=== PATIENT | female | born 1945 | race Caucasian/White ===

== ENCOUNTER 2022-08-05 22:24 | Inpatient (IN) | payer MEDICARE, BC, SELFPAY ==
[2022-08-05 22:50] VITALS: BP 112/66; PULSE 83; RESP 20; TEMP 37.2; O2SAT 88; BMI 25.3
[2022-08-05 22:59] VITALS: O2SAT 90
[2022-08-05 23:06] VITALS: PULSE 71; O2SAT 92
--- NOTE | 2022-08-05 23:23 | CRLHL7_ITS ---
For Patients: As a result of the Cures Act, medical imaging exams and procedure reports are released immediately into your electronic medical record. You may view this report before your referring provider. If you have questions, please contact your health care provider. INDICATION: Hypoxia. TECHNIQUE: Chest 1 views. COMPARISON: None. FINDINGS: Cardiovascular and mediastinum: Heart size and vasculature are normal in caliber and appearance. Lungs and pleural spaces: Subtle patchy right basilar opacities. No sign of pleural effusion. No pneumothorax. Bones and soft tissues: No significant findings. IMPRESSION: Subtle patchy right basilar opacity which suggest pneumonia. Dictated by Dano Williamson MD @ 08/06/2022 12:01:50 AM (Electronically Signed)
[2022-08-05 23:30] VITALS: PULSE 73; O2SAT 91
[2022-08-06] VITALS (16 sets, daily range): BP systolic 112–133; BP diastolic 56–94; PULSE 65–79; RESP 16–18; TEMP 36.4–36.9; O2SAT 89–98; BMI 25.0
--- NOTE | 2022-08-06 00:05 | ED_ITS ---
HPI - SOB/Dyspnea General Chief Complaint: Shortness of Breath/Dyspnea Stated Complaint: Fever, Shortness of Breath Time Seen by Provider: 08/05/22 23:09 History of Present Illness HPI Narrative: 77-year-old woman presenting to the emergency department with daughter is concerned about low oxygen saturations and dehydration has not been eating or drinking much over the last few days. Is down here visiting her daughter from [place]. Started to feel weak just generally unwell about a week ago and increased coughing through the week. Has had a lot of diarrhea as well. Not much abdominal pain. Today daughter measured her temperature at 101? point something. With measured temperature daughter then checked oxygen saturations which read 86%. Daughter tested her negative for COVID Incidentally, urine had been collected and Ms. Davison asked what status was of it noting that she has a history of some pelvic instability resulting in, ?constant urinary tract infection?. She however does not have any symptoms and acknowledges that her primary care provider would not treat what sounds like asymptomatic bacteriuria. She has been achy in her low back but it sounds as if she has also been sitting around. Denying abdominal pain at this time Related Data Home Medications Medication Instructions Recorded Confirmed atorvastatin 40 mg tablet 40 mg PO HS 08/05/22 08/06/22 cholecalciferol (vitamin D3) 25 25 mcg PO DAILY 08/05/22 08/05/22 mcg (1,000 unit) tablet levothyroxine 75 mcg tablet 75 mcg PO DAILY 08/05/22 08/05/22 lisinopril 20 mg tablet 20 mg PO DAILY 08/05/22 08/05/22 vicks nyquil severe cold and flu 15 ml PO Q4H PRN 08/05/22 08/05/22 medicine, maximum strength honey Allergies Allergy/AdvReac Type Severity Reaction Status Date / Time No Known Drug Allergies Allergy Verified 08/05/22 22:54 Review of Systems Status of ROS: Reports: 10 or more systems reviewed and unremarkable except as noted in History and below [facility] Medical History Acquired hypothyroidism Anxiety Bilateral hearing loss Essential hypertension, benign Insomnia Prediabetes SDH (subdural hematoma) Urinary retention with incomplete bladder emptying Surgical History H/O craniotomy H/O dilation and curettage H/O thyroidectomy History of appendectomy Social History Smoking Status: Former smoker What tobacco products do you use: cigarettes Smoking quit date/years: >15 years ago Do you use any of these nicotine containing products: None Second hand tobacco smoke exposure: No How often do you have a drink containing alcohol: monthly or less How often do you have six or more drinks on one occasion: Never AUDIT-C Alcohol total score: 1 Non-prescribed substance use: denies use Caffeine: No service: No Exam Narrative: Exam Narrative: Very pleasant. Disheveled. Hard of hearing. Fully alert. Cranial nerves 2-12 intact. Is breathing easily though sounds a little congested the nasopharynx. Lungs with good air movement however right-sided lung crepitus. No wheeze. Cardiovascular with regular rate and rhythm. Abdomen with normoactive bowel sounds is soft a little protuberant nontender. No masses appreciated. Extremities are without edema. Well perfused. Moving all extremities without difficulty. Able to sit up without assistance. Oropharynx is sticky. No erythema. Const: Vital Signs, click to edit/add: Vital Signs - 24 hr 08/05/22 22:50 08/05/22 23:06 08/05/22 23:30 Temperature 98.9 F Pulse Rate 71 73 Pulse Rate [Left P ulse Oximeter] 83 Respiratory Rate 20 Blood Pressure Blood Pressure [Ri ght Upper Arm] 112/66 Pulse Oximetry 88 92 91 Oxygen Delivery Me thod Room Air Nasal Cannula Nasal Cannula Oxygen Flow Rate 3 3 08/06/22 00:02 08/06/22 00:41 08/06/22 00:42 Temperature Pulse Rate 69 71 71 Pulse Rate [Left P ulse Oximeter] Respiratory Rate Blood Pressure 129/94 H Blood Pressure [Ri ght Upper Arm] Pulse Oximetry 92 94 95 Oxygen Delivery Me thod Nasal Cannula Oxygen Flow Rate 3 08/06/22 01:00 08/06/22 01:02 08/05/22 22:59 Temperature Pulse Rate 70 72 Pulse Rate [Left P ulse Oximeter] Respiratory Rate Blood Pressure 133/84 Blood Pressure [Ri ght Upper Arm] Pulse Oximetry 96 96 90 Oxygen Delivery Me thod Oxygen Flow Rate 08/06/22 01:03 Temperature Pulse Rate 65 Pulse Rate [Left P ulse Oximeter] Respiratory Rate Blood Pressure Blood Pressure [Ri ght Upper Arm] Pulse Oximetry 96 Oxygen Delivery Me thod Nasal Cannula Oxygen Flow Rate 3 Documenting provider has reviewed patient's vital signs: yes Course Vital Signs Vital signs: Initial Vital Signs Temperature 98.9 F 08/05/22 22:50 Temperature Source Temporal Artery Scan 08/05/22 22:50 Pulse Rate 83 08/05/22 22:50 Pulse Rhythm 08/05/22 22:50 Respiratory Rate 20 08/05/22 22:50 Blood Pressure 112/66 08/05/22 22:50 Blood Pressure Mean 81 08/05/22 22:50 Blood Pressure Position Sitting 08/05/22 22:50 Pulse Oximetry 88 08/05/22 22:50 Oxygen Delivery Method 08/05/22 22:50 Vital Signs Temperature 98.9 F 08/05/22 22:50 Pulse Rate 83 08/05/22 22:50 Respiratory Rate 20 08/05/22 22:50 Blood Pressure 112/66 08/05/22 22:50 Pulse Oximetry 88 08/05/22 22:50 Oxygen Delivery Method 08/05/22 22:50 Temperature 98.3 F 08/06/22 09:00 Pulse Rate 74 08/06/22 09:00 Respiratory Rate 16 08/06/22 11:59 Blood Pressure 117/71 08/06/22 09:00 Pulse Oximetry 95 08/06/22 11:04 Oxygen Delivery Method 08/06/22 10:00 Oxygen Flow Rate 1 08/06/22 11:04 MDM - SOB/Dyspnea MDM Narrative Medical decision making narrative: I would think likely got influenza type A and then has evolved a secondary pneumonia given what I see on chest x-ray already. This was done prior to my seeing patient. Does seem to have a subtle infiltrative process in the right lower lung which I think would be consistent with exam. Indeed influenza a testing is positive. It would seem symptoms going on too long to benefit from Tamiflu. CRP notably elevated. Initiated on Rocephin and azithromycin. I did discuss case with our hospitalist prior to receiving all information anticipating admission with persistent hypoxia. Has been turned up to 3 L on nasal cannula to maintain oxygen saturations above 90. Ultimately was [facility] to [facility]. Urinalysis is positive including nitrite however I would either double cover for pneumonia and urine or withhold treatment pending urine culture given described history. Lab Data Attestation: I reviewed the patient's lab results. Labs: Lab Results 08/05/22 08/05/22 08/05/22 Range/Units 22:49 23:55 23:55 WBC 7.99 (4.50-11.00) K/uL RBC 4.19 (4.00-5.20) m/uL Hgb 12.0 (12.0-16.0) gm/dL Hct 35.5 (33.0-51.0) % MCV 85 (80-100) fL MCH 29 (26-34) pg MCHC 34 (32-36) gm/dL RDW Coeff of Jovon 12.9 (11.5-15.5) % Plt Count 152 (140-440) K/uL Neut % (Auto) 81.4 H (42.0-72.0) % Lymph % (Auto) 10.1 L (20-44) % Marion % (Auto) 8.1 (0.0-11.0) % Eos % (Auto) 0.0 (0.0-7.0) % Baso % (Auto) 0.0 (0.0-3.0) % Neut # (Auto) 6.50 (1.7-7.0) K/uL Lymph # (Auto) 0.80 L (0.90-2.90) K/uL Marion # (Auto) 0.60 (0.00-0.90) K/UL Eos # (Auto) 0.00 (0.00-0.50) K/uL Baso # (Auto) 0.00 (0.00-0.30) K/uL Abs Immat Gran (auto) 0.03 (0.00-0.30) K/uL Imm/Tot Granulo (auto) 0.4 % Sodium 132 L (135-149) mmol/L Potassium 2.9 L* (3.6-5.1) mmol/L Chloride 101 (96-114) mmol/L Carbon Dioxide 25 (20-32) mmol/L BUN 19 (7-30) mg/dL Creatinine 0.8 (0.5-1.5) mg/dL Estimated Creat Clear 38.35 Estimated GFR 75 ml/min Glucose 165 H (60-115) mg/dL Venous Lactic Acid (Serial Order) Calcium 8.0 L (8.4-10.6) mg/dL Magnesium 2.1 (1.5-2.6) mg/dL C-Reactive Protein 16.6 H (0.5-1.0) mg/dL NT-Pro-B Natriuret Pep 646 H (0-450) PG/mL Urine Color (Yellow) Urine Appearance (Clear) Urine pH (5.0-8.5) Ur Specific [place] (1.000-1.030) Urine Protein (Negative) Urine Glucose (UA) (Negative) Urine Ketones (Negative) Urine Blood (Negative) Urine Nitrite (Negative) Urine Bilirubin (Negative) Urine Urobilinogen (0.2-1.0) Ur Leukocyte Esterase (Negative) Urine RBC (0-2) Urine WBC (0-5) Ur Squamous Epith Cells (None-Few) Urine Bacteria (None) SARS-CoV-2 (PCR) Negative SARS-CoV-2 (Negative) Influenza Type A (PCR) POSITIVE PCR FLU A A (Negative) Influenza Type B (PCR) Negative PCR FLU B (Negative) RSV (PCR) Negative PCR RSV (Negative) 08/05/22 08/06/22 Range/Units 23:55 00:40 WBC (4.50-11.00) K/uL RBC (4.00-5.20) m/uL Hgb (12.0-16.0) gm/dL Hct (33.0-51.0) % MCV (80-100) fL MCH (26-34) pg MCHC (32-36) gm/dL RDW Coeff of Jovon (11.5-15.5) % Plt Count (140-440) K/uL Neut % (Auto) (42.0-72.0) % Lymph % (Auto) (20-44) % Marion % (Auto) (0.0-11.0) % Eos % (Auto) (0.0-7.0) % Baso % (Auto) (0.0-3.0) % Neut # (Auto) (1.7-7.0) K/uL Lymph # (Auto) (0.90-2.90) K/uL Marion # (Auto) (0.00-0.90) K/UL Eos # (Auto) (0.00-0.50) K/uL Baso # (Auto) (0.00-0.30) K/uL Abs Immat Gran (auto) (0.00-0.30) K/uL Imm/Tot Granulo (auto) % Sodium (135-149) mmol/L Potassium (3.6-5.1) mmol/L Chloride (96-114) mmol/L Carbon Dioxide (20-32) mmol/L BUN (7-30) mg/dL Creatinine (0.5-1.5) mg/dL Estimated Creat Clear Estimated GFR ml/min Glucose (60-115) mg/dL Venous Lactic Acid (Serial Order) Calcium (8.4-10.6) mg/dL Magnesium (1.5-2.6) mg/dL C-Reactive Protein (0.5-1.0) mg/dL NT-Pro-B Natriuret Pep (0-450) PG/mL Urine Color Yellow (Yellow) Urine Appearance Clear (Clear) Urine pH 5.5 (5.0-8.5) Ur Specific [place] 1.015 (1.000-1.030) Urine Protein 1+ A (Negative) Urine Glucose (UA) Negative (Negative) Urine Ketones Negative (Negative) Urine Blood 2+ A (Negative) Urine Nitrite Positive A (Negative) Urine Bilirubin Negative (Negative) Urine Urobilinogen 0.2 (0.2-1.0) Ur Leukocyte Esterase Trace A (Negative) Urine RBC 10-25 A (0-2) Urine WBC 10-25 A (0-5) Ur Squamous Epith Cells Few (None-Few) Urine Bacteria Many A (None) SARS-CoV-2 (PCR) (Negative) Influenza Type A (PCR) (Negative) Influenza Type B (PCR) (Negative) RSV (PCR) (Negative) ECG Data Attestation: I personally reviewed and interpreted this ECG as follows: (Normal sinus rate of 72) Discharge Plan Discharge Clinical Impression: Influenza A, Respiratory failure, Pneumonia Patient Disposition: Admitted As Inpatient
[2022-08-06 00:11] LABS: Hematocrit 35.5 % (33.0-51.0); Immature Granulocytes Abs Auto 0.03 K/uL (0.00-0.30); Immature Granulocytes Pct Auto 0.4 %; Lymphocytes Percent Auto 10.1 % (20-44); Mean Corpuscular HGB Conc 34 gm/dL (32-36); Mean Corpuscular Hemoglobin 29 pg (26-34); Mean Corpuscular Volume 85 fL (80-100); Monocytes Percent Auto 8.1 % (0.0-11.0); Neutrophils Percent Auto 81.4 % (42.0-72.0); Platelet Count* 152 K/uL (140-440); RDW Coefficient of Variation % 12.9 % (11.5-15.5); Red Blood Count 4.19 m/uL (4.00-5.20); White Blood Count* 7.99 K/uL (4.50-11.00)
[2022-08-06 00:12] LABS: Lactate Sepsis w/Reflex* 1.4 mmol/L (0.5-1.9)
[2022-08-06 00:12] LABS: PCR FLU A POSITIVE PCR FLU A (Negative); PCR FLU B Negative PCR FLU B (Negative); PCR RSV Negative PCR RSV (Negative)
[2022-08-06 00:13] LABS: Slide Review Reflex No
[2022-08-06 00:14] LABS: SARS PCR* Negative SARS-CoV-2 (Negative)
[2022-08-06 00:31] LABS: Chloride* 101 mmol/L (96-114); Sodium* 132 mmol/L (135-149)
[2022-08-06 00:34] LABS: Blood Urea Nitrogen* 19 mg/dL (7-30); Carbon Dioxide* 25 mmol/L (20-32); Creatinine* 0.8 mg/dL (0.5-1.5); Est. Creatinine Clearance* 38.35; Estimated Glomerular Filt Rate 75 ml/min
[2022-08-06 00:35] LABS: Glucose* 165 mg/dL (60-115)
[2022-08-06 00:43] LABS: Potassium* 2.9 mmol/L (3.6-5.1)
[2022-08-06 00:44] LABS: NT Pro B Type NatriureticPept* 646 PG/mL (0-450)
[2022-08-06] MEDS: 0.9 % SODIUM CHLORIDE 1000 ml 1,000 ML IV (00:47)
[2022-08-06] MEDS: AZITHROMYCIN 250 MG TABLET 500 MG PO (00:47)
[2022-08-06 00:48] LABS: C Reactive Protein* 16.6 mg/dL (0.5-1.0)
[2022-08-06] MEDS: cefTRIAXone 1 GM in 0.9 % SODIUM CHLORIDE Mini-bag 100 ML IVPB ×2 (00:48→14:19)
[2022-08-06 00:49] LABS: Appearance Urine Clear (Clear); Bilirubin Urine Negative (Negative); Blood Urine 2+ (Negative); Color Urine Yellow (Yellow); Glucose Urine Negative (Negative); Ketones Urine Negative (Negative); Leukocyte Esterase Urine Trace (Negative); Nitrite Urine Positive (Negative); Protein Urine 1+ (Negative); Specific Gravity Urine 1.015 (1.000-1.030); Urobilinogen Urine 0.2 (0.2-1.0); pH Urine 5.5 (5.0-8.5)
--- OUTSIDE RECORDS SUMMARY | 2022-08-06 00:53 | XMS_ITS | Encounter Summary ---
:[address] Address [address] [place] [address]. [place] [address] Care Team Providers Name Role Phone Melissa Parikh Primary Care Provider Unavailable Thony Sousa PA-C Unavailable Encounter Details Date Type Department Care Team Description 02/09/2022 Telephone [facility] Neurology Ag Elizondo, [facility] SLIDE FASTENERS INSPECTOR [address] [place] [address] [place] [id number] [phone] Social History Tobacco Use Types Packs/Day Years Used Date Smoking Tobacco: Former Cigarettes 0.5 20 Smokeless Tobacco: Never Comments: quit 30 yrs a go/ maybe a pack a week Alcohol Use Standard Drinks/Week Comments Yes 0 (1 standard drink = 0.6 oz pure alcoho l) one drink a month Sex Assigned at Date Recorded Not on file documented as of this encounter Miscellaneous Notes Telephone Encounter - Kathleen Fierro RN - 02/09/2022 11:02 AM CDT Per Indira Elizondo NP there are no restrictions from our team since we have signed off. Called and updated patient. No further questions at this time. Telephone Encounter - Kathleen Fierro RN - 02/09/2022 10:01 AM CDT ----- Message from Kathleen Fierro RN sent at 02/08/2022 4:22 PM CDT ----- Regarding: patient question Patient left VM on RN line on 02/08 at 1539 stating she had SDH surgery in July of 2021. She is wondering if it is ok to get a cataract removed. Please call her back at [phone]. Message forwarded to Indira Elizondo NP to review and advise. documented in this encounter Plan of Treatment Not on filedocumented as of this encounter Visit Diagnoses Not on filedocumented in this encounter Care Teams Unit Secretary Relationship Specialty Start Date End Date Melissa Parikh PCP - General Internal Medicine 04/24/21 [address] [place] [address] Thony Sousa, Assigned Neuroscience 06/05/21 PA-C Provider [address] [place] [address] documented as of this encounter
--- OUTSIDE RECORDS SUMMARY | 2022-08-06 00:53 | XMS_ITS | Encounter Summary ---
:1945 Author Organization [place] Address [address] [place] [address] Care Team Providers Name Role Phone EveMelissa vanegas Spenser Primary Care Provider Unavailable Thony oSusa PA-C Unavailable Reason for Visit Rehab Therapy Integrated Services (Routine) - Closed Specialty Diagnoses / Procedures Referred By Contact Refer red To Contact Diagnoses SDH (subdural hematoma) Subdural hematoma Confusion [address] [place] [place] [address] Phone: Referral ID Status Reason Start Date Expiration Date Visits Requ ested Visits Authorized [id number] Closed 07/18/2021 09/02/2021 365 365 Encounter Details Date Type Department Care Team Description 09/01/2021 Hospital Encounter [facility] Unknown, Entered By History Rehabilitation Katerin Gupta OT [address] [place] [id number] [place] [address] [address] [place] [id number] Social History Tobacco Use Types Packs/Day Years Used Date Smoking Tobacco: Former Cigarettes 0.5 20 Smokeless Tobacco: Never Comments: quit 30 yrs a go/ maybe a pack a week Alcohol Use Standard Drinks/Week Comments Yes 0 (1 standard drink = 0.6 oz pure alcoho l) one drink a month Sex Assigned at Date Recorded Not on file COVID-19 Exposure Response Date Recorded In the last month, have you been in contact with No / Unsure 09/01/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 documented as of this encounter Medications at Time of Discharge Medication Sig Dispensed Refills Start Date End Date atorvastatin (LIPITOR) 40 Take 40 mg by mouth At 0 MG tablet Bedtime At hs cephALEXin (KEFLEX) 500 Take 500 mg by mouth 2 0 MG capsule times daily X 7 days, started 07/09/2021 Cholecalciferol (VITAMIN Take 1 tablet by mouth 0 D) 2000 UNIT tablet daily. levETIRAcetam (KEPPRA) Take 1 tablet (500 mg) 60 tablet 0 1 09/15/2020 500 MG tabletIndications: by mouth 2 times daily SDH (subdural hematoma), Subdural hematoma levothyroxine Take 75 mcg by mouth 0 (SYNTHROID/LEVOTHROID) 75 daily MCG tablet lisinopril (ZESTRIL) 20 Take 20 mg by mouth At 0 MG tablet Bedtime meclizine (ANTIVERT) 25 Take 1 tablet (25 mg) 30 tablet 1 0 04/28/2021 MG tablet by mouth every 6 hours as needed for dizziness methocarbamol (ROBAXIN) Take 1 tablet (500 mg) 40 tablet 0 07/16/2021 500 MG tabletIndications: by mouth every 6 hours SDH (subdural hematoma), as needed for muscle Subdural hematoma spasms oxyCODONE (ROXICODONE) 5 Take 1 tablet (5 mg) 40 tablet 0 1 09/15/2020 MG tabletIndications: SDH by mouth every 4 hours (subdural hematoma), as needed for Subdural hematoma breakthrough pain senna-docusate Take 1 tablet by mouth 40 tablet 0 1 (SENOKOT-S/PERICOLACE) 2 times daily as 8.6-50 MG needed for tabletIndications: SDH constipation (take (subdural hematoma), while on narcotics) Subdural hematoma documented as of this encounter Plan of Treatment Not on filedocumented as of this encounter Visit Diagnoses Not on filedocumented in this encounter Care Teams Office Service Coordinator Relationship Specialty Start Date End Date Melissa Parikh PCP - General Internal Medicine 04/24/21 [address] [place] [address] Thony Sousa, Assigned Neuroscience 06/05/21 PA-C Provider [address] [place] [address] documented as of this encounter
--- OUTSIDE RECORDS SUMMARY | 2022-08-06 00:53 | XMS_ITS | Encounter Summary ---
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 documented as of this encounter Plan of Treatment Not on filedocumented as of this encounter Visit Diagnoses Not on filedocumented in this encounter Care Teams Senior Developer Relationship Specialty Start Date End Date Melissa Parikh PCP - General Internal Medicine 04/24/21 [address] [place] [address] Thony Sousa, Assigned Neuroscience 06/05/21 [place] Provider [address] [place] [id number] documented as of this encounter
--- OUTSIDE RECORDS SUMMARY | 2022-08-06 00:53 | XMS_ITS | Encounter Summary ---
:1945 Author Organization [place] Address [address] [place] [address] Care Team Providers Name Role Phone EveMelissa vanegas Spenser Primary Care Provider Unavailable Thony Sousa PA-C Unavailable Reason for Visit Reason Onset Date Comments Symptoms 03/14/2022 Patient Request 03/14/2022 Encounter Details Date Type Department Care Team Description 03/14/2022 Telephone [facility] Guido Orantes Symp toms; Patient Clinic [place] Request [address] [facility] [id number] [place] [address] [address] [place], [place] [id number] [phone] Social History Tobacco Use Types Packs/Day Years [...] this encounter Miscellaneous Notes Telephone Encounter - Wen Walton RN - 03/14/2022 12:01 PM CDT Last Visit: 10/19/21 office visit 12 wk follow-up S/P: CRANIOTOMY, FOR SUBDURAL HEMATOMA EVACUATION on 07/13/21 Next Visit: NA Name of Provider: Dr. Orantes Assessment: See encounter note. Called daughter back and answered all questions. No further questions or concerns. Telephone Encounter - Sara Wu - 03/14/2022 10:42 AM CDT Patient family called. Patient is concerned she took a home COVID test using a nasal swap, and if that would hamper her surgical healing. documented in this encounter Plan of Treatment Not on filedocumented as of this encounter Visit Diagnoses Not on filedocumented in this encounter Care Teams Maintenance Services Dispatcher Relationship Specialty Start Date End Date Melissa Parikh PCP - General Internal Medicine 04/24/21 [address] [place] [address] Thony Sousa, Assigned Neuroscience 06/05/21 PA-C Provider [address] [place] [address] documented as of this encounter
--- OUTSIDE RECORDS SUMMARY | 2022-08-06 00:53 | XMS_ITS | Encounter Summary ---
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 documented as of this encounter Plan of Treatment Not on filedocumented as of this encounter Visit Diagnoses Not on filedocumented in this encounter Care Teams Rotoprinter Relationship Specialty Start Date End Date Melissa Parikh PCP - General Internal Medicine 04/24/21 [address] [place] [address] Thony Sousa, Assigned Neuroscience 06/05/21 MALIA Provider [address] [place] [id number] documented as of this encounter
--- OUTSIDE RECORDS SUMMARY | 2022-08-06 00:53 | XMS_ITS | Encounter Summary ---
:1945 Author Organization [facility] Address [address] [place] [address] Care Team Providers Name Role Phone MarciMelissa izaguirre Spenser Primary Care Provider Unavailable Thony Sousa PA-C Unavailable Reason for Referral Diagnostic Imaging CT Scan (Routine) - Closed Specialty Diagnoses / Procedures Referred By Contact Refer red To Contact Radiology. Diagnoses SDH (subdural hematoma) Indira Elizondo Sh Ct Scan Procedures CT Head w/o Contrast CORPORATE TRAFFIC MANAGER [address] [place] [address] [place] [address] Referral ID Status Reason Start Date Expiration Date Visits Requ ested Visits Authorized [id number] Closed 08/03/2021 08/03/2022 1 1 NT EXECUTIVE Reason for Visit Diagnostic Imaging CT Scan (Routine) - Closed Specialty Diagnoses / Procedures Referred By Contact Refer red To Contact Radiology. Diagnoses SDH (subdural hematoma) Indira Elizondo Sh Ct Scan Procedures CT Head w/o Contrast CORPORATE TRAFFIC MANAGER [address] [place] [address] [place]SS [address] Referral ID Status Reason Start Date Expiration Date Visits Requ ested Visits Authorized [id number] Closed 08/03/2021 08/03/2022 1 1 Encounter Details Date Type Department Care Team Description [facility]/29[facility]2021 [facility] Indira Farr, CORPORATE TRAFFIC MANAGER hematoma) (H) [address] [place] [phone] ER[place] BURGESS [id number] Social History Tobacco Use Types Packs/Day Years [...] been in contact with No / Unsure 08/29/2021 10:26 AM CLIENT EXECUTIVE someone who was confirmed or suspected to [...] 1 tablet by mouth 40 tablet 0 (SENOKOT-S/PERICOLACE) 2 times daily as 8.6-50 MG needed for tabletIndications: SDH constipation (take (subdural hematoma), while on narcotics) Subdural hematoma documented as of this encounter Plan of Treatment Not on filedocumented as of this encounter Procedures Procedure Name Priority Date/Time Associated Diagnosis Comme nts CT HEAD W/O Routine 08/29/2021 11:03 AM SDH (subdural Results for this CONTRAST CLIENT EXECUTIVE hematoma) (H) procedure are in the results section. documented in this encounter Results CT Head w/o Contrast (08/29/2021 11:03 AM CLIENT EXECUTIVE) Anatomical Region Laterality Modality Head, SUBRAD CT NEURO, SUBRAD CT NEURO, UMP CT NEURO, Computed Tomography RAD CT Specimen (Source) Anatomical Location Collection Method / Collectio n Time Received Time / Laterality Volume Impressions 08/29/2021 4:00 PM CLIENT EXECUTIVE IMPRESSION: 1. Redemonstrated postsurgical changes s tatus post left parietal craniotomy for partial evacuation of the left convexity subdural hematoma. 2. Interval expected evolution of a smal l residual hypodense subdural collection overlying the left frontopari etal convexity measuring 5 mm in thickness. Decreased mass effect and resolved midline shift compared to the prior exam. 3. No acute intracranial process. NELY YIP MD Narrative 08/29/2021 4:[address] SCAN OF THE HEAD WITHOUT CONTRAST ?? 08/29/2021 11:03 AM HISTORY: Craniotomy, postop. SDH (subdur al hematoma) (H). TECHNIQUE: ??Axial images of the head an d coronal reformations without IV contrast material. Radiation dose for this scan was reduced using automated exposure control, adjustment o f the mA and/or kV according to patient size, or iterative reconstruc tion technique. COMPARISON: CT head dated 07/14/2021. FINDINGS: ??Again seen are postsurgical changes status post left parietal craniotomy. Postprocedural pneu mocephalus has resolved since the prior examination. Interval decrease in size of the small hypodense residual left frontoparietal c onvexity subdural collection which has undergone expected evolution a nd now measures up to approximately 5 mm in radial thickness c ompared to 11-12 mm on the previous exam. Associated mass effect on the left cerebral hemisphere has decreased/nearly resolved and there is no longer any midline shift. The ventricles are normal in size and configuration. Mild generalized brain parenchymal volume los s. Minimal patchy hypoattenuation in the paratracheal and deep cerebral white matter is nonspecific, but likely reflects changes of chronic small vessel ischemic disease. Intracranial atheroscl erotic calcifications primarily involving the carotid siphons. Visualized orbits appear normal. The par anasal sinuses and mastoids are clear where visualized. Procedure Note Nely Yip MD - 08/29/2021Formattin g of this note might be different from the original. CT SCAN OF THE HEAD WITHOUT CONTRAST 11:03 AM HISTORY: Craniotomy, postop. SDH (subdur al hematoma) (H). TECHNIQUE: Axial images of the head and coronal reformations without IV contrast material. Radiation dose for this scan was reduced using automated exposure control, adjustment o f the mA and/or kV according to patient size, or iterative reconstruc tion technique. COMPARISON: CT head dated 07/14/2021. FINDINGS: Again seen are postsurgical ch anges status post left parietal craniotomy. Postprocedural pneu mocephalus has resolved since the prior examination. Interval decrease in size of the small hypodense residual left frontoparietal c onvexity subdural collection which has undergone expected evolution a nd now measures up to approximately 5 mm in radial thickness c ompared to 11-12 mm on the previous exam. Associated mass effect on the left cerebral hemisphere has decreased/nearly resolved and there is no longer any midline shift. The ventricles are normal in size and configuration. Mild generalized brain parenchymal volume los s. Minimal patchy hypoattenuation in the paratracheal and deep cerebral white matter is nonspecific, but likely reflects changes of chronic small vessel ischemic disease. Intracranial atheroscl erotic calcifications primarily involving the carotid siphons. Visualized orbits appear normal. The par anasal sinuses and mastoids are clear where visualized. IMPRESSION: 1. Redemonstrated postsurgical changes s tatus post left parietal craniotomy for partial evacuation of the left convexity subdural hematoma. 2. Interval expected evolution of a smal l residual hypodense subdural collection overlying the left frontopari etal convexity measuring 5 mm in thickness. Decreased mass effect and resolved midline shift compared to the prior exam. 3. No acute intracranial process. NELY YIP MD Indira Elizondo CORPORATE TRAFFIC MANAGER IMG CT ORDERABLES documented in this encounter Visit Diagnoses Diagnosis SDH (subdural hematoma) Subdural hemorrhage documented in this encounter Care Teams Fast Food Server Relationship Specialty Start Date End Date Melissa Parikh PCP - General Internal Medicine 04/24/21 [address] [place] [address] Thony Sousa, Assigned Neuroscience 06/05/21 PA-C Provider [address] [place] [id number] documented as of this encounter
--- OUTSIDE RECORDS SUMMARY | 2022-08-06 00:53 | XMS_ITS | Encounter Summary ---
:1945 Author Organization [facility] Address [address] [place] [address] Care Team Providers Name Role Phone Melissa Parikh Primary Care Provider Unavailable Thony Sousa PA-C Unavailable Encounter Details Date Type Department Care Team Description 10/19/2021 Travel Social History Tobacco Use Types Packs/Day [...] been in contact with No / Unsure 10/19/2021 9:39 AM SENIOR SAS DEVELOPER someone who was confirmed or suspected to have Coronavirus / COVID-19? documented as of this encounter Plan of Treatment Not on filedocumented as of this encounter Visit Diagnoses Not on filedocumented in this encounter Care Teams Glost Placer Relationship Specialty Start Date End Date Melissa Parikh PCP - General Internal Medicine 04/24/21 [address] [place] [address] Thony Sousa, Assigned Neuroscience 06/05/21 MALIA Provider [address] [place] [id number] documented as of this encounter
--- OUTSIDE RECORDS SUMMARY | 2022-08-06 00:53 | XMS_ITS | Encounter Summary ---
:1945 Author Organization [facility] Address [address] [place] [address] Care Team Providers Name Role Phone MarciMelissa izaguirre Spenser Primary Care Provider Unavailable Thony Sousa PA-C Unavailable Reason for Referral Diagnostic Imaging CT Scan (Routine) - Closed Specialty Diagnoses / Procedures Referred By Contact Refer red To Contact Radiology. Diagnoses SDH (subdural hematoma) S/P craniotomy Mary Keyes NP Sh Ct Scan Procedures CT Head w/o Contrast [address] [place] [address] [place] [phone] Referral ID Status Reason Start Date Expiration Date Visits Requ ested Visits Authorized [id number] Closed 08/29/2021 08/29/2022 1 1 JELLY Reason for Visit Diagnostic Imaging CT Scan (Routine) - Closed Specialty Diagnoses / Procedures Referred By Contact Refer red To Contact Radiology. Diagnoses SDH (subdural hematoma) S/P craniotomy Mary Keyes NP Sh Ct Scan Procedures CT Head w/o Contrast [address] [place] [address] [place] [phone] Referral ID Status Reason Start Date Expiration Date Visits Requ ested Visits Authorized [id number] Closed 08/29/2021 08/29/2022 1 1 Encounter Details Date Type Department Care Team Description 10/19/2021 Hospital Encounter [facility] Mary Keyes DH (subdural hematoma) (H); [facility] K, STAMP MACHINE SERVICER S/P craniotomy [address] [place] [address] S [phone] [place] [address] Social History Tobacco Use Types Packs/Day Years [...] with No / Unsure 10/19/2021 9:39 AM COOK JELLY someone who was confirmed or suspected to [...] Diagnosis Comme nts CT HEAD W/O Routine 10/19/2021 9:53 AM SDH (subdural Results for this CONTRAST COOK JELLY hematoma) (H) procedure are in S/P craniotomy the results section. documented in this encounter Results CT Head w/o Contrast (10/19/2021 9:53 AM COOK JELLY) Anatomical Region Laterality Modality Head, SUBRAD CT NEURO, SUBRAD CT NEURO, P CT NEURO, Computed Tomography RAD CT Specimen (Source) Anatomical Location Collection Method / Collectio n Time Received Time / Laterality Volume Impressions 10/19/2021 1:08 PM COOK JELLY IMPRESSION: 1. ??3 mm isodensity overlying the left frontoparietal parenchyma most consistent with reactive pachymeningeal change. 2. ??No hemorrhage or significant subdur al fluid collection. 3. ??Normal intra-axial density. 4. ??Unchanged 4.3 mm dural based left p arietal calcification. This may be a meningioma. Radiation dose for this scan was reduced using automated exposure control, adjustment of the mA and/or kV according to patient size, or iterative reconstruction technique KYLER STARR MD Narrative 10/19/2021 1:[address] OF THE HEAD WITHOUT CONTRAST 10/19/2021 9:53 AM COMPARISON: Head CT 08/29/2021 HISTORY: ??Subdural hematoma; SDH (subdu ral hematoma) (H); S/P craniotomy TECHNIQUE: ??Axial CT images of the head from the skull base to the vertex were acquired without IV contrast . FINDINGS: INTRACRANIAL CONTENTS: ?? 3 mm isodensity overlying the left front oparietal parenchyma. It is most pronounced beneath the craniotomy. This is most consistent with reactive pachymeningeal change. No hemor rhage or significant subdural fluid collection. 4.3 mm left parietal d ural based calcification which may be a small meningioma. It is unchang ed. Normal intra-axial density. Mild generalized volume loss. VISUALIZED ORBITS/SINUSES/MASTOIDS: No s ignificant orbital abnormality. ??No significant paranasal sinus mucosal disease. No significant middle ear or mastoid effusi on. OSSEOUS STRUCTURES/SOFT TISSUES: Left cr aniotomy. No acute abnormality. Procedure Note Kyler Starr MD - 10/19/2021Format ting of this note might be different from the original. CT OF THE HEAD WITHOUT CONTRAST 10/19/2021 9:53 AM COMPARISON: Head CT 08/29/2021 HISTORY: Subdural hematoma; SDH (subdura l hematoma) (H); S/P craniotomy TECHNIQUE: Axial CT images of the head f rom the skull base to the vertex were acquired without IV contrast . FINDINGS: INTRACRANIAL CONTENTS: 3 mm isodensity overlying the left front oparietal parenchyma. It is most pronounced beneath the craniotomy. This is most consistent with reactive pachymeningeal change. No hemor rhage or significant subdural fluid collection. 4.3 mm left parietal d ural based calcification which may be a small meningioma. It is unchang ed. Normal intra-axial density. Mild generalized volume loss. VISUALIZED ORBITS/SINUSES/MASTOIDS: No s ignificant orbital abnormality. No significant paranasal si nus mucosal disease. No significant middle ear or mastoid effusi on. OSSEOUS STRUCTURES/SOFT TISSUES: Left cr aniotomy. No acute abnormality. IMPRESSION: 1. 3 mm isodensity overlying the left fr ontoparietal parenchyma most consistent with reactive pachymeningeal change. 2. No hemorrhage or significant subdural fluid collection. 3. Normal intra-axial density. 4. Unchanged 4.3 mm dural based left par ietal calcification. This may be a meningioma. Radiation dose for this scan was reduced using automated exposure control, adjustment of the mA and/or kV according to patient size, or iterative reconstruction technique KYLER STARR MD Mary Keyes STAMP MACHINE SERVICER IMG CT ORDERABLES documented in this encounter Visit Diagnoses Diagnosis SDH (subdural hematoma) Subdural hemorrhage S/P craniotomy Other postprocedural status documented in this encounter Care Teams Lpn Relationship Specialty Start Date End Date Melissa Parikh PCP - General Internal Medicine 04/24/21 [address] [place] [address] Thony Sousa, Assigned Neuroscience 06/05/21 PA-C Provider [address] [place] [address] documented as of this encounter
--- OUTSIDE RECORDS SUMMARY | 2022-08-06 00:53 | XMS_ITS | Encounter Summary ---
:1945 Author Organization [facility] Address [address] [place] [address] Care Team Providers Name Role Phone EveMelissa vanegas Spenser Primary Care Provider Unavailable Thony Sousa PA-C Unavailable Reason for Visit Rehab Therapy Integrated Services (Routine) - Closed Specialty Diagnoses / Procedures Referred By Contact Refer red To Contact Diagnoses SDH (subdural hematoma) Subdural hematoma Confusion [address] [place] [address] Phone: Referral ID Status Reason Start Date Expiration Date Visits Requ ested Visits Authorized [id number] Closed 07/18/2021 09/02/2021 365 365 Encounter Details Date Type Department Care Team Description 09/15/2021 Hospital Encounter [facility] Unknown, Entered By History Rehabilitation Katerin Gupta OT [address] [place] [id number] [place] [address] [place] [phone] Social History Tobacco [...] with No / Unsure 09/15/2021 10:57 AM RESERVATION SALES AGENT someone who was confirmed or suspected to [...] on filedocumented in this encounter Care Teams Subgrade Tester Relationship Specialty Start Date End Date Melissa Parikh PCP - General Internal Medicine 04/24/21 [address] [place] [address] Thony Sousa, Assigned Neuroscience 06/05/21 PA-C Provider [address] [place] [address] documented as of this encounter
--- OUTSIDE RECORDS SUMMARY | 2022-08-06 00:53 | XMS_ITS | Clinical Summary ---
:1945 Author Organization [facility] Address [address] [place] [address] Care Team Providers Name Role Phone EveMelissa vanegas Spenser Primary Care Provider Unavailable Thony Sousa PA-C Unavailable Allergies No known active allergies Medications Medication Sig Dispensed Refills Start Date End Date Status atorvastatin (LIPITOR) Take 40 mg by 0 Active 40 MG tablet mouth At Bedtime At hs Cholecalciferol Take 1 tablet by 0 Active (VITAMIN D) 2000 UNIT mouth daily. tablet levothyroxine Take 75 mcg by 0 A ctive (SYNTHROID/LEVOTHROID) mouth daily 75 MCG tablet lisinopril (ZESTRIL) 20 Take 20 mg by 0 Active MG tablet mouth At Bedtime meclizine (ANTIVERT) 25 Take 1 tablet (25 30 tablet 1 04/28/20 21 Active MG tablet mg) by mouth every 6 hours as needed for dizziness cephALEXin (KEFLEX) 500 Take 500 mg by 0 Active MG capsule mouth 2 times daily X 7 days, started 07/09/2021 levETIRAcetam (KEPPRA) Take 1 tablet 60 tablet 0 07/16/2021 Active 500 MG (500 mg) by mouth tabletIndications: SDH 2 times daily (subdural hematoma), Subdural hematoma Additional Information Patient not taking. Reported on 10/19/2021 methocarbamol (ROBAXIN) 500 MG Take 1 tablet (500 40 tablet 0 07/16/2021 Active tabletIndications: SDH (subdural mg) by mouth every 6 hematoma), Subdural hematoma hours as needed for muscle spasms Additional Information Patient not taking. Reported on 10/19/2021 oxyCODONE (ROXICODONE) 5 MG Take 1 tablet (5 mg) by 40 tablet 0 07/16/2021 Active tabletIndications: SDH mouth every 4 hours as (subdural hematoma), Subdural needed for breakthrough hematoma pain Additional Information Patient not taking. Reported on 10/19/2021 senna-docusate Take 1 tablet by 40 tablet 0 07/16/2021 Active (SENOKOT-S/PERICOLACE) 8.6-50 MG mouth 2 times daily tabletIndications: SDH (subdural as needed for hematoma), Subdural hematoma constipation (take while on narcotics) Additional Information Patient not taking. Reported on 10/19/2021 Active Problems Problem Noted Date Confusion 07/13/2021 Subdural hematoma 07/13/2021 SDH (subdural hematoma) 04/24/2021 Fall, initial encounter 04/24/2021 Left shoulder strain, initial encounter 04/24/2021 Abrasion, knee, right, initial encounter 04/24/2021 Hypertension Hyperlipidemia Thyroid disease Resolved Problems Problem Noted Date Resolved Date Multinodular goiter 06/14/2011 06/14/2011 Immunizations Name Administration Dates Next Due Influenza (IIV3) PF 06/14/2011 Social History Tobacco Use Types Packs/Day Years Used Date Smoking Tobacco: Former Cigarettes 0.5 20 Smokeless Tobacco: Never Comments: quit 30 yrs a go/ maybe a pack a week Alcohol Use Standard Drinks/Week Comments Yes 0 (1 standard drink = 0.6 oz pure alcoho l) one drink a month Sex Assigned at Date Recorded Not on file Last Filed Vital Signs Vital Sign Reading Time Taken Comments Blood Pressure 125/77 10/19/2021 11:23 AM OCCUPATIONAL HEALTH NURSE SUPERVISOR Pulse 70 10/19/2021 11:23 AM OCCUPATIONAL HEALTH NURSE SUPERVISOR Temperature 36.6 ??C (97.9 ??F) 07/17/2021 8:22 AM OCCUPATIONAL HEALTH NURSE SUPERVISOR Respiratory Rate 16 08/29/2021 2:21 PM OCCUPATIONAL HEALTH NURSE SUPERVISOR Oxygen Saturation 100% 10/19/2021 11:23 AM OCCUPATIONAL HEALTH NURSE SUPERVISOR Inhaled Oxygen Concentration - - Weight 64 kg (141 lb) 08/29/2021 2:21 PM OCCUPATIONAL HEALTH NURSE SUPERVISOR Height 160 cm (5' 3) 08/03/2021 10:41 AM OCCUPATIONAL HEALTH NURSE SUPERVISOR Body Mass Index 24.98 08/03/2021 10:41 AM OCCUPATIONAL HEALTH NURSE SUPERVISOR Plan of Treatment Health Maintenance Due Date Last Done Comments ADVANCE CARE PLANNING 1945 ANNUAL REVIEW OF HM ORDERS 1945 DEXA 1945 HEPATITIS C SCREENING 1962 LIPID 1989 LUNG CANCER SCREENING 1994 FALL RISK ASSESSMENT 2009 ZOSTER IMMUNIZATION (2 of 04/19/2014 02/22/2014 3) PHQ-2 (once per calendar 09/03/2021 year) COVID-19 Vaccine (4 - 09/20/2021 07/26/2021, 11/09/2020, Booster for Pfizer series) 10/19/2020 INFLUENZA VACCINE (#1) 2022 06/07/2021, 06/07/2021, 06/07/2020, Additional history exists MEDICARE ANNUAL WELLNESS 07/26/2022 07/26/2021 VISIT DTAP/TDAP/TD IMMUNIZATION 09/23/2022 09/23/2012, 10/02/1989 (2 - Td or Tdap) Pneumococcal Vaccine: 65+ Completed 06/16/2016, 10/18/2015 , Years 11/28/2004 IPV IMMUNIZATION Aged Out No longer eligi ble based on patient 's age to complete this topic MENINGITIS IMMUNIZATION Aged Out No longe r eligible based on patient 's age to complete this topic Medical Devices Implanted Type Area Rn Occupational Health Device Shelf Model / Identifier Expiration Serial / Date Lot Imp Scr Syn Matrix Low Pro 1.5x04mm Self Drill [id number]. [id number] - [id number] Metallic Left: SYNTHES-STRATEC .[id number] 1 / Implanted: Qty: 8 on 07/13/2021 by Guido Orantes MD at [facility] Hardware/Anc Cranial / hor 42 03 30OC T 2020 Insurance Payer Benefit Plan / Subscriber ID Effective Dates Phone Addre ss Type Group BCBS BCBS FEDERAL [id number] 2004-Prese [phone] [address] [address] PPO EMPLOYEE nt 0 [place], [place] [address] MEDICARE MEDICARE [id number] 2009-Presdaria [phone] ATTN CL AIMS Medicare t 0 [address] [place] [address] Advance Directives For more information, please contact: [phone] Latest Code Status on File Code Status Date Activated Date Inactivated Comments Full Code 07/14/2021 9:08 AM 07/17/2021 12:37 PM All basic and advanced life-sustaining interventions are performed as jad ropriate Question Answer Comments Code status determined by: Discussion with patient/ legal de cision maker Code Status History Code Status Date Activated Date Inactivated Comments Full Code 04/25/2021 2:26 PM 04/26/2021 1:20 PM All basic an d advanced life-sustaining interventions are performed as jad ropriate Question Answer Comments Code status determined by: Discussion with patient/ legal de cision maker Care Teams Mangle Tender Relationship Specialty Start Date End Date Melissa Parikh PCP - General Internal Medicine 04/24/21 [address] [place] [address] Thony Sousa, Assigned Neuroscience 06/05/21 PA-C Provider [address] [place] [id number]
--- OUTSIDE RECORDS SUMMARY | 2022-08-06 00:53 | XMS_ITS | Encounter Summary ---
:1945 Author Organization [facility] Address [address] [place] [address]. [place] [address] Care Team Providers Name Role Phone Melissa Parikh Primary Care Provider Unavailable Thony Sousa PA-C Unavailable Encounter Details Date Type Department Care Team Description 08/31/2021 Telephone [facility] Jordi Keyes, D[facility] [address] [address] [place] [address] [place] [address] [phone] Social History Tobacco Use Types Packs/Day Years [...] with No / Unsure 09/01/2021 9:32 AM GROUP CARE WORKER someone who was confirmed or suspected to have Coronavirus / COVID-19? documented as of this encounter Miscellaneous Notes Telephone Encounter - Margarita Arellano RN - 09/01/2021 8:55 AM CST for return call. Margarita Arellano RN on 09/01/2021 at 8:55 AM P CARE WORKER Telephone Encounter - Aide Painter - 08/31/2021 10:20 AM CST Terri from [facility] called to question home care orders, please reach her at: [phone] P CARE WORKER documented in this encounter Plan of Treatment Not on filedocumented as of this encounter Visit Diagnoses Not on filedocumented in this encounter Care Teams Motor Mechanic Relationship Specialty Start Date End Date Melissa Parikh PCP - General Internal Medicine 04/24/21 [address] [place] [address] Thony Sousa, Assigned Neuroscience 06/05/21 PA-C Provider [address] [place] [id number] documented as of this encounter
--- OUTSIDE RECORDS SUMMARY | 2022-08-06 00:53 | XMS_ITS | Encounter Summary ---
:1945 Author Organization [place] Address [address] [place] [address] Care Team Providers Name Role Phone EveMelissa vanegas Spenser Primary Care Provider Unavailable Thony Sousa PA-C Unavailable Reason for Referral Home Health Therapies & Aides (Routine: Next available opening) - Pending Review Specialty Diagnoses / Procedures Referred By Contact Refer red To Contact Diagnoses SDH (subdural hematoma) S/P craniotomy Mary Keyes NP [address] [phone] Referral ID Status Reason Start Date Expiration Date Visits V isits Requested Authorized [id number] Pending 08/29/2021 08/29/2022 [address] Scan (Routine) - Closed Specialty Diagnoses / Procedures Referred By Contact Refer red To Contact Radiology. Diagnoses SDH (subdural hematoma) S/P craniotomy Mary Keyes NP Ct Scan Procedures CT Head w/o Contrast [address] [place] [address] [address] [address] [phone] Referral ID Status Reason Start Date Expiration Date Visits Requ ested Visits Authorized [id number] Closed 08/29/2021 08/29/2022 1 1 IC RELATIONS PLAYER Reason for Visit Reason Comments RECHECK Encounter Details Date Type Department Care Team Description 08/29/2021 Office Visit [facility] Caro turosana DEREK Farr [address] [facility] [address] [place] [address] S/P craniotomy (Primary Dx); Neurosurgery Clinic Mary Keyes NP [address] [place], [place] [id number] SDH (subdural hematoma) (H) [place] [address] [facility] [address] [place] [address] Social History Tobacco Use Types Packs/Day Years [...] with No / Unsure 08/29/2021 10:26 AM PUBLIC RELATIONS PLAYER someone who was confirmed or suspected to have Coronavirus / COVID-19? documented as of this encounter Last Filed Vital Signs Vital Sign Reading Time Taken Comments Blood Pressure 124/60 08/29/2021 2:21 PM PUBLIC RELATIONS PLAYER Pulse 76 08/29/2021 2:21 PM PUBLIC RELATIONS PLAYER Temperature - - Respiratory Rate 16 08/29/2021 2:21 PM PUBLIC RELATIONS PLAYER Oxygen Saturation 97% 08/29/2021 2:21 PM PUBLIC RELATIONS PLAYER Inhaled Oxygen Concentration - - Weight 64 kg (141 lb) 08/29/2021 2:21 PM PUBLIC RELATIONS PLAYER Height - - Body Mass Index 24.98 08/03/2021 10:41 AM PUBLIC RELATIONS PLAYER documented in this encounter Patient Instructions Patient InstructionsMary Keyes NP - 08/29/2021 2:00 PM CST - Continue with routine post op care plan and incision care - Activity as tolerated - Follow up in [address] prior - Call clinic with any post op questions or concerns -Seek medical attention with any increased headaches, dizziness, nausea/vomiting, vision/speech changes, weakness, confusion, seizure activity, or other neurological changes. IC RELATIONS PLAYER documented in this encounter Progress Notes Mary Keyes NP - 08/29/2021 2:00 PM CST [facility] Follow Up Visit HPI: Ema Davison is a 76 year old female who presents 6 weeks s/p left craniotomy for SDH evacuation with Dr. Orantes. Patient reports feeling well. Denies any incision concerns. She reports intermittent headache managed with Tylenol PRN. Denies any dizziness, nausea, vision/speech changes, or other neurological changes. She continues to work with OT for cognitive testing. She completed Keppra x 1month. Daughters are also present for visit and they would like a home evaluation to assess for safety/fall risks in the home. Past Medical History: Diagnosis Date ??? Hyperlipidemia ??? Hypertension ??? Kidney stone ??? Post-nasal drip ??? Thyroid disease Past Medical History reviewed with patient during visit. Past Surgical History: Procedure Laterality Date ??? APPENDECTOMY ??? CRANIOTOMY, EVACUATE HEMATOMA SUBDURAL, COMBINED Left 07/13/2021 Procedure: CRANIOTOMY, FOR SUBDURAL HEMATOMA EVACUATION; Surgeon: Guido Orantes MD; Location: OR ??? HUMAN RESOURCES GENERALIST SURGERY ??? nasal polyps removed ??? THYROIDECTOMY 06/13/2011 Procedure:THYROIDECTOMY; TOTAL THYROIDECTOMY; Surgeon:ALFREDO VALENZUELA; Location: OR Past Surgical History reviewed with patient during visit. Current Outpatient Medications Medication ??? atorvastatin (LIPITOR) 40 MG tablet ??? cephALEXin (KEFLEX) 500 MG capsule ??? Cholecalciferol (VITAMIN D) 2000 UNIT tablet ??? levETIRAcetam (KEPPRA) 500 MG tablet ??? levothyroxine (SYNTHROID/LEVOTHROID) 75 MCG tablet ??? lisinopril (ZESTRIL) 20 MG tablet ??? meclizine (ANTIVERT) 25 MG tablet ??? methocarbamol (ROBAXIN) 500 MG tablet ??? oxyCODONE (ROXICODONE) 5 MG tablet ??? senna-docusate (SENOKOT-S/PERICOLACE) 8.6-50 MG tablet No current facility-administered medications for this visit. No Known Allergies Social History Socioeconomic History ??? Marital status: Spouse name: Not on file ??? Number of children: Not on file ??? Years of education: Not on file ??? Highest education level: Not on file Occupational History ??? Not on file Tobacco Use ??? Smoking status: Former Smoker Packs/day: 0.50 Years: 20.00 Pack years: 10.00 Types: Cigarettes ??? Smokeless tobacco: Never Used ??? Tobacco comment: quit 30 yrs a go/ maybe a pack a week Substance and Sexual Activity ??? Alcohol use: Yes Comment: one drink a month ??? Drug use: No ??? Sexual activity: Not on file Other Topics Concern ??? Parent/sibling w/ CABG, [place] or angioplasty before 65F 55M? Not Asked Social History Narrative ??? Not on file Social Determinants of Health Financial Resource Strain: Not on file Food Insecurity: Not on file Transportation Needs: Not on file Physical Activity: Not on file Stress: Not on file Social Connections: Not on file Intimate Partner Violence: Not on file Housing Stability: Not on file ROS: 10 point ROS neg other than the symptoms noted above in the HPI. Vital Signs: BP 124/60 Pulse 76 Resp 16 Wt 141 lb (64 kg) SpO2 97% BMI 24.98 kg/m?? Examination: Constitutional: Alert, well nourished, NAD. HEENT: Normocephalic, atraumatic. Pulm: Without shortness of breath or audible adventitious respiratory sounds. CV: No pitting edema of BLE. Brisk capillary refill, CMS intact. Neurological: Awake Alert Oriented x 3 Speech clear Cranial nerves II - XII intact PERRL EOMI Face symmetric Tongue midline Motor exam: 5/5 strength in all four extremities. Sensation intact Finger to Nose smooth Pronator drift negative Gait: Able to stand from a seated position. Normal non-antalgic, non-myelopathic gait. Incision: Well healed Imaging: CT SCAN OF THE HEAD WITHOUT CONTRAST 08/29/2021 11:03 AM IMPRESSION: 1. Redemonstrated postsurgical changes status post left parietal craniotomy for partial evacuation of the left convexity subdural hematoma. 2. Interval expected evolution of a small residual hypodense subdural collection overlying the left frontoparietal convexity measuring 5 mm in thickness. Decreased mass effect and resolved midline shift compared to the prior exam. 3. No acute intracranial process. Assessment/Plan: 76 year old female who presents 6 weeks s/p left craniotomy for SDH evacuation. Doing well post op. Head CT today shows decreased residual subdural collection now measuring 5 mm, decreased mass effect and resolved midline shift compared to prior exam. - Continue with routine post op care plan and incision care - Activity as tolerated - Continue with OT - Home Care Nursing referral for fall risk assessment in the home - Follow up in [address] prior - Call clinic with any post op questions or concerns Discussed red flag symptoms and advised to seek medical attention with any increased headaches, dizziness, nausea/vomiting, vision/speech changes, weakness, confusion, seizure activity, or other neurological changes. Patient voiced understanding and agreement. Mary Keyes CNP [facility] [place] [address] Pager [phone] IC RELATIONS PLAYER documented in this encounter Nursing Notes Jsesica Dela Cruz MA - 08/29/2021 2:00 PM CST Ema Davison is a 76 year old female who presents for: Chief Complaint Patient presents with ??? RECHECK Initial Vitals: BP 124/60 Pulse 76 Resp 16 Wt 141 lb (64 kg) SpO2 97% BMI 24.98 kg/m?? Estimated body mass index is 24.98 kg/m?? as calculated from the following: Height as of 21: 5' 3 (1.6 m). Weight as of this encounter: 141 lb (64 kg).. Body surface area is 1.69 meters squared. BP completed using cuff size: wrist cuff Data Unavailable Nursing Comments: Jessica Dela Cruz CMA IC RELATIONS PLAYER documented in this encounter Plan of Treatment Scheduled Referrals Name Type Priority Associated Diagnoses Order S [facility] Home Care Nursing Referral Routine: Next SDH (subdural Ordered: Referral available opening hematoma) (H) 08/29/2021 S/P craniotomy documented as of this encounter Results CT Head w/o Contrast (10/19/2021 9:53 AM PUBLIC RELATIONS PLAYER) Anatomical Region Laterality Modality Head, SUBRAD CT NEURO, SUBRAD CT NEURO, UMP CT NEURO, Computed Tomography RAD CT Specimen (Source) Anatomical Location Collection Method / Collectio n Time Received Time / Laterality Volume Impressions 10/19/2021 1:08 PM PUBLIC RELATIONS PLAYER IMPRESSION: 1. ??3 mm isodensity overlying the [...] patient size, or iterative reconstruction technique KYLER BRICE MD Narrative 10/19/2021 1:[address] OF THE HEAD WITHOUT CONTRAST 10/19/2021 [...] cr aniotomy. No acute abnormality. Procedure Note Asis, Kyler Billy, MD - 10/19/2021Format ting of this note [...] patient size, or iterative reconstruction technique KYLER BRICE MD Mary Keyes NP IMG CT ORDERABLES documented in this encounter Visit Diagnoses Diagnosis S/P craniotomy - Primary Other postprocedural status SDH (subdural hematoma) Subdural hemorrhage SDH (subdural hematoma) Subdural hemorrhage S/P craniotomy Other postprocedural status documented in this encounter Care Teams Vending Machine Filler Relationship Specialty Start Date End Date Melissa Parikh PCP - General Internal Medicine 04/24/21 [address] [address] Thony Sousa, Assigned Neuroscience 06/05/21 PA-C Provider [address] [address] [address] documented as of this encounter
--- OUTSIDE RECORDS SUMMARY | 2022-08-06 00:53 | XMS_ITS | Encounter Summary ---
:1945 Author Organization [facility] Address [address] [place] [address] Care Team Providers Name Role Phone Melissa Parikh Primary Care Provider Unavailable Thony Sousa PA-C Unavailable Reason for Visit Reason Comments Surgical Followup 12 wk crani for SDH; DOS: Results CT review Encounter Details Date Type Department Care Team Description 10/19/2021 Office Visit [facility] Jordi Keyes REGIONAL CLIMATE CHANGE ANALYST [address] [place] [address] [address] SDH (subdural hematoma) (H) (Primary Dx) ; Neurology Clinics - Indira Elizondo REGIONAL CLIMATE CHANGE ANALYST [address] [place] [address] S/P craniotomy [place] [address] [facility], [address] [place] [address] Social History Tobacco Use Types [...] with No / Unsure 10/19/2021 9:39 AM PHOTOGRAMMETRIC TECHNICIAN someone who was confirmed or suspected to have Coronavirus / COVID-19? documented as of this encounter Last Filed Vital Signs Vital Sign Reading Time Taken Comments Blood Pressure 125/77 10/19/2021 11:23 AM PHOTOGRAMMETRIC TECHNICIAN Pulse 70 10/19/2021 11:23 AM PHOTOGRAMMETRIC TECHNICIAN Temperature - - Respiratory Rate - - Oxygen Saturation 100% 10/19/2021 11:23 AM PHOTOGRAMMETRIC TECHNICIAN Inhaled Oxygen Concentration - - Weight - - Height - - Body Mass Index - - documented in this encounter Patient Instructions Patient InstructionsIndira Elizondo NP - 10/19/2021 11:30 AM PHOTOGRAMMETRIC TECHNICIAN -Follow up as needed. - Call the clinic at [phone] for increasing redness, swelling or pus draining from the incision, increased pain or any other questions and concerns. - Go to ER with any seizure activity, mental status change (increasing confusion), difficulty with speech or increasing or acute weakness OGRAMMETRIC TECHNICIAN documented in this encounter Progress Notes Indira Elizondo NP - 10/19/2021 11:30 AM CST [facility] Neurosurgery Neurosurgery Followup: HPI: 76F 3 months s/p left craniotomy for SDH evacuation with Dr. Orantes on 07/13/2021. Doing well. Has some frontal headaches. No dizziness, nausea/vomiting, vision changes, or weakness. Incision intact. Medical, surgical, family, and social history unchanged since prior exam. Exam: Constitutional: Alert, well nourished, NAD. HEENT: Normocephalic, atraumatic. Pulm: Without shortness of breath or audible adventitious respiratory sounds. CV: No pitting edema of BLE. Brisk capillary refill, CMS intact. Vital Signs: BP 125/77 Pulse 70 SpO2 100% Neurological: Awake Alert Oriented x 3 Speech clear Cranial nerves II - XII intact PERRL EOMI Face symmetric Tongue midline Motor exam 5/5 strength in all four extremities. Sensation intact Finger to Nose smooth Pronator drift negative Gait: Able to stand from a seated position. Normal non-antalgic, non-myelopathic gait. Able to heel/toe walk without loss of balance Incisions Healing nicely. Imaging: Head CT 10/19/2021 IMPRESSION: 1. 3 mm isodensity overlying the left frontoparietal parenchyma most consistent with reactive pachymeningeal change. 2. No hemorrhage or significant subdural fluid collection. 3. Normal intra-axial density. 4. Unchanged 4.3 mm dural based left parietal calcification. This may be a meningioma. A/P: s/p craniotomy for SDH Patient Instructions -Follow up as needed. - Call the clinic at [phone] for increasing redness, swelling or pus draining from the incision, increased pain or any other questions and concerns. - Go to ER with any seizure activity, mental status change (increasing confusion), difficulty with speech or increasing or acute weakness Indira Elizondo CNP [facility] [address] [place] [address] OGRAMMETRIC TECHNICIAN documented in this encounter Nursing Notes Markie Galarza MA - 10/19/2021 11:30 AM CST Ema Davison is a 76 year old female who presents for: Chief Complaint Patient presents with ??? Surgical Followup 12 wk crani for SDH; DOS: 07/13/21 ??? Results CT review Initial Vitals: BP 125/77 Pulse 70 SpO2 100% Estimated body mass index is 24.98 kg/m?? as calculated from the following: Height as of 08/03/21: 5' 3 (1.6 m). Weight as of 08/29/21: 141 lb (64 kg).. There is no height or weight on file to calculate BSA. BP completed using cuff size: regular Severe Pain (6) Markie Galarza MA OGRAMMETRIC TECHNICIAN documented in this encounter Plan of Treatment Not on filedocumented as of this encounter Visit Diagnoses Diagnosis SDH (subdural hematoma) - Primary Subdural hemorrhage S/P craniotomy Other postprocedural status documented in this encounter Care Teams General Warehouse Associate Relationship Specialty Start Date End Date Melissa Parikh PCP - General Internal Medicine 04/24/21 [address] [address] [address] Thony Sousa, Assigned Neuroscience 06/05/21 PA-C Provider [address] [address] [id number] documented as of this encounter
--- OUTSIDE RECORDS SUMMARY | 2022-08-06 00:53 | XMS_ITS | Encounter Summary ---
:1945 Author Organization [place] Address [address] [place] [address] Care Team Providers Name Role Phone Melissa Parikh Primary Care Provider Unavailable Thony Sousa PA-C Unavailable Encounter Details Date Type Department Care Team Description 08/29/2021 Travel Social History Tobacco Use Types Packs/Day [...] with No / Unsure 08/29/2021 10:26 AM POLE FRAME CONSTRUCTION WORKER someone who was confirmed or suspected to have Coronavirus / COVID-19? documented as of this encounter Plan of Treatment Not on filedocumented as of this encounter Visit Diagnoses Not on filedocumented in this encounter Care Teams Radiologic Electronic Specialist Relationship Specialty Start Date End Date Melissa Parikh PCP - General Internal Medicine 04/24/21 [address] [address] [address] Thony Sousa, Assigned Neuroscience 06/05/21 MALIA Provider [address] [address] [id number] documented as of this encounter
--- OUTSIDE RECORDS SUMMARY | 2022-08-06 00:53 | XMS_ITS | Encounter Summary ---
:1945 Author Organization [place] Address [address] [place] [address] Care Team Providers Name Role Phone Melissa Parikh Primary Care Provider Unavailable Thony Sousa PA-C Unavailable Reason for Visit Reason Onset Date Comments question about travel 10/05/2021 Encounter Details Date Type Department Care Team Description 10/05/2021 Telephone [facility] Thony Sousa question about travel Neurology Clinics - MALIA Bennett [address], [address] [place] [address] [place] [address] [phone] Social History Tobacco Use Types Packs/Day Years [...] with No / Unsure 09/15/2021 10:57 AM TRUST CLERK someone who was confirmed or suspected to have Coronavirus / COVID-19? documented as of this encounter Miscellaneous Notes Telephone Encounter - Harlan Burks RN - 10/06/2021 4:14 PM CST As per Provider it is safe for patient to fly at this point post op. Notified daughter. T CLERK Telephone Encounter - Kaleigh Tirado RN - 10/05/2021 10:09 AM CST Spoke with patient's daughter Gina regarding her mother's travel plans. Patient is s/p craniotomy for evacuation of SDH on 07/13/21. Patient has a follow-up visit on 10/19/21 and wants to fly to [place] on 10/20/21 which will be 14 weeks and 1 day post-op. Informed patient's daughter that I will reach out to care team to check if they have any concerns with this travel plan and get back to her. T CLERK Telephone Encounter - Bhavani Dewtit - 10/05/2021 10:00 AM CST Pt's daughter Gina is asking if it is ok for her mom to travel via airplane in a couple weeks postcraniotomy. Please call her back at [phone]. Thank you~ T CLERK documented in this encounter Plan of Treatment Not on filedocumented as of this encounter Visit Diagnoses Not on filedocumented in this encounter Care Teams Whip Sawyer Relationship Specialty Start Date End Date Melissa Parikh PCP - General Internal Medicine 04/24/21 [address] [address] [address] Thony Sousa, Assigned Neuroscience 06/05/21 PA-C Provider [address] [place] [address] [id number] documented as of this encounter
--- OUTSIDE RECORDS SUMMARY | 2022-08-06 00:53 | XMS_ITS | Encounter Summary ---
:1945 Author Organization [facility] Address [address] [place] [address] Care Team Providers Name Role Phone Melissa Parikh Primary Care Provider Unavailable Thony Sousa PA-C Unavailable Encounter Details Date Type Department Care Team Description 09/01/2021 Travel Social History Tobacco Use Types Packs/Day [...] with No / Unsure 09/01/2021 9:32 AM MAGISTERIAL DISTRICT JUDGE someone who was confirmed or suspected to have Coronavirus / COVID-19? documented as of this encounter Plan of Treatment Not on filedocumented as of this encounter Visit Diagnoses Not on filedocumented in this encounter Care Teams Snaker Driving Horses Relationship Specialty Start Date End Date Melissa Parikh PCP - General Internal Medicine 04/24/21 [address] [address] [address] Thony Sousa, Assigned Neuroscience 06/05/21 MALIA Provider [address] [place] [address] [id number] documented as of this encounter
[2022-08-06] MEDS: POTASSIUM BICARB 25 MEQ EFFERVESCENT TAB 50 MEQ PO (00:54)
--- OUTSIDE RECORDS SUMMARY | 2022-08-06 00:54 | XMS_ITS | Encounter Summary ---
:1945 Author Organization [facility] Address [address] [place] [address] Care Team Providers Name Role Phone Melissa Parikh Primary Care Provider Unavailable Thony Sousa PA-C Unavailable Reason for Referral Care Coordination (Routine) - Closed Specialty Diagnoses / Procedures Referred By Contact Refer red To Contact Diagnoses Other specified counseling Melissa Parikh [facility] [address], [place] [address] Referral ID Status Reason Start Date Expiration Date Visits Requ ested Visits Authorized [id number] Closed 07/18/2021 07/18/2022 1 1 OPERATOR Encounter Details Date Type Department Care Team Description 07/18/2021 Orders Only [facility] Care Melissa Parikh Other specified Coordination [facility] [place], [place] [address] [place] [address] [place], [place] [phone] [address] Social History Tobacco Use Types Packs/Day Years [...] been in contact with No / Unsure 07/13/2021 2:44 PM TUB 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 documented as of this encounter Plan of Treatment Scheduled Referrals Name Type Priority Associated Diagnoses Order S [facility] Referral Routine: Next Other specified Expected: Discharge - available opening counseling 07/18/2021 Referral to CC (Approximate) , Expires: 07/18/2022 documented as of this encounter Visit Diagnoses Diagnosis Other specified counseling documented in this encounter Care Teams Combine Mechanic Relationship Specialty Start Date End Date Melissa Parikh PCP - General Internal Medicine 04/24/21 [address] [place] [address] Thony Sousa, Assigned Neuroscience 06/05/21 PA-C Provider [address] [place] [address] [id number] documented as of this encounter
--- OUTSIDE RECORDS SUMMARY | 2022-08-06 00:54 | XMS_ITS | Encounter Summary ---
:1945 Author Organization [facility] Address [address] [place] [address] Care Team Providers Name Role Phone Melissa Parikh Primary Care Provider Unavailable Thony Sousa PA-C Unavailable Encounter Details Date Type Department Care Team Description 07/21/2021 Travel Social History Tobacco Use Types Packs/Day [...] been in contact with No / Unsure 07/21/2021 9:58 AM AMERICAN HISTORY TEACHER someone who was confirmed or suspected to have Coronavirus / COVID-19? documented as of this encounter Plan of Treatment Not on filedocumented as of this encounter Visit Diagnoses Not on filedocumented in this encounter Care Teams Pelt Salter Relationship Specialty Start Date End Date Melissa Parikh PCP - General Internal Medicine 04/24/21 [address] [place] [address] Thony Sousa, Assigned Neuroscience 06/05/21 MALIA Provider [address] [place] [address] [address] documented as of this encounter
--- OUTSIDE RECORDS SUMMARY | 2022-08-06 00:54 | XMS_ITS | Encounter Summary ---
:1945 Author Organization [place] Address [address] [place] [address] Care Team Providers Name Role Phone Melissa Parikh Primary Care Provider Unavailable Thony Sousa PA-C Unavailable Reason for Visit Reason Onset Date Comments Anti seizure meds question 08/04/2021 Encounter Details Date Type Department Care Team Description 08/04/2021 Telephone [facility] [place], Anti seizu re meds Neurosurgery Clinic Indira Farr NP question [address] [address] [place] [address] [place] [address] [phone] Social History Tobacco Use Types Packs/Day Years [...] been in contact with No / Unsure 08/03/2021 10:20 AM MUSIC PRODUCER someone who was confirmed or suspected to have Coronavirus / COVID-19? documented as of this encounter Miscellaneous Notes Telephone Encounter - Harlan Burks RN - 08/04/2021 2:50 PM CST As per Provider, patient to take Keppra as ordered for 30 days. Called and communicated to caregiver. Understands and is agreeable. C PRODUCER Telephone Encounter - Bhavani Deiwtt - 08/04/2021 9:20 AM CST Reason for call: Pt's daughter Kimberley would like a call back to discuss whether or not her mother will need to continue her seizure medication. Please call her back at [phone]. Thank you~ C PRODUCER documented in this encounter Plan of Treatment Not on filedocumented as of this encounter Visit Diagnoses Not on filedocumented in this encounter Care Teams Dry Cleaning Counter Clerk Relationship Specialty Start Date End Date Melissa Parikh PCP - General Internal Medicine 04/24/21 [address] [address] [address] Thony Sousa, Assigned Neuroscience 06/05/21 MIGUEL-C Provider [address] [place] [id number] documented as of this encounter
--- OUTSIDE RECORDS SUMMARY | 2022-08-06 00:54 | XMS_ITS | Encounter Summary ---
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 documented as of this encounter Plan of Treatment Not on filedocumented as of this encounter Visit Diagnoses Not on filedocumented in this encounter Care Teams Hammer Driver Relationship Specialty Start Date End Date Melissa Parikh PCP - General Internal Medicine 04/24/21 [address] [place] [address] Thony Sousa, Assigned Neuroscience 06/05/21 MALIA Provider [address] [place] [id number] documented as of this encounter
--- OUTSIDE RECORDS SUMMARY | 2022-08-06 00:54 | XMS_ITS | Encounter Summary ---
:1945 Author Organization [facility] Address [address] [place] [address] Care Team Providers Name Role Phone EveMelissa vanegas Spenser Primary Care Provider Unavailable Thony Sousa PA-C Unavailable Reason for Visit Rehab Therapy Integrated Services (Routine) - Closed Specialty Diagnoses / Procedures Referred By Contact Refer red To Contact Diagnoses SDH (subdural hematoma) Subdural hematoma Confusion [address] [place] [address] Phone: Referral ID Status Reason Start Date Expiration Date Visits Requ ested Visits Authorized [id number] Closed 07/18/2021 09/02/2021 365 365 Encounter Details Date Type Department Care Team Description 08/25/2021 Hospital Encounter [facility] Unknown, Entered By History Rehabilitation Katerin Gupta OT [address] [place] [id number] [place] [address] [address] [place] [phone] Social History Tobacco [...] with No / Unsure 08/25/2021 9:06 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
--- OUTSIDE RECORDS SUMMARY | 2022-08-06 00:54 | XMS_ITS | Encounter Summary ---
:1945 Author Organization [facility] Address [facility] [place] [address] Care Team Providers Name Role Phone MarciMelissa izaguirre A Primary Care Provider Unavailable Thony Sousa PA-C Unavailable Reason for Referral Diagnostic Imaging CT Scan (Routine) - Closed Specialty Diagnoses / Procedures Referred By Contact Refer red To Contact Radiology. Diagnoses SDH (subdural hematoma) Indira Elizondo Sh Ct Scan Procedures CT Head w/o Contrast PROGRAMMER OPERATOR NUMERICAL CONTROL [id number] [facility] [place] [phone] [place] [address] Referral ID Status Reason Start Date Expiration Date Visits Requ ested Visits Authorized [id number] Closed 08/03/2021 08/03/2022 1 1 DRIVING NOZZLEMAN Reason for Visit Reason Comments Neurologic Problem 2 wk craniotomy follw up. Encounter Details Date Type Department Care Team Description 08/03/2021 Office Visit [facility]o SDH (subdu ral Neurosurgery [facility] Indira Farr NP hematoma) (H) Bianca [address] (Primary Dx) [address] [place] [address] [place] [address] [place] [address] [phone] Social History Tobacco Use Types Packs/Day Years [...] with No / Unsure 08/03/2021 10:20 AM PILE DRIVING NOZZLEMAN someone who was confirmed or suspected to have Coronavirus / COVID-19? documented as of this encounter Last Filed Vital Signs Vital Sign Reading Time Taken Comments Blood Pressure 125/72 08/03/2021 10:41 AM PILE DRIVING NOZZLEMAN Pulse 50 08/03/2021 10:41 AM PILE DRIVING NOZZLEMAN Temperature - - Respiratory Rate - - Oxygen Saturation 98% 08/03/2021 10:41 AM PILE DRIVING NOZZLEMAN Inhaled Oxygen Concentration - - Weight 64 kg (141 lb) 08/03/2021 10:41 AM PILE DRIVING NOZZLEMAN Height 160 cm (5' 3) 08/03/2021 10:41 AM PILE DRIVING NOZZLEMAN Body Mass Index 24.98 08/03/2021 10:41 AM PILE DRIVING NOZZLEMAN documented in this encounter Patient Instructions Patient InstructionsIndira Elizondo NP - 08/03/2021 10:30 AM PILE DRIVING NOZZLEMAN - Continue to avoid submerging your incision in water (hot tub, bath tub, swimming pool, etc.) -Follow up in 4 weeks with a head CT prior. - Call the clinic at [phone] for increasing redness, swelling or pus draining from the incision, increased pain or any other questions and concerns. - Go to ER with any seizure activity, mental status change (increasing confusion), difficulty with speech or increasing or acute weakness DRIVING NOZZLEMAN documented in this encounter Progress Notes Indira Elizondo NP - 08/03/2021 10:30 AM CST [facility] Neurosurgery Neurosurgery Followup: HPI: 76 year old female who presents for a staple removal following a craniotomy for SDH evacuation.She denies headache, dizziness, nausea/vomiting, and vision changes. No weakness. Incision intact with ivana. Medical, surgical, family, and social history unchanged since prior exam. Exam: Constitutional: Alert, well nourished, NAD. HEENT: Normocephalic, atraumatic. Pulm: Without shortness of breath or audible adventitious respiratory sounds. CV: No pitting edema of BLE. Brisk capillary refill, CMS intact. Vital Signs: BP 125/72 Pulse 50 Ht 5' 3 (1.6 m) Wt 141 lb (64 kg) SpO2 98% BMI 24.98 kg/m?? Neurological: Awake Alert Oriented x 3 Speech clear Cranial nerves II - XII intact PERRL EOMI Face symmetric Tongue midline Motor exam 5/5 strength in all four extremities. Sensation intact Finger to Nose smooth Pronator drift negative Gait: Able to stand from a seated position. Normal non-antalgic, non-myelopathic gait. Able to heel/toe walk without loss of balance Incisions Incision approximated with ivana which were removed. No erythema, edema, or drainage. A/P: s/p craniotomy for subdural hematoma. Doing well. Jewell removed without concern. Follow up asscheduled. Patient Instructions -Follow up in 4 weeks with a head CT prior. - Call the clinic at [phone] for increasing redness, swelling or pus draining from the incision, increased pain or any other questions and concerns. - Go to ER with any seizure activity, mental status change (increasing confusion), difficulty with speech or increasing or acute weakness Indira Elizondo CNP [facility] Neurosurgery [address] [place] [address] [place] [id number] DRIVING NOZZLEMAN documented in this encounter Nursing Notes Jeffery Pace - 08/03/2021 10:30 AM CST Ema Davison is a 76 year old female who presents for: Chief Complaint Patient presents with ??? Neurologic Problem 2 wk craniotomy follw up. Initial Vitals: BP 125/72 Pulse 50 Ht 5' 3 (1.6 m) Wt 141 lb (64 kg) SpO2 98% BMI 24.98 kg/m?? Estimated body mass index is 24.98 kg/m?? as calculated from the following: Height as of this encounter: 5' 3 (1.6 m). Weight as of this encounter: 141 lb (64 kg).. Body surface area is 1.69 meters squared. BP completed using cuff size: regular No Pain (0) Nursing Comments: Jeffery Pace DRIVING NOZZLEMAN documented in this encounter Plan of Treatment Not on filedocumented as of this encounter Results CT Head w/o Contrast (08/29/2021 11:03 AM PILE DRIVING NOZZLEMAN) Anatomical Region Laterality Modality Head, SUBRAD CT NEURO, SUBRAD CT NEURO, UMP CT NEURO, Computed Tomography RAD CT Specimen (Source) Anatomical Location Collection Method / Collectio n Time Received Time / Laterality Volume Impressions 08/29/2021 4:00 PM PILE DRIVING NOZZLEMAN IMPRESSION: 1. Redemonstrated postsurgical changes s tatus [...] NELY YIP MD Narrative 08/29/2021 4:00 [address]ING NOZZLEMAN CT SCAN OF THE HEAD WITHOUT CONTRAST [...] acute intracranial process. NELY YIP MD Indira Chika Elizondo PROGRAMMER OPERATOR NUMERICAL CONTROL IMG CT ORDERABLES documented in this encounter Visit Diagnoses Diagnosis SDH (subdural hematoma) - Primary Subdural hemorrhage SDH (subdural hematoma) Subdural hemorrhage documented in this encounter Care Teams Consulting Analyst Relationship Specialty Start Date End Date Melissa Parikh PCP - General Internal Medicine 04/24/21 [address] [place] [address] Thony Sousa, Assigned Neuroscience 06/05/21 PA-C Provider [address] [place] [id number] documented as of this encounter
--- OUTSIDE RECORDS SUMMARY | 2022-08-06 00:54 | XMS_ITS | Encounter Summary ---
:1945 Author Organization [facility] Address [address] [place] [id number] Care Team Providers Name Role Phone Melissa Parikh Spenser Primary Care Provider Unavailable Thony Sousa PA-C Unavailable Reason for Referral Rehab Therapy Integrated Services (Routine) - Closed Specialty Diagnoses / Procedures Referred By Contact Refer red To Contact Diagnoses SDH (subdural hematoma) Subdural hematoma Confusion [address] [address] Phone: Referral ID Status Reason Start Date Expiration Date Visits Requ ested Visits Authorized [id number] Closed 07/18/2021 09/02/2021 365 365 [employer] SALES [employer]OCIATE Reason for Visit Reason Comments Aphasia Auth/Cert Specialty Diagnoses / Procedures Referred By Contact Refer red To Contact Intensive Care Diagnoses Confusion Subdural hematoma SDH (subdural hematoma) SDH (subdural hematoma) (H) Subdural hematoma (H) Confusion Intensive Care [id number] [phone] Phone: Referral ID Status Reason Start Date Expiration Date Visits Requ ested Visits Authorized [id number] 1 1 Encounter Details Date Type Department Care Team Description 07/13/2021 - [facility] Kelly, Mi blanco Tellez MD [facility] [address] [place] [address] SDH (subdural hematoma) (H) (Primary Dx) ; 07/17/2021 [place] [address] [place] [address] Subdural hematoma (H); Neuroscience Unit Confusion [id number] [phone] Social History Tobacco Use Types Packs/Day Years [...] with No / Unsure 07/13/2021 2:44 PM [employer]ION[employer] SALES [employer]OCIATE someone who was confirmed or suspected to have Coronavirus / COVID-19? documented as of this encounter Last Filed Vital Signs Vital Sign Reading Time Taken Comments Blood Pressure 138/75 07/17/2021 8:22 AM [employer] SALES [employer]IATE Pulse 67 07/17/2021 8:22 AM [employer]AL SALES [employer]IATE Temperature 36.6 ??C (97.9 ??F) 07/17/2021 8:22 AM [employer]AL SALES [employer]OCIATE Respiratory Rate 16 07/17/2021 8:22 AM REGIONAL SALES ASSOCIATE Oxygen Saturation 98% 07/17/2021 8:22 AM REGIONAL SALES ASSOCIATE Inhaled Oxygen Concentration - - Weight 65.7 kg (144 lb 13.5 oz) 07/14/2021 2:00 AM REGIONAL SALES ASSOCIATE Height 160 cm (5' 3) 07/13/2021 2:53 PM [employer]AL SALES ASSOCIATE Body Mass Index 25.66 07/13/2021 2:53 PM REGIONAL SALES ASSOCIATE documented in this encounter Discharge Summaries Alea Hawkins, MANSOORR - 07/17/2021 8:42 AM CST Occupational Therapy Discharge Summary Reason for therapy discharge: Discharged to home with outpatient therapy. Progress towards therapy goal(s). See goals on Care Plan in [facility] electronic health record for goal details. Goals partially met. Barriers to achieving goals: discharge from facility. Therapy recommendation(s): Continued therapy is recommended. Rationale/Recommendations: to increase indep with functional cognition for completion of medication management and finances in home environment. Nikki Meza PA-C - 07/16/2021 11:29 AM CST [facility] Discharge Summary [facility] Neurosurgery Date of Admission: 07/13/2021 Date of Discharge: 07/16/2021 Discharging Provider: Nikki Brownlee Date of Service (when I saw the patient): 07/16/21 Discharge Diagnoses Active Problems: SDH (subdural hematoma) (H) Confusion Subdural hematoma (H) History of Present Illness Ema Davison is an 76-year-old female seen on Sunday with large subdural hematoma that had grown on surveillance imaging. We recommended surgical evacuation at that time, and patient elected to hold off initially and discuss further with family. She returned with aphasia and right sided weakness,and scans showed further growth of the hematoma. Risks, benefits, indications, and alternatives werediscussed with the patient and family in detail. ??All their questions were answered, and they wished to proceed with surgery. Hospital Course Ema Davison was admitted on 07/13/2021. 76-year-old female seen on Sunday with large subdural hematoma that had grown on surveillance imaging. We recommended surgical evacuation at that time, andpatient elected to hold off initially and discuss further with family. She returned with aphasia andright sided weakness, and scans showed further growth of the hematoma causing brain compression. Risks, benefits, indications, and alternatives were discussed with the patient and family in detail. ??All their questions were answered, and they wished to proceed with surgery. ? On 07/13/2021, patient underwent left craniotomy for evacuation of subdural hematoma with Dr Orantes. No intraoperative complications. EBL 50ml. Patient admitted for pain management, neurologic monitoring, wound care. Patient meeting all discharge on 07/16/2021. Patient was cleared by Neurosurgery for discharge to home in stable condition. I have discussed the following assessment and plan with Dr. Orantes who is in agreement. Significant Results and Procedures n/a Pending Results These results will be followed up by n/a Unresulted Labs Ordered in the Past 30 Days of this Admission No orders found from 06/13/2021 to 07/14/2021. Code Status Full Code Primary Care Physician Melissa Parikh Physical Exam Temp: 98.6 ??F (37 ??C) Temp src: Oral BP: 133/71 Pulse: 57 Resp: 16 SpO2: 95 % O2 Device: None (Room air) Vitals: 07/13/21 1453 07/14/21 0200 Weight: 146 lb (66.2 kg) 144 lb 13.5 oz (65.7 kg) Vital Signs with Ranges Temp: [97.7 ??F (36.5 ??C)-98.6 ??F (37 ??C)] 98.6 ??F (37 ??C) Pulse: [57-92] 57 Resp: [16] 16 BP: (117-147)/(60-74) 133/71 SpO2: [93 %-99 %] 95 % I/O last 3 completed shifts: In: 240 [P.O.:240] Out: 5 [Drains:5] Awake, alert, appropriate, walking halls Incision c/d/i with ivana intact LUAN exit site c/d/i with dissolvable chidi suture in place SEBASTIAN; steady gait while walking in halls Time Spent on this Encounter Nikki Doshi PA-C, personally saw the patient today and spent less than or equal to 30 minutesdischarging this patient. Discharge Disposition Discharged to home Condition at discharge: Stable Consultations This Hospital Stay PHYSICAL THERAPY ADULT IP CONSULT OCCUPATIONAL THERAPY ADULT IP CONSULT HOSPITALIST IP CONSULT Discharge Orders Reason for your hospital stay CRANIOTOMY, FOR SUBDURAL HEMATOMA EVACUATION Follow-up and recommended labs and tests Your Neurosurgical follow up appointments have been scheduled . You may call [phone] to make, confirm or change your follow-up Neurosurgery appointment dates and/or times. Activity Your activity upon discharge: Discharge Instructions: Limit lifting to 10 pounds until follow up visit. Ok to shampoo hair, but do not scrub or submerge incision under water until evaluated post operatively in clinic. Ok to walk as tolerated, avoid bedrest. No contact sports until after follow up visit. No high impact activities such as running/jogging, snowmobile or 4 cates riding or any other recreational vehicles. Call the office at [phone] for increasing redness, swelling or pus draining from the incision, increased pain, or any other questions and concerns. Go to ER with any seizure activity, mental status change (increasing confusion), difficulty with speech, or increasing or acute weakness. Wound care and dressings Instructions to care for your wound at home: Keep your incision clean and dry at all times. 2. Okayto shower on post-op day 3 and allow water to run over incision, pat dry after shower. No bathing, swimming, or submerging in water. Call immediately or go to the ER if any drainage occurs, or you develop new pain, redness, or swelling. Diet Follow this diet upon discharge: Regular Discharge Medications Current Discharge Medication List START taking these medications Details levETIRAcetam (KEPPRA) 500 MG tablet Take 1 tablet (500 mg) by mouth 2 times daily Qty: 60 tablet, Refills: 0 Associated Diagnoses: SDH (subdural hematoma) (H); Subdural hematoma (H) methocarbamol (ROBAXIN) 500 MG tablet Take 1 tablet (500 mg) by mouth every 6 hours as needed for muscle spasms Qty: 40 tablet, Refills: 0 Associated Diagnoses: SDH (subdural hematoma) (H); Subdural hematoma (H) oxyCODONE (ROXICODONE) 5 MG tablet Take 1 tablet (5 mg) by mouth every 4 hours as needed for breakthrough pain Qty: 40 tablet, Refills: 0 Associated Diagnoses: SDH (subdural hematoma) (H); Subdural hematoma (H) senna-docusate (SENOKOT-S/PERICOLACE) 8.6-50 MG tablet Take 1 tablet by mouth 2 times daily as needed for constipation (take while on narcotics) Qty: 40 tablet, Refills: 0 Associated Diagnoses: SDH (subdural hematoma) (H); Subdural hematoma (H) CONTINUE these medications which have NOT CHANGED Details atorvastatin (LIPITOR) 40 MG tablet Take 40 mg by mouth At Bedtime At hs cephALEXin (KEFLEX) 500 MG capsule Take 500 mg by mouth 2 times daily X 7 days, started 07/09/2021 Cholecalciferol (VITAMIN D) 2000 UNIT tablet Take 1 tablet by mouth daily. levothyroxine (SYNTHROID/LEVOTHROID) 75 MCG tablet Take 75 mcg by mouth daily lisinopril (ZESTRIL) 20 MG tablet Take 20 mg by mouth At Bedtime meclizine (ANTIVERT) 25 MG tablet Take 1 tablet (25 mg) by mouth every 6 hours as needed for dizziness Qty: 30 tablet, Refills: 1 Allergies No Known Allergies [employer] SALES ASSOCIATE documented in this encounter Medications at Time of Discharge [...] Subdural hematoma documented as of this encounter Progress Notes Mattie Shirley LSW - 07/17/2021 10:31 AM CST SW: Received VM from patients daughter Kathe. Kathe had questions regarding TCU placement in the event that patient is needing that after discharge from hospital. SW reviewed the referral process and informed her that she would need to work with Primary Care office. Patient's daughter did not have any specific concerns but wanted to explore options if patient's need change. SW directed her to check with insurance regarding coverage for TCU. Octaviano Tipton RN - 07/17/2021 5:45 AM CST POD#4 L crani for SDH evacuation. A/Ox4 and able to make needs known. VSS on RA. Refused 4am VS. Slight R facial droop. Other neuros intact. Mod carb diet w/ thin liquids. Takes meds whole w/water. Incision to head ivana intact, CARA. C/o slight pain on incision site, prn tylenol given once with effect. Plan to discharge home this morning, daughter picking her at 0900. BP 131/68 (BP Location: Left arm) Pulse 70 Temp 97.6 ??F (36.4 ??C) (Oral) Resp 18 Ht 1.6 m (5' 3) Wt 65.7 kg (144 lb 13.5 oz) SpO2 95% BMI 25.66 kg/m?? Octaviano Ward RN [employer] SAL[employer]IATE Mattie Shirley LSW - 07/16/2021 11:00 AM CST Care Management Follow Up Length of Stay (days): 3 Expected Discharge Date: 07/16/2021 Concerns to be Addressed: all concerns addressed in this encounter Patient plan of care discussed at interdisciplinary rounds: Yes Anticipated Discharge Disposition: Other (Comments) Anticipated Discharge Services: (home vs TCU) Anticipated Discharge DME: Patient/family educated on Medicare website which has current facility and service quality ratings: no Education Provided on the Discharge Plan: Patient/Family in Agreement with the Plan: unable to assess Referrals Placed by CM/SW: Private pay costs discussed: Not applicable Additional Information: SW spoke with patient's daughter Kathe and discussed discharge planning. Per Kathe, she has been getting different information regarding patients needs and wants to make it clear that both daughters are not able to assist patient at home as they both live about 1 hour away from her. Kathe reports patient lives alone and there is no one else to offer assistance. Reviewed therapy recommendations with Kathe and she reports that patient lives alone and no one is available to provide the assist being recommended by therapies. Patient's daughter is agreeable to exploring TCU's and will discuss this later when she comes in to visit patient. Patient's daughter requesting delayed discharge. JOEY Rush Addendum: Attempted to speak with patient and she requests for SW to return when daughter comes in to visit. Addendum: SW and bedside nurse met with patient's daughter Kathe and patient. Reviewed therapy recommendationswith patient and daughter, they both verbalized an understanding. Kathe notes that she had panicked earlier and would be in agreement with patient discharging to patient's daughter Sheila home in [facility]. Per Kathe, patient's other daughter is not able to receive patient home until Sunday morning. SW offered to schedule [facility] transport and Kathe notes that patient's daughter is able to pick uppatient at 9 am on Sunday. Addendum: SW spoke with patient's daughter Kimberley to confirm that she will transport patient at 9 am on Sunday. Kimberley stated that she will be here at 9 am to speak with MD's and plan accordingly. SW informed her that patient has been medically cleared for discharge at this time. [employer] SALES ASSOCIATE Nikki Brownlee PA-C - 07/16/2021 10:21 AM CST [facility] Neurosurgery Daily Note Assessment & Plan Procedure(s): CRANIOTOMY, FOR SUBDURAL HEMATOMA EVACUATION 3 Days Post-Op Ema admits she is doing well. She is walking sanchez with therapies during exam. She denies headache, vision changes, weakness, n/v. Incision c/d/i, LUAN exit site c/d/i. Neuro stable exam. Plan: -Advance activity as tolerated -Continue supportive and symptomatic treatment -Start or continue physical therapy -Pain control measures -Keppra x 1 month post op -Advance diet as tolerated -Routine wound care. Staple removal 2-3 weeks post op. Chidi stitch is dissolvable. -Cleared for discharge from neurosurgical standpoint. Social work to speak with daughters regarding discharge plans. I will place all discharge orders. -Our team will call to schedule follow ups -Plans reviewed with Dr. Orantes -Call with questions Active Problems: SDH (subdural hematoma) (H) Confusion Subdural hematoma (H) Nikki Brownlee Interval History Stable. Physical Exam Temp: 98.6 ??F (37 ??C) Temp src: Oral BP: 133/71 Pulse: 57 Resp: 16 SpO2: 95 % O2 Device: None (Room air) Vitals: 07/13/21 1453 07/14/21 0200 Weight: 146 lb (66.2 kg) 144 lb 13.5 oz (65.7 kg) Vital Signs with Ranges Temp: [97.7 ??F (36.5 ??C)-98.6 ??F (37 ??C)] 98.6 ??F (37 ??C) Pulse: [57-92] 57 Resp: [16] 16 BP: (117-147)/(60-74) 133/71 SpO2: [93 %-99 %] 95 % I/O last 3 completed shifts: In: 240 [P.O.:240] Out: 5 [Drains:5] Awake, alert, appropriate, walking halls Incision c/d/i with ivana intact LUAN exit site c/d/i with dissolvable chidi suture in place SEBASTIAN; steady gait while walking in halls Medications ??? acetaminophen 975 mg Oral Q8H ??? atorvastatin 40 mg Oral At Bedtime ??? insulin aspart 1-7 Units Subcutaneous TID AC ??? insulin aspart 1-5 Units Subcutaneous At Bedtime ??? levETIRAcetam 500 mg Oral BID ??? levothyroxine 75 mcg Oral Daily ??? polyethylene glycol 17 g Oral Daily ??? senna-docusate 1 tablet Oral BID ??? sodium chloride (PF) 3 mL Intracatheter Q8H Plans discussed with Dr. Orantes, daughter who was in agreement with plans Nikki Brownlee PA-C [facility] Neurosurgery [address] [place] [id number] ONAL SALES ASSOCIATE Isabel Madrigal MD - 07/16/2021 9:11 AM CST [facility] Hospitalist Progress Note Assessment & Plan Ema Davison is a 76 year old female admitted on 07/13/2021. Was admitted by neurosurgery and consult requested from medicine for blood sugar management. Patient presented to the ED with aphasia and word finding difficulty, CT head without contrast showed left-sided subdural hematoma increasing in size. Worsening subdural hematoma with associated aphasia S/p craniotomy with evacuation of subdural hematoma on 07/13/21 -Diet, DVT prophylaxis and pain control as per neurosurgery team -On Keppra 5 mg twice daily for 1 month, PT OT evaluation ongoing, discharge plans as per neurosurgery. ?? Recently diagnosed UTI Was taking Kelfex 500 mg BID. -Keflex dose will be completed 07/15 ?? DM2 Hyperglycemia Patient not currently on any medications SLEEVE SEWER. Patient received 8 mg of dexamethasone intra-op. -Hemoglobin A1c 6.3 indicating prediabetes -Here continue with the sliding scale, upon discharge she could discuss initiating possibly Metformin through her primary care. -Lifestyle modification discussed in detail with patient. ?? HTN - Goal SBP < 140. - Restarted SLEEVE SEWER lisinopril 20 mg daily on 07/15., Blood pressure stable ?? HLP -Continue on SLEEVE SEWER Lipitor 40 mg/d. ?? Hypothyroidism, iatrogenic 2/2 thyroidectomy -Continue SLEEVE SEWER levothyroxine 75 mcg/d. ?? Vertigo - Hold SLEEVE SEWER PRN Meclizine. ?? DVT Prophylaxis: As per neurosurgery Code Status: Full Code Disposition: Expected discharge per primary service, will sign off Isabel Madrigal MD Text Page (7am to 6pm) Interval History Drain removed, patient is feeling better, we briefly discussed about lifestyle modifications regarding her prediabetes status. -Data reviewed today: I reviewed all new labs and imaging results over the last 24 hours. Physical Exam Temp: 98.6 ??F (37 ??C) Temp src: Oral BP: 133/71 Pulse: 57 Resp: 16 SpO2: 95 % O2 Device: None (Room air) Vitals: 07/13/21 1453 07/14/21 0200 Weight: 66.2 kg (146 lb) 65.7 kg (144 lb 13.5 oz) Vital Signs with Ranges Temp: [97.7 ??F (36.5 ??C)-98.6 ??F (37 ??C)] 98.6 ??F (37 ??C) Pulse: [57-92] 57 Resp: [16] 16 BP: (117-147)/(60-74) 133/71 SpO2: [93 %-99 %] 95 % I/O last 3 completed shifts: In: 240 [P.O.:240] Out: 5 [Drains:5] Constitutional: Awake, alert, cooperative, no apparent distress Stapled cranial incision noted on the left side of the scalp Respiratory: Clear to auscultation bilaterally, no crackles or wheezing Cardiovascular: Regular rate and rhythm, normal S1 and S2, and no murmur noted GI: Normal bowel sounds, soft, non-distended, non-tender Skin/Integumen: No rashes, no cyanosis, no edema Neuro : moving all 4 extremities, no focal deficit noted Medications ??? acetaminophen 975 mg Oral Q8H ??? atorvastatin 40 mg Oral At Bedtime ??? insulin aspart 1-7 Units Subcutaneous TID AC ??? insulin aspart 1-5 Units Subcutaneous At Bedtime ??? levETIRAcetam 500 mg Oral BID ??? levothyroxine 75 mcg Oral Daily ??? polyethylene glycol 17 g Oral Daily ??? senna-docusate 1 tablet Oral BID ??? sodium chloride (PF) 3 mL Intracatheter Q8H Data Recent Labs Lab 07/16/21 0804 07/15/21 2103 07/15/21 1657 07/13/21 1929 07/13/21 1510 WBC -- -- -- -- 10.5 HGB -- -- -- -- 13.2 MCV -- -- -- -- 89 PLT -- -- -- -- 253 INR -- -- -- -- 1.10 NA -- -- -- -- 140 POTASSIUM -- -- -- -- 3.5 CHLORIDE -- -- -- -- 109 CO2 -- -- -- -- 25 BUN -- -- -- -- 11 CR -- -- -- -- 0.84 ANIONGAP -- -- -- -- 6 SIOMARA -- -- -- -- 8.6 GLC 101* 115* 119* < > 127* ALBUMIN -- -- -- -- 3.5 PROTTOTAL -- -- -- -- 7.5 BILITOTAL -- -- -- -- 0.8 ALKPHOS -- -- -- -- 122 ALT -- -- -- -- 19 AST -- -- -- -- 11 < > = values in this interval not displayed. Recent Labs Lab 07/16/21 0804 07/15/21 2103 07/15/21 1657 07/15/21 1207 07/15/21 0621 GLC 101* 115* 119* 124* 106* Imaging: No results found for this or any previous visit (from the past 24 hour(s)). ONAL SALES ASSOCIATE Octaviano Ward RN - 07/16/2021 5:54 AM CST POD#3 Lcrani SDH. A/Ox4 and able to make needs known. VSS on RA. Slight R-facial droop. Other neurosintact. Mod CHO diet/thin liquids. Takes pills whole With water. A1/GB/W. Denies pain/headache. Incision to L head ivana intact, open to air. Family requesting discharge to be delayed till Sunday. BP (P) 137/80 (BP Location: Left arm) Pulse (P) 66 Temp (P) 97.7 ??F (36.5 ??C) (Oral) Resp (P) 16 Ht 1.6 m (5' 3) Wt 65.7 kg (144 lb 13.5 oz) SpO2 (P) 98% BMI 25.66 kg/m?? Octaviano Ward RN [employer] SALES ASSOCIATE Melonie Al PT - 07/15/2021 3:51 PM CST 07/15/21 1200 Signing Clinician's Name / Credentials Signing clinician's name / credentials Faustina Olmedo Dynamic Gait Index (Monico and Mcclendon Alisson, 1995) Gait Level Surface 3 Change in Gait Speed 3 Gait and Horizontal Head Turns 2 Gait with Vertical Head Turns 2 Gait and Pivot Turns 3 Step Over Obstacle 3 Step Around Obstacles 3 Steps 3 Total Dynamic Gait Index Score (A score of 19 or less has been correlated to an increased risk of falls in community dwelling older adults, patients with vestibular disorders, and patients with MS.) Total Score (out of 24) 22 Dynamic Gait Index (DGI):The DGI is a measure of balance during gait that is reliable and valid for the elderly and individuals with Parkinson's disease, MS, vestibular disorders, or s/p stroke. Gait assistive device used: None Patient score: 22/24 Scores ?19/24 indicate an increased risk for falls according to Jordyn et al 2000 Minimal Detectable Change = 2.9 in community dwelling elderly according to Trent et al 2011 Assessment (rationale for performing, application to patient? s function & care plan): To assess dynamic balance. Minutes billed as physical performance test Nikki Meza PA-C - 07/15/2021 1:16 PM CST [facility] Neurosurgery Daily Note Assessment & Plan Procedure(s): CRANIOTOMY, FOR SUBDURAL HEMATOMA EVACUATION 2 Days Post-Op Denies headache, vision changes, weakness, paresthesias, nausea, vomiting. Tolerating PO intake. Ambulating without difficulty. Admits to feeling very nervous regarding leaving and caring for herself at home. LUAN removed today, chidi stitch tied down. Plan: -Advance activity as tolerated -Continue supportive and symptomatic treatment -Start or continue physical therapy -Pain control measures -Keppra x 1 month post op -Advance diet as tolerated -Routine wound care. Staple removal 2-3 weeks post op. Chidi stitch is dissolvable. -Cleared for discharge from neurosurgical standpoint. -Our team will call to schedule follow ups -Plans reviewed with Dr. Orantes -Call with questions Active Problems: SDH (subdural hematoma) (H) Confusion Subdural hematoma (H) Nikki Brownlee Interval History Stable. Physical Exam Temp: 98.4 ??F (36.9 ??C) Temp src: Oral BP: (!) 147/74 Pulse: 92 Resp: 16 SpO2: 97 % O2 Device: None (Room air) Vitals: 07/13/21 1453 07/14/21 0200 Weight: 146 lb (66.2 kg) 144 lb 13.5 oz (65.7 kg) Vital Signs with Ranges Temp: [97.5 ??F (36.4 ??C)-98.5 ??F (36.9 ??C)] 98.4 ??F (36.9 ??C) Pulse: [64-92] 92 Resp: [16-20] 16 BP: (100-147)/(47-74) 147/74 SpO2: [93 %-97 %] 97 % I/O last 3 completed shifts: In: 750 [P.O.:750] Out: 31 [Drains:31] Awake, alert, oriented, NAD Incision c/d/i with ivana intact LUAN removed in sterile fashion; chidi stitch tied down II-XII grossly intact SEBASTIAN symmetrically Negative clonus Negative drift Medications ??? acetaminophen 975 mg Oral Q8H ??? atorvastatin 40 mg Oral At Bedtime ??? cephALEXin 500 mg Oral Q12H JC ??? insulin aspart 1-7 Units Subcutaneous TID AC ??? insulin aspart 1-5 Units Subcutaneous At Bedtime ??? levETIRAcetam 500 mg Oral BID ??? levothyroxine 75 mcg Oral Daily ??? polyethylene glycol 17 g Oral Daily ??? senna-docusate 1 tablet Oral BID ??? sodium chloride (PF) 3 mL Intracatheter Q8H Plans discussed with Dr. Orantes who was in agreement with plans Nikki Brownlee PA-C [facility] Neurosurgery [address] [place] [address] ONAL SALES ASSOCIATE Isabel Madrigal MD - 07/15/2021 12:47 PM CST [facility] Hospitalist Progress Note Assessment & Plan Ema Davison is a 76 year old female admitted on 07/13/2021. Was admitted by neurosurgery and consult requested from medicine for blood sugar management. Patient presented to the ED with aphasia and word finding difficulty, CT head without contrast showed left-sided subdural hematoma increasing in size. Worsening subdural hematoma with associated aphasia S/p craniotomy with evacuation of subdural hematoma on 07/13/21 -Diet, DVT prophylaxis and pain control as per neurosurgery team -On Keppra 5 mg twice daily for 1 month, PT OT evaluation ongoing, discharge plans as per neurosurgery. ?? Recently diagnosed UTI Was taking Kelfex 500 mg BID. -Keflex dose will be completed today 07/15 ?? DM2 Hyperglycemia Patient not currently on any medications SLEEVE SEWER. Patient received 8 mg of dexamethasone intra-op. -Hemoglobin A1c 6.3 indicating prediabetes -Here continue with the sliding scale, upon discharge she could discuss initiating possibly Metformin through her primary care. -We will discuss lifestyle modifications prior to discharge ?? HTN - Goal SBP < 140. - Blood pressures are stable will restart her SLEEVE SEWER medication (lisinopril 20 mg at bedtime) ?? HLP -Continue on SLEEVE SEWER Lipitor 40 mg/d. ?? Hypothyroidism, iatrogenic 2/2 thyroidectomy -Continue SLEEVE SEWER levothyroxine 75 mcg/d. ?? Vertigo - Hold SLEEVE SEWER PRN Meclizine. ?? DVT Prophylaxis: As per neurosurgery Code Status: Full Code Disposition: Expected discharge per primary service Isabel Madrigal MD Text Page (7am to 6pm) Interval History Patient mentions not sleeping well at night, no new issues, she is ambulating okay, possible drain removal later today as per patient. -Data reviewed today: I reviewed all new labs and imaging results over the last 24 hours. Physical Exam Temp: 98.4 ??F (36.9 ??C) Temp src: Oral BP: (!) 147/74 Pulse: 92 Resp: 16 SpO2: 97 % O2 Device: None (Room air) Vitals: 07/13/21 1453 07/14/21 0200 Weight: 66.2 kg (146 lb) 65.7 kg (144 lb 13.5 oz) Vital Signs with Ranges Temp: [97.5 ??F (36.4 ??C)-98.5 ??F (36.9 ??C)] 98.4 ??F (36.9 ??C) Pulse: [60-92] 92 Resp: [16-20] 16 BP: (100-147)/(47-86) 147/74 SpO2: [93 %-97 %] 97 % I/O last 3 completed shifts: In: 750 [P.O.:750] Out: 31 [Drains:31] Constitutional: Awake, alert, cooperative, no apparent distress Stapled cranial incision noted on the left side of the scalp, drain noted Respiratory: Clear to auscultation bilaterally, no crackles or wheezing Cardiovascular: Regular rate and rhythm, normal S1 and S2, and no murmur noted GI: Normal bowel sounds, soft, non-distended, non-tender Skin/Integumen: No rashes, no cyanosis, no edema Neuro : moving all 4 extremities, no focal deficit noted Medications ??? acetaminophen 975 mg Oral Q8H ??? atorvastatin 40 mg Oral At Bedtime ??? cephALEXin 500 mg Oral Q12H JC ??? insulin aspart 1-7 Units Subcutaneous TID AC ??? insulin aspart 1-5 Units Subcutaneous At Bedtime ??? levETIRAcetam 500 mg Oral BID ??? levothyroxine 75 mcg Oral Daily ??? polyethylene glycol 17 g Oral Daily ??? senna-docusate 1 tablet Oral BID ??? sodium chloride (PF) 3 mL Intracatheter Q8H Data Recent Labs Lab 07/15/21 1207 07/15/21 0621 07/14/21 2135 07/13/21 1929 07/13/21 1510 WBC -- -- -- -- 10.5 HGB -- -- -- -- 13.2 MCV -- -- -- -- 89 PLT -- -- -- -- 253 INR -- -- -- -- 1.10 NA -- -- -- -- 140 POTASSIUM -- -- -- -- 3.5 CHLORIDE -- -- -- -- 109 CO2 -- -- -- -- 25 BUN -- -- -- -- 11 CR -- -- -- -- 0.84 ANIONGAP -- -- -- -- 6 SIOMARA -- -- -- -- 8.6 GLC 124* 106* 136* < > 127* ALBUMIN -- -- -- -- 3.5 PROTTOTAL -- -- -- -- 7.5 BILITOTAL -- -- -- -- 0.8 ALKPHOS -- -- -- -- 122 ALT -- -- -- -- 19 AST -- -- -- -- 11 < > = values in this interval not displayed. Recent Labs Lab 07/15/21 1207 07/15/21 0621 07/14/21 2135 07/14/21 1629 07/14/21 1223 GLC 124* 106* 136* 114* 127* Imaging: No results found for this or any previous visit (from the past 24 hour(s)). [employer] Melissa Martinez, RN - 07/15/2021 8:44 AM CST Noted RN documents Home with home care at discharge Noted PT documents home;home with outpatient physical therapy Noted OT documents Home with assist;home with outpatient occupational therapy IF homecare is recommended please add Care Management / Social Work IP Consult IF discharging with outpatient therapies, no need for CM. [employer] SAL[employer] Chadd Simon, PT - 07/14/2021 4:29 PM CST 07/14/21 1300 Quick Adds Type of Visit Initial PT Evaluation Living Environment People in home alone Current Living Arrangements house Home Accessibility stairs to enter home;stairs within home Number of Stairs, Main Entrance 2 Stair Railings, Main Entrance railings safe and in good condition Number of Stairs, Within Home, Primary greater than 10 stairs (does not need to access ) Stair Railings, Within Home, Primary railings safe and in good condition Transportation Anticipated car, drives self Living Environment Comments pt lives alone in house. Says friends are avaliable to [place] but live 30-40 miles away. Daughter tells PT that pt often hides impairments to the point that is unsafe. Daughter encouraging pt to move to senior living apt as she beleives house is too much for pt. Self-Care Usual Activity Tolerance good Current Activity Tolerance moderate Regular Exercise No Equipment Currently Used at Home none Disability/Function Hearing Difficulty or Deaf no Wear Glasses or Blind no Concentrating, Remembering or Making Decisions Difficulty no Difficulty Communicating no Difficulty Eating/Swallowing no Walking or Climbing Stairs Difficulty no Dressing/Bathing Difficulty no Toileting issues no Doing Errands Independently Difficulty (such as shopping) no Fall history within last six months yes Number of times patient has fallen within last six months 1 Change in Functional Status Since Onset of Current Illness/Injury yes General Information Onset of Illness/Injury or Date of Surgery 07/14/21 Referring Physician Nikki Brownlee PA-C Patient/Family Therapy Goals Statement (PT) return home Pertinent History of Current Problem (include personal factors and/or comorbidities that impact the POC) 76 year old female admitted on 07/13/2021. Existing Precautions/Restrictions fall Heart Disease Risk Factors Medical history;Age Cognition Orientation Status (Cognition) oriented x 4 Affect/Mental Status (Cognition) WFL Follows Commands (Cognition) WFL Safety Deficit (Cognition) minimal deficit Posture Posture Not impaired Range of Motion (ROM) ROM Quick Adds ROM WFL Strength Manual Muscle Testing Quick Adds Strength WFL Bed Mobility Comment (Bed Mobility) supine to sit with IND Transfers Transfer Safety Comments STS with SBAx1, no AD Gait/Stairs (Locomotion) Distance in Feet (Required for LE Total Joints) PT: Encountered supine in bed and agreeable to PT. Supine to sit with IND, STS with SBAx1. Minimally impulsive. Transfers from bed to commode with SBAx1.Ambulates 400ft in halls with SBA-CGAx1. 3 minor LOB laterally but corrects IND. Educated with continued mobility, will be able to discharge home as balance continues to improve. Comment (Gait/Stairs) Amb 400ft with CGA-SBAx1. Occasional LOB laterally but IND corrects. Balance Balance Comments minimally impaired 2/2 bed rest post op Clinical Impression Criteria for Skilled Therapeutic Intervention yes, treatment indicated PT Diagnosis (PT) impaired functional mobility Influenced by the following impairments balance impairments Clinical Presentation Stable/Uncomplicated Clinical Presentation Rationale clinical judgement Clinical Decision Making (Complexity) low complexity Therapy Frequency (PT) 5x/week Predicted Duration of Therapy Intervention (days/wks) 1 wk Planned Therapy Interventions (PT) balance training;gait training;stair training Risk & Benefits of therapy have been explained evaluation/treatment results reviewed;care plan/treatment goals reviewed;risks/benefits reviewed;current/potential barriers reviewed;participants voiced agreement with care plan;participants included;patient;daughter PT Discharge Planning PT Discharge Recommendation (DC Rec) home;home with outpatient physical therapy PT Rationale for DC Rec Pt is near baseline and mobilizing/gait with SBAx1 no AD. Minor balance impairments today but likely will improve with time and continued mobility PT Brief overview of current status should amb with RN 3-4x/day. Total Evaluation Time Total Evaluation Time (Minutes) 10 [employer] SAL[employer] Mary Regalado, RN - 07/14/2021 3:57 PM CST Plan/Goals: Pt ambulatory SBA. Minimal output from LUAN drain. Transfer to 713. NEURO: neurologically intact, slow speech at times RESPIRATORY: maintaining o2 sats on room air CARDIAC: NSR on tele VASCULAR: no edema noted, pulses palpable GI: consistent carb diet ordered, encouraging intake : voids spontaneously. Family Update:kimberley colbert updated by phone [employer] Alea Hawkins, OTR - 07/14/2021 3:48 PM CST 07/14/21 1539 Quick Adds Type of Visit Initial Occupational Therapy Evaluation Living Environment People in home alone Current Living Arrangements house Home Accessibility stairs to enter home;stairs within home Number of Stairs, Main Entrance 2 Number of Stairs, Within Home, Primary greater than 10 stairs (does not need to access) Transportation Anticipated car, drives self Living Environment Comments Pt lives in house alone. Pt reports her daughters and some friends can assist as needed. Per physical therapist's converstaion with daughter, pt typically hides impairementsto the point it is unsafe. Self-Care Usual Activity Tolerance good Current Activity Tolerance moderate Disability/Function Fall history within last six months yes Number of times patient has fallen within last six months 1 Change in Functional Status Since Onset of Current Illness/Injury yes General Information Onset of Illness/Injury or Date of Surgery 07/13/21 Referring Physician Nikki Brownlee PA- Additional Occupational Profile Info/Pertinent History of Current Problem Past medical history significant for Subdural hematoma, DM2, HTN, HLP, Hypothyroidism, Vertigo who was admitted due to aphasia in the setting of increasing subdural hematoma with worsening of left to right midline shift and leftuncal herniation. Existing Precautions/Restrictions fall Cognitive Status Examination Orientation Status orientation to person, place and time Affect/Mental Status (Cognitive) WNL Follows Commands follows one-step commands;over 90% accuracy Memory Deficit minimal deficit Executive Function Deficit minimal deficit Cognitive Status Comments See treatment notes with SLUMS results. Scored 20/30 indiciating dementia level impairment. Visual Perception Visual Impairment/Limitations WNL Posture Posture protracted shoulders Range of Motion Comprehensive General Range of Motion no range of motion deficits identified Strength Comprehensive (MMT) General Manual Muscle Testing (MMT) Assessment no strength deficits identified Coordination Upper Extremity Coordination No deficits were identified Coordination Comments Pt reports she had some deficit prior to surgery but has now improved. Bed Mobility Bed Mobility supine-sit Supine-Sit Butler (Bed Mobility) supervision Activities of Daily Living BADL Assessment grooming;lower body dressing Lower Body Dressing Assessment Butler Level (Lower Body Dressing) supervision Grooming Assessment Butler Level (Grooming) supervision Clinical Impression Criteria for Skilled Therapeutic Interventions Met (OT) yes;meets criteria;skilled treatment is necessary OT Diagnosis impaired ADLs and funcitonal mobility OT Problem List-Impairments impacting ADL problems related to;activity tolerance impaired;cognition;communication;mobility Assessment of Occupational Performance 1-3 Performance Deficits Identified Performance Deficits funcitonal mobility, home management Planned Therapy Interventions (OT) ADL retraining;cognition;strengthening;progressive activity/exercise Clinical Decision Making Complexity (OT) low complexity Therapy Frequency (OT) Daily Predicted Duration of Therapy 3 Risk & Benefits of therapy have been explained evaluation/treatment results reviewed;care plan/treatment goals reviewed OT Discharge Planning OT Discharge Recommendation (DC Rec) Home with assist;home with outpatient occupational therapy OT Rationale for DC Rec Pt near baseline with funcitonal mobility and self- cares. Pt does present with impaired cognition, scoring 20/30 on SLUMS assessment. Pt has good insight into deficits. Recommend assist with higher level IADLs like medication management and finances. Pt report sonali daughter is able to assist with things like this. Total Evaluation Time (Minutes) Total Evaluation Time (Minutes) 8 [employer] SAL[employer] Oswaldo Rodriguez PA-C - 07/14/2021 11:53 AM CST [facility] Neurosurgery Daily Post-Op Note Assessment & Plan Procedure(s): CRANIOTOMY, FOR SUBDURAL HEMATOMA EVACUATION 1 Day Post-Op Doing well. Pain well-controlled. Tolerating physical therapy and rehabilitation well. No headache LUAN with 50 mL overnight. Plan: -Advance activity as tolerated -Continue supportive and symptomatic treatment -Start or continue physical therapy Ok to transfer to floor from [facility] standpoint Oswaldo Rodriguez Interval History Stable. Doing well. Improving slowly. Pain is reasonably controlled. No fevers. Physical Exam Temp: 97.5 ??F (36.4 ??C) Temp src: Axillary BP: 112/59 Pulse: 57 Resp: 14 SpO2: 95 % O2 Device: None (Room air) Oxygen Delivery: 2 LPM Vitals: 07/13/21 1453 07/14/21 0200 Weight: 66.2 kg (146 lb) 65.7 kg (144 lb 13.5 oz) Vital Signs with Ranges Temp: [97 ??F (36.1 ??C)-100.2 ??F (37.9 ??C)] 97.5 ??F (36.4 ??C) Pulse: [53-81] 57 Resp: [8-29] 14 BP: (99-153)/(51-113) 112/59 SpO2: [91 %-100 %] 95 % I/O last 3 completed shifts: In: 1950 [I.V.:1700] Out: 825 [Urine:725; Drains:50; Blood:50] Alert and oriented. Moves all extremities equally. Incision: CDI Medications ??? acetaminophen 975 mg Oral Q8H ??? atorvastatin 40 mg Oral At Bedtime ??? cephALEXin 500 mg Oral Q12H JC ??? insulin aspart 1-7 Units Subcutaneous TID AC ??? insulin aspart 1-5 Units Subcutaneous At Bedtime ??? levETIRAcetam 500 mg Intravenous Q12H ??? levothyroxine 75 mcg Oral Daily ??? polyethylene glycol 17 g Oral Daily ??? senna-docusate 1 tablet Oral BID ??? sodium chloride (PF) 3 mL Intracatheter Q8H Oswaldo Payne [facility] Neurosurgery [address] [place] [address] Pager [phone] [employer] Mary Regalado RN - 07/14/2021 11:24 AM CST Paged MIGUEL Barahona with neurosurgery for transfer orders [employer] Nikki Brownlee PA-C - 07/13/2021 9:54 PM CST POST OP NOTE ? ASSESSMENT: 76-year-old female seen on Sunday with large subdural hematoma that had grown on surveillance imaging. We recommended surgical evacuation at that time, and patient elected to hold off initially and discuss further with family. She returned with aphasia and right sided weakness, and scans showed further growth of the hematoma. Risks, benefits, indications, and alternatives were discussed with the patient and family in detail. ??All their questions were answered, and they wished to proceedwith surgery. POD0 s/p left craniotomy for evacuation of subdural hematoma with Dr. Orantes. EBL 50ml. No intraoperative complications PLAN: ICU with neuro and vital checks as ordered SBP<[address] tomorrow AM and sooner should concerns arise Pain management Keppra 500 BID x 1 month post op Monitor LUAN output. Likely will remove POD2 /. Chidi stitch in place (clear)- do NOT remove Therapies ordered Plans reviewed with Dr. Orantes who was in agreement with plans Contact lending consultant AHSAN with questions or concerns Nikki Payne [facility] [address] [place] [address] [employer] SAL[employer]ATE Nikki Brownlee PA-C - 07/13/2021 5:06 PM CST Plan for OR tonight at 1999 for left craniotomy and evacuation of SDH with Dr. Orantse Pre op orders placed EDMD has been updated and will update daughters as well Dr. Orantes in agreement with above stated plans SBP<140 [employer] SALES [employer]IATE documented in this encounter H&P Notes Diana Malhotra MD - 07/13/2021 7:40 PM CST I have reviewed the surgical (or preoperative) H&P that is linked to this encounter, and examined the patient. There are no significant changes [employer] SAL[employer]IATE Source Note - Indira Elizondo NP - 07/13/2021 4:56 PM [employer] SALES ASSOCIATE [facility] Neurosurgery Consultation Date of Admission: 07/13/2021 Date of Consult (When I saw the patient): 07/13/21 Assessment & Plan Ema Davison is a 76 year old female who was admitted on 07/13/2021. I was asked to see the patient for aphasia. Active Problems: Subdural hematoma Assessment:slight increase in size of left convexity subdural hematoma with slight worsening of left to right midline shift and left uncal herniation Plan: -NPO -Will plan for left craniotomy for evacuation of subdural hematoma with Dr. Lamberto oliva -Pre op orders placed I have discussed the following assessment and plan with Dr. Orantes who is in agreement with initial plan and will follow up with further consultation recommendations. Indira Elizondo CNP [facility] Neurosurgery [address] [address] Pager [phone] Code Status Prior Reason for Consult Reason for consult: I was asked by Dr. Kelly to evaluate this patient for subdural hematoma. Primary Care Physician Melissa Parikh Chief Complaint Aphasia and confusion History is obtained from the patient, family, and EMR. History of Present Illness Ema Davison is a 76 year old female who is known to the [facility] clinic for a subdural hematoma. She was seen in clinic 07/11/[address] scan revealed increased SDH with midline shift with an acute component. She met with Dr. Orantes who recommended left craniotomy for evacuation of subdural hematoma. She wished to discuss this with her family in regards to surgery. She was instructed to present to the ED with red flag symptoms. She presented to the ED today due to aphasia and increasing confusion. Imaging revealed slight increase in the size of left convexity subdural hematoma with slightworsening of left to right midline shift and left uncal herniation. Today she was seen in the ED. She is alert and oriented to person and place. She has some difficulty with word finding and following the conversation. On exam she has a slight right upper extremity drift and slight right upper extremity weakness. She is able to follow simple commands with some repetition at times. Her daughter ilene has seen a cognitive decline over the past 3 weeks with worsening more acutely in the past day. Past Medical History I have reviewed this patient's medical history and updated it with pertinent information if needed. Past Medical History: Diagnosis Date ??? Hyperlipidemia ??? Hypertension ??? Kidney stone ??? Post-nasal drip ??? Thyroid disease Past Surgical History I have reviewed this patient's surgical history and updated it with pertinent information if needed. Past Surgical History: Procedure Laterality Date ??? APPENDECTOMY ??? 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 nasal polyps removed ??? THYROIDECTOMY 06/13/2011 Procedure:THYROIDECTOMY; TOTAL THYROIDECTOMY; Surgeon:ALFREDO VALENZUELA; Location: OR Prior to Admission Medications Prior to Admission Medications Prescriptions Last Dose Informant Patient Reported? Taking? Cholecalciferol (VITAMIN D) 2000 UNIT tablet Self Yes No Sig: Take 1 tablet by mouth daily. atorvastatin (LIPITOR) 40 MG tablet Self Yes No Sig: Take 40 mg by mouth At Bedtime At hs levothyroxine (SYNTHROID/LEVOTHROID) 75 MCG tablet Self Yes No Sig: Take 75 mcg by mouth daily lisinopril (ZESTRIL) 20 MG tablet Self Yes No Sig: Take 20 mg by mouth At Bedtime meclizine (ANTIVERT) 25 MG tablet No No Sig: Take 1 tablet (25 mg) by mouth every 6 hours as needed for dizziness Facility-Administered Medications: None Allergies No Known Allergies Social History I have reviewed this patient's social history and updated it with pertinent information if needed. Ema Davison reports that she has quit smoking. Her smoking use included cigarettes. She has a 10.00 pack-year smoking history. She has never used smokeless tobacco. She reports current alcohol use.She reports that she does not use drugs. Family History I have reviewed this patient's family history and updated it with pertinent information if needed. No family history on file. Review of Systems 10 point ROS negative except noted above. Physical Exam Temp: 98.4 ??F (36.9 ??C) BP: (!) 146/90 Pulse: 71 Resp: 20 SpO2: 97 % Vital Signs with Ranges Temp: [98.4 ??F (36.9 ??C)] 98.4 ??F (36.9 ??C) Pulse: [71-72] 71 Resp: [20] 20 BP: (146-153)/(75-90) 146/90 SpO2: [96 %-97 %] 97 % 146 lbs 0 oz , Blood pressure (!) 146/90, pulse 71, temperature 98.4 ??F (36.9 ??C), resp. rate 20, height 1.6 m(5' 3), weight 66.2 kg (146 lb), SpO2 97 %. 146 lbs 0 oz HEENT: Normocephalic, atraumatic. PERRLA. Heart: No peripheral edema Lungs: No SOB Skin: Warm and dry, good capillary refill. Extremities: Good radial and dorsalis pedis pulses bilaterally, no edema, cyanosis or clubbing. NEUROLOGICAL EXAMINATION: Mental status: Alert and Oriented x 2, word finding difficulties. Follows simple commands with some repetition at times. Cranial nerves: II-XII intact. Motor: RUE 4+/5, LUE 5/5, BLE 5/5 Sensation: intact Reflexes: Negative Babinski. Negative Clonus. Coordination: Smooth finger to nose testing. Right pronator drift. Data CBC RESULTS: Recent Labs Lab Test 07/13/21 1510 WBC 10.5 RBC 4.57 HGB 13.2 HCT 40.6 MCV 89 MCH 28.9 MCHC 32.5 RDW 13.1 PLT 253 Basic Metabolic Panel: Lab Results Component Value Date NA 140 07/13/2021 Lab Results Component Value Date POTASSIUM 3.5 07/13/2021 Lab Results Component Value Date CHLORIDE 109 07/13/2021 Lab Results Component Value Date SIOMARA 8.6 07/13/2021 SIOMARA 8.5 06/14/2011 Lab Results Component Value Date CO2 25 07/13/2021 Lab Results Component Value Date BUN 11 07/13/2021 Lab Results Component Value Date CR 0.84 07/13/2021 CR 0.65 06/14/2011 Lab Results Component Value Date GLC 127 07/13/2021 INR: Lab Results Component Value Date INR 1.10 07/13/2021 INR 1.10 04/24/2021 [employer] SAL[employer] documented in this encounter Consult Notes Zane Stafford PA-C - 07/14/2021 9:32 AM CSTAssociated Order(s): HOSPITALIST IP CONSULT [facility] Consult Note - Hospitalist Service Date of Admission: 07/13/2021 Consult Requested by: Nikki Brownlee PA-C Reason for Consult: Blood sugars management; s/p craniotomy with evacuation of subdural hematoma. PRIMARY CARE PROVIDER: Melissa Parikh Assessment & Audrey Whatleyjoana Davison is a 76 year old female admitted on 07/13/2021. Past medical history significant for Subdural hematoma, DM2, HTN, HLP, Hypothyroidism, Vertigo who was admitted due to aphasia in the setting of increasing subdural hematoma with worsening of left to right midline shift and left uncal herniation. Patient presented to the ED with aphasia with reported difficulty finding her words and appeared drunk per patient's daughter. She was evaluated by Dr. Kelly and work-up included an unremarkable CMP except glucose of 127. A CBC with differential was unremarkable except for abs neutrophil of 8.6. INR and PTT were within normal limits. COVID-[address] w/o contrast revealed Slight increase in size of left convexity subdural hematoma with slight worsening of left to right midlineshift and left uncal herniation. Neurosurgery was contacted and admitted the patient. She was taken to the OR and underwent craniotomy with evacuation of subdural hematoma. Hospitalist were consulted on POD#1 for management of blood sugars. Worsening subdural hematoma with associated aphasia S/p craniotomy with evacuation of subdural hematoma - Management per Neurosurgery. --Defer analgesic management, DVT prophylaxis and PT/OT. --Keppra 500 mg BID for 1 months. --Neuro checks per Neurosurgery. Recently diagnosed UTI Was taking Kelfex 500 mg BID. - Will resume Keflex and course will be completed 07/15. DM2 Hyperglycemia Patient not currently on any medications SLEEVE SEWER. Patient received 8 mg of dexamethasone intra-op. - Check A1c. - Medium intensity sliding scale. - Glucose checks QID. - Hypoglycemic protocol. - currently NPO but passed bed side swallow; awaiting Neurosurgery to approve advancement in diet and recommend Mod carb diet. HTN - Goal SBP < 140. - Hold SLEEVE SEWER lisinopril 20 mg at bedtime; likely resume tomorrow. HLP - Resumed on SLEEVE SEWER Lipitor 40 mg/d. Hypothyroidism, iatrogenic 2/2 thyroidectomy - Resumed on SLEEVE SEWER levothyroxine 75 mcg/d. Vertigo - Hold SLEEVE SEWER PRN Meclizine. Clinically Significant Risk Factors Present on Admission Diet: NPO for Medical/Clinical Reasons Except for: Meds DVT Prophylaxis: Pneumatic Compression Devices and Defer to primary service Schumacher Catheter: Not present Code Status: Full Code; confirmed with patient. Disposition Plan Expected discharge: Per Neurosurgery. Entered: Zane Stafford PA-C 07/14/2021, 9:32 AM The patient's care was discussed with the Bedside Nurse and Patient. The patient has been discussed with Dr. Riddle, who agrees with the assessment and plan at this time. At this time, I'd like to thank Nikki Brownlee PA-C for consulting the Hospitalist service. We will continue to follow. Zane Stafford PA-C [facility] Securely message with the Cellu[employer] Console (learn more here) Text page via [facility] Paging/Directory Chief Complaint Aphasia History is obtained from the patient and EMR. History of Present Illness Ema Davison is a 76 year old female with a past medical history significant for Subdural hematoma, DM2, HTN, HLP, Hypothyroidism, Vertigo who was admitted due to aphasia in the setting of increasing subdural hematoma with worsening of left to right midline shift and left uncal herniation. Patient presented to the ED with aphasia with reported difficulty finding her words and appeared drunk per patient's daughter. She was evaluated by Dr. Kelly and work-up included an unremarkable CMP except glucose of 127. A CBC with differential was unremarkable except for abs neutrophil of 8.6. INR and PTT were within normal limits. COVID-[address] Head [address] w/o contrast revealed Slight increase in size of left convexity subdural hematoma with slight worsening of left to right midlineshift and left uncal herniation. Neurosurgery was contacted and admitted the patient. She was taken to the OR and underwent craniotomy with evacuation of subdural hematoma. Hospitalist were consulted on POD#1 for management of blood sugars. Patient was seen in her hospital room. She was resting in bed comfortably upon arrival. Initially, we reviewed her medical and surgical history. She stated she is a diet controlled diabetic. We also reviewed events that led to her admission. Upon questioning, patient stated that she was just feeling unwell for the last week. She feels cold all the time. She described feeling very tired, lazy and weak lately. She has been having headaches daily. She currently uses hearing aides. Patient occasionally experiences palpitations and stated whenthey occur she does feel short of breath. For the last 6 months, she has had loose stools but not quite diarrhea. She also has had some left arm soreness ever since her fall a few months ago. She had notably change in speech yesterday which has greatly improved today. Nursing staff brought up that patient was being treated for a UTI. When asked about this, the patient stated she was diagnosed over the weekend. She has been on an antibiotic but can't recall the name. Review of Systems The 10 point Review of Systems is negative other than noted in the HPI. Past Medical History I have reviewed this patient's medical history and updated it with pertinent information if needed. Past Medical History: Diagnosis Date ??? Hyperlipidemia ??? Hypertension ??? Kidney stone ??? Post-nasal drip ??? Thyroid disease Subdural hematoma, DM2, HTN, HLP, Hypothyroidism, Vertigo Past Surgical History I have reviewed this patient's surgical history and updated it with pertinent information if needed. Past Surgical History: Procedure Laterality Date ??? APPENDECTOMY ??? 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 nasal polyps removed ??? THYROIDECTOMY 06/13/2011 Procedure:THYROIDECTOMY; TOTAL THYROIDECTOMY; Surgeon:ALFREDO VALENZUELA; Location:[facility] OR Appendectomy, D&C, Tubal Ligation, Thyroidectomy, Saphenous vein ligation (Right), Nasal polyps excised, Tonsillectomy. Social History I have reviewed this patient's social history and updated it with pertinent information if needed. Patient resides in a house in [facility]. She is a former smoker with quit ~ 40 years ago. She consumes alcohol rarely. She does not use illicit drugs. Social History Tobacco Use ??? Smoking status: Former Smoker Packs/day: 0.50 Years: 20.00 Pack years: 10.00 Types: Cigarettes ??? Smokeless tobacco: Never Used ??? Tobacco comment: quit 30 yrs a go/ maybe a pack a week Substance Use Topics ??? Alcohol use: Yes Comment: one drink a month ??? Drug use: No Family History I have reviewed this patient's family history and updated it with pertinent information if needed. History reviewed. No pertinent family history. Brother: CAD Father: CAD and Diabetes Medications Prior to Admission Medications Prescriptions Last Dose Informant Patient Reported? Taking? Cholecalciferol (VITAMIN D) 2000 UNIT tablet Self Yes No Sig: Take 1 tablet by mouth daily. atorvastatin (LIPITOR) 40 MG tablet Self Yes No Sig: Take 40 mg by mouth At Bedtime At hs levothyroxine (SYNTHROID/LEVOTHROID) 75 MCG tablet Self Yes No Sig: Take 75 mcg by mouth daily lisinopril (ZESTRIL) 20 MG tablet Self Yes No Sig: Take 20 mg by mouth At Bedtime meclizine (ANTIVERT) 25 MG tablet No No Sig: Take 1 tablet (25 mg) by mouth every 6 hours as needed for dizziness Facility-Administered Medications: None Allergies No Known Allergies Physical Exam Vital Signs: Temp: 98.1 ??F (36.7 ??C) Temp src: Oral BP: 116/59 Pulse: 53 Resp: 10 SpO2: 93 % O2 Device: None (Room air) Oxygen Delivery: 2 LPM Weight: 144 lbs 13.48 oz Constitutional: Awake, alert, cooperative, no apparent distress. ENT: Normocephalic, left craniotomy surgical site appears c/d/i with ivana in place, oral pharynx with moist mucus membranes, tonsils without erythema or exudates. Eyes pupils are equal, round and reactive to light; extra occular movements intact. Normal sclera. Neck: Supple, symmetrical, trachea midline, no adenopathy. Pulmonary: No increased work of breathing, good air exchange, clear to auscultation bilaterally, no crackles or wheezing. Cardiovascular: Regular rate and rhythm, normal S1 and S2, no S3 or S4, and no murmur noted. GI: Normal bowel sounds, soft, non-distended, non-tender. Skin/Integumen: Clear. Neuro: CN II-XII grossly intact. Upper and lower extremities strength, coordination and sensation intact bilaterally. Psych: Alert and oriented x 3. Normal affect. Extremities: No lower extremity edema noted, and calves are non-tender to palpation bilaterally. Dorsal pedal pulses palpable. Data I personally reviewed no images or EKG's today. Results for orders placed or performed during the hospital encounter of 07/13/21 (from the past 24 hour(s)) [place] Draw Narrative The following orders were created for panel order [place] Draw. Procedure Abnormality Status --------- ------ Extra Blue Top Tube[[id number]] Final result Extra Red Top Tube[[id number]] Final result Extra Green Top ([place]...[[id number]] Final result Extra Purple Top Tube[[id number]] Final result Extra Blood Bank Purple ...[[id number]] Final result Please view results for these tests on the individual orders. Extra Blue Top Tube Result Value Ref Range Hold Specimen JIC Extra Red Top Tube Result Value Ref Range Hold Specimen JIC Extra Green Top ([place] Heparin) Tube Result Value Ref Range Hold Specimen JIC Extra Purple Top Tube Result Value Ref Range Hold Specimen JIC Extra Blood Bank Purple Top Tube Result Value Ref Range Hold Specimen JIC CBC with platelets differential Narrative The following orders were created for panel order CBC with platelets differential. Procedure Abnormality Status --------- ------ CBC with platelets and d...[[id number]] Abnormal Final result Please view results for these tests on the individual orders. INR Result Value Ref Range INR 1.10 0.85 - 1.15 ABO/Rh type and screen Narrative The following orders were created for panel order ABO/Rh type and screen. Procedure Abnormality Status --------- ------ Adult Type and Screen[[id number]] In process Please view results for these tests on the individual orders. Partial thromboplastin time Result Value Ref Range aPTT 30 22 - 38 Seconds Comprehensive metabolic panel Result Value Ref Range Sodium 140 133 - 144 mmol/L Potassium 3.5 3.4 - 5.3 mmol/L Chloride 109 94 - 109 mmol/L Carbon Dioxide (CO2) 25 20 - 32 mmol/L Anion Gap 6 3 - 14 mmol/L Urea Nitrogen 11 7 - 30 mg/dL Creatinine 0.84 0.52 - 1.04 mg/dL Calcium 8.6 8.5 - 10.1 mg/dL Glucose 127 (H) 70 - 99 mg/dL Alkaline Phosphatase 122 40 - 150 U/L AST 11 0 - 45 U/L ALT 19 0 - 50 U/L Protein Total 7.5 6.8 - 8.8 g/dL Albumin 3.5 3.4 - 5.0 g/dL Bilirubin Total 0.8 0.2 - 1.3 mg/dL GFR Estimate 67 >60 mL/min/1.73m2 CBC with platelets and differential Result Value Ref Range WBC Count 10.5 4.0 - 11.0 10e3/uL RBC Count 4.57 3.80 - 5.20 10e6/uL Hemoglobin 13.2 11.7 - 15.7 g/dL Hematocrit 40.6 35.0 - 47.0 % MCV 89 78 - 100 fL MCH 28.9 26.5 - 33.0 pg MCHC 32.5 31.5 - 36.5 g/dL RDW 13.1 10.0 - 15.0 % Platelet Count 253 150 - 450 10e3/uL % Neutrophils 82 % % Lymphocytes 12 % % Monocytes 6 % % Eosinophils 0 % % Basophils 0 % % Immature Granulocytes 0 % NRBCs per 100 WBC 0 <1 /100 Absolute Neutrophils 8.6 (H) 1.6 - 8.3 10e3/uL Absolute Lymphocytes 1.2 0.8 - 5.3 10e3/uL Absolute Monocytes 0.6 0.0 - 1.3 10e3/uL Absolute Eosinophils 0.0 0.0 - 0.7 10e3/uL Absolute Basophils 0.0 0.0 - 0.2 10e3/uL Absolute Immature Granulocytes 0.0 <=0.0 10e3/uL Absolute NRBCs 0.0 10e3/uL CT Head w/o Contrast Narrative CT SCAN OF THE HEAD WITHOUT CONTRAST 07/13/2021 3:38 PM HISTORY: Intracranial hemorrhage. TECHNIQUE: Axial images of the head and coronal reformations without IV contrast material. Radiation dose for this scan was reduced using automated exposure control, adjustment of the mA and/or kV according to patient size, or iterative reconstruction technique. COMPARISON: Head CT 07/11/2021 FINDINGS: Left convexity subdural hematoma is present measuring up to 2.4 cm in maximal thickness on coronal imaging, previously 2.1 cm. The hematoma demonstrates mixed hypoattenuation and hyperattenuation suggestive of subacute and chronic blood products. The degree of left to right midline shift has slightly worsened compared to the prior exam measuring approximately 1.4 cm, previously 1 cm. The degree of left uncal herniation has also slightly worsened compared to the prior exam. No new areas of hemorrhage are identified. White matter hypoattenuation likely represents chronic small vessel ischemic change. The visualized calvarium, tympanic cavities, and mastoid cavities are unremarkable. Mild paranasal sinus mucosal thickening. Impression IMPRESSION: Slight increase in size of left convexity subdural hematoma with slight worsening of left to right midline shift and left uncal herniation. Recommend neurosurgical consultation. Findings were discussed by phone between Dr. Chilel and Dr. Kelly at 3:48 PM on 07/13/2021. YAYO CHILEL MD SYSTEM ID: [id number] Asymptomatic COVID-19 Virus (Coronavirus) by PCR Nasopharyngeal Specimen: Nasopharyngeal; Swab Result Value Ref Range SARS CoV2 PCR Negative Negative Narrative Testing was performed using the elvis?? SARS-CoV-2 & Influenza A/B Assay on the elvis?? Dottie?? System. This test should be ordered for the detection of SARS-COV-2 in individuals who meet SARS-CoV-2 clinical and/or epidemiological criteria. Test performance is unknown in asymptomatic patients. This test is for in vitro diagnostic use under the FDA EUA for laboratories certified under CLIA to perform moderate and/or high complexity testing. This test has not been FDA cleared or approved. A negative test does not rule out the presence of PCR inhibitors in the specimen or target RNA in concentration below the limit of detection for the assay. The possibility of a false negative should be considere d if the patient's recent exposure or clinical presentation suggests COVID-19. [facility] are certified under the Clinical Laboratory Improvement Amendments of 1987 (CLIA-88) as qualified to perform moderate and/or high complexity laboratory testing. Glucose by meter Result Value Ref Range GLUCOSE BY METER POCT 135 (H) 70 - 99 mg/dL Glucose by meter Result Value Ref Range GLUCOSE BY METER POCT 180 (H) 70 - 99 mg/dL Glucose by meter Result Value Ref Range GLUCOSE BY METER POCT 187 (H) 70 - 99 mg/dL CT Head w/o Contrast Narrative EXAM: CT HEAD W/O CONTRAST LOCATION: [facility] DATE/TIME: 07/14/2021 5:17 AM INDICATION: Subdural hematoma. COMPARISON: 07/13/2021. TECHNIQUE: Routine CT Head without IV contrast. Multiplanar reformats. Dose reduction techniques were used. FINDINGS: INTRACRANIAL CONTENTS: Interval changes relating to evacuation/drainage of left- sided subdural hematoma. There is a residual left-sided subdural mixed attenuation collection measuring 10 mm in maximal axial thickness in the parietal region and 6 mm maximal axial thickness in the frontal region. Improvement in intracranial mass effect with residual5 mm of left to right shift of midline structures compared with 10 mm on the preoperative study. Theleft lateral ventricle and the third ventricle have partially reexpanded. Small to moderate amount of intracranial gas overlying the frontal poles consistent with the recent procedure. Small amount of intracranial gas also demonstrated within the suprasellar cistern. No evidence of interval acute intracranial hemorrhage or infarct. VISUALIZED ORBITS/SINUSES/MASTOIDS: No intraorbital abnormality. No paranasal sinus mucosal disease.No middle ear or mastoid effusion. BONES/SOFT TISSUES: Left frontal craniotomy. Impression IMPRESSION: 1. Interval changes relating to evacuation of previously demonstrated left-sided mixed attenuation subdural hematoma. No postprocedure complication is identified. 2. A residual mixed attenuation subdural collection is demonstrated as above. 3. Improvement in intracranial mass effect with residual 5 mm of left to right shift of midline structures. Glucose by meter Result Value Ref Range GLUCOSE BY METER POCT 161 (H) 70 - 99 mg/dL [employer] SAL[employer]OCIATE Associated attestation - Halle Riddle MD - 07/14/2021 2:48 PM [employer]IATE Physician Attestation I, Halle Riddle, have reviewed and discussed with the advanced practice provider their history, physical and plan for Ema Davison. I did not participate in a shared visit by interviewing or examining the patient and this should be billed as an advanced practice provider only visit. Halle Riddle Date of Service (when I saw the patient): I did not personally see this patient today. Indira Elizondo NP - 07/13/2021 4:56 PM CST [facility] Neurosurgery Consultation Date of Admission: 07/13/2021 Date of Consult (When I saw the patient): 07/13/21 Assessment & Plan Ema Davison is a 76 year old female who was admitted on 07/13/2021. I was asked to see the patient for aphasia. Active Problems: Subdural hematoma Assessment:slight increase in size of left convexity subdural hematoma with slight worsening of left to right midline shift and left uncal herniation Plan: -NPO -Will plan for left craniotomy for evacuation of subdural hematoma with Dr. Lamberto oliva -Pre op orders placed I have discussed the following assessment and plan with Dr. Orantes who is in agreement with initial plan and will follow up with further consultation recommendations. Indira Elizondo CNP [facility] Neurosurgery [address] [place] [id number] Pager [phone] Code Status Prior Reason for Consult Reason for consult: I was asked by Dr. Kelly to evaluate this patient for subdural hematoma. Primary Care Physician Melissa Parikh Chief Complaint Aphasia and confusion History is obtained from the patient, family, and EMR. History of Present Illness Ema Davison is a 76 year old female who is known to the [facility] clinic for a subdural hematoma. She was seen in clinic 07/11/[address] scan revealed increased SDH with midline shift with an acute component. She met with Dr. Orantes who recommended left craniotomy for evacuation of subdural hematoma. She wished to discuss this with her family in regards to surgery. She was instructed to present to the ED with red flag symptoms. She presented to the ED today due to aphasia and increasing confusion. Imaging revealed slight increase in the size of left convexity subdural hematoma with slightworsening of left to right midline shift and left uncal herniation. Today she was seen in the ED. She is alert and oriented to person and place. She has some difficulty with word finding and following the conversation. On exam she has a slight right upper extremity drift and slight right upper extremity weakness. She is able to follow simple commands with some repetition at times. Her daughter ilene has seen a cognitive decline over the past 3 weeks with worsening more acutely in the past day. Past Medical History I have reviewed this patient's medical history and updated it with pertinent information if needed. Past Medical History: Diagnosis Date ??? Hyperlipidemia ??? Hypertension ??? Kidney stone ??? Post-nasal drip ??? Thyroid disease Past Surgical History I have reviewed this patient's surgical history and updated it with pertinent information if needed. Past Surgical History: Procedure Laterality Date ??? APPENDECTOMY ??? 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 nasal polyps removed ??? THYROIDECTOMY 06/13/2011 Procedure:THYROIDECTOMY; TOTAL THYROIDECTOMY; Surgeon:ALFREDO VALENZUELA; Location: OR Prior to Admission Medications Prior to Admission Medications Prescriptions Last Dose Informant Patient Reported? Taking? Cholecalciferol (VITAMIN D) 2000 UNIT tablet Self Yes No Sig: Take 1 tablet by mouth daily. atorvastatin (LIPITOR) 40 MG tablet Self Yes No Sig: Take 40 mg by mouth At Bedtime At hs levothyroxine (SYNTHROID/LEVOTHROID) 75 MCG tablet Self Yes No Sig: Take 75 mcg by mouth daily lisinopril (ZESTRIL) 20 MG tablet Self Yes No Sig: Take 20 mg by mouth At Bedtime meclizine (ANTIVERT) 25 MG tablet No No Sig: Take 1 tablet (25 mg) by mouth every 6 hours as needed for dizziness Facility-Administered Medications: None Allergies No Known Allergies Social History I have reviewed this patient's social history and updated it with pertinent information if needed. Ema Davison reports that she has quit smoking. Her smoking use included cigarettes. She has a 10.00 pack-year smoking history. She has never used smokeless tobacco. She reports current alcohol use.She reports that she does not use drugs. Family History I have reviewed this patient's family history and updated it with pertinent information if needed. No family history on file. Review of Systems 10 point ROS negative except noted above. Physical Exam Temp: 98.4 ??F (36.9 ??C) BP: (!) 146/90 Pulse: 71 Resp: 20 SpO2: 97 % Vital Signs with Ranges Temp: [98.4 ??F (36.9 ??C)] 98.4 ??F (36.9 ??C) Pulse: [71-72] 71 Resp: [20] 20 BP: (146-153)/(75-90) 146/90 SpO2: [96 %-97 %] 97 % 146 lbs 0 oz , Blood pressure (!) 146/90, pulse 71, temperature 98.4 ??F (36.9 ??C), resp. rate 20, height 1.6 m(5' 3), weight 66.2 kg (146 lb), SpO2 97 %. 146 lbs 0 oz HEENT: Normocephalic, atraumatic. PERRLA. Heart: No peripheral edema Lungs: No SOB Skin: Warm and dry, good capillary refill. Extremities: Good radial and dorsalis pedis pulses bilaterally, no edema, cyanosis or clubbing. NEUROLOGICAL EXAMINATION: Mental status: Alert and Oriented x 2, word finding difficulties. Follows simple commands with some repetition at times. Cranial nerves: II-XII intact. Motor: RUE 4+/5, LUE 5/5, BLE 5/5 Sensation: intact Reflexes: Negative Babinski. Negative Clonus. Coordination: Smooth finger to nose testing. Right pronator drift. Data CBC RESULTS: Recent Labs Lab Test 07/13/21 1510 WBC 10.5 RBC 4.57 HGB 13.2 HCT 40.6 MCV 89 MCH 28.9 MCHC 32.5 RDW 13.1 PLT 253 Basic Metabolic Panel: Lab Results Component Value Date NA 140 07/13/2021 Lab Results Component Value Date POTASSIUM 3.5 07/13/2021 Lab Results Component Value Date CHLORIDE 109 07/13/2021 Lab Results Component Value Date SIOMARA 8.6 07/13/2021 SIOMARA 8.5 06/14/2011 Lab Results Component Value Date CO2 25 07/13/2021 Lab Results Component Value Date BUN 11 07/13/2021 Lab Results Component Value Date CR 0.84 07/13/2021 CR 0.65 06/14/2011 Lab Results Component Value Date GLC 127 07/13/2021 INR: Lab Results Component Value Date INR 1.10 07/13/2021 INR 1.10 04/24/2021 [employer] SALES ASSOCI[employer] Associated attestation - Guido Orantes MD - 07/13/2021 7:10 PM [employer] SALES [employer]IATE Physician Attestation IGuido, saw and evaluated Ema Davison as part of a shared visit. I have reviewed anddiscussed with the advanced practice provider their history, physical and plan. I personally reviewed the imaging. My shoemaker history or physical exam findings: Left subdural hematoma with progressive growth, now admitted with aphasia and weakness Sohemaker management decisions made by me: OR for evac Guido Orantes Date of Service (when I saw the patient): 07/13/21 documented in this encounter Nursing Notes Alesha Parsons RN - 07/13/2021 7:55 PM CST Pt's daughter reports that pt has current UTI. Recently started on abx. Will need antibiotics continued while in-patient. [employer] SALES ASSOCIATE documented in this encounter ED Notes Yusuf Anderson RN - 07/13/2021 7:13 PM CST Report given to preop ONAL SALES ASSOCIATE Vivek Douglas - 07/13/2021 5:39 PM CST Tiffany alonzo placed on pt and pt and daughter educated on its function ONAL SALES ASSOCIATE Yusuf Anderson RN - 07/13/2021 5:09 PM CST Per Nikki from [facility], SPB<140, she will put orders for BP management. OR time is 1999. ONAL SALES ASSOCIATE Dorene Magana RN - 07/13/2021 4:34 PM CST Bed: [id number] Expected date: Expected time: Means of arrival: Comments: ED 16 ONAL SALES ASSOCIATE Hakan Kelly MD - 07/13/2021 2:43 PM CST History Chief Complaint: Aphasia The history is provided by the patient and a relative. Ema Davison is a 76 year old female who presents with aphasia. The patient had a fall back in April and was diagnosed with a subdural hematoma. She thinks that she has been asymptomatic since then, but her daughter had noticed increasing confusion. She had an appointment 2 days ago to discuss the possibility of a craniotomy and decided against it at the moment. She was better yesterday, but her daughter called today to check up with her after her appointment and she appeared to be even worse.Per the daughter, she was having difficulty finding her words and appeared drunk. The patient states that she was unable to think at the time. She does not take Asprin daily, and has not had any recent trauma. She denies numbness/tingling. Review of Systems Neurological: Positive for speech difficulty. Negative for numbness. Psychiatric/Behavioral: Positive for confusion. All other systems reviewed and are negative. Allergies: No Known Allergies Medications: Lipitor Synthroid Lisinopril Antivert Past Medical History: Hyperlipidemia Hypertension Kidney stone Post-nasal drip Thyroid disease SDH (subdural hematoma) (H) Fall, initial encounter Left shoulder strain, initial encounter Abrasion, knee, right, initial encounter Hypothyroidism Urinary retention Type 2 DM Asymptomatic bacteruria Past Surgical History: Appendectomy WELL DRILLER surgery Nasal polypectomy Thyroidectomy [facility] long saphenous vein ligation Dilation and curettage Family History: Brother - heart disease Father - DM, [place] Social History: Patient was accompanied to the ED with her daughter. Hx of alcohol use Hx of tobacco use (former smoker) Physical Exam Patient Vitals for the past 24 hrs: BP Temp Pulse Resp SpO2 Height Weight 07/13/21 1845 -- -- 71 15 97 % -- -- 07/13/21 1830 (!) 149/75 -- 71 21 95 % -- -- 07/13/21 1815 130/72 -- 70 20 95 % -- -- 07/13/21 1800 139/76 -- 68 -- 96 % -- -- 07/13/21 1745 (!) 143/69 -- 81 29 94 % -- -- 07/13/21 1730 (!) 137/113 -- 70 16 96 % -- -- 07/13/21 1715 -- -- 71 28 97 % -- -- 07/13/21 1700 (!) 146/87 -- 71 8 97 % -- -- 07/13/21 1650 (!) 146/90 -- 71 -- 97 % -- -- 07/13/21 1453 (!) 153/75 98.4 ??F (36.9 ??C) 72 20 96 % 1.6 m (5' 3) 66.2 kg (146 lb) Physical Exam Vitals: reviewed by me General: Pt seen on [facility], pleasant, cooperative, and alert to conversation Eyes: Tracking well, clear conjunctiva BL ENT: MMM, midline trachea. Lungs: No tachypnea, no accessory muscle use. No respiratory distress. CV: Rate as above Abd: Soft, non tender, no guarding, no rebound. Non distended MSK: no joint effusion. No evidence of trauma Skin: No rash Neuro: Clear speech and no facial droop. BUE and BLE with SILT and 5/5 motor in tact Able to say no ifs, ands or buts without any slurring. However cannot tell me the date, the month, the year, the president, or her grandchildren's names. Psych: Not RIS, no e/o AH/VH Emergency Department Course Imaging: CT Head w/o Contrast Final Result IMPRESSION: Slight increase in size of left convexity subdural hematoma with slight worsening of left to right midline shift and left uncal herniation. Recommend neurosurgical consultation. Findings were discussed by phone between Dr. Chilel and Dr. Kelly at 3:48 PM on 07/13/2021. YAYO CHILEL MD Per Radiology Laboratory: Labs Ordered and Resulted from Time of ED Arrival to Time of ED Departure COMPREHENSIVE METABOLIC PANEL - Abnormal Result Value Sodium 140 Potassium 3.5 Chloride 109 Carbon Dioxide (CO2) 25 Anion Gap 6 Urea Nitrogen 11 Creatinine 0.84 Calcium 8.6 Glucose 127 (*) Alkaline Phosphatase 122 AST 11 ALT 19 Protein Total 7.5 Albumin 3.5 Bilirubin Total 0.8 GFR Estimate 67 CBC WITH PLATELETS AND DIFFERENTIAL - Abnormal WBC Count 10.5 RBC Count 4.57 Hemoglobin 13.2 Hematocrit 40.6 MCV 89 MCH 28.9 MCHC 32.5 RDW 13.1 Platelet Count 253 % Neutrophils 82 % Lymphocytes 12 % Monocytes 6 % Eosinophils 0 % Basophils 0 % Immature Granulocytes 0 NRBCs per 100 WBC 0 Absolute Neutrophils 8.6 (*) Absolute Lymphocytes 1.2 Absolute Monocytes 0.6 Absolute Eosinophils 0.0 Absolute Basophils 0.0 Absolute Immature Granulocytes 0.0 Absolute NRBCs 0.0 INR - Normal INR 1.10 PARTIAL THROMBOPLASTIN TIME - Normal aPTT 30 COVID-19 VIRUS (CORONAVIRUS) BY PCR TYPE AND SCREEN, ADULT ABO/RH TYPE AND SCREEN Emergency Department Course: Reviewed: I reviewed nursing notes, vitals, past history and care everywhere Assessments: 1512 I obtained history and examined the patient as noted above. I rechecked the patient and explained findings. I discussed plan for transfer to OR. Consults: [address] Chilel from Radiology. [address] Elizondo from Neuro surgery. Interventions: 1722 Trandate 10 mg IV 1754 Trandate 10 mg IV Disposition: The patient was transferred to OR. Dr. Elizondo accepted the patient for transfer. Impression & Plan Medical Decision Making: This is a very pleasant 76-year-old female presents the emergency room with appears to be a worsening subdural hematoma. The CT scan today does show a slight increase in hematoma, consistent with her symptoms that are getting gradually worse as well. Today, the family and the patient herself are amenable to surgical intervention including craniotomy, and after the CT scan was done, neurosurgery came and evaluated the patient and the decision was made to take to the OR tonight for craniotomy. S. Thisis been discussed in the past with the family, but they now feel ready to do it since they believe the risks are justified by the potential benefits as she is more symptomatic now than she was before. Patient has a normal neurologic exam here, and appears clinically stable, although she is unable to give details when asked for specific names and dates. This appears to be her only deficit. I spoke with neurosurgery, will plan for transfer to OR as they have indicated. No blood thinners to reverse, no coagulation issues that need to be dealt with prior to transfer. She will receive IV labetalol to help with her blood pressure. Critical care time 35 minutes. Covid-19 Ema Davison was evaluated during a global COVID-19 pandemic, which necessitated consideration that the patient might be at risk for infection with the SARS-CoV-2 virus that causes COVID-19. Applicable protocols for evaluation were followed during the patient's care. COVID-19 was considered as part of the patient's evaluation. The plan for testing is: a test was obtained during this visit. Diagnosis: ICD-10-CM 1. SDH (subdural hematoma) (H) S06.5X9A Case Request: CRANIOTOMY, FOR SUBDURAL HEMATOMA EVACUATION Case Request: CRANIOTOMY, FOR SUBDURAL HEMATOMA EVACUATION Craniotomy, evacuate hematoma subdural, combined Craniotomy, evacuate hematoma subdural, combined 2. Subdural hematoma (H) S06.5X9A 3. Confusion R41.0 Scribe Disclosure: I, Jose Carlos Monge, am serving as a scribe at 3:19 PM on 07/13/2021 to document services personally performed by Hakan Kelly MD based on my observations and the provider's statements to me. Hakan Kelly MD 07/13/212044 Hakan Kelly MD 07/13/212045 ONAL SALES ASSOCIATE documented in this encounter Miscellaneous Notes Plan of Care - Mayo Dos Santos RN - 07/17/2021 10:31 AM CST Pt is POD 4 from L crani for SDH. A&Ox4. VSS on RA. SBA with GB. Slight R facial droop, neuros intact otherwise. Tolerating mod carb diet, takes pills whole with water. Tylenol for incisional pain.Incision to head with ivana, OR RN and intact. Pt cleared for discharge. Discharge information provided to pt, pt's daughter and son-in-law. Pt and family verbalized understanding. Pt discharged to daughter's home. ONAL SALES ASSOCIATE Plan of Care - Mayo Dos Santos RN - 07/16/2021 6:25 PM CST Pt is POD 3 from L crani for SDH. A&Ox4. VSS on RA. SBA with GB. Slight R facial droop, neuros intact otherwise. Tolerating mod carb diet, takes pills whole with water. On scheduled Tylenol. Incision to head with ivana, CARA and intact. Pt cleared for discharge but family not available till tomorrow 9AM. Plan for early discharge tomorrow. ONAL SALES ASSOCIATE Plan of Care - Billy Valladares RN - 07/15/2021 10:37 PM CST Pt POD #2 L crani SDH.A/O x4. Neuros intact except for slight R facial droop. VSS. Mod CHO diet withthin liquids. Takes pills whole. Up with 1/GB/W. Large BM x 1 during the evening shift. Pt requestednot to give her any bowel meds.C/O headache, managed w/ scheduled tylenol and ice packs. Removed LUAN today. L head incision, stapled and open to air. Dry blood and little swelling present. Pt scoring green on the Aggression Stop Light Tool. Pt's daughter called today and was requesting if her mom stayshere at the hospital until this coming Sunday. ONAL SALES ASSOCIATE Plan of Care - Alma Rosa Lockwood RN - 07/15/2021 6:52 PM CST A and O x4. VSS. No pain. Slight R facial droop. Edema and dried drainage at incision site, CARA withintact ivana. Good appetite on regular diet. Up with 1, belt. Scoring green on aggression screening tool. Plan is to discharge home with daughters. ONAL SALES ASSOCIATE Plan of Care - Melonie Al PT - 07/15/2021 12:53 PM CST Physical Therapy Discharge Summary Reason for therapy discharge: All goals and outcomes met, no further needs identified. Progress towards therapy goal(s). See goals on Care Plan in [facility] electronic health record for goal details. Goals met Therapy recommendation(s): Continued therapy is recommended. Rationale/Recommendations: Pt no longer requires IP PT intervention. However, pt would benefit from outpt PT to address deficits with more challenging balance and mobility tasks.. ONAL SALES ASSOCIATE Plan of Care - Yuki Wyman - 07/15/2021 7:08 AM CST POD#2 L Crani for subdural hematoma. She is A&Ox4, calm and cooperative hematoma. Neuros intact ex occ slow speech. VSS on RA. SPB within Limits <140. Reports achy neck pain, Scheduled tylenol and repositioned with some relief. Hypoactive bowel sounds. Continent of bladder. Incision on L side of head: Intact with sutures, CARA, Dried drainage. LUAN output of 5ml. Up with SBA with GB. Modcarb dietwith thins. Home with home care at discharge ONAL SALES ASSOCIATE Provider Notification - Sil Aj RN - 07/14/2021 11:02 PM REGIONAL SALES ASSOCIATE ANTONIO Goode. Pt is 24 hour post-op crani, stable, no changes, can we change neuro checks from q2h to q4h? Thank you! Sil [phone] Update: Ok for q4h neuro and vital checks. ONAL SALES ASSOCIATE Plan of Care - iSl Aj RN - 07/14/2021 10:30 PM CST Reason for Admission: POD 1 L Crani for subdural hematoma Cognitive/Mentation: A/Ox 4 Neuros/CMS: Intact ex occasional slow speech VS: stable. Tele: n/a. GI: BS hypoactive x4, passing flatus. Continent. : Voiding without difficulty. Continent. Pulmonary: LS clear throughout. Pain: denies. Drains: LUAN, PIV SL Skin: incision on L head, OR RN, dried drainage Activity: SBA with GB. Diet: Mod Carb with thin liquids. Takes pills whole with water. Therapies recs: home with outpatient therapy Discharge: pending End of shift summary: Pt transferred to unit from ICU around 1550. Pt stable throughout shift. ONAL SALES ASSOCIATE Pharmacy-Admission Medication History - Thi Galan RPH - 07/14/2021 9:28 AM CST Pharmacy Medication History Admission medication history interview status for the 07/13/2021 admission is complete. See [facility] admission navigator for prior to admission medications Location of Interview: Phone Medication history sources: Patient's family/friend (daughter, Kimberley), Surescripts and Care Everywhere Significant changes made to the medication list: Deleted meclizine Added keflex In the past week, patient estimated taking medication this percent of the time: greater than 90% Additional medication history information: none Medication reconciliation completed by provider prior to medication history? No Time spent in this activity: 15 minutes Prior to Admission medications Medication Sig Last Dose Taking? Auth Provider atorvastatin (LIPITOR) 40 MG tablet Take 40 mg by mouth At Bedtime At hs Yes Reported, Patient cephALEXin (KEFLEX) 500 MG capsule Take 500 mg by mouth 2 times daily X 7 days, started 07/09/2021 Yes Unknown, Entered By History Cholecalciferol (VITAMIN D) 2000 UNIT tablet Take 1 tablet by mouth daily. Yes Reported, Patient levothyroxine (SYNTHROID/LEVOTHROID) 75 MCG tablet Take 75 mcg by mouth daily Yes Unknown, Entered By History lisinopril (ZESTRIL) 20 MG tablet Take 20 mg by mouth At Bedtime Yes Unknown, Entered By History meclizine (ANTIVERT) 25 MG tablet Take 1 tablet (25 mg) by mouth every 6 hours as needed for dizziness Patient not taking: Reported on 07/14/2021 Not Taking at Unknown time Colleen Higuera PA-C The information provided in this note is only as accurate as the sources available at the time of update(s) ONAL SALES ASSOCIATE Plan of Care - Reyes Ley RN - 07/14/2021 12:49 AM CST Patient arrived from PACU at approximately 2250 post craniotomy. Neuro: Left craniotomy, neuro assessment WNL with exception of mild aphasia and dysarthria. This waspatient's baseline pre-craniotomy and was mostly resolved by end of shift CV: SR, MAP goal less than 140 Resp: Room air, sats in low to mid 90s GI/: Bowel sounds absent most of shift. Bowel sounds could be heard in LLQ by end of shift. Patient came to floor with Schumacher catheter which was removed at 0530 and purewick was placed. Skin: Surgical site open to air with LUAN drain draining bright red blood. Pain/Gtts: Denies pain ONAL SALES ASSOCIATE Brief Op Note - Nikki Brownlee PA-C - 07/13/2021 9:53 PM CST [facility] Brief Operative Note Pre-operative diagnosis: SDH (subdural hematoma) (H) [S06.5X9A] Post-operative diagnosis SDH Procedure: Procedure(s): CRANIOTOMY, FOR SUBDURAL HEMATOMA EVACUATION Surgeon(s): Surgeon(s) and Role: * Guido Orantes MD - Primary * Nikki Brownlee PA-C - Assisting Estimated blood loss: 50 mL Specimens: * No specimens in log * Findings: n/a ONAL SALES ASSOCIATE Op Note - Guido Orantes MD - 07/13/2021 9:24 PM CST Date of surgery: 07/13/2021 Surgeon: Guido Orantes MD Shrinker: MIGUEL Jordan Note: Nikki Brownlee was present for and assisted with the entire surgery, and his/her role as an magistrate assistant was crucial for aid in positioning, exposure, suctioning, retraction, and closure Preoperative diagnosis: Left subdural hematoma Postoperative diagnosis: Left subdural hematoma Procedure: 1. Left craniotomy for evacuation of subdural hematoma EBL: 50 mL Indications: 76-year-old female seen on Sunday with large subdural hematoma that had grown on surveillance imaging. We recommended surgical evacuation at that time, and patient elected to hold off initially and discuss further with family. She returned with aphasia and right sided weakness, and scans showed further growth of the hematoma. Risks, benefits, indications, and alternatives were discussed with the patient and family in detail. All their questions were answered, and they wished to proceed with surgery. Description of surgery: The patient was positioned supine on a horseshoe. Sterile prepping and draping procedures were performed. Antibiotics were administered and timeout was performed. The 10 blade was used to perform a straight left sided paramedian incision. The mica plate layer was used to make a eliana hole, and a craniotomy was performed with the craniotomy. The dura was opened with the geralds and metzenbaum scissors. The hematoma was evacuated with suction and irrigation. The brain was noted to be decompressed, and hemostasis was achieved. The dura was approximated with 4-0 neurolon. The bone flapwas fixed back into place with the cranial plating system. Antibiotic irrigation was performed, the galea was closed with 2-0 Vicryls, and the skin was closed with ivana. A subgaleal LUAN drain was left in place. ONAL SALES ASSOCIATE documented in this encounter Plan of Treatment Scheduled Referrals Name Type Priority Associated Order Schedule Diagnoses Occupational Therapy Referral Routine: Next SDH (subdural Expec ronni: Referral available opening hematoma) (H) 07/17/2021 Subdural hematoma (Approxima te), (H) Expires: Confusion 07/17/2022 documented as of this encounter Procedures Procedure Name Priority Date/Time Associated Comments Diagnosis GLUCOSE BY METER Routine 07/17/2021 8:26 AM Resul ts for this REGIONAL SALES ASSOCIATE procedure are i n the results section. GLUCOSE BY METER Routine 07/17/2021 1:42 AM Resul ts for this REGIONAL SALES ASSOCIATE procedure are i n the results section. GLUCOSE BY METER Routine 07/16/2021 9:10 PM Resul ts for this REGIONAL SALES ASSOCIATE procedure are i n the results section. GLUCOSE BY METER Routine 07/16/2021 7:14 PM Resul ts for this REGIONAL SALES ASSOCIATE procedure are i n the results section. GLUCOSE BY METER Routine 07/16/2021 11:31 Results for this AM REGIONAL SALES ASSOCIATE procedure are i n the results section. BASIC METABOLIC PANEL Routine 07/16/2021 8:56 AM Results for this REGIONAL SALES ASSOCIATE procedure are i n the results section. GLUCOSE BY METER Routine 07/16/2021 8:04 AM Resul ts for this REGIONAL SALES ASSOCIATE procedure are i n the results section. GLUCOSE BY METER Routine 07/15/2021 9:03 PM Resul ts for this REGIONAL SALES ASSOCIATE procedure are i n the results section. GLUCOSE BY METER Routine 07/15/2021 4:57 PM Resul ts for this REGIONAL SALES ASSOCIATE procedure are i n the results section. GLUCOSE BY METER Routine 07/15/2021 12:07 Results for this PM REGIONAL SALES ASSOCIATE procedure are i n the results section. GLUCOSE BY METER Routine 07/15/2021 6:21 AM Resul ts for this REGIONAL SALES ASSOCIATE procedure are i n the results section. GLUCOSE BY METER Routine 07/14/2021 9:35 PM Resul ts for this REGIONAL SALES ASSOCIATE procedure are i n the results section. GLUCOSE BY METER Routine 07/14/2021 4:29 PM Resul ts for this REGIONAL SALES ASSOCIATE procedure are i n the results section. GLUCOSE BY METER Routine 07/14/2021 12:23 Results for this PM REGIONAL SALES ASSOCIATE procedure are i n the results section. GLUCOSE BY METER Routine 07/14/2021 8:43 AM Resul ts for this REGIONAL SALES ASSOCIATE procedure are i n the results section. CT HEAD W/O CONTRAST Routine 07/14/2021 5:17 AM R esults for this REGIONAL SALES ASSOCIATE procedure are i n the results section. GLUCOSE BY METER Routine 07/14/2021 4:52 AM Resul ts for this REGIONAL SALES ASSOCIATE procedure are i n the results section. GLUCOSE BY METER Routine 07/13/2021 11:24 Results for this PM REGIONAL SALES ASSOCIATE procedure are i n the results section. GLUCOSE BY METER Routine 07/13/2021 7:29 PM Resul ts for this REGIONAL SALES ASSOCIATE procedure are i n the results section. COVID-19 VIRUS STAT 07/13/2021 6:24 PM Results for this (CORONAVIRUS) BY PCR REGIONAL SALES ASSOCIATE procedu re are in the results section. CRANIOTOMY, EVACUATE STAT 07/13/2021 5:29 PM SDH (subdural HEMATOMA SUBDURAL, REGIONAL SALES ASSOCIATE hematoma) (H) COMBINED CT HEAD W/O CONTRAST STAT 07/13/2021 3:38 PM R esults for this REGIONAL SALES ASSOCIATE procedure are i n the results section. EXTRA TUBE STAT 07/13/2021 3:10 PM Results f or this REGIONAL SALES ASSOCIATE procedure are i n the results section. EXTRA BLOOD BANK PURPLE STAT 07/13/2021 3:10 PM Results for this TOP TUBE REGIONAL SALES ASSOCIATE procedure are i n the results section. EXTRA PURPLE TOP TUBE STAT 07/13/2021 3:10 PM Results for this REGIONAL SALES ASSOCIATE procedure are i n the results section. EXTRA GREEN TOP STAT 07/13/2021 3:10 PM Result s for this (LITHIUM HEPARIN) TUBE REGIONAL SALES ASSOCIATE proce dure are in the results section. EXTRA RED TOP TUBE STAT 07/13/2021 3:10 PM Res ults for this REGIONAL SALES ASSOCIATE procedure are i n the results section. EXTRA BLUE TOP TUBE STAT 07/13/2021 3:10 PM Re sults for this REGIONAL SALES ASSOCIATE procedure are i n the results section. CBC WITH PLATELETS AND STAT 07/13/2021 3:10 PM Results for this DIFFERENTIAL REGIONAL SALES ASSOCIATE procedure are i n the results section. TYPE AND SCREEN, ADULT STAT 07/13/2021 3:10 PM Results for this REGIONAL SALES ASSOCIATE procedure are i n the results section. CBC WITH PLATELETS & STAT 07/13/2021 3:10 PM R esults for this DIFFERENTIAL REGIONAL SALES ASSOCIATE procedure are i n the results section. INR STAT 07/13/2021 3:10 PM Results f or this REGIONAL SALES ASSOCIATE procedure are i n the results section. PARTIAL THROMBOPLASTIN STAT 07/13/2021 3:10 PM Results for this TIME REGIONAL SALES ASSOCIATE procedure are i n the results section. HEMOGLOBIN A1C Routine 07/13/2021 3:10 PM Results for this REGIONAL SALES ASSOCIATE procedure are i n the results section. COMPREHENSIVE METABOLIC STAT 07/13/2021 3:10 PM Results for this PANEL REGIONAL SALES ASSOCIATE procedure are i n the results section. ABO/RH TYPE AND SCREEN STAT 07/13/2021 3:10 PM Results for this REGIONAL SALES ASSOCIATE procedure are i n the results section. documented in this encounter Results (ABNORMAL) Glucose by meter (07/17/2021 8:26 AM REGIONAL SALES ASSOCIATE) P athologist Signature GLUCOSE BY 101 (H) 70 - 99 07/17/2021 LABORATORY METER POCT mg/dL 8:33 AM REGIONAL SALES ASSOCIATE POC Specimen Anatomical Collection Method Collection Time Receive d Time (Source) Location / / Volume Laterality Blood BLOOD SPECIMEN / 07/17/2021 8:26 AM 07/17 8:33 Unknown REGIONAL SALES ASSOCIATE AM REGIONAL SALES ASSOCIATE Provider Unknown LAB - BEAKER POCT Performing Organization Address City/State/ZIP Code Phon e Number LABORATORY [place] [address] [facility] [address] 1st [address], Room [address]B (ABNORMAL) Glucose by meter (07/17/2021 1:42 AM REGIONAL SALES ASSOCIATE) P athologist Signature GLUCOSE BY 105 (H) 70 - 99 07/17/2021 LABORATORY METER POCT mg/dL 1:49 AM REGIONAL SALES ASSOCIATE POC Specimen Anatomical Collection Method Collection Time Receive d Time (Source) Location / / Volume Laterality Blood BLOOD SPECIMEN / 07/17/2021 1:42 AM 07/17 1:49 Unknown REGIONAL SALES ASSOCIATE AM REGIONAL SALES ASSOCIATE Provider Unknown LAB - BEAKER POCT Performing Organization Address City/State/ZIP Code Phon e Number [place]ATORY [place] [address] Care [facility] [address] 1[address], Room 20B (ABNORMAL) Glucose by meter (07/16/2021 9:10 PM REGIONAL SALES ASSOCIATE) P athologist Signature GLUCOSE BY 167 (H) 70 - 99 07/16/2021 LABORATORY METER POCT mg/dL 9:17 PM REGIONAL SALES ASSOCIATE POC Specimen Anatomical Collection Method Collection Time Receive d Time (Source) Location / / Volume Laterality Blood BLOOD SPECIMEN / 07/16/2021 9:10 PM 07/16 9:17 Unknown REGIONAL SALES ASSOCIATE PM REGIONAL SALES ASSOCIATE Provider Unknown LAB - BEAKER POCT Performing Organization Address City/State/ZIP Code Phon e Number [place]ORY [place] [address] Care [facility] [address] 1[address], Room [address]B (ABNORMAL) Glucose by meter (07/16/2021 7:14 PM REGIONAL SALES ASSOCIATE) P athologist Signature GLUCOSE BY 100 (H) 70 - 99 07/16/2021 LABORATORY METER POCT mg/dL 7:21 PM REGIONAL SALES ASSOCIATE POC Specimen Anatomical Collection Method Collection Time Receive d Time (Source) Location / / Volume Laterality Blood BLOOD SPECIMEN / 07/16/2021 7:14 PM 07/16 7:21 Unknown REGIONAL SALES ASSOCIATE PM REGIONAL SALES ASSOCIATE Provider Unknown LAB - BEAKER POCT Performing Organization Address City/[facility]/ZIP Code Phon e Number LABORATORY [place] [address] Care [facility] [address] 1[address], Room [address]B (ABNORMAL) Glucose by meter (07/16/2021 11:31 AM REGIONAL SALES ASSOCIATE) P athologist Signature GLUCOSE BY 132 (H) 70 - 99 07/16/2021 SH LABORATORY METER POCT mg/dL 11:37 AM REGIONAL SALES ASSOCIATE POC Specimen Anatomical Collection Method Collection Time Receive d Time (Source) Location / / Volume Laterality Blood BLOOD SPECIMEN / 07/16/2021 11:31 07/16/2 021 Unknown AM REGIONAL SALES ASSOCIATE 11:37 AM REGIONAL SALES ASSOCIATE Provider Unknown LAB - BEAKER POCT Performing Organization Address City/State/ZIP Code Phon e Number LABORATORY [place] [address] Care [facility] [address] 1[address], Room [address]B (ABNORMAL) Basic metabolic panel (07/16/2021 8:56 AM REGIONAL SALES ASSOCIATE) Analysis Performed At Patho logist Time Signature Sodium 137 133 - 144 07/16/2021 LABORATORY mmol/L 9:49 AM REGIONAL SALES ASSOCIATE Potassium 3.8 3.4 - 5.3 07/16/2021 LABORATORY mmol/L 9:49 AM REGIONAL SALES ASSOCIATE Chloride 104 94 - 109 07/16/2021 LABORATORY mmol/L 9:49 AM REGIONAL SALES ASSOCIATE Carbon Dioxide 29 20 - 32 07/16/2021 LABORATORY (CO2) mmol/L 9:49 AM REGIONAL SALES ASSOCIATE Anion Gap 4 3 - 14 07/16/2021 LABORATORY mmol/L 9:49 AM REGIONAL SALES ASSOCIATE Urea Nitrogen 13 7 - 30 07/16/2021 LABORATORY mg/dL 9:49 AM REGIONAL SALES ASSOCIATE Creatinine 0.89 0.52 - 07/16/2021 LABORATORY 1.04 mg/dL 9:49 AM REGIONAL SALES ASSOCIATE Calcium 9.1 8.5 - 10.1 07/16/2021 LABORATORY mg/dL 9:49 AM REGIONAL SALES ASSOCIATE Glucose 117 (H) 70 - 99 07/16/2021 LABORATORY mg/dL 9:49 AM REGIONAL SALES ASSOCIATE GFR Estimate 63 >60 07/16/2021 LABORATORY mL/min/1.7 9:49 AM REGIONAL SALES ASSOCIATE 3m2 Comment: As of March 13, 2021, eGFR is ca lculated by the CKD-EPI creatinine equation, without race adjustment. eGFR can be inf luenced by muscle mass, exercise, and diet. The reported eGFR is an estimation only and is only applicable if the renal function is stable. Specimen Anatomical Collection Method / Collection Time Recei louie Time (Source) Location / Volume Laterality Blood STRUCTURE OF LEFT Venipuncture / 07/16/2021 8:56 07/16 9:24 UPPER LIMB / Unknown AM REGIONAL SALES ASSOCIATE AM REGIONAL SALES ASSOCIATE Unknown Isabel Madrigal MD LAB - BLOOD ORDERABLES Performing Organization Address City/State/ZIP Code [place] [address] [facility] [address] 1[address], Room 20B (ABNORMAL) Glucose by meter (07/16/2021 8:04 AM REGIONAL SALES ASSOCIATE) P athologist Signature GLUCOSE BY 101 (H) 70 - 99 07/16/2021 SH LABORATORY METER POCT mg/dL 8:11 AM REGIONAL SALES ASSOCIATE POC Specimen Anatomical Collection Method Collection Time Receive d Time (Source) Location / / Volume Laterality Blood BLOOD SPECIMEN / 07/16/2021 8:04 AM 07/16 8:11 Unknown REGIONAL SALES ASSOCIATE AM REGIONAL SALES ASSOCIATE Provider Unknown LAB - BEAKER POCT Performing Organization Address City/State/ZIP Code Phon e Number [place]ORY [place] [address] Care [facility] [address] 1[address], Room 20B (ABNORMAL) Glucose by meter (07/15/2021 9:03 PM REGIONAL SALES ASSOCIATE) P athologist Signature GLUCOSE BY 115 (H) 70 - 99 07/15/2021 LABORATORY METER POCT mg/dL 9:10 PM REGIONAL SALES ASSOCIATE POC Specimen Anatomical Collection Method Collection Time Receive d Time (Source) Location / / Volume Laterality Blood BLOOD SPECIMEN / 07/15/2021 9:03 PM 07/15 9:10 Unknown REGIONAL SALES ASSOCIATE PM REGIONAL SALES ASSOCIATE Provider Unknown LAB - BEAKER POCT Performing Organization Address City/State/ZIP Code Phon e Number LAB[place]ATORY [place] [address] [facility] [address] 1st floor, Room 20B (ABNORMAL) Glucose by meter (07/15/2021 4:57 PM REGIONAL SALES ASSOCIATE) P athologist Signature GLUCOSE BY 119 (H) 70 - 99 07/15/2021 LABORATORY METER POCT mg/dL 5:03 PM REGIONAL SALES ASSOCIATE POC Comment: Dr/RN Notified Specimen Anatomical Collection Method Collection Time Receive d Time (Source) Location / / Volume Laterality Blood BLOOD SPECIMEN / 07/15/2021 4:57 PM 07/15 5:03 Unknown REGIONAL SALES ASSOCIATE PM REGIONAL SALES ASSOCIATE Provider Unknown LAB - BEAKER POCT Performing Organization Address City/State/ZIP Code Phon e Number [place]ORY [place] [address] [facility] [address] 1st [address], Room 20B (ABNORMAL) Glucose by meter (07/15/2021 12:07 PM REGIONAL SALES ASSOCIATE) P athologist Signature GLUCOSE BY 124 (H) 70 - 99 07/15/2021 SH LABORATORY METER POCT mg/dL 12:18 PM REGIONAL SALES ASSOCIATE POC Specimen Anatomical Collection Method Collection Time Receive d Time (Source) Location / / Volume Laterality Blood BLOOD SPECIMEN / 07/15/2021 12:07 021 Unknown PM REGIONAL SALES ASSOCIATE 12:18 PM REGIONAL SALES ASSOCIATE Provider Unknown LAB - BEAKER POCT Performing Organization Address City/State/ZIP Code Phon e Number [place]ORY [place] [address] Care [facility] [address] 1st floor, Room 20B (ABNORMAL) Glucose by meter (07/15/2021 6:21 AM REGIONAL SALES ASSOCIATE) P athologist Signature GLUCOSE BY 106 (H) 70 - 99 07/15/2021 LABORATORY METER POCT mg/dL 6:27 AM REGIONAL SALES ASSOCIATE POC Specimen Anatomical Collection Method Collection Time Receive d Time (Source) Location / / Volume Laterality Blood BLOOD SPECIMEN / 07/15/2021 6:21 AM 07/15 6:27 Unknown REGIONAL SALES ASSOCIATE AM REGIONAL SALES ASSOCIATE Provider Unknown LAB - BEAKER POCT Performing Organization Address City/[facility]/ZIP Code Phon e Number LAB[place]ATORY [place] [address] Care [facility] [address] 1st floor, Room 20B (ABNORMAL) Glucose by meter (07/14/2021 9:35 PM REGIONAL SALES ASSOCIATE) P athologist Signature GLUCOSE BY 136 (H) 70 - 99 07/14/2021 SH LABORATORY METER POCT mg/dL 9:41 PM REGIONAL SALES ASSOCIATE POC Specimen Anatomical Collection Method Collection Time Receive d Time (Source) Location / / Volume Laterality Blood BLOOD SPECIMEN / 07/14/2021 9:35 PM 07/14 9:41 Unknown REGIONAL SALES ASSOCIATE PM REGIONAL SALES ASSOCIATE Provider Unknown LAB - BEAKER POCT Performing Organization Address City/[facility]/ZIP Code Phon e Number LABORATORY [place] [address] Care [facility] [address] 1st floor, Room 20B (ABNORMAL) Glucose by meter (07/14/2021 4:29 PM REGIONAL SALES ASSOCIATE) P athologist Signature GLUCOSE BY 114 (H) 70 - 99 07/14/2021 LABORATORY METER POCT mg/dL 4:36 PM REGIONAL SALES ASSOCIATE POC Specimen Anatomical Collection Method Collection Time Receive d Time (Source) Location / / Volume Laterality Blood BLOOD SPECIMEN / 07/14/2021 4:29 PM 07/14 4:36 Unknown REGIONAL SALES ASSOCIATE PM REGIONAL SALES ASSOCIATE Provider Unknown LAB - BEAKER POCT Performing Organization Address City/[facility]/ZIP Code Phon e Number [place] [address] Care Lab [address] 1st floor, Room 20B (ABNORMAL) Glucose by meter (07/14/2021 12:23 PM REGIONAL SALES ASSOCIATE) P athologist Signature GLUCOSE BY 127 (H) 70 99 07/14/2021 LABORATORY METER POCT mg/dL 12:31 PM REGIONAL SALES ASSOCIATE POC Specimen Anatomical Collection Method Collection Time Receive d Time (Source) Location / / Volume Laterality Blood BLOOD SPECIMEN / 07/14/2021 12:23 021 Unknown PM REGIONAL SALES ASSOCIATE 12:31 PM REGIONAL SALES ASSOCIATE Provider Unknown LAB - BEAKER POCT Performing Organization Address City/[facility]/ZIP Code Phon e Number [place]ORY [place] [address] Care [facility] [address] 1[address] floor, Room 20B (ABNORMAL) Glucose by meter (07/14/2021 8:43 AM REGIONAL SALES ASSOCIATE) P athologist Signature GLUCOSE BY 161 (H) 70 - 99 07/14/2021 LABORATORY METER POCT mg/dL 8:49 AM REGIONAL SALES ASSOCIATE POC Specimen Anatomical Collection Method Collection Time Receive d Time (Source) Location / / Volume Laterality Blood BLOOD SPECIMEN / 07/14/2021 8:43 AM 07/14 8:49 Unknown REGIONAL SALES ASSOCIATE AM REGIONAL SALES ASSOCIATE Provider Unknown LAB - BEAKER POCT Performing Organization Address City/State/ZIP Code Phon [place] [address] Care [facility] [address] [place] 1st floor, Room 20B CT Head w/o Contrast (07/14/2021 5:17 AM REGIONAL SALES ASSOCIATE) Anatomical Region Laterality Modality Head, SUBRAD CT NEURO, SUBRAD CT NEURO, UMP CT NEURO, Computed Tomography RAD CT Specimen (Source) Anatomical Collection Method Collection Time Re ceived Time Location / / Volume Laterality 07/14/2021 5:17 AM REGIONAL SALES ASSOCIATE Impressions 07/14/2021 6:11 AM REGIONAL SALES ASSOCIATE IMPRESSION: 1. ??Interval changes relating to evacua tion of previously demonstrated left- sided mixed attenuation subdural hematoma. No postprocedure complication is identified. 2. ??A residual mixed attenuation subdur al collection is demonstrated as above. 3. ??Improvement in intracranial mass ef fect with residual 5 mm of left to right shift of midline structures. Narrative 07/14/2021 6:11 AM REGIONAL SALES ASSOCIATE EXAM: CT HEAD W/O CONTRAST LOCATION: [facility] DATE/TIME: 07/14/2021 5:17 AM INDICATION: Subdural hematoma. COMPARISON: 07/13/2021. TECHNIQUE: Routine CT Head without IV co ntrast. Multiplanar reformats. Dose reduction techniques were used. FINDINGS: INTRACRANIAL CONTENTS: Interval changes relating to evacuation/drainage of left- sided subdural hematoma. There is a residual left-sided subdural mixed attenuation collection measuring 10 mm in maximal axial thickness in the parietal region and 6 mm maximal axial thickness in the frontal r egion. Improvement in intracranial mass effect with residual 5 mm of left to right shift of midline structures compared with 10 mm on the preoperative study. The left lateral ventricle and the third tej tricle have partially reexpanded. Small to moderate amount of intracranial gas overlying the frontal poles consistent with the recent procedure. Small amount of intracranial gas also demonstrated within the suprasellar cistern. No evidence of interval acute intracranial hemorrhage or infarct. VISUALIZED ORBITS/SINUSES/MASTOIDS: No i ntraorbital abnormality. No paranasal sinus mucosal disease. No middle ear or mastoid effusion. BONES/SOFT TISSUES: Left frontal craniot mark. Procedure Note Laci Oliveira MD - 07/14/2021Form atting of this note might be different from the original. EXAM: CT HEAD W/O CONTRAST [facility] DATE/TIME: 07/14/2021 5:17 AM INDICATION: Subdural hematoma. COMPARISON: 07/13/2021. TECHNIQUE: Routine CT Head without IV co ntrast. Multiplanar reformats. Dose reduction techniques were used. FINDINGS: INTRACRANIAL CONTENTS: Interval changes relating to evacuation/drainage of left- sided subdural hematoma. There is a residual left-sided subdural mixed attenuation collection measuring 10 mm in maximal axial thickness in the parietal region and 6 mm maximal axial thickness in the frontal r egion. Improvement in intracranial mass effect with residual 5 mm of left to right shift of midline structures compared with 10 mm on the preoperative study. The left lateral ventricle and the third ventricle have partially reexpanded. Small to moderate amount of intracranial gas overlying the frontal poles consistent with the recent procedure. Small amount of intracranial gas also demonstrated within the suprasellar cistern. No evidence of interval acute intracranial hemorrhage or infarct. VISUALIZED ORBITS/SINUSES/MASTOIDS: No i ntraorbital abnormality. No paranasal sinus mucosal disease. No middle ear or mastoid effusion. BONES/SOFT TISSUES: Left frontal craniot mark. IMPRESSION: 1. Interval changes relating to evacuati on of previously demonstrated left-sided mixed attenuation subdural hematoma. No postprocedure complication is identified. 2. A residual mixed attenuation subdural collection is demonstrated as above. 3. Improvement in intracranial mass effe ct with residual 5 mm of left to right shift of midline structures. Nikki Brownlee PA-C IMG CT ORDERABLES (ABNORMAL) Glucose by meter (07/14/2021 4:52 AM REGIONAL SALES ASSOCIATE) P athologist Signature GLUCOSE BY 187 (H) 70 - 99 07/14/2021 LABORATORY METER POCT mg/dL 4:59 AM REGIONAL SALES ASSOCIATE POC Specimen Anatomical Collection Method Collection Time Receive d Time (Source) Location / / Volume Laterality Blood BLOOD SPECIMEN / 07/14/2021 4:52 AM 07/14 4:59 Unknown REGIONAL SALES ASSOCIATE AM REGIONAL SALES ASSOCIATE Provider Unknown LAB - BEAKER POCT Performing Organization Address City/State/ZIP Code Phon e Number LABORATORY POC [facility] [place] [address] Care Lab [address] 1st [address], Room 20B (ABNORMAL) Glucose by meter (07/13/2021 11:24 PM REGIONAL SALES ASSOCIATE) P athologist Signature GLUCOSE BY 180 (H) 70 - 99 07/13/2021 LABORATORY METER POCT mg/dL 11:31 PM REGIONAL SALES ASSOCIATE POC Specimen Anatomical Collection Method Collection Time Receive d Time (Source) Location / / Volume Laterality Blood BLOOD SPECIMEN / 07/13/2021 11:24 021 Unknown PM REGIONAL SALES ASSOCIATE 11:31 PM REGIONAL SALES ASSOCIATE Provider Unknown LAB - BEAKER POCT Performing Organization Address City/State/ZIP Code Phon e Number LAB[place]ATORY [place] [phone] Care Lab [address] 1st floor, Room 20B (ABNORMAL) Glucose by meter (07/13/2021 7:29 PM REGIONAL SALES ASSOCIATE) P athologist Signature GLUCOSE BY 135 (H) 70 - 99 07/13/2021 LABORATORY METER POCT mg/dL 7:36 PM REGIONAL SALES ASSOCIATE POC Specimen Anatomical Collection Method Collection Time Receive d Time (Source) Location / / Volume Laterality Blood BLOOD SPECIMEN / 07/13/2021 7:29 PM 07/13 7:36 Unknown REGIONAL SALES ASSOCIATE PM REGIONAL SALES ASSOCIATE Hakan REYES - SIDDHARTHA PO CT Performing Organization Address City/[facility]/ZIP Code Phon e Number LAB[place] [address] Care Lab [address] 1[address], Room 20B Asymptomatic COVID-19 Virus (Coronavirus) by PCR Nasopharyngeal (07/13/2021 6:24 PM REGIONAL SALES ASSOCIATE) Analysis Performed At Patho logist Time Signature SARS CoV2 PCR Negative Negative 07/13/2021 LABORATORY 7:50 PM REGIONAL SALES ASSOCIATE Comment: NEGATIVE: SARS-CoV-2 (COVID-19) RNA not detected, presumed negative. Specimen Anatomical Location / Collection Method Collection Paulino e Received Time (Source) Laterality / Volume Swab NASOPHARYNGEAL Non-blood 07/13/2021 6:24 07/13/2021 6:55 STRUCTURE / Unknown Collection / PM REGIONAL SALES ASSOCIATE PM REGIONAL SALES ASSOCIATE Unknown Narrative LABORATORY - 07/13/2021 7:50 PM REGIONAL SALES ASSOCIATE Testing was performed using the elvis?? SARS-CoV-2 & Influenza A/B Assay on the elvis?? Dottie?? System. ??This test shoul d be ordered for the detection of SARS-COV-2 in individuals who meet SARS-CoV-2 clini siomara and/or epidemiological criteria. Test performance is unknown in asymptomatic p atients. ??This test is for in vitro diagnostic use under the FDA EUA for lab oratories certified under CLIA to perform moderate and/or high complexity testing. This test has not been FDA cleared or approved. ??A negative test does not rul e out the presence of PCR inhibitors in the specimen or target RNA in concentration below the limit of detection for the assay. The possibility of a false negative shou ld be considered if the patient's recent exposure or clinical presentation sugges ts COVID-19. ??[facility] are certified under the Clinical Laborat ory Improvement Amendments of 1988 (CLIA-88) as qualified to perform moderate and/or high complexity laboratory testing. Hakan Kelly MD LAB - MICRO GEN ERAL ORDERABLES Performing Organization Address City/State/ZIP Code [place] [address] Care Lab [address] 1st floor, Room 20B CT Head w/o Contrast (07/13/2021 3:38 PM REGIONAL SALES ASSOCIATE) Anatomical Region Laterality Modality Head, SUBRAD CT NEURO, SUBRAD CT NEURO, UMP CT NEURO, Computed Tomography RAD CT Specimen (Source) Anatomical Location Collection Method / Collectio n Time Received Time / Laterality Volume Impressions 07/13/2021 4:14 PM REGIONAL SALES ASSOCIATE IMPRESSION: Slight increase in size of left convexit y subdural hematoma with slight worsening of left to right midlin e shift and left uncal herniation. Recommend neurosurgical cons ultation. Findings were discussed by phone between Dr. Chilel and Dr. Kelly at 3:48 PM on 07/13/2021. YAYO CHILEL MD SYSTEM ID: [id number] Narrative 07/13/2021 4:[address]ES ASSOCIATE [address] SCAN OF THE HEAD WITHOUT CONTRAST ?? 07/13/2021 3:38 PM HISTORY: Intracranial hemorrhage. TECHNIQUE: ??Axial images of the head an d coronal reformations without IV contrast material. Radiation dose for this scan was reduced using automated exposure control, adjustment o f the mA and/or kV according to patient size, or iterative reconstruc tion technique. COMPARISON: Head CT 07/11/2021 FINDINGS: Left convexity subdural hematoma is pres ent measuring up to 2.4 cm in maximal thickness on coronal imaging, pr eviously 2.1 cm. The hematoma demonstrates mixed hypoattenuation and h yperattenuation suggestive of subacute and chronic blood products. The degree of left to right midline shift has slightly worsened comp ared to the prior exam measuring approximately 1.4 cm, previous ly 1 cm. The degree of left uncal herniation has also slightly worse wendy compared to the prior exam. No new areas of hemorrhage are kaye ntified. White matter hypoattenuation likely represents chroni c small vessel ischemic change. The visualized calvarium, tympanic cavit ies, and mastoid cavities are unremarkable. Mild paranasal sinus mucos al thickening. Procedure Note Yayo Chilel MD - 07/13/2021F ormatting of this note might be different from the original. CT SCAN OF THE HEAD WITHOUT CONTRAST 06/2021 3:38 PM HISTORY: Intracranial hemorrhage. TECHNIQUE: Axial images of the head and coronal reformations without IV contrast material. Radiation dose for this scan was reduced using automated exposure control, adjustment o f the mA and/or kV according to patient size, or iterative reconstruc tion technique. COMPARISON: Head CT 07/11/2021 FINDINGS: Left convexity subdural hematoma is pres ent measuring up to 2.4 cm in maximal thickness on coronal imaging, pr eviously 2.1 cm. The hematoma demonstrates mixed hypoattenuation and h yperattenuation suggestive of subacute and chronic blood products. The degree of left to right midline shift has slightly worsened comp ared to the prior exam measuring approximately 1.4 cm, previous ly 1 cm. The degree of left uncal herniation has also slightly worse wendy compared to the prior exam. No new areas of hemorrhage are kaye ntified. White matter hypoattenuation likely represents chroni c small vessel ischemic change. The visualized calvarium, tympanic cavit ies, and mastoid cavities are unremarkable. Mild paranasal sinus mucos al thickening. IMPRESSION: Slight increase in size of left convexit y subdural hematoma with slight worsening of left to right midlin e shift and left uncal herniation. Recommend neurosurgical cons ultation. Findings were discussed by phone between Dr. Chilel and Dr. Kelly at 3:48 PM on 07/13/2021. YAYO CHILEL MD SYSTEM ID: [id number] Hakan Kelly MD IMG CT ORDERABL ES (ABNORMAL) Hemoglobin A1c (07/13/2021 3:10 PM REGIONAL SALES ASSOCIATE) Analysis Performed At Patho logist Time Signature Hemoglobin A1C 6.3 (H) 0.0 - 5.6 07/14/2021 LABORATORY % 12:13 PM REGIONAL SALES ASSOCIATE Comment: Normal <5.7% Prediabetes 5.7-6.4% ?? Diabetes 6.5% or higher Note: Adopted from ADA consensus guideli alis. Specimen Anatomical Collection Method / Collection Time Recei louie Time (Source) Location / Volume Laterality Blood STRUCTURE OF RIGHT Venipuncture / 07/13/2021 3:10 07/04 3:32 UPPER LIMB / Unknown PM REGIONAL SALES ASSOCIATE PM REGIONAL SALES ASSOCIATE Unknown Zane Stafford PA-C LAB - BLOOD ORDERABLES Performing Organization Address City/State/ZIP Code [place] [address] [facility] [address], Room [address]B (ABNORMAL) CBC with platelets and differential (07/13/2021 3:10 PM REGIONAL SALES ASSOCIATE) Patholo gist Method Time Signature WBC Count 10.5 4.0 - 07/13/2021 LABORATORY 11.0 3:45 PM REGIONAL SALES ASSOCIATE 10e3/uL RBC Count 4.57 3.80 - 07/13/2021 LABORATORY 5.20 3:45 PM REGIONAL SALES ASSOCIATE 10e6/uL Hemoglobin 13.2 11.7 - 07/13/2021 LABORATORY 15.7 g/dL 3:45 PM REGIONAL SALES ASSOCIATE Hematocrit 40.6 35.0 - 07/13/2021 LABORATORY 47.0 % 3:45 PM REGIONAL SALES ASSOCIATE MCV 89 78 - 100 07/13/2021 LABORATORY fL 3:45 PM REGIONAL SALES ASSOCIATE MCH 28.9 26.5 - 07/13/2021 LABORATORY 33.0 pg 3:45 PM REGIONAL SALES ASSOCIATE MCHC 32.5 31.5 - 07/13/2021 LABORATORY 36.5 g/dL 3:45 PM REGIONAL SALES ASSOCIATE RDW 13.1 10.0 - 07/13/2021 LABORATORY 15.0 % 3:45 PM REGIONAL SALES ASSOCIATE Platelet Count 253 150 - 450 07/13/2021 LABORATORY 10e3/uL 3:45 PM REGIONAL SALES ASSOCIATE % Neutrophils 82 % 07/13/2021 LABORATORY 3:45 PM REGIONAL SALES ASSOCIATE % Lymphocytes 12 % 07/13/2021 LABORATORY 3:45 PM REGIONAL SALES ASSOCIATE % Monocytes 6 % 07/13/2021 LABORATORY 3:45 PM REGIONAL SALES ASSOCIATE % Eosinophils 0 % 07/13/2021 LABORATORY 3:45 PM REGIONAL SALES ASSOCIATE % Basophils 0 % 07/13/2021 LABORATORY 3:45 PM REGIONAL SALES ASSOCIATE % Immature 0 % 07/13/2021 LABORATORY Granulocytes 3:45 PM REGIONAL SALES ASSOCIATE NRBCs per 100 WBC 0 <1 /100 07/13/2021 LABORATO RY 3:45 PM REGIONAL SALES ASSOCIATE Absolute 8.6 (H) 1.6 - 8.3 07/13/2021 LABORATORY Neutrophils 10e3/uL 3:45 PM REGIONAL SALES ASSOCIATE Absolute 1.2 0.8 - 5.3 07/13/2021 LABORATORY Lymphocytes 10e3/uL 3:45 PM REGIONAL SALES ASSOCIATE Absolute 0.6 0.0 - 1.3 07/13/2021 LABORATORY Monocytes 10e3/uL 3:45 PM REGIONAL SALES ASSOCIATE Absolute 0.0 0.0 - 0.7 07/13/2021 LABORATORY Eosinophils 10e3/uL 3:45 PM REGIONAL SALES ASSOCIATE Absolute 0.0 0.0 - 0.2 07/13/2021 LABORATORY Basophils 10e3/uL 3:45 PM REGIONAL SALES ASSOCIATE Absolute Immature 0.0 <=0.0 07/13/2021 LABORATO RY Granulocytes 10e3/uL 3:45 PM REGIONAL SALES ASSOCIATE Absolute NRBCs 0.0 10e3/uL 07/13/2021 LABORATORY 3:45 PM REGIONAL SALES ASSOCIATE Specimen Anatomical Collection Method / Collection Time Recei louie Time (Source) Location / Volume Laterality Blood STRUCTURE OF RIGHT Venipuncture / 07/13/2021 3:10 07/04 3:32 UPPER LIMB / Unknown PM REGIONAL SALES ASSOCIATE PM REGIONAL SALES ASSOCIATE Unknown Hakan Kelly MD LAB - BLOOD ORD ERABLES Performing Organization Address City/State/ZIP Code Phon e Number [place] [address] Care [facility] [address] 1[address], Room 20B Adult Type and Screen (07/13/2021 3:10 PM REGIONAL SALES ASSOCIATE) P athologist Signature ABO/RH(D) o pos 07/15/2021 LABORATORY 1:48 PM REGIONAL SALES ASSOCIATE Antibody Screen neg 07/15/2021 LABORATORY 1:48 PM REGIONAL SALES ASSOCIATE Specimen Anatomical Collection Method / Collection Time Recei louie Time (Source) Location / Volume Laterality Blood STRUCTURE OF RIGHT Venipuncture / 07/13/2021 3:10 07/04 3:29 UPPER LIMB / Unknown PM REGIONAL SALES ASSOCIATE PM REGIONAL SALES ASSOCIATE Unknown Hakan Kelly MD LAB - BLOOD BAN K TEST ORDER Performing Organization Address City/[facility]/ZIP Code Phon e Number [place] [address] [phone] [facility] [address] 1[address], Room 20B (ABNORMAL) Comprehensive metabolic panel (07/13/2021 3:10 PM REGIONAL SALES ASSOCIATE) Patholo gist Method Time Signature Sodium 140 133 - 144 07/13/2021 LABORATORY mmol/L 4:02 PM REGIONAL SALES ASSOCIATE Potassium 3.5 3.4 - 5.3 07/13/2021 LABORATORY mmol/L 4:02 PM REGIONAL SALES ASSOCIATE Chloride 109 94 - 109 07/13/2021 LABORATORY mmol/L 4:02 PM REGIONAL SALES ASSOCIATE Carbon Dioxide 25 20 - 32 07/13/2021 LABORATORY (CO2) mmol/L 4:02 PM REGIONAL SALES ASSOCIATE Anion Gap 6 3 - 14 07/13/2021 LABORATORY mmol/L 4:02 PM REGIONAL SALES ASSOCIATE Urea Nitrogen 11 7 - 30 07/13/2021 LABORATORY mg/dL 4:02 PM REGIONAL SALES ASSOCIATE Creatinine 0.84 0.52 - 07/13/2021 LABORATORY 1.04 mg/dL 4:02 PM REGIONAL SALES ASSOCIATE Calcium 8.6 8.5 - 10.1 07/13/2021 LABORATORY mg/dL 4:02 PM REGIONAL SALES ASSOCIATE Glucose 127 (H) 70 - 99 07/13/2021 LABORATORY mg/dL 4:02 PM REGIONAL SALES ASSOCIATE Alkaline 122 40 - 150 07/13/2021 LABORATORY Phosphatase U/L 4:02 PM REGIONAL SALES ASSOCIATE AST 11 0 - 45 U/L 07/13/2021 LABORATORY 4:02 PM REGIONAL SALES ASSOCIATE ALT 19 0 - 50 U/L 07/13/2021 LABORATORY 4:02 PM REGIONAL SALES ASSOCIATE Protein Total 7.5 6.8 - 8.8 07/13/2021 LABORATORY g/dL 4:02 PM REGIONAL SALES ASSOCIATE Albumin 3.5 3.4 - 5.0 07/13/2021 LABORATORY g/dL 4:02 PM REGIONAL SALES ASSOCIATE Bilirubin Total 0.8 0.2 - 1.3 07/13/2021 LABORATORY mg/dL 4:02 PM REGIONAL SALES ASSOCIATE GFR Estimate 67 >60 07/13/2021 LABORATORY mL/min/1.7 4:02 PM REGIONAL SALES ASSOCIATE 3m2 Comment: As of March 13, 2021, eGFR is ca lculated by the CKD-EPI creatinine equation, without race adjustment. eGFR can be inf luenced by muscle mass, exercise, and diet. The reported eGFR is an estimation only and is only applicable if the renal function is stable. Specimen Anatomical Collection Method / Collection Time Recei louie Time (Source) Location / Volume Laterality Blood STRUCTURE OF RIGHT Venipuncture / 07/13/2021 3:10 07/04 3:29 UPPER LIMB / Unknown PM REGIONAL SALES ASSOCIATE PM REGIONAL SALES ASSOCIATE Unknown Hakan Kelly MD LAB - BLOOD ORD ERABLES Performing Organization Address City/State/ZIP Code [place] [address] [facility] [address] 1[address], Room 20B Partial thromboplastin time (07/13/2021 3:10 PM REGIONAL SALES ASSOCIATE) P athologist Signature aPTT 30 22 - 38 07/13/2021 LABORATORY Seconds 3:45 PM REGIONAL SALES ASSOCIATE Specimen Anatomical Collection Method / Collection Time Recei louie Time (Source) Location / Volume Laterality Blood STRUCTURE OF RIGHT Venipuncture / 07/13/2021 3:10 07/04 3:29 UPPER LIMB / Unknown PM REGIONAL SALES ASSOCIATE PM REGIONAL SALES ASSOCIATE Unknown Hakan Kelly MD LAB - BLOOD ORD ERABLES Performing Organization Address City/State/ZIP Code Phon e [place] [address] Care [facility] [address] 1[address], Room 20B INR (07/13/2021 3:10 PM REGIONAL SALES ASSOCIATE) athologist Signature INR 1.10 0.85 - 1.15 07/13/2021 LABORATORY 3:45 PM REGIONAL SALES ASSOCIATE Specimen Anatomical Collection Method / Collection Time Recei louie Time (Source) Location / Volume Laterality Blood STRUCTURE OF RIGHT Venipuncture / 07/13/2021 3:07/04 3:29 UPPER LIMB / Unknown PM REGIONAL SALES ASSOCIATE PM REGIONAL SALES ASSOCIATE Unknown Hakan Kelly MD LAB - BLOOD ORD ERABLES Performing Organization Address City/State/ZIP Code Phon e [place] [address] Care Lab [address] 1[address], Room 20B Extra Blood Bank Purple Top Tube (07/13/2021 3:10 PM REGIONAL SALES ASSOCIATE) athologist Signature Hold Specimen [facility] 07/13/2021 BLOOD BANK 4:31 PM REGIONAL SALES ASSOCIATE Specimen Anatomical Collection Method / Collection Time Recei louie Time (Source) Location / Volume Laterality Blood STRUCTURE OF RIGHT Venipuncture / 07/13/2021 3:10 07/04 3:29 UPPER LIMB / Unknown PM REGIONAL SALES ASSOCIATE PM REGIONAL SALES ASSOCIATE Unknown Hakan Kelly MD LAB - BLOOD ORD ERABLES Performing Organization Address City/State/ZIP Code Phon e Number BLOOD BANK [address] [place] [address] Extra Purple Top Tube (07/13/2021 3:10 PM [employer]ES [employer]OCIATE) athologist Signature Hold Specimen JI 07/13/2021 LABORATORY 4:31 PM [employer] SALES [employer]OCIATE Specimen Anatomical Collection Method / Collection Time Recei louie Time (Source) Location / Volume Laterality Blood STRUCTURE OF RIGHT Venipuncture / 07/13/2021 3:10 07/04 3:29 UPPER LIMB / Unknown PM [employer]AL SALES ASSOCIATE PM REGIONAL SALES ASSOCIATE Unknown Hakan Kelly MD LAB - BLOOD ORD ERABLES Performing Organization Address City/State/ZIP Code Phon e Number [place] [address] Care [facility] [address] 1st floor, Room 20B Extra Green Top ([place] Heparin) Tube (07/13/2021 3:10 PM REGIONAL SALES ASSOCIATE) athologist Signature Hold Specimen [facility] 07/13/2021 LABORATORY 4:31 PM [employer]AL SALES ASSOCIATE Specimen Anatomical Collection Method / Collection Time Recei louie Time (Source) Location / Volume Laterality Blood STRUCTURE OF RIGHT Venipuncture / 07/13/2021 3:10 07/04 3:29 UPPER LIMB / Unknown PM [employer] SALES ASSOCIATE PM REGIONAL SALES ASSOCIATE Unknown Hakan Kelly MD LAB - BLOOD ORD ERABLES Performing Organization Address City/State/ZIP Code Phon e Number [place] [address] [phone] Care [facility] [address] 1st floor, Room 20B Extra Red Top Tube (07/13/2021 3:10 PM [employer] SALES [employer]OCIATE) athologist Signature Hold Specimen [facility] 07/13/2021 LABORATORY 4:31 PM REGIONAL SALES ASSOCIATE Specimen Anatomical Collection Method / Collection Time Recei louie Time (Source) Location / Volume Laterality Blood STRUCTURE OF RIGHT Venipuncture / 07/13/2021 3:10 07/04 3:29 UPPER LIMB / Unknown PM [employer] SALES ASSOCIATE PM REGIONAL SALES ASSOCIATE Unknown Hakan Kelly MD LAB - BLOOD ORD ERANIKKIE Performing Organization Address City/State/ZIP Code Phon e Number [place] [address] [phone] Care [facility] [address] 1st floor, Room 20B Extra Blue Top Tube (07/13/2021 3:10 PM REGIONAL SALES ASSOCIATE) athologist Signature Hold Specimen [facility] 07/13/2021 LABORATORY 4:31 PM REGIONAL SALES ASSOCIATE Specimen Anatomical Collection Method / Collection Time Recei louie Time (Source) Location / Volume Laterality Blood STRUCTURE OF RIGHT Venipuncture / 07/13/2021 3:10 07/04 3:29 UPPER LIMB / Unknown PM [employer]AL SALES ASSOCIATE PM REGIONAL SALES ASSOCIATE Unknown Hakan Kelly MD LAB - BLOOD ORD ERABLES Performing Organization Address City/State/ZIP Code [place] [address] [phone] Care Lab [address] 1st floor, Room [address]B documented in this encounter Visit Diagnoses Diagnosis SDH (subdural hematoma) - Primary Subdural hemorrhage SDH (subdural hematoma) Subdural hemorrhage Subdural hematoma Subdural hemorrhage Confusion Unspecified psychosis Confusion Unspecified psychosis Subdural hematoma Subdural hemorrhage documented in this encounter Admitting Diagnoses Diagnosis Confusion Unspecified psychosis Subdural hematoma Subdural hemorrhage SDH (subdural hematoma) Subdural hemorrhage documented in this encounter Administered Medications Inactive Administered Medications - up to 3 most recent administrations Medication Order MAR Action Action Date Dose Rate Site acetaminophen (TYLENOL) tablet 650 Given 07/17/2021 8:31 AM [employer]IONAL SALES ASSOCIATE 650 mg mg 650 mg, Oral, EVERY 4 HOURS PRN, other, For optimal non-opioid multimodal pain management to improve pain control., Starting on 07/16/21 at 0000, May give first dose 4 hours after last scheduled dose of acetaminophen (TYLENOL). Maximum acetaminophen dose from all sources = 75 mg/kg/day not to exceed 4 grams/day. Given 07/16/2021 10:18 PM [employer] SALES ASSOCIATE 650 mg acetaminophen (TYLENOL) tablet 975 mg Given 07/16/2021 2:54 PM [employer]IONAL SALES ASSOCIATE 975 mg 975 mg, Oral, EVERY 8 HOURS, First dose on 07/13/21 at 2330, For 3 days, Administer for multimodal surgical pain management. Maximum acetaminophen dose from all sources = 75 mg/kg/day not to exceed 4 grams/day. Given 07/16/2021 8:49 AM REGIONAL SALES ASSOCIATE 975 mg Given 07/15/2021 11:08 PM REGIONAL SALES ASSOCIATE 975 mg atorvastatin (LIPITOR) tablet 40 mg Given 07/16/2021 8:44 PM REGIONAL SALES ASSOCIATE 40 mg 40 mg, Oral, AT BEDTIME, First dose on Karyn 07/14/21 at 2200 Given 07/15/2021 10:21 PM [employer]IONAL SALES ASSOCIATE 40 mg Given 07/14/2021 9:15 PM REGIONAL SALES ASSOCIATE 40 mg bisacodyl (DULCOLAX) Suppository 10 mg 10 mg, Rectal, DAILY PRN, constipation, Use if Magnesi um hydroxide (MILK of MAGNESIA) not effective after 24 hours. May discontinu e if patient having bowel movement., Starting on Sun07/13/21 at 2304, Hold for loose stools. calcium carbonate (TUMS) chewable tablet 1,000 mg 1,000 mg, Oral, 4 TIMES DAILY PRN, heartburn, Starting on Sun07/13/21 at 2304 cephALEXin (KEFLEX) capsule 500 mg Given 07/15/2021 7:37 PM [employer] SALES ASSOCIATE 500 mg Routine, 500 mg, Oral, EVERY 12 HOURS SCHEDULED, First dose on Sun07/14/21 at 0930, For 4 doses, Indications: Urinary Tract Infection Given 07/15/2021 8:29 AM [employer] SALES ASSOCIATE 500 mg Given 07/14/2021 9:15 PM [employer]IONAL SALES ASSOCIATE 500 mg dextrose 50 % injection 25-50 mL 25-50 mL, Intravenous, EVERY 15 MIN PRN, low blood sug ar, Administer over 1-5 Minutes, Starting on Sun07/14/21 at 091 4, Use if have IV access, BG less than 70 mg/dL and meet dose criteria below: Dose if conscious and alert (or disorientated) and NPO = 25 mL Dose if unconscious / no t alert = 50 mL Give first dose for initial blood glucose less than 70 mg/dL. If blood glucose at 15 minute recheck is less than or equal to 100 mg/dL continue to a dminister carbohydrate treatment every 15 minutes, as needed, based on blood gluco se and assessment parameters until blood glucose level is above 100 mg/dL. Vesicant. glucagon injection 1 mg 1 mg, Subcutaneous, EVERY 15 MIN PRN, low blood sugar, May repeat x 1 only, Starting on Sun07/14/21 at 0914, May gi ve SQ or IM. ONLY use glucagon IF patient has NO IV access AND is UNABLE to swallo w AND blood glucose is LESS than or EQUAL to 50 mg/dL. glucose gel 15-30 g 15-30 g, Oral, EVERY 15 MIN PRN, low blo od sugar, Starting on Sun07/14/21 at 0914, Give first dose for initial blood glucose less than 70 mg/dL per the dosing instructions below. If blood glucose at 15 minute rechecks is still less than or equal to 100 mg/dL, continue to administ er doses per blood glucose parameters every 15 minutes, as needed, until blood glucose level is ab ove 100 mg/dL. Dosing Instructions: ~If patient is conscious a nd able to swallow and NO enteral tube For initial BG 51-69mg/dL OR 15 minute reche ck BG 51- 100 mg/dL - give 15 g For BG less than or equal to 50 mg/dL - give 30 g ~ If Enteral tube For initial BG 51-69mg/dL OR 15 minute recheck BG 51- 100 mg/dL - give apple juice 120 mL (4 oz or 15 g of CHO) via enteral tube For BG less than o r equal to 50 mg/dL - Give apple juice 240 mL (8 oz or 30 g of CHO) via enteral tub e ~Oral gel is preferable for conscious and able to swallow patient. ~IF gel unavail able or patient refuses may provide apple juice per Enteral tube dosing instructio ns. Document juice on I and O flowsheet. hydrALAZINE (APRESOLINE) injection 10-20 mg 10-20 mg, Intravenous, EVERY 30 MIN PRN, high blood pr essure, Administer over 1 Minutes, Starting on Sun07/13/21 at 2304, IF Heart Ra te less than 60 initiate hydrALAZINE (APRESOLINE) for hypertensio n. For Systolic Blood Pressure greater than 140 mmHg. Give 10 mg, wait 30 minutes. I f not effective then repeat 10 mg. Wait 30 minutes. If not effective then give 20 mg. If still no t effective then start niCARdipine (CARDENE) IV infusion IF ORDERED. Notify chong worthy within 1 hour if Blood Pressure parameters are not met. HYDROmorphone (DILAUDID) injection 0.2 m g 0.2 mg, Intravenous, EVERY 2 HOURS PRN, other, moderate pain (pain rating 4-6) IF patient unable to take oral pain medication or pain no t controlled with oral analgesics, Starting on Sun07/13/21 at 2304, Hold IV PRN opioid dose for analgesic side effects. Notify provider to assess for uncontroll ed pain or analgesic side effects. May use IV opioid - IF patient cannot take or al opioid OR IF pain not managed with non-pharmacological, non-opioid, or oral opioid interventions if ordered; may use concomitant with non-opioid analgesic s. HYDROmorphone (DILAUDID) injection 0.4 m g 0.4 mg, Intravenous, EVERY 2 HOURS PRN, other, severe pain (pain rating 7-10) IF patient unable to take oral pain medication or pain no t controlled with oral analgesics, Starting on Sun07/13/21 at 2304, Hold IV PRN opioid dose for analgesic side effects. Notify provider to assess for uncontroll ed pain or analgesic side effects. May use IV opioid - IF patient cannot take or al opioid OR IF pain not managed with non-pharmacological, non-opioid, or oral opioid interventions if ordered; may use concomitant with non-opioid analgesic s. hydrOXYzine (ATARAX) tablet 10 mg 10 mg, Oral, EVERY 6 HOURS PRN, itching, Starting on Sun07/13/21 at 2304, Caution to be used when administering multiple LE[employer] W[employer]HOUSE ASSOCIATE depressing meds within a short time frame. insulin aspart (NovoLOG) injection (RAPI D ACTING) 1-7 Units, Subcutaneous, 3 TIMES DAILY B EFORE MEALS, First dose on Sun07/14/21 at 0930, Correction Scale - MEDIUM INSULIN RESISTANCE DOSING Do Not give Correction Insulin if Pre-Meal BG less than 140. Fo r Pre-Meal BG 140 - 189 give 1 unit. For Pre-Meal BG 190 - 239 give 2 units. For Pre-Meal BG 24 0 - 289 give 3 units. For Pre-Meal BG 290 - 339 give 4 units. For Pre-Meal BG 34 0- 399 give 5 units. For Pre-Meal BG 400-449 give 6 units For Pre -Meal BG greater than or equal to 450 give 7 units. To be given with prandial insul in, and based on pre-meal blood glucose. Notify provider if glucose greater than or equal to 350 mg/dL after administration of correction dose. If given at mealtime , administer within 30 minutes of start of meal insulin aspart (NovoLOG) injection (RAPI D ACTING) 1-5 Units, Subcutaneous, AT BEDTIME, First dose on Sun07/14/21 at 2200, MEDIUM INSULIN RESISTANCE DOSING Do Not give Be dtime Correction Insulin if BG less than 200. For BG 200 - 249 give 1 units. For BG 250 - 299 give 2 units. For BG 300 - 349 give 3 units. For BG 350 -399 give 4 units. For BG gre ater than or equal to 400 give 5 units. Notify provider if glucose greater than or equal to 350 mg/dL after administration of correction dose. If given at mealtim e, administer within 30 minutes of start of meal labetalol (NORMODYNE/TRANDATE) injection 10 mg Given 07/13/2021 5:22 PM REGIONAL SALES ASSOCIATE 10 mg 10 mg, Intravenous, ONCE, On Sun07/13/21 at 1720, For 1 dose, PROTECT FROM LIGHT. labetalol (NORMODYNE/TRANDATE) injection 10 mg Given 07/13/2021 5:54 PM REGIONAL SALES ASSOCIATE 10 mg 10 mg, Intravenous, ONCE, On Sun07/13/21 at 1750, For 1 dose, PROTECT FROM LIGHT. labetalol (NORMODYNE/TRANDATE) injection 10-40 mg 10-40 mg, Intravenous, EVERY 10 MIN PRN, high blood pr essure, Starting on Sun07/13/21 at 2304, IF Heart Rate 60 beats per minute or greater initiate labetalol (NORMODYNE,TRANDATE) for hypertension. F or Systolic Blood Pressure greater than 140 mmHg. Hold if Heart Rate less than 60 be ats per minute. Give dose over 1-2 minutes. Increase or repeat the dose if Blood Pressure goal not met. Give 10 mg, wait 10 minutes. If not effective then give 20 m g. Wait 10 minutes. If not effective then give 40 mg. If still not effective then start niCARdipine (CARDENE) IV infusion IF ORDERED. Notify provider within 1 hour i f Blood Pressure parameters are not met. PROTECT FROM LIGHT. levETIRAcetam (KEPPRA) intermittent New Bag 07/14/2021 9:23 AM REGIONAL SALES ASSOCIATE 500 mg infusion 500 mg 500 mg, Intravenous, Administer over 15 Minutes, EVERY 12 HOURS, First dose on Karyn 07/14/21 at 0800, For 7 days, Maintenance Dose. Pharmacy to change to PO/NG when able. Do not refrigerate. levETIRAcetam (KEPPRA) tablet 500 mg Given 07/17/2021 8:31 AM REGIONAL SALES ASSOCIATE 500 mg 500 mg, Oral, 2 TIMES DAILY, First dose on Sun07/14/21 at 2100 Given 07/16/2021 8:44 PM REGIONAL SALES ASSOCIATE 500 mg Given 07/16/2021 8:49 AM REGIONAL SALES ASSOCIATE 500 mg levothyroxine (SYNTHROID/LEVOTHROID) tablet Given 07/17/2021 8:31 AM REGIONAL SALES ASSOCIATE 75 mcg 75 mcg 75 mcg, Oral, DAILY, First dose on Karyn 07/14/21 at 1000, Separate oral administration of iron- or calcium-containing products and levothyroxine by at least 4 hours. Given 07/16/2021 8:49 AM REGIONAL SALES ASSOCIATE 75 mcg Given 07/15/2021 8:29 AM REGIONAL SALES ASSOCIATE 75 mcg lidocaine (LMX4) cream Topical, EVERY 1 HOUR PRN, pain, with VA D insertion, Starting on Sun07/13/21 at 2304, Apply at least 30 minutes prior to VAD insertion in divided doses as needed for size of site for insertion. MAX Dose: 2.5 g (?? of 5 g tube) Do NOT give if patient has a history of allergy to any local anesthetic or any [place] product. Do NOT use both lidocaine intradermal/subcu taneous injection and the lidocaine cream on the same site. lidocaine 1 % 0.1-1 mL 0.1-1 mL, Other, EVERY 1 HOUR PRN, mild pain with VAD insertion, Starting on Sun07/13/21 at 2304, MAX dose 1 mL subcutan eous OR intradermal along the side of the vein in divided doses as needed for VAD insertion. Do NOT give if patient has a history of allergy to any local anesthet ic or any [place] product. Do NOT use both lidocaine intradermal/subcutaneous injec tion and the lidocaine cream on the same site. magnesium hydroxide (MILK OF MAGNESIA) s uspension 30 mL 30 mL, Oral, DAILY PRN, constipation, Us e if preventive measures (senna-docusate, docusate, and polyethylene glycol) are n ot effective., Starting on Sun07/13/21 at 2304, Shake well. Hold for loose stools. methocarbamol (ROBAXIN) tablet 500 mg 500 mg, Oral, EVERY 6 HOURS PRN, muscle spasms, Starting on Sun07/13/21 at 2304, If greater than 65 years old, start with 500 mg. naloxone (NARCAN) injection 0.2 mg 0.2 mg, Intravenous, EVERY 2 MIN PRN, op ioid reversal, Starting on Sun07/13/21 at 2313, Administer intravenous route when available and notify provider when administered. For unintended sedation or respiratory depression if all of the below criteria are met: ~ respiratory rate LES S than or EQUAL to 8. ~SaO2 less than 92% and or/end-tidal CO2 is greater than 50. ~ the patient is receiving an opioid, has unintended sedations assessed as RASS (-3), and is cur rently not on mechanical ventilation. RASS scale moderate (-3) is movement or eye opening to voice but no eye contact. Patient Monitoring Once the patient has demonstrated a response to the naloxone, continue to monitor respiratory rate, depth, oxygen saturation and end-tidal CO2 (if available) every 15 mi nutes x 2, then every 30 minutes x 2, then every 1 hour x 1 after each naloxone dose. Consider tr ansfer to ICU if patient respiratory parameters have not improved after 4 nalox one doses. naloxone (NARCAN) injection 0.2 mg 0.2 mg, Intramuscular, EVERY 2 MIN PRN, opioid reversal, Starting on Sun07/13/21 at 2313, Administer intramuscular if an intravenous ro [place] is not available and notify provider when administered. For unintended richard tion or respiratory depression if all of the below criteria are met: ~ respiratory rate LESS than or EQUAL to 8. ~SaO2 less than 92% and or/end-tidal CO2 i s greater than 50. ~ the patient is receiving an opioid, has unin tended sedations assessed as RASS (-3), and is currently not on mechanical ventilati on. RASS scale moderate (-3) is movement or eye opening to voice but no eye contact. Patient Monitoring Once the patient has demonstrated a response to the naloxone, continue to m onitor respiratory rate, depth, oxygen saturation and end-tidal CO2 (if availab le) every 15 minutes x 2, then every 30 minutes x 2, then every 1 hour x 1 after each naloxone dose. Consider transfer to ICU if patient respiratory parameters have not improved after 4 naloxone doses. naloxone (NARCAN) injection 0.4 mg 0.4 mg, Intravenous, EVERY 2 MIN PRN, op ioid reversal, Starting on Sun07/13/21 at 2313, Administer intravenous route when available and notify provider when administered. For unintended sedation or respiratory depression if all of the below criteria are met: ~ respiratory rate LES S than or EQUAL to 8. ~ SaO2 less than 92% and or/end-tidal CO2 is greater than 50. ~ the patient is receiving an opioid, has unintended sedation assessed as RASS (-4 ) or (-5) and patient is currently not on mechanical ventilation. RASS scale (-4) is deep sedation with no response to voice but movement or eye opening to physical stimulation. R ASS scale (-5) is unarousable. Patient Monitoring Once the patient has demonstrated a response to the naloxone, continue to monitor respiratory rate, depth, oxygen saturation and end-tidal CO2 (if available) every 15 mi nutes x 2, then every 30 minutes x 2, then every 1 hour x 1 after each naloxone dose. Consider tr ansfer to ICU if patient respiratory parameters have not improved after 4 nalox one doses. naloxone (NARCAN) injection 0.4 mg 0.4 mg, Intramuscular, EVERY 2 MIN PRN, opioid reversal, Starting on Sun07/13/21 at 2313, Administer intramuscular if an intravenous ro [place] is not available and notify provider when administered. For unintended richard tion or respiratory depression if all of the below criteria are met: ~ respiratory rate LESS than or EQUAL to 8. ~ SaO2 less than 92% and or/end-tidal CO2 is greater than 50. ~ the patient is receiving an opioid, has unin tended sedation assessed as RASS (-4) or (-5) and patient is currently not on mechanical ventil ation. RASS scale (-4) is deep sedation with no response to voice but movement o r eye opening to physical stimulation. RASS scale (-5) is unarousa ble. Patient Monitoring Once the patient has demonstrated a response to the nalox one, continue to monitor respiratory rate, depth, oxygen saturation and end-tidal CO2 (if availab le) every 15 minutes x 2, then every 30 minutes x 2, then every 1 hour x 1 after each naloxone dose. Consider transfer to ICU if patient respiratory parameters have not improved after 4 naloxone doses. ondansetron (ZOFRAN) injection 4 mg Given 07/14/2021 5:21 AM REGIONAL SALES ASSOCIATE 4 mg 4 mg, Intravenous, EVERY 6 HOURS PRN, nausea, vomiting, Administer over 2-5 Minutes, Starting on Sun07/13/21 at 2304, This is Step 1 of nausea and vomiting management. If nausea not resolved in 15 minutes, go to Step 2 prochlorperazine (COMPAZINE). Irritant. ondansetron (ZOFRAN-ODT) ODT tab 4 mg 4 mg, Oral, EVERY 6 HOURS PRN, nausea, v omiting, Starting on Sun07/13/21 at 2304, This is Step 1 of nausea and vomiting management. If n ausea not resolved in 15 minutes, go to Step 2 prochlorperazine (COMPAZINE). Do not push through foil backing. Peel back foil and gently remove. Place on to ngue immediately. Administration with liquid unnecessary W ith dry hands, peel back foil backing and gently remove tablet. Do not push oral d isintegrating tablet through foil backing. Administer immediately on tongue and oral disintegrati ng tablet dissolves in seconds, then swallow with saliva. Liquid not required . oxyCODONE (ROXICODONE) tablet 10 mg 10 mg, Oral, EVERY 4 HOURS PRN, severe p ain (7-10), (pain rating 7-10), Starting on Sun07/13/21 at 2304, Hold oral PRN dose for analgesic side effects. Notify provider to assess for uncontrolled pain or analgesic side effects. Hold while on IV CORK SLABS SAWYER or with regular IV opioid dosing. oxyCODONE (ROXICODONE) tablet 5 mg 5 mg, Oral, EVERY 4 HOURS PRN, other, mo derate pain (pain rating 4-6), Starting on Sun07/13/21 at 2304, Hold oral PRN dose for analgesic side effects. Notify provider to assess for uncontrolled pain or analgesic side effects. Hold while on IV CORK SLABS SAWYER or with regular IV opioid dosing. polyethylene glycol (MIRALAX) Packet 17 g Given 07/15/2021 8:27 AM REGIONAL SALES ASSOCIATE 17 g 17 g, Oral, DAILY, First dose on Karyn 07/14/21 at 0900, To prevent constipation. Mixed prescribed dose in 8 ounces of water, juice or soda. Administer daily starting at 0900 on POD 1. Hold for loose stools. 1 Packet = 17 grams. Mix each gram with at least 1/2 ounce (15 mL) of water - 8 ounces for 17 g dose, 4 ounces for 8.5 g dose, 2 ounces for 4 g dose. Follow with the same volume of water. Hold for loose stools. Given 07/14/2021 12:30 PM REGIONAL SALES ASSOCIATE 17 g prochlorperazine (COMPAZINE) injection 5 mg 5 mg, Intravenous, EVERY 6 HOURS PRN, nausea, vomiting , Administer over 1-2 Minutes, Starting on Sun07/13/21 at 230 4, This is Step 2 of nausea and vomiting management. If nausea not resolved in 15-30 minutes, N otify provider. prochlorperazine (COMPAZINE) tablet 5 mg 5 mg, Oral, EVERY 6 HOURS PRN, nausea, v omiting, Starting on Sun07/13/21 at 2304, This is Step 2 of nausea and vomiting ma nagement. If nausea not resolved in 15-30 minutes, Notify provider. senna-docusate (SENOKOT-S/PERICOLACE) Given 07/16/2021 8:[address] 1 tablet 8.6-50 MG per tablet 1 tablet 1 tablet, Oral, 2 TIMES DAILY, First dose on Sun07/13/21 at 2330, To prevent constipation. Hold for loose stools Hold for loose stools. Given 07/15/2021 8:29 AM REGIONAL SALES ASSOCIATE 1 tablet Given 07/14/2021 9:15 PM REGIONAL SALES ASSOCIATE 1 tablet sodium chloride (PF) 0.9% PF flush 3 mL Given 07/16/2021 8:47 PM REGIONAL SALES ASSOCIATE 3 mLs 3 mL, Intracatheter, EVERY 8 HOURS, First dose on Sun07/13/21 at 2330, to lock peripheral IV dormant line Given 07/16/2021 2:55 PM REGIONAL SALES ASSOCIATE 3 mLs Given 07/16/2021 8:49 AM REGIONAL SALES ASSOCIATE 3 mLs sodium chloride (PF) 0.9% PF flush 3 mL 3 mL, Intracatheter, EVERY 1 MIN PRN, li ne flush, other, to ensure patency or to lock dormant line, Starting on Sun07/13/21 at 2304 documented in this encounter Active and Recently Administered Medications Times are shown in [employer] SALES [employer]IATE. Scheduled Medication Order 07/15/2021 07/16/2021 07/17/2021 acetaminophen (TYLENOL) tablet 975 mg () 0621 ( Given - Provider: Yuki Wyman)0705 (Not Given - Provider: Yuki Wyman - Reason: Other - Comment: Given at 0621)1651 (Given - Provider: Billy Valladares RN)2308 (Given - Provider: Billy Valladares RN) 0849 (Given - Provider: Mayo Dos Santos RN)1454 (Given - Provider: Mayo Dos Santos RN) 975 mg, Oral, EVERY 8 HOURS, First dose on Sun07/13/21 at 2330, For 3 days, Administer for multimodal surgical pain management. Maximum acetaminophen dose from all sources = 75 mg/kg/day not to exceed 4 grams/day. atorvastatin (LIPITOR) tablet 40 mg 2220 (Given - Provider: Billy Valladares RN) 2043 (Given - Provider: Octaviano Ward RN) 40 mg, Oral, AT BEDTIME, First dose on Sun07/14/21 at 2200 cephALEXin (KEFLEX) capsule 500 mg (COMPLETED) 08 (G iven - Provider: Alma Rosa Lockwood, SONY)1937 (Given - Provider: Billy Valladares RN) Routine, 500 mg, Oral, EVERY 12 HOURS SC HEDULED, First dose on Sun07/14/21 at 0930, For 4 doses, Indications: Urinary Tract Infection insulin aspart (NovoLOG) injection (RAPID ACTING) 0707 (Not Given - Provider: Yuki Wyman - Reason: Order parameters not met)1320 (Not Given - Provider: Alma Rosa Lockwood RN - Reason: Order parameters not met) 0810 (Not Given - Provider: Mayo Dos Santos RN - Reason: Order parameters not met)1338 (Not Given - Provider: Mayo Dos Santos RN - Reason: Order parameters not met)1945 (Not Given - Provider: Mayo Dos Santos RN - Reason: Order parameters not met) 0843 (Not Given - Provider: Mayo Dos Santos RN - Reason: Order parameters not met)1200 (Canceled Entry - Provider: Orders Generic Provider - Comment: Automatically canceled at discontinue of medication order) 1-7 Units, Subcutaneous, 3 TIMES DAILY B EFORE MEALS, First dose on Sun07/14/21 at 0930, Correction Scale - MEDIUM INSULIN RESISTANCE DOSING Do Not give Correction Insulin if Pre-Meal BG less than 140. 1657 (Not Given - Provider: Billy Valladares RN - Reason: Order parameters not met - Comment: BG 119) For Pre-Meal BG 140 - 189 give 1 unit. F or Pre-Meal BG 190 - 239 give 2 units. For Pre-Meal BG 240 - 289 give 3 units. For Pre-Meal BG 290 - 339 give 4 units. For Pre-Meal BG 340- 399 give 5 units. For Pre-Meal BG 400-449 give 6 units For Pre -Meal BG greater than or equal to 450 give 7 units. To be given with prandial insulin, and based on pre-meal blood glucose. Notify provider if glucose greater blaise n or equal to 350 mg/dL after administra tion of correction dose. If given at mealtime, administer within 30 minutes of start of meal insulin aspart (NovoLOG) injection (RAPID ACTING) 2120 (Not Given - Provider: Billy Valladares RN - Reason: Order parameters not met) 2121 (Not Given - Provider: Octaviano Ward RN - Reason: Order parameters not met) 1-5 Units, Subcutaneous, AT BEDTIME, Fir st dose on Sun07/14/21 at 2200, MEDIUM INSULIN RESISTANCE DOSING Do Not give Bedtime Correction Insulin if BG less than 200. For BG 200 - 249 give 1 units. For B G 250 - 299 give 2 units. For BG 300 - 3 49 give 3 units. For BG 350 -399 give 4 units. For BG greater than or equal to 400 give 5 units. Notify provider if glucose greater than or equal to 350 mg/dL aft er administration of correction dose. If given at mealtime, administer within 30 minutes of start of meal levETIRAcetam (KEPPRA) tablet 500 mg 0829 (Given - Pro vider: Alma Rosa Lockowod RN)2026 (Given - Provider: Billy Valladares RN) 0849 (Given - Provider: Mayo Dos Santos, SONY)2043 (Given - Provider: Octaviano Ward RN) 0831 (Given - Provider: Mayo Dos Santos RN) 500 mg, Oral, 2 TIMES DAILY, First dose on Sun07/14/21 at 2100 levothyroxine (SYNTHROID/LEVOTHROID) tablet 75 mcg 082 9 (Given - Provider: Alma Rosa Lockwood RN) 0849 (Given - Provider: Mayo Dos Santos RN) 0831 (Giv en - Provider: Mayo Dos Santos RN) 75 mcg, Oral, DAILY, First dose on Karyn 09/13/20 at 1000, Separate oral administration of iron- or calcium-containing products and levothyroxine by at least 4 hours. polyethylene glycol (MIRALAX) Packet 17 g 0827 (Given - Provider: Alma Rosa Lockwood RN) 0850 (Not Given - Provider: Mayo fowler RN - Reason: Order parameters not met) 0823 (Not Given - Provider: Mayo fowler RN - Reason: Patient/family refused) 17 g, Oral, DAILY, First dose on Karyn 07/24 at 0900, To prevent constipation. Mixed prescribed dose in 8 ounces of water, juice or soda. Administer daily starting at 0900 on POD 1. Hold for loose stoo ls. 1 Packet = 17 grams. Mix each gram w ith at least 1/2 ounce (15 mL) of water - 8 ounces for 17 g dose, 4 ounces for 8.5 g dose, 2 ounces for 4 g dose. Follow with the same volume of water. Hold for loose stools. senna-docusate (SENOKOT-S/PERICOLACE) 8.6-50 MG per ta blet 1 tablet 0829 (Given - Provider: Alma Rosa Lockwood RN)2120 (Not Given - Provider: Billy Valladares RN - Reason: Patient/family refused - Comment: Pt had a big loose BM during the shift.) 0850 (Not Given - Provider: Mayo fowler RN - Reason: Order parameters not met)2044 (Given - Provider: Octaviano Ward RN) 0823 (Not Given - Provider: Mayo Dos Santos RN - Reason: Patient/family refused) 1 tablet, Oral, 2 TIMES DAILY, First dos e on Sun07/13/21 at 2330, To prevent constipation. Hold for loose stools Hold for loose stools. sodium chloride (PF) 0.9% PF flush 3 mL 0843 (Given - Provider: Alma Rosa Lockwood RN)1653 (Given - Provider: Billy Valladares RN)2308 (Given - Provider: Billy Valladares RN) 0849 (Given - Provider: Mayo Dos Santos, RN)1455 (Given - Provider: Mayo Dos Santos, SONY)2047 (Given - Provider: Octaviano Ward RN) 0824 (Not Given - Provider: Mayo Dos Santos RN - Reason: No IV Access) 3 mL, Intracatheter, EVERY 8 HOURS, Firs t dose on Sun07/13/21 at 2330, to lock peripheral IV dormant line PRN Medication Order 07/15/2021 07/16/2021 07/17/2021 acetaminophen (TYLENOL) tablet 650 mg 22 18 (Given - Provider: Octaviano Ward RN) 0831 (Given - Provider: Mayo Dos Santos RN) 650 mg, Oral, EVERY 4 HOURS PRN, other, For optimal non-opioid multimodal pain management to improve pain control., Starting on 07/16/21 at 0000, May give first dose 4 hours after last scheduled dos e of acetaminophen (TYLENOL). Maximum ac etaminophen dose from all sources = 75 mg/kg/day not to exceed 4 grams/day. bisacodyl (DULCOLAX) Suppository 10 mg 10 mg, Rectal, DAILY PRN, constipation, Use if Magnesium hydroxide (MILK of MAGNESIA) not effective after 24 hours. May discontinue if patient having bowel movement., Starting on 07/13/21 at 2304, Hold for loose stools. calcium carbonate (TUMS) chewable tablet 1,000 mg 1,000 mg, Oral, 4 TIMES DAILY PRN, heartburn, Starting on We d 07/13/21 at 2304 dextrose 50 % injection 25-50 mL(Linked Group 1) 25-50 mL, Intravenous, EVERY 15 MIN PRN, low blood sugar, Administer over 1-5 Minutes, Starting on Karyn 07/14/21 at 0914, Use if have IV access, BG less than 70 mg/dL and meet dose criteria below: Dose i f conscious and alert (or disorientated) and NPO = 25 mL Dose if unconscious / not alert = 50 mL Give first dose for initial blood glucose less than 70 mg/dL. If blood glucose at 15 minute recheck is le ss than or equal to 100 mg/dL continue t o administer carbohydrate treatment every 15 minutes, as needed, based on blood glucose and assessment parameters until blood glucose level is above 100 mg/dL. Vesicant. glucagon injection 1 mg(Linked Group 1) 1 mg, Subcutaneous, EVERY 15 MIN PRN, lo w blood sugar, May repeat x 1 only, Starting on Karyn 07/14/21 at 0914, May give SQ or IM. ONLY use glucagon IF patient has NO IV access AND is UNABLE to swallow AN D blood glucose is LESS than or EQUAL to 50 mg/dL. glucose gel 15-30 g(Linked Group 1) 15-30 g, Oral, EVERY 15 MIN PRN, low blo od sugar, Starting on Sun07/14/21 at 0914, Give first dose for initial blood glucose less than 70 mg/dL per the dosing instructions below. If blood glucose at 15 minute rechecks is still less than or e qual to 100 mg/dL, continue to administer doses per blood glucose parameters every 15 minutes, as needed, until blood glucose level is above 100 mg/dL. Dosing Ins tructions: ~If patient is conscious and able to swallow and NO enteral tube For initial BG 51-69mg/dL OR 15 minute recheck BG 51- 100 mg/dL - give 15 g For BG less than or equal to 50 mg/dL - give 30 g ~ If Enteral tube For initial BG 51-69mg /dL OR 15 minute recheck BG 51- 100 mg/dL - give apple juice 120 mL (4 oz or 15 g of CHO) via enteral tube For BG less than or equal to 50 mg/dL - Give apple juic e 240 mL (8 oz or 30 g of CHO) via enter al tube ~Oral gel is preferable for conscious and able to swallow patient. ~IF gel unavailable or patient refuses may provide apple juice per Enteral tube dosing instructions. Document juice on I and O flowsheet. hydrALAZINE (APRESOLINE) injection 10-20 mg 10-20 mg, Intravenous, EVERY 30 MIN PRN, high blood pressure, Administer over 1 Minutes, Starting on Sun07/13/21 at 2304, IF Heart Rate less than 60 initiate hydrALAZINE (APRESOLINE) for hypertension. For Systolic Blood Pressure greater than 140 mmHg. Give 10 mg, wait 30 minutes. If not effective then repeat 10 mg. Wait 30 minutes. If not effective then give 20 mg. If still not effective then start n iCARdipine (CARDENE) IV infusion IF ORDE RED. Notify provider within 1 hour if Blood Pressure parameters are not met. HYDROmorphone (DILAUDID) injection 0.2 mg(Linked Group 2) 0.2 mg, Intravenous, EVERY 2 HOURS PRN, other, moderate pain (pain rating 4-6) IF patient unable to take oral pain medication or pain not controlled with oral analgesics, Starting on Sun07/13/21 at 230 4, Hold IV PRN opioid dose for analgesic side effects. Notify provider to assess for uncontrolled pain or analgesic side effects. May use IV opioid - IF patient cannot take oral opioid OR IF pain not ma naged with non-pharmacological, non-opio id, or oral opioid interventions if ordered; may use concomitant with non-opioid analgesics. HYDROmorphone (DILAUDID) injection 0.4 mg(Linked Group 2) 0.4 mg, Intravenous, EVERY 2 HOURS PRN, other, severe pain (pain rating 7-10) IF patient unable to take oral pain medication or pain not controlled with oral analgesics, Starting on Sun07/13/21 at 2304 , Hold IV PRN opioid dose for analgesic side effects. Notify provider to assess for uncontrolled pain or analgesic side effects. May use IV opioid - IF patient cannot take oral opioid OR IF pain not man aged with non-pharmacological, non-opioi d, or oral opioid interventions if ordered; may use concomitant with non-opioid analgesics. hydrOXYzine (ATARAX) tablet 10 mg 10 mg, Oral, EVERY 6 HOURS PRN, itching, Starting on Sun07/13/21 at 2304, Caution to be used when administering multiple [employer] depressing meds within a short time frame. labetalol (NORMODYNE/TRANDATE) injection 10-40 mg 10-40 mg, Intravenous, EVERY 10 MIN PRN, high blood pressure, Starting on Sun07/13/21 at 2304, IF Heart Rate 60 beats per minute or greater initiate labetalol (NORMODYNE,TRANDATE) for hypertension. For Systolic Blood Pressure greater than 14 0 mmHg. Hold if Heart Rate less than 60 beats per minute. Give dose over 1-2 minutes. Increase or repeat the dose if Blood Pressure goal not met. Give 10 mg, wait 10 minutes. If not effective then give 20 mg. Wait 10 minutes. If not effective then give 40 mg. If still not effective then start niCARdipine (CARDENE) IV infusion IF ORDERED. Notify provider within 1 hour if Blood Pressure parameters are not met. PROTECT FROM LIG HT. lidocaine (LMX4) cream Topical, EVERY 1 HOUR PRN, pain, with VA D insertion, Starting on Sun07/13/21 at 2304, Apply at least 30 minutes prior to VAD insertion in divided doses as needed for size of site for insertion. MAX Dos e: 2.5 g (?? of 5 g tube) Do NOT give if patient has a history of allergy to any local anesthetic or any carolina product. Do NOT use both lidocaine intradermal/subcutaneous injection and the lidocaine cream on the same site. lidocaine 1 % 0.1-1 mL 0.1-1 mL, Other, EVERY 1 HOUR PRN, mild pain with VAD insertion, Starting on Sun07/13/21 at 2304, MAX dose 1 mL subcutaneous OR intradermal along the side of the vein in divided doses as needed for VAD insertion. Do NOT give if patient has a history of allergy to any local anesthetic or any carolina product. Do NOT use both lidocaine intradermal/subcutaneous injection and the lidocaine cream on the same site. magnesium hydroxide (MILK OF MAGNESIA) suspension 30 mL 30 mL, Oral, DAILY PRN, constipation, Us e if preventive measures (senna- docusate, docusate, and polyethylene glycol) are not effective., Starting on Sun07/13/21 at 2304, Shake well. Hold for loose stools. methocarbamol (ROBAXIN) tablet 500 mg 500 mg, Oral, EVERY 6 HOURS PRN, muscle spasms, Starting on Sun07/13/21 at 2304, If greater than 65 years old, start with 500 mg. naloxone (NARCAN) injection 0.2 mg(Linked Group 3) 0.2 mg, Intravenous, EVERY 2 MIN PRN, op ioid reversal, Starting on Sun07/13/21 at 2313, Administer intravenous route when available and notify provider when administered. For unintended sedation or res piratory depression if all of the below criteria are met: ~ respiratory rate LESS than or EQUAL to 8. ~SaO2 less than 92% and or/end-tidal CO2 is greater than 50. ~ the patient is receiving an opioid, h as unintended sedations assessed as RASS (-3), and is currently not on mechanical ventilation. RASS scale moderate (-3) is movement or eye opening to voice but no eye contact. Patient Monitoring Once th e patient has demonstrated a response to the naloxone, continue to monitor respiratory rate, depth, oxygen saturation and end-tidal CO2 (if available) every 15 minutes x 2, then every 30 minutes x 2, th en every 1 hour x 1 after each naloxone dose. Consider transfer to ICU if patient respiratory parameters have not improved after 4 naloxone doses. naloxone (NARCAN) injection 0.2 mg(Linked Group 3) 0.2 mg, Intramuscular, EVERY 2 MIN PRN, opioid reversal, Starting on Sun07/13/21 at 2313, Administer intramuscular if an intravenous route is not available and notify provider when administered. For un intended sedation or respiratory depress ion if all of the below criteria are met: ~ respiratory rate LESS than or EQUAL to 8. ~SaO2 less than 92% and or/end- tidal CO2 is greater than 50. ~ the patient i s receiving an opioid, has unintended se dations assessed as RASS (-3), and is currently not on mechanical ventilation. RASS scale moderate (-3) is movement or eye opening to voice but no eye contact. Pa tient Monitoring Once the patient has de monstrated a response to the naloxone, continue to monitor respiratory rate, depth, oxygen saturation and end-tidal CO2 (if available) every 15 minutes x 2, then every 30 minutes x 2, then every 1 hour x 1 after each naloxone dose. Consider transfer to ICU if patient respiratory parameters have not improved after 4 naloxone doses. naloxone (NARCAN) injection 0.4 mg(Linked Group 3) 0.4 mg, Intravenous, EVERY 2 MIN PRN, op ioid reversal, Starting on Sun07/13/21 at 2313, Administer intravenous route when available and notify provider when administered. For unintended sedation or res piratory depression if all of the below criteria are met: ~ respiratory rate LESS than or EQUAL to 8. ~ SaO2 less than 92% and or/end-tidal CO2 is greater than 50. ~ the patient is receiving an opioid, has unintended sedation assessed as RASS (-4) or (-5) and patient is currently not on mechanical ventilation. RASS scale (-4) is deep sedation with no response to voice but movement or eye opening to ph ysical stimulation. RASS scale (-5) is u narousable. Patient Monitoring Once the patient has demonstrated a response to the naloxone, continue to monitor respiratory rate, depth, oxygen saturation and en d-tidal CO2 (if available) every 15 rena umair x 2, then every 30 minutes x 2, then every 1 hour x 1 after each naloxone dose. Consider transfer to ICU if patient respiratory parameters have not improved after 4 naloxone doses. naloxone (NARCAN) injection 0.4 mg(Linked Group 3) 0.4 mg, Intramuscular, EVERY 2 MIN PRN, opioid reversal, Starting on Sun07/13/21 at 2313, Administer intramuscular if an intravenous route is not available and notify provider when administered. For un intended sedation or respiratory depress ion if all of the below criteria are met: ~ respiratory rate LESS than or EQUAL to 8. ~ SaO2 less than 92% and or/end-tidal CO2 is greater than 50. ~ the patient is receiving an opioid, has unintended s edation assessed as RASS (-4) or (-5) and patient is currently not on mechanical ventilation. RASS scale (-4) is deep sedation with no response to voice but movem ent or eye opening to physical stimulati on. RASS scale (-5) is unarousable. Patient Monitoring Once the patient has demonstrated a response to the naloxone, continue to monitor respiratory rate, depth, oxygen saturation and end-tidal CO2 (if available) every 15 minutes x 2, then every 30 minutes x 2, then every 1 hour x 1 after each naloxone dose. Consider transfer to ICU if patient respiratory parameters have not improved after 4 naloxone doses. ondansetron (ZOFRAN) injection 4 mg(Linked Group 4) 4 mg, Intravenous, EVERY 6 HOURS PRN, na usea, vomiting, Administer over 2-5 Minutes, Starting on Sun07/13/21 at 2304, This is Step 1 of nausea and vomiting management. If nausea not resolved in 15 rena umair, go to Step 2 prochlorperazine (COMPAZINE). Irritant. ondansetron (ZOFRAN-ODT) ODT tab 4 mg(Linked Group 4) 4 mg, Oral, EVERY 6 HOURS PRN, nausea, v omiting, Starting on Sun07/13/21 at 2304, This is Step 1 of nausea and vomiting management. If nausea not resolved in 15 minutes, go to Step 2 prochlorperazine ( COMPAZINE). Do not push through foil george erica. Peel back foil and gently remove. Place on tongue immediately. Administration with liquid unnecessary With dry hands, peel back foil backing and gently dylan ve tablet. Do not push oral disintegrati ng tablet through foil backing. Administer immediately on tongue and oral disintegrating tablet dissolves in seconds, then swallow with saliva. Liquid not required. oxyCODONE (ROXICODONE) tablet 10 mg(Linked Group 5) 10 mg, Oral, EVERY 4 HOURS PRN, severe p ain, (pain rating 7-10), Starting on Sun07/13/21 at 2304, Hold oral PRN dose for analgesic side effects. Notify provider to assess for uncontrolled pain or analg esic side effects. Hold while on IV CORK SLABS SAWYER or with regular IV opioi d dosing. oxyCODONE (ROXICODONE) tablet 5 mg(Linked Group 5) 5 mg, Oral, EVERY 4 HOURS PRN, other, mo derate pain (pain rating 4-6), Starting on Sun07/13/21 at 2304, Hold oral PRN dose for analgesic side effects. Notify provider to assess for uncontrolled pain or analgesic side effects. Hold while on IV CORK SLABS SAWYER or with regular IV opioid dosing. prochlorperazine (COMPAZINE) injection 5 mg(Linked Group 6) 5 mg, Intravenous, EVERY 6 HOURS PRN, na usea, vomiting, Administer over 1-2 Minutes, Starting on Sun07/13/21 at 2304, This is Step 2 of nausea and vomiting management. If nausea not resolved in 15-30 minutes, Notify provider. prochlorperazine (COMPAZINE) tablet 5 mg(Linked Group 6) 5 mg, Oral, EVERY 6 HOURS PRN, nausea, v omiting, Starting on Sun07/13/21 at 2304, This is Step 2 of nausea and vomiting management. If nausea not resolved in 15-30 minutes, Notify provider. sodium chloride (PF) 0.9% PF flush 3 mL 3 mL, Intracatheter, EVERY 1 MIN PRN, li ne flush, other, to ensure patency or to lock dormant line, Starting on Sun07/13/21 at 2304 Linked Groups Order Group 1: glucose gel 15-30 gJump to med 15-30 g, Oral, EVERY 15 MIN PRN, low blo od sugar, Starting on Karyn 07/14/21 at 0914
Give first dose for initial blood glucose less than 70 mg/dL per the dosing instructions below. If b lood glucose at [address] ill less than or equal to 100 mg/dL, continue to administer doses per blood glucose parameters every 15 minutes, as needed, until blood glucose level is above 100 mg/dL. Dosing Instructions:& nbsp;~If patient is conscious and able to swallow and NO enteral tube For initial BG 51-69mg/dL OR 15 minute recheck BG 51- 100 mg/dL - give 15 g For BG less than or equal to 5 0 mg/dL - give 30 g ~ If Enteral tube For initial BG 51-69mg/dL OR 15 minute recheck BG 51- 100 mg/dL - give apple juice 120 mL (4 oz or 15 g of CHO) via enteral tube For BG l ess than or equal to 50 mg/dL - Give apple juice 240 mL (8 oz or 30 g of CHO) via enteral tube ~Oral gel is preferable for conscious and able to swal low patient. ~IF gel unavailable o r patient refuses may provide apple juice per Enteral tube dosing instructions. Document juice on I and O flowsheet.
Or dextrose 50 % injection 25-50 mLJump to med 25-50 mL, Intravenous, EVERY 15 MIN PRN, low blood sugar, Administer over 1-5 Minutes, Starting on Karyn 07/14/21 at 0914
Use if have IV access, BG less than 70 mg/dL and meet dose criteria below : Dose if conscious and alert (or d isorientated) and NPO = 25 mL Dose if unconscious / not alert = 50 mL Give first dose for initial blood glucose less than 70&n bsp; mg/dL. If blood glu cose at 15 minute recheck is less than or equal to 100 mg/dL continue to administer carbohydrate treatment every 15 minutes, as needed, based on blood glucose and assessment parameters until blood glucose level is above 100 mg/dL. Vesicant.
Or glucagon injection 1 mgJump to med 1 mg, Subcutaneous, EVERY 15 MIN PRN, lo w blood sugar, May repeat x 1 only, Starting on Karyn 07/14/21 at 0914
May give SQ or IM. ONLY use glucagon IF patient has NO IV access AND is UNABLE to sw allow AND blood glucose is LESS than or EQUAL to 50 mg/dL.
Group 2: HYDROmorphone (DILAUDID) injection 0.2 mgJump to med 0.2 mg, Intravenous, EVERY 2 HOURS PRN, other, moderate pain (pain rating 4-6) IF patient unable to take oral pain medication or pain not controlled with oral analgesics, Starting on Sun07/13/21 at 230 4
Hold IV PRN opioid dose for analges ic side effects. Notify provider to assess for uncontrolled pain or analgesic side effects. May use IV opioid - IF pat ient cannot take oral opioid OR IF pain not managed with non-pharmacological, non-opioid, or oral opioid interventions if ordered; may use concomitant with non-opioid analgesics.
Or HYDROmorphone (DILAUDID) injection 0.4 mgJump to med 0.4 mg, Intravenous, EVERY 2 HOURS PRN, other, severe pain (pain rating 7-10) IF patient unable to take oral pain medication or pain not controlled with oral analgesics, Starting on Sun07/13/21 at 2304
Hold IV PRN opioid dose for analgesi c side effects. Notify provider to assess for uncontrolled pain or analgesic side effects. May use IV opioid - IF ashley ent cannot take oral opioid OR IF pain n ot managed with non-pharmacological, non-opioid, or oral opioid interventions if ordered; may use concomitant with non-opioid analgesics.
Group 3: naloxone (NARCAN) injection 0.2 mgJump to med 0.2 mg, Intravenous, EVERY 2 MIN PRN, op ioid reversal, Starting on 07/13/21 at 2313
Administer intravenous route when available and notify provider when administered. For unintende d sedation or respiratory depression if all of the below criteria are met: ~ respiratory rate LESS than or EQUAL to 8. ~SaO2 less than 92% and or/end-tidal CO2 is greater than 50.&amp ;nbsp;~ the patient is receiving an opio id, has unintended sedations assessed as RASS (-3), and is currently not on mechanical ventilation. RASS scale moderate (-3) is movement or eye opening to voice but no eye contact.&nb sp; Patient Monitoring Once the patient has demonstrated a response to the naloxone, continue to monitor respiratory rate, depth, oxygen sat uration and end-tidal CO2 (if available) every 15 minutes x 2, then every 30 minutes x 2, then every 1 hour x 1 after each naloxone dose. Consider transfer to ICU if patient respirato ry parameters have not improved after 4 naloxone doses.
Or naloxone (NARCAN) injection 0.4 mgJump to med 0.4 mg, Intravenous, EVERY 2 MIN PRN, op ioid reversal, Starting on Sun07/13/21 at 2313
Administer intravenous route when available and notify provider when administered. For unintende d sedation or respiratory depression if all of the below criteria are met: ~ respiratory rate LESS than or EQUAL to 8. ~ SaO2 less than 92% and or/end-tidal CO2 is greater than 50.&amp ;nbsp;~ the patient is receiving an opio id, has unintended sedation assessed as RASS (-4) or (-5) and patient is currently not on mechanical ventilation. RASS scale (-4) is deep sedat ion with no response to voice but moveme nt or eye opening to physical stimulation. RASS scale (-5) is unarousable. Patient Monitoring O nce the patient has demonstrated a respo nse to the naloxone, continue to monitor respiratory rate, depth, oxygen saturation and end-tidal CO2 (if available) every 15 minutes x 2, then every 30 minutes x 2, then every 1 hour x 1 after each nal oxone dose. Consider transfer to ICU if patient respiratory parameters have not improved after 4 naloxone doses.
Or naloxone (NARCAN) injection 0.2 mgJump to med 0.2 mg, Intramuscular, EVERY 2 MIN PRN, opioid reversal, Starting on Sun07/13/21 at 2313
Administer intramuscular if an intravenous route is not available and notify provider when administered . For unintended sedation or respir atory depression if all of the below criteria are met: ~ respiratory rate LESS than or EQUAL to 8. ~SaO2 less than 92% and or/end-tidal CO2 is greater than 50. ~ the patient is receiving an opioid, has unintended sedations assessed as RASS (-3), and is currently not on mechanical ventilation. RASS scale moderate (-3) is movement or eye opening to voic e but no eye contact. Patient Monitoring Once the patient has demonstrated a response to the naloxone, continue to monitor respiratory rate, depth, oxygen saturation and end- tidal CO2 (if available) every 15 minutes x 2, then every 30 minutes x 2, then every 1 hour x 1 after each naloxone dose. Consider transfer to ICU if patient respiratory parameters garcia ve not improved after 4 naloxone doses.
Or naloxone (NARCAN) injection 0.4 mgJump to med 0.4 mg, Intramuscular, EVERY 2 MIN PRN, opioid reversal, Starting on Sun07/13/21 at 2313
Administer intramuscular if an intravenous route is not available and notify provider when administered . For unintended sedation or respir atory depression if all of the below criteria are met: ~ respiratory rate LESS than or EQUAL to 8. ~ SaO2 less than 92% and or/end-tidal CO2 is greater than 50. ~ the patient is receiving an opioid, has unintended sedation assessed as RASS (-4) or (-5) and patient is currently not on mechanical ventilation. RASS scale (-4) is deep sedation with no resp onse to voice but movement or eye opening to physical stimulation. RASS scale (-5) is unarousable. Patie nt Monitoring Once the patient has demonstrated a response to the naloxone, continue to monitor respiratory rate, depth, oxygen saturation and end-tidal CO2 (if available) every 15 minutes x 2, then every 30 minutes x 2, then every 1 hour x 1 after each naloxone dose. Consider transfer to ICU if patient respiratory parameters have not improved after 4 naloxone doses.
Group 4: ondansetron (ZOFRAN-ODT) ODT tab 4 mgJump to med 4 mg, Oral, EVERY 6 HOURS PRN, nausea, v omiting, Starting on Sun07/13/21 at 2304
This is Step 1 of nausea and vomiting management. If nausea not resolved in 15 minutes, go t o Step 2 prochlorperazine (COMPAZINE). D o not push through foil backing. Peel back foil and gently remove. Place on tongue immediately. Administration with liquid unnecessary With dry hands, pe el back foil backing and gently remove t ablet. Do not push oral disintegrating tablet through foil backing. Administer immediately on tongue and oral disintegrating tablet dissolves in seconds, then swallow with saliva. Liquid not required.
Or ondansetron (ZOFRAN) injection 4 mgJump to med 4 mg, Intravenous, EVERY 6 HOURS PRN, na usea, vomiting, Administer over 2-5 Minutes, Starting on Sun07/13/21 at 2304
This is Step 1 of nausea and vomiting management. If lamont sea not resolved in 15 minutes, go to St ep 2 prochlorperazine (COMPAZINE). Irritant.
Group 5: oxyCODONE (ROXICODONE) tablet 5 mgJump to med 5 mg, Oral, EVERY 4 HOURS PRN, other, mo derate pain (pain rating 4-6), Starting on Sun07/13/21 at 2304
Hold oral PRN dose for analgesic side effects. Notify provider to assess for uncontrolled pain or analgesic side effects. H old while on IV CORK SLABS SAWYER or with regular IV opioid dosing.
Or oxyCODONE (ROXICODONE) tablet 10 mgJump to med 10 mg, Oral, EVERY 4 HOURS PRN, severe p ain, (pain rating 7-10), Starting on Sun07/13/21 at 2304
Hold oral PRN dose for analgesic side effects. Notify provider to assess for uncontrolled pain or analgesic side effects. Hold wh ile on IV CORK SLABS SAWYER or with regular IV opioid dosing.
Group 6: prochlorperazine (COMPAZINE) injection 5 mgJump to med 5 mg, Intravenous, EVERY 6 HOURS PRN, na usea, vomiting, Administer over 1-2 Minutes, Starting on Sun07/13/21 at 2304
This is Step 2 of nausea and vomiting management. If nausea not resolved in 15-30 minutes, Notify provider.
Or prochlorperazine (COMPAZINE) tablet 5 mgJump to med 5 mg, Oral, EVERY 6 HOURS PRN, nausea, v omiting, Starting on Sun07/13/21 at 2304
This is Step 2 of nausea and vomiting management. If nausea not resolved in 15-30 minutes, Notify provider.
documented in this encounter Care Teams Research Quality Assurance Specialist Relationship Specialty Start Date End Date Melissa Parikh PCP - General Internal Medicine 04/24/21 [address] [place] [address] Thony Sousa, Assigned Neuroscience 06/05/21 PA-C Provider [address] [place] [address] documented as of this encounter
--- OUTSIDE RECORDS SUMMARY | 2022-08-06 00:54 | XMS_ITS | Encounter Summary ---
:1945 Author Organization [facility] Address [address] [place] [address] Care Team Providers Name Role Phone EveMelissa vanegas Spenser Primary Care Provider Unavailable Thony Sousa PA-C Unavailable Reason for Referral Rehab Therapy Integrated Services (Routine) - Closed Specialty Diagnoses / Procedures Referred By Contact Refer red To Contact Diagnoses SDH (subdural hematoma) Subdural hematoma Confusion [address] [address] Phone: Referral ID Status Reason Start Date Expiration Date Visits Requ ested Visits Authorized [id number] Closed 07/18/2021 09/02/2021 365 365 LABORATORY TECHNICIAN Reason for Visit Rehab Therapy Integrated Services (Routine) - Closed Specialty Diagnoses / Procedures Referred By Contact Refer red To Contact Diagnoses SDH (subdural hematoma) Subdural hematoma Confusion [address] [address] Phone: Referral ID Status Reason Start Date Expiration Date Visits Requ ested Visits Authorized [id number] Closed 07/18/2021 09/02/2021 365 365 Encounter Details Date Type Department Care Team Description 07/21/2021 [facility] Zeynep Madrigal MD [address] [phone] SDH (subdural hematoma) (H); Encounter Rehabilitation Katerin Gupta, OT [facility] [address] [facility] [place] [id number] Subdural hematoma (H); [address] Conf[address] [place] [phone] Social History Tobacco [...] with No / Unsure 07/21/2021 9:58 AM FILM LABORATORY TECHNICIAN someone who was confirmed or suspected to have Coronavirus / COVID-19? documented as of this encounter Medications at Time of Discharge Medication Sig Dispensed Refills Start Date End Date atorvastatin (LIPITOR) 40 Take 40 mg by mouth At 0 MG tablet Bedtime At cephALEXin (KEFLEX) 500 Take 500 mg by [...] documented as of this encounter Progress Notes Katerin Hung, OT - 07/21/2021 11:59 PM CST 07/21/21 1000 Quick Adds Quick Adds Certification Type of Visit Initial Outpatient Occupational Therapy Evaluation Line Haul Owner Operator Line Haul Owner Operator Present No General Information Start Of Care Date 07/21/21 Referring Physician Isabel Madrigal MD Orders Evaluate and treat as indicated Other Orders Cognitive Assessment Orders Date 07/17/21 Medical Diagnosis SDH (subdural hematoma) (H) S06.5X9A Onset of Illness/Injury or Date of Surgery 07/13/21 Precautions/Limitations Fall precautions Surgical/Medical History Reviewed Yes Additional Occupational Profile Info/Pertinent History of Current Problem Ema is a 76 year old female presenting for OP OT Evaluation including Cognitive Assessment at the request of Dr. Isabel Madrigal in regards to cognitive changes secondary to increased size of left convexity subdural hematoma with slight worsening of left to right midline shift and left uncal herniation with subsequent craniotomy performed on 07/13/21. Patient indicates that she has been staying with her daughter since discharge, but at baseline lives independently. Role/Living Environment Current Community Support Family/friend caregiver (Currently living with daughter, previously independent. ) Patient role/Employment history Retired Current Living Environment House Home/Community Accessibility Comments Patient lives in a house with x10 stairs to basement with no need to access. No environmental barriers within the home environment reported. Prior Level - Transfers Independent Prior Level - Ambulation Independent Prior Level - ADLS Independent Prior Responsibilities - IADL Meal Preparation;Housekeeping;Shopping;Laundry;Medication management;Finances;Driving Prior Level Comments Patient lives in a house independently at baseline with no AE use. Patient is currently living with her daughter roughly 30 minutes from her home for assistance with recovery and higher order IADL's. Patient/family Goals Statement To return to previous level of functioning, independent living. Pain Patient currently in pain No;Denies Fall Risk Screen Fall screen completed by OT Have you fallen 2 or more times in the past year? No Have you fallen and had an injury in the past year? No Is patient a fall risk? Department fall risk interventions implemented Fall screen comments Recent surgery, notes feeling unbalanced at times. Abuse Screen (yes response referral indicated) Feels Unsafe at Home or Work/School no Feels Threatened by Someone no Does Anyone Try to Keep You From Having Contact with Others or Doing Things Outside Your Home? no Physical Signs of Abuse Present no Cognitive Status Examination Orientation Orientation to person, place and time Level of Consciousness Alert Follows Commands and Answers Questions Able to follow multistep instructions Personal Safety and Judgment Intact Memory Impaired Attention Reports problems attending;Alternating attention impaired, difficulty shifting between tasks;Divided attention impaired, difficulty with simultaneous tasks Organization/Problem Solving Reports problems with organization;Reports problems with problem solving during evaluation Executive Function Working memory impaired, decreased storage of information for performing tasks;Cognitive flexibility impaired;Planning ability impaired Cognitive Comment CAM completed this date, refer to separate note for details. Visual Perception Visual Perception Comments Patient does not outright endorse changes in vision, evaluation focused on cognitive assessment- will continue to assess as indicated. Sensation Upper Extremity Sensory Examination No deficits were identified Range of Motion (ROM) ROM Quick Adds No deficits identified ROM Comments UE ROM WNL Strength Strength Comments Generalized weakness with indication of increased fatigue through subjective report. Hand Strength Hand Dominance Right Left Hand Furnishings Conservator (pounds) 45 pounds Right Hand Furnishings Conservator (pounds) 40 pounds Muscle Tone Muscle Tone No deficits were identified Coordination Upper Extremity Coordination Right UE impaired Coordination Comments Did not formally complete a fine motor coordination assessment this date however provided with CAM subtests noted difficulty with handwriting. Transfer Skill Level of [place]: Transfers independent Bathing Level of [place] - Bathing independent Upper Body Dressing Level of [place]: Dress Upper Body independent Lower Body Dressing Level of [place]: Dress Lower Body independent Toileting Level of [place]: Toilet independent Grooming Level of [place]: Grooming independent Eating/Self-Feeding Level of [place]: Eating independent Activity Tolerance Activity Tolerance Fair activity tolerance- will address fatigue management through POC with subjective report of increased need for rest and difficulty with continued attention tasks Instrumental Activities of Daily Living Assessment IADL Assessment/Observations Patient is currently staying at her daughters house, roughly [address] of [address] Would like to return to all aspects of independent living if possible. Planned Therapy Interventions Planned Therapy Interventions IADL training;Cognitive performance testing;Community/work reintegration;Coordination training;Self care/Home management;Strengthening;Stretching;Therapeutic activities;Visual perception;Neuromuscular re-education Adult OT Eval Goals OT Eval Goals (Adult) 1;2;3;4;5 OT Goal 1 Goal Identifier Cognitive Goal Description Patient will verbalize understanding of cognitive assessment results and recommendations for increased safety and efficiency in IADl completion. Target Date 10/19/21 OT Goal 2 Goal Identifier Fatigue/Activity Tolerance Goal Description Patient will indicate through subjective report decreased overall fatigue as neededfor increased efficiency in IADL's as indicated by a score of 35+ on thr FACIT. Target Date 10/19/21 OT Goal 3 Goal Identifier Pre-driving Goal Description Patient will score WNL on all pre-driving assessments as indication of adequate preparatory skills (visual motor attention, reaction time, acuity, general attention) needed for safe independent community mobility. Target Date 10/19/21 OT Goal 4 Goal Identifier Problem Solving Goal Description Patient will demonstrate independent completion of a multi-step problem solving task of moderate complexity (WPCA, errands task, etc) with 90% accuracy. Target Date 10/19/21 OT Goal 5 Goal Identifier Home Programming Goal Description Patient will verbalize and demonstrate independent compliance with home programmingrecommendations as they relate to general strengthening, fine motor coordination or fatigue management as needed for increased independence and efficiency in I/ADL's Target Date 10/19/21 Clinical Impression Criteria for Skilled Therapeutic Interventions Met Yes, treatment indicated OT Diagnosis Decreased independence, safety and efficency in I/ADL's Influenced by the following impairments cognitive changes, fatigue, generalized weakness Assessment of Occupational Performance 3-5 Performance Deficits Identified Performance Deficits higher order IADL's Clinical Decision Making (Complexity) Low complexity Therapy Frequency 1x/week Predicted Duration of Therapy Intervention (days/wks) 6 weeks Risks and Benefits of Treatment have been explained. Yes Patient, Family & other staff in agreement with plan of care Yes Education Assessment Barriers To Learning No Barriers Preferred Learning Style Listening;Demonstration;Pictures/video Therapy Certification Certification date from 07/21/21 Certification date to 10/19/21 Certification I certify the need for these services furnished under this plan of treatment and whileunder my care. (Physician co-signature of this document indicates review and certification of the therapy plan) Total Evaluation Time OT Evjaguar Low Complexity Minutes ([id number]) Raleigh Hung MOTR/L LABORATORY TECHNICIAN Katerin Hung OT - 07/21/2021 11:59 PM CST Images from the original note were not included. [facility] OUTPATIENT OCCUPATIONAL THERAPY EVALUATION PLAN OF TREATMENT FOR OUTPATIENT REHABILITATION (COMPLETE FOR INITIAL CLAIMS ONLY) Patient's Last Name, First Name, M.I. Date of : 1945 Ema Davison Provider's Name [facility] Onset Date: 07/13/21 Start of Care Date: 07/21/21 Type: ___PT _X_OT ___SLP Medical Diagnosis: SDH (subdural hematoma) (H) S06.5X9A OT Diagnosis: Decreased independence, safety and efficency in I/ADL's Visits from SOC: 1 _ Plan of Treatment/Functional Goals: IADL training,Cognitive performance testing,Community/work reintegration,Coordination training,Self care/Home management,Strengthening,Stretching,Therapeutic activities,Visual perception,Neuromuscular re-education Goals Goal Identifier: Cognitive Goal Description: Patient will verbalize understanding of cognitive assessment results and recommendations for increased safety and efficiency in IADl completion. Target Date: 10/19/21 Goal Identifier: Fatigue/Activity Tolerance Goal Description: Patient will indicate through subjective report decreased overall fatigue as needed for increased efficiency in IADL's as indicated by a score of 35+ on thr FACIT. Target Date: 10/19/21 Goal Identifier: Pre-driving Goal Description: Patient will score WNL on all pre-driving assessments as indication of adequate preparatory skills (visual motor attention, reaction time, acuity, general attention) needed for safe independent community mobility. Target Date: 10/19/21 Goal Identifier: Problem Solving Goal Description: Patient will demonstrate independent completion of a multi- step problem solving task of moderate complexity (WPCA, errands task, etc) with 90% accuracy. Target Date: 10/19/21 Goal Identifier: Home Programming Goal Description: Patient will verbalize and demonstrate independent compliance with home programming recommendations as they relate to general strengthening, fine motor coordination or fatigue management as needed for increased independence and efficiency in I/ADL's Target Date: 10/19/21 Therapy Frequency: 1x/week Predicted Duration of Therapy Intervention (days/wks): 6 weeks Katerin Hung OT I CERTIFY THE NEED FOR THESE SERVICES FURNISHED UNDER THIS PLAN OF TREATMENT AND WHILE UNDER MY CARE (Physician co-signature of this document indicates review and certification of the therapy plan). , Certification date from: 07/21/21, Certification date to: 10/19/21 Referring Physician: Isabel Madrigal MD Initial Assessment See Epic Evaluation Start Of Care Date: 07/21/21 LABORATORY TECHNICIAN Associated attestation - Isabel Madrigal MD - 08/05/2021 3:28 PM FILM LABORATORY TECHNICIAN Physician Attestation I agree with the information in this note. Katerin Torres OT - 07/21/2021 4:08 PM CST Cognitive Assessment of [place] SUMMARY OF TEST: The Cognitive Assessment of [place] (CAM) is a standardized measure used to assess cognitive abilities and deficits. The CAM is formatted to assess cognitive skills in the areas of attention, orientation, memory, following directions, temporal awareness, discrimination, sequencing, calculation, plann ing, verbal safety/judgment, problem solving and abstract reasoning. DATE OF TESTIN07/21/21 RESULTS OF TESTING: The patient scores with no impairment in Attention, Remote memory, Recent memory, Visual neglect, Appropriate yes/no, One step verbal directions, Written directions, Immediate auditory memory, Immediate motor memory, Temporal awareness, Matching, Oakes recognition, Single digit math skills and Simple pr oblem solving The patient scores with mild impairment in Auditory recall/recognition, Money skills mental manipulation and Abstract reasoning The patient scores with moderate impairment in Visual memory/sequencing forward, Visual memory/sequencing backward, Motor recall/recognition, Auditory memory/sequencing forward, Auditory memory/sequencing backward, Multiple digit math skills, Planning, Moderate problem solving, Mental flexibility and S afety/judgment The patient scores with severe impairment in Complex problem solving Test results comments: Patient attended to and participated fully in all subtests. INTERPRETATION OF TEST RESULTS: OT intervention is indicated to progress independence in higher order IADL's with deficit areas in problem solving, planning/sequencing and memory noted in completion of this assessment. Patient was educated on the results of this test and indication for treatment as well as recommendations for safetywith higher order IADL's. Factors affecting performance: No additional problems noted Recommendations: OT evaluation and treatment TIME ADMINISTERING TEST: 35 TIME FOR INTERPRETATION AND PREPARATION OF REPORT: 10 TOTAL TIME: 45 Thank you for referring Ema to Occupational TherapyKaterin MOTR/L LABORATORY TECHNICIAN documented in this encounter Plan of Treatment Scheduled Referrals Name Type Priority Associated Order Schedule Diagnoses Occupational Therapy Referral Routine: Next SDH (subdural 1 Occ urrences Referral available opening hematoma) (H) starting 07/21/2021 Subdural hematoma until 07/04 (H) Confusion documented as of this encounter Visit Diagnoses Diagnosis SDH (subdural hematoma) Subdural hemorrhage Subdural hematoma Subdural hemorrhage Confusion Unspecified psychosis documented in this encounter Care Teams Feather Stitcher Relationship Specialty Start Date End Date Melissa Parikh PCP - General Internal Medicine 04/24/21 [address] [place] [address] Thony Sousa, Assigned Neuroscience 06/05/21 PA-C Provider [address] [place] [address] documented as of this encounter
--- OUTSIDE RECORDS SUMMARY | 2022-08-06 00:54 | XMS_ITS | Encounter Summary ---
:1945 Author Organization [facility] Address [address] [place] [address] Care Team Providers Name Role Phone EveMelissa vanegas Spenser Primary Care Provider Unavailable Thony Sousa PA-C Unavailable Reason for Visit Rehab Therapy Integrated Services (Routine) - Closed Specialty Diagnoses / Procedures Referred By Contact Refer red To Contact Diagnoses SDH (subdural hematoma) Subdural hematoma Confusion [address] [place] [address] Phone: Referral ID Status Reason Start Date Expiration Date Visits Requ ested Visits Authorized [id number] Closed 07/18/2021 09/02/2021 365 365 Encounter Details Date Type Department Care Team Description 08/04/2021 Hospital Encounter [facility] Unknown, Entered By History Rehabilitation Katerin Gupta OT [address] [place] [id number] [place] [address] [address] [place] [phone] Social History Tobacco [...] with No / Unsure 08/03/2021 10:20 AM OLERICULTURIST someone who was confirmed or suspected to [...] on filedocumented in this encounter Care Teams Control Panel Operator Crude Unit Relationship Specialty Start Date End Date Melissa Parikh PCP - General Internal Medicine 04/24/21 [address] [place] [address] Thony Sousa, Assigned Neuroscience 06/05/21 PA-C Provider [address] [place] [address] documented as of this encounter
--- OUTSIDE RECORDS SUMMARY | 2022-08-06 00:54 | XMS_ITS | Encounter Summary ---
:1945 Author Organization [facility] Address [address] [place] [id number] Care Team Providers Name Role Phone Melissa Parikh Spenser Primary Care Provider Unavailable Thony Sousa PA-C Unavailable Reason for Visit Auth/Cert Specialty Diagnoses / Procedures Referred By Contact Refer red To Contact Intensive Care Diagnoses Confusion Subdural hematoma SDH (subdural hematoma) SDH (subdural hematoma) (H) Subdural hematoma (H) Confusion Sh Intensive Care [address] [phone] Phone: Referral ID Status Reason Start Date Expiration Date Visits Requ ested Visits Authorized [id number] 1 1 Encounter Details Date Type Department Care Team Description 07/13/2021 Anesthesia Event [facility] Diana Malhotra [place] [facility] MD [address], [address] [facility] ANESTHESIOLOGISTS [place] [phone] [address] [phone] [place] [id number] (Wo rk) Anesthesia Record Procedure Summary Procedure Name Responsible Anesthesia Start Anesthesia Stop Anesthesiologist Time Time CRANIOTOMY, FOR Diana Malhotra MD 07/13/21200907/13/21 2 208 SUBDURAL HEMATOMA EVACUATION (Left: Head) Events Date Time Event Comment 07/13/2021 1937 MAINTENANCE MILLWRIGHT Ready for Procedure 1939 2009 An Start 2009 An Start Data 2013 AN REASSESS I attest that I have identified and re-evaluated the patient immediately before the induction of anesthesia and I am satisfied that t he anesthetic plan is suitable for the patient's condition and procedure. The f irst vital signs recorded are pre- inducti on. Sima Zuñiga APRN MAINTENANCE MILLWRIGHT 2016 An Induction 2017 An Intubation 2024 MD Present 2035 Antibiotic Complete 2043 AN INCISION 2056 MD Present 2124 MD Present 2152 MD Present 2157 AN Extubation All extubation c rivka met prior to removal. 2157 an stop data 2207 An Stop Electronically s igned by Sima Zuñiga APRN C RNA on July 13, 2021 10:08 PM Name Total dexamethasone 4mg/mL 8 mg ePHEDrine 5 mg/mL 25 mg fentaNYL (SUBLIMAZE) injection 150 mcg lidocaine 2% 100 mg ondansetron 2mg/mL 8 mg propofol (DIPRIVAN) injection 10 mg/mL vial 200 mg rocuronium 10mg/mL 50 mg succinylcholine 20 mg/mL 60 mg ceFAZolin (ANCEF) intermittent infusion 2 g in 100 mL dextrose PRE-MIX 2 g levETIRAcetam (KEPPRA) intermittent infusion 1,000 mg 1,000 mg sugammadex (BRIDION) 200mg/2mL 200 mg LR 1,200 mL 0.9% NS 500 mL albumin 5% 250 mL Agents Name NO HELIOX O2 N2O Air Exp Sevoflurane Exp Isoflurane Exp Desflurane Exp N2O O2 Delivery Device Ins Sevoflurane Ins Isoflurane Ins Desflurane O2 Auxiliary Blood No blood administrations on file. Lines, Drains, and Airways Type Details Placement Removal Incision/Surgical Site 07/13/21; 2053; Left; 07/13/212053 by Head Nikki Webb RN Incision/Surgical Site 06/13/11; 0948; 06/13/11 0948 by 07/17/21 0847 by Transverse; Neck; Jimi Hardy RN Mokaya, Wycli ffe O, 07/17/21; 0847 RN Peripheral IV 07/13/21; 1509; 18 G; 07/13/21 1509 by 07/17/21 0847 by Right; Upper forearm Hakan Hickey Mokaya, Wycliffe O, RN RN Urethral Catheter 07/13/21; 2030; No; 07/13/212029 by 07/14/21 0533 by Other (Comment) Nikki Webb, Reyes German RN (Surgeon ordered for procedure); 16 fr ETT Placement Date: 07/13/212056 by 07/13/21 2158 b y 07/13/21; Placement Sima Zuñiga K risnyla Time: 2056 (created ELEUTERIO Funez CRNA, APRN C RNA via procedure documentation); Mask Ventilation: 0; Induction Type: RSI; Ease of Intubation: Easy; Technique: Direct laryngoscopy; ETT Type: Single; Tube Size: 7 mm; DL Blade Size: Atkinson 2; Grade View: 1; Adjucts: Stylet; Placement Person: Physician, MAINTENANCE MILLWRIGHT; Attempts: 1; Depth: 22 cm Closed/Suction Drain 07/13/21; 2114; 1; 07/13/212114 by 1 0000 by Left; Scalp; Bulb; 7 Nikki Webb RN Omwamba, Joshua, RN Croatian Peripheral IV 07/13/21; 222507/13/212225 by 07/17/21 0847 b y (present upon arrival Corrine Barber, RN Alba Wilkinson, to pacu); Left, RN Dorsal; Hand documented in this encounter Social History Tobacco Use Types Packs/Day Years [...] with No / Unsure 07/13/2021 2:44 PM HULL DRAFTER someone who was confirmed or suspected to have Coronavirus / COVID-19? documented as of this encounter OR Notes Anesthesia Postprocedure Evaluation - Diana Malhotra MD - 07/13/2021 10:24 PM CST Patient: Ema Davison Procedure: Procedure(s): CRANIOTOMY, FOR SUBDURAL HEMATOMA EVACUATION Diagnosis:SDH (subdural hematoma) (H) [S06.5X9A] Diagnosis Additional Information: No value filed. Anesthesia Type: General Note: Disposition: Inpatient Postop Pain Control: Uneventful Sign Out: Well controlled pain PONV: No Neuro/Psych: Uneventful Sign Out: Acceptable/Baseline neuro status Airway/Respiratory: Uneventful Sign Out: Acceptable/Baseline resp. status CV/Hemodynamics: Uneventful Sign Out: Acceptable CV status; No obvious hypovolemia; No obvious fluid overload Other NRE: NONE DID A NON-ROUTINE EVENT OCCUR? No Last vitals: Vitals Value Taken Time BP 124/64 07/13/212219 Temp Pulse 71 07/13/212221 Resp 19 07/13/212221 SpO2 97 % 07/13/212221 Vitals shown include unvalidated device data. Electronically Signed By: Diana Malhotra MD July 13, 2021 10:24 PM DRAFTER Anesthesia Procedure Notes - Sima Zuñiga APRN MAINTENANCE MILLWRIGHT - 07/13/2021 8:51 PM CSTAssociated Order(s): Airway Airway Patient location during procedure: OR Procedure Start/Stop Times: 07/13/2021 8:18 PM Staff - Anesthesiologist: iDana Malhotra MD MAINTENANCE MILLWRIGHT: Sima Zuñiga APRN MAINTENANCE MILLWRIGHT Performed By: anesthesiologist and MAINTENANCE MILLWRIGHT Consent for Airway Urgency: emergent Consent: No emergent situation. Verbal consent obtained. Written consent obtained. Consent given by: patient Risks and benefits: risks, benefits and alternatives were discussed Patient identity confirmed: verbally with patient, arm band, hospital-assigned identification number and provided demographic data Indications and Patient Condition Indications for airway management: ajit-procedural Induction type:RSI Mask difficulty assessment: 0 - not attempted Final Airway Details Final airway type: endotracheal airway Successful airway: ETT - single Endotracheal Airway Details ETT size (mm): 7.0 Successful intubation technique: direct laryngoscopy DL Blade Type: Atkinson 2 Grade View of Cords: 1 Adjucts: stylet Position: Right Measured from: lips Secured at (cm): 22 Bite block used: None Post intubation assessment Placement verified by: capnometry, equal breath sounds and chest rise Number of attempts at approach: 1 Secured with: plastic tape Ease of procedure: easy Dentition: Intact and Unchanged DRAFTER Anesthesia Preprocedure Evaluation - Diana Malhotra MD - 07/13/2021 5:29 PM CST Anesthesia Pre-Procedure Evaluation Patient: Ema Davison : 1945 Preoperative Diagnosis: SDH (subdural hematoma) (H) [S06.5X9A] Procedure : Procedure(s): CRANIOTOMY, FOR SUBDURAL HEMATOMA EVACUATION Past Medical History: Diagnosis Date ??? Hyperlipidemia ??? Hypertension ??? Kidney stone ??? Post-nasal drip ??? Thyroid disease Past Surgical History: Procedure Laterality Date ??? APPENDECTOMY ??? 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 nasal polyps removed ??? THYROIDECTOMY 06/13/2011 Procedure:THYROIDECTOMY; TOTAL THYROIDECTOMY; Surgeon:ALFREDO VALENZUELA; Location:[facility] OR No Known Allergies Social History Tobacco Use ??? Smoking status: Former Smoker Packs/day: 0.50 Years: 20.00 Pack years: 10.00 Types: Cigarettes ??? Smokeless tobacco: Never Used ??? Tobacco comment: quit 30 yrs a go/ maybe a pack a week Substance Use Topics ??? Alcohol use: Yes Comment: one drink a month Wt Readings from Last 1 Encounters: 07/13/21 66.2 kg (146 lb) Anesthesia Evaluation Pt has had prior anesthetic. No history of anesthetic complications ROS/MED HX ENT/Pulmonary: (+) tobacco use, Past use, (-) sleep apnea Neurologic: Comment: SUBDURAL HEMATOMA, acute on chronic. Increasing confusion, aphasia Cardiovascular: (+) Dyslipidemia hypertension----- METS/Exercise Tolerance: Hematologic: Musculoskeletal: GI/Hepatic: (-) GERD Renal/Genitourinary: (+) Nephrolithiasis , Endo: (+) thyroid problem, hypothyroidism, Psychiatric/Substance Use: - neg psychiatric ROS Infectious Disease: Malignancy: Other: Physical Exam Airway Mallampati: II TM distance: > 3 FB Neck ROM: full Mouth opening: > 3 cm Respiratory Devices and Support Dental (+) caps Cardiovascular cardiovascular exam normal Pulmonary pulmonary exam normal OUTSIDE LABS: CBC: Lab Results Component Value Date WBC 10.5 07/13/2021 WBC 6.0 04/28/2021 HGB 13.2 07/13/2021 HGB 12.4 04/28/2021 HCT 40.6 07/13/2021 HCT 38.0 04/28/2021 PLT 253 07/13/2021 PLT 177 04/28/2021 BMP: Lab Results Component Value Date NA 140 07/13/2021 NA 139 04/28/2021 POTASSIUM 3.5 07/13/2021 POTASSIUM 3.8 04/28/2021 CHLORIDE 109 07/13/2021 CHLORIDE 107 04/28/2021 CO2 25 07/13/2021 CO2 27 04/28/2021 BUN 11 07/13/2021 BUN 18 04/28/2021 CR 0.84 07/13/2021 CR 0.88 04/28/2021 GLC 127 (H) 07/13/2021 GLC 171 (H) 04/28/2021 COAGS: Lab Results Component Value Date PTT 30 07/13/2021 INR 1.10 07/13/2021 POC: No results found for: BGM, HCG, HCGS HEPATIC: Lab Results Component Value Date ALBUMIN 3.5 07/13/2021 PROTTOTAL 7.5 07/13/2021 ALT 19 07/13/2021 AST 11 07/13/2021 ALKPHOS 122 07/13/2021 BILITOTAL 0.8 07/13/2021 OTHER: Lab Results Component Value Date SIOMARA 8.6 07/13/2021 Anesthesia Plan ASA Status: 3 NPO Status: NPO Appropriate Anesthesia Type: General. - Airway: ETT Induction: Intravenous, Propofol. Maintenance: Balanced. Techniques and Equipment: - Lines/Monitors: 2nd IV Consents Anesthesia Plan(s) and associated risks, benefits, and realistic alternatives discussed. Questions answered and patient/technical support representative(s) expressed understanding. - Discussed with: Patient, Other (See Comment) Postoperative Care Pain management: Multi-modal analgesia. PONV prophylaxis: Ondansetron (or other 5HT-3) Comments: Diana Malhotra MD DRAFTER documented in this encounter Miscellaneous Notes Anesthesia Care Transfer Note - Sima Zuñiga APRN CRNA - 07/13/2021 10:08 PM CST Patient: Ema Davison Procedure: Procedure(s): CRANIOTOMY, FOR SUBDURAL HEMATOMA EVACUATION Diagnosis: SDH (subdural hematoma) (H) [S06.5X9A] Diagnosis Additional Information: No value filed. Anesthesia Type: General Note: Oropharynx: oropharynx clear of all foreign objects Level of Consciousness: drowsy Oxygen Supplementation: face mask Level of Supplemental Oxygen (L/min / FiO2): 6 Independent Airway: airway patency satisfactory and stable Dentition: dentition unchanged Vital Signs Stable: post-procedure vital signs reviewed and stable Report to RN Given: handoff report given Patient transferred to: PACU Handoff Report: Identifed the Patient, Identified the Reponsible Provider, Reviewed the pertinent medical history, Discussed the surgical course, Reviewed Intra-OP anesthesia mangement and issues during anesthesia, Set expectations for post-procedure period and Allowed opportunity for questions and acknowledgement of understanding Vitals: Vitals Value Taken Time BP 121/65 07/13/21 2203 Temp Pulse 73 07/13/21 2206 Resp 17 07/13/21 2206 SpO2 100 % 07/13/212205 Vitals shown include unvalidated device data. Electronically Signed By: Sima Zuñiga APRN CRNA July 13, 2021 10:08 PM DRAFTER documented in this encounter Plan of Treatment Not on filedocumented as of this encounter Procedures Procedure Name Priority Date/Time Associated Comments Diagnosis ANE AIRWAY ETT Routine 07/13/2021 8:51 PM Results for this PERFORMABLE HULL DRAFTER procedure are i n the results section. documented in this encounter Results ANE AIRWAY ETT PERFORMABLE (07/13/2021 8:51 PM HULL DRAFTER) Narrative Sima Zuñiga APRN CRNA - 07/13 8:51 PM HULL DRAFTER Sima Zuñiga APRN CRNA ? 07/13/2021 ??8:57 PM Airway ? Patient location during procedure : OR ? Procedure Start/Stop Times: 07/13 8:18 PM Staff - ? Anesthesiologist: ??Sal Malhotra MD ? MAINTENANCE MILLWRIGHT: Sima Zuñiga APRN CRNA ? Performed By: anesthesiologist meena high MAINTENANCE MILLWRIGHT Consent for Airway ? Urgency: emergent ? Consent: No emergent situation. V erbal consent obtained. Written consent obtained. ? Consent given by: patient ? Risks and benefits: risks, benefi ts and alternatives were discussed ? Patient identity confirmed: randall chan with patient, arm band, hospital-assigned identification number and provided demographic data Indications and Patient Condition ? Indications for airway management : ajit-procedural ? Induction type:RSI ? Mask difficulty assessment: 0 - n ot attempted Final Airway Details ? Final airway type: endotracheal a irway ? Successful airway: ETT - single Endotracheal Airway Details ? ETT size (mm): 7.0 ? Successful intubation technique: direct laryngoscopy ? DL Blade Type: Atkinson 2 ? Grade View of Cords: 1 ? Adjucts: stylet ? Position: Right ? Measured from: lips ? Secured at (cm): 22 ? Bite block used: None Post intubation assessment ? Placement verified by: capnometry , equal breath sounds and chest rise ? Number of attempts at approach: 1 ? Secured with: plastic tape ? Ease of procedure: easy ? Dentition: Intact and Unchanged Diana Malhotra MD [place] [facility] documented in this encounter Visit Diagnoses Not on filedocumented in this encounter Administered Medications Inactive Administered Medications - up to 3 most recent administrations Medication Order MAR Action Action Date Dose Rate Site albumin human 5 % injection New Bag 07/13/2021 8:56 PM HULL DRAFTER Intravenous, CONTINUOUS PRN, Starting on Sun07/13/21 at 2056, Anesthesia Intra-op ceFAZolin (ANCEF) intermittent infusion 2 g in Given 021 8:10 PM HULL DRAFTER 2 g 100 mL dextrose PRE-MIX Routine, 2 g, Intravenous, PRE-OP/PRE-PROCEDURE, Starting on Sun07/13/21 at 1949, For 1 dose, Give first dose within 1 hour PRIOR to incision. If patient weight is greater than or equal to 120 kg increase dose to 3 g., Indications: Perioperative Pharmacoprophylaxis, Pre-procedure dexamethasone (DECADRON) injection Given 07/13/2021 8:44 PM HULL DRAFTER 8 mg Intravenous, PRN, Administer over 1 Minutes, Starting on Sun07/13/21 at 2044, Anesthesia Intra-op ePHEDrine injection Given 07/13/2021 9:15 PM HULL DRAFTER 5 mg Intravenous, PRN, Starting on Sun07/13/21 at 2055, Anesthesia Intra-op Given 07/13/2021 9:12 PM HULL DRAFTER 5 mg Given 07/13/2021 9:09 PM HULL DRAFTER 5 mg fentaNYL (PF) (SUBLIMAZE) injection Given 07/13/2021 8:44 PM HULL DRAFTER 100 mcg Intravenous, PRN, Administer over 3-5 Minutes, Starting on Sun07/13/21 at 4, Anesthesia Intra-op Given 07/13/2021 8:17 PM HULL DRAFTER 50 mcg lactated ringers infusion New Bag 07/13/2021 9:52 PM HULL DRAFTER Intravenous, CONTINUOUS PRN, Anesthesia Intra-op, Starting on Sun07/13/21 at 2010, Until Sun07/13/21 at 2208 New Bag 07/13/2021 8:11 PM HULL DRAFTER levETIRAcetam (KEPPRA) intermittent Given 07/13/2021 8:19 PM HULL DRAFTER 1,000 mg infusion 1,000 mg 1,000 mg, Intravenous, Administer over 15 Minutes, ONCE, On Sun07/13/21 at 2030, For 1 dose, Do not refrigerate. lidocaine 2% injection (MDV) Given 07/13/2021 8:17 PM HULL DRAFTER 100 mg Other, PRN, Starting on Sun07/13/21 at 2017, Anesthesia Intra-op ondansetron (ZOFRAN) injection Given 07/13/2021 9:51 PM HULL DRAFTER 4 mg Intravenous, PRN, Administer over 2-5 Minutes, Starting on Sun07/13/21 at 2044, Anesthesia Intra-op Given 07/13/2021 8:44 PM HULL DRAFTER 4 mg propofol (DIPRIVAN) injection 10 mg/mL v ial Given 07/13/2021 8:17 PM HULL DRAFTER 200 mg Intravenous, PRN, Starting on Sun07/13/21 at 2017, Anesthesia Intra-op rocuronium injection Given 07/13/2021 8:54 PM HULL DRAFTER 20 mg Intravenous, PRN, Starting on Sun07/13/21 at 2020, Anesthesia Intra-op Given 07/13/2021 8:20 PM HULL DRAFTER 30 mg sodium chloride 0.9% infusion New Bag 07/13/2021 8:10 PM HULL DRAFTER Intravenous, CONTINUOUS PRN, Anesthesia Intra-op, Starting on Sun07/13/21 at 2010, Until Sun07/13/21 at 2208 succinylcholine (ANECTINE) injection Given 07/13/2021 8:17 PM HULL DRAFTER 60 mg Intravenous, PRN, Starting on Sun07/13/21 at 2017, Anesthesia Intra-op sugammadex (BRIDION) injection Given 07/13/2021 9:51 PM HULL DRAFTER 200 mg Intravenous, PRN, Starting on Sun07/13/21 at 2209, Anesthesia Intra-op documented in this encounter Care Teams Incising Machine Operator Relationship Specialty Start Date End Date Melissa Parikh PCP - General Internal Medicine 04/24/21 [address] [place] [address] Thony Sousa, Assigned Neuroscience 06/05/21 PA-C Provider [address] [place] [address] documented as of this encounter
--- OUTSIDE RECORDS SUMMARY | 2022-08-06 00:54 | XMS_ITS | Encounter Summary ---
:1945 Author Organization [facility] Address [address] [place] [address] Care Team Providers Name Role Phone EveMelissa vanegas Spenser Primary Care Provider Unavailable Thony Sousa PA-C Unavailable Reason for Visit Rehab Therapy Integrated Services (Routine) - Closed Specialty Diagnoses / Procedures Referred By Contact Refer red To Contact Diagnoses SDH (subdural hematoma) Subdural hematoma Confusion [address] [address] Phone: Referral ID Status Reason Start Date Expiration Date Visits Requ ested Visits Authorized [id number] Closed 07/18/2021 09/02/2021 365 365 Encounter Details Date Type Department Care Team Description 08/19/2021 Hospital Encounter [facility] Unknown, Entered By History Rehabilitation Jessica Kilgore, OT [address] [facility] [place] [place] [address] [place] [address] [address] [place] [phone] Social History Tobacco Use Types Packs/Day Years [...] been in contact with No / Unsure 08/19/2021 10:50 AM PET STORE MERCHANDISER someone who was confirmed or suspected to [...] documented as of this encounter Progress Notes Jessica Rollins OT - 08/19/2021 12:20 PM CST Cognitive Performance Test SUMMARY OF TEST: The Cognitive Performance Test (CPT) is a standardized performance-based assessment to measure working memory/executive function processing capacities that underlie functional performance. Subtasks include common basic and instrumental activities of daily living (ADL/IADL) which are rated based on the manner in which patients respond to task demands of varying complexity. The total CPT score describes a level of functioning that indicates how information is processed, implications for functional activities, potential safety risks and a recommended level of supervision or assist based on cognitive function. The highest total score on this test is in the range of 5.6 to 5.8. DATE OF TESTIN08.19.2021 RESULTS OF TESTING: CPT Subtest Results MEDBOX: 02/06 SHOP/GLOVES: 02/06 PHONE: 02/06 WASH: 01/05 TRAVEL: 02/06 TOAST: 01/05 DRESS: TOTAL CPT SCORE: 5.6/5.6 Average CPT Score 5.6/5.6 INTERPRETATION OF TEST RESULTS: Based on the Cognitive Performance Test, this patient scored at CPT Level 5.6. See CPT Levels reference below. Summary of functional cognitive status: Patient able to attend to all tasks above, extra time needed to process multiple step directions buteventually able to recall specific details. Factors affecting performance: No additional problems noted Recommendations: Supervision for ADL/IADL: Medication management of new medications Supervision in living setting: Able to live alone, weekly check in's from daughters TIME ADMINISTERING TEST: 35 TIME FOR INTERPRETATION AND PREPARATION OF REPORT: 10 TOTAL TIME: 45 CPT Levels Reference: Patient's Average CPT Score: 5.6 Individual scores range along a continuum as outlined below. In addition to cognitive status, other factors may affect safety in a home environment. Please refer to specific recommendations for this patient. _X__5.6-5.8 Normal functioning (absence of cognitive-functional disability). Independent in managing personal affairs, monitors and directs own behavior. Uses complex information to carry out daily activities with safety and accuracy. Proficient with instrumental activities of daily living (IADL) and learning new activity. Problems are anticipated, errors are avoided, and consequences of actions are considered. ___5.0 Mild cognitive-functional disability; deficits in working memory and executive thought processes. Difficulty using complex information. Problems may be observed with recent memory, judgment, reasoning and planning ahead. May be impulsive or have difficulty anticipating consequences. Safety: May require assistance to plan ahead; or to manage complex medication schedules, appointments or finances. Hazardous activities may need to be monitored or limited. ADL: Mild functional decline. Able to complete basic self-care and routine household tasks. May havedifficulty with complex daily tasks such as reading, writing, meal preparation, shopping or driving. Learns through hands on teaching. Self-centered behavior or difficulty considering the needs of others may be seen related to trouble seeing the ???whole picture. Can appear disorganized or uninhibited. ___4.5 Mild to moderate cognitive-functional disability. Significant deficits in working memory and executive thought processes. Judgment, reasoning and planning show obvious impairment. Distractible with inability to shift attention/actions given competing stimuli. Difficulty with problem solving and managing details. Complex daily tasks performed with inconsistency, difficulty, or error. Safety: Medications should be monitored, stove use may require supervision, and driving ability may be affected. Impaired safety awareness with inability to anticipate potential problems. May not recognize or respond to emergent situations. Requires frequent check-in support. ADL: Mild difficulty with simple everyday self-care tasks. Benefits from structured, routine activity. Will likely need reminders to complete tasks outside of the routine. Requires assistance with planning and IADL tasks like shopping and finances. Learns concrete tasks through repetition, but performance may not generalize. Tends to be impulsive with poor insight. Self centered behavior or inabilityto consider the needs of others is common. ___4.0 Moderate cognitive-functional disability; abstract to concrete thought processes. Working memory andexecutive function impairments are obvious. Difficulty with planning and problem solving. Behavior is goal-directed, but unable to follow multi-step directions, is easily distracted, and may not recognize mistakes. Inability to anticipate hazards or understand precautions. Safety: Recommend 24-hour supervision for safety. Supervision needed for medication management and for hazardous activities. May not be able to follow a restricted diet. Can get lost in unfamiliar surroundings. Generally, persons functioning at level 4 should not be [address]. ADL: Some decline in quality or frequency of ADL. [place] enhanced by use of a routine, simple concrete directions, and caregiver set-up of needed items. Complex tasks such as money or home management typically requires assistance. Relies heavily on vision to guide behavior; will ignore objects/hazards not in plain sight and can be distracted by irrelevant objects. Often has poor insight. Able to carry out social conversation and may verbally ???cover?? for deficits leading caregivers to believe they are capable of functioning independently. ___3.5 Moderate cognitive-functional disability; increased cues needed for task completion. Aware of concrete task steps but needs prompting or cues to initiate and complete simple tasks. Attention span is limited, simple directions may need to be repeated, and re-focus to a topic or task may be required. Safety: 24-hour supervision required for safety and for assistance with daily tasks. Assistance required with medications, and access to medication should be limited. Meals, nutrition and dietary restrictions need to be monitored. All hazardous activities should be restricted or supervised. Should notdrive. Prone to wandering and can become lost. ADL: Moderate functional decline. Familiar tasks usually requires set-up of supplies and directions to complete steps. May need objects handed to them for task initiation. Function best with a set schedule in familiar surroundings with familiar people. All complex tasks must be done by others. Vocabulary is diminished and speech often unfocused. STORE MERCHANDISER documented in this encounter Plan of Treatment Not on filedocumented as of this encounter Visit Diagnoses Not on filedocumented in this encounter Care Teams Conservation Or Heritage Architect Relationship Specialty Start Date End Date Melissa Parikh PCP - General Internal Medicine 04/24/21 [address] [place] [address] Thony Sousa, Assigned Neuroscience 06/05/21 PA-C Provider [address] [place] [address] documented as of this encounter
--- OUTSIDE RECORDS SUMMARY | 2022-08-06 00:54 | XMS_ITS | Encounter Summary ---
:1945 Author Organization [facility] Address [address] [place] [address] Care Team Providers Name Role Phone EveMelissa vanegas Spenser Primary Care Provider Unavailable Thony Sousa PA-C Unavailable Reason for Visit Rehab Therapy Integrated Services (Routine) - Closed Specialty Diagnoses / Procedures Referred By Contact Refer red To Contact Diagnoses SDH (subdural hematoma) Subdural hematoma Confusion [address] [place] [address] Phone: Referral ID Status Reason Start Date Expiration Date Visits Requ ested Visits Authorized [id number] Closed 07/18/2021 09/02/2021 365 365 Encounter Details Date Type Department Care Team Description 08/11/2021 Hospital Encounter [facility] Unknown, Entered By History Rehabilitation Katerin Gupta OT [address] [place] [id number] [place] [address] 300 [place] [phone] Social History Tobacco [...] with No / Unsure 08/11/2021 10:19 AM CAR RETARDER OPERATOR someone who was confirmed or suspected [...] on filedocumented in this encounter Care Teams Package Worker Relationship Specialty Start Date End Date Melissa Parikh PCP - General Internal Medicine 04/24/21 [address] [place] [address] Thony Sousa, Assigned Neuroscience 06/05/21 PA-C Provider [address] [place] [address] documented as of this encounter
--- OUTSIDE RECORDS SUMMARY | 2022-08-06 00:54 | XMS_ITS | Encounter Summary ---
:1945 Author Organization [facility] Address [address] [place] [address] Care Team Providers Name Role Phone Melissa Parikh Primary Care Provider Unavailable Thony Sousa PA-C Unavailable Encounter Details Date Type Department Care Team Description 08/19/2021 Travel Social History Tobacco Use Types Packs/Day [...] with No / Unsure 08/19/2021 10:[address] REGISTRY OFFICER someone who was confirmed or suspected to have Coronavirus / COVID-19? documented as of this encounter Plan of Treatment Not on filedocumented as of this encounter Visit Diagnoses Not on filedocumented in this encounter Care Teams Head Of Ethics And Compliance Relationship Specialty Start Date End Date Melissa Parikh PCP - General Internal Medicine 04/24/21 [address] [place] [address] Thony Sousa, Assigned Neuroscience 06/05/21 [place] Provider [address] [place] [id number] documented as of this encounter
--- OUTSIDE RECORDS SUMMARY | 2022-08-06 00:54 | XMS_ITS | Encounter Summary ---
:1945 Author Organization [facility] Address [address] [place] [address] Care Team Providers Name Role Phone Melissa Parikh Primary Care Provider Unavailable Thony Sousa PA-C Unavailable Encounter Details Date Type Department Care Team Description 08/03/2021 Travel Social History Tobacco Use Types Packs/Day [...] with No / Unsure 08/03/2021 10:20 AM ACID RECOVERY 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 documented as of this encounter Plan of Treatment Not on filedocumented as of this encounter Visit Diagnoses Not on filedocumented in this encounter Care Teams Machine Hose Cutter Relationship Specialty Start Date End Date Melissa Parikh PCP - General Internal Medicine 04/24/21 [address] [place] [address] Thony Sousa, Assigned Neuroscience 06/05/21 MAL[place] Provider [address] [place] [id number] documented as of this encounter
--- OUTSIDE RECORDS SUMMARY | 2022-08-06 00:54 | XMS_ITS | Encounter Summary ---
:1945 Author Organization [facility] Address [address] [place] [address] Care Team Providers Name Role Phone Melissa Parikh Primary Care Provider Unavailable Thony Sousa PA-C Unavailable Reason for Visit Reason Onset Date Comments post surgery questions 07/19/2021 Encounter Details Date Type Department Care Team Description 07/19/2021 Telephone [facility] Guido rOantes, post surgery questions Neurosurgery Clinic [place] [address] [place] [address] [address] [place] [address] [phone] Social History Tobacco Use Types Packs/Day Years [...] with No / Unsure 07/21/2021 9:58 AM MANAGER MUTUAL FUND someone who was confirmed or suspected to have Coronavirus / COVID-19? documented as of this encounter Miscellaneous Notes Telephone Encounter - Tessa Henao RN - 07/20/2021 1:15 PM CST 07/13/21 LEFT CRANIOTOMY, FOR SUBDURAL HEMATOMA EVACUATION with Dr Orantes Next Visit: Aug 03 Assessment: The patient's daughter, Gina called to report last evening the patient had a delay in her speech. The patient knew it was happening and was able to correct the delay by slowing her speech down. It was a one time episode and it resolved. The patient is alert and oriented. Speech is clear. No other neuro changes. She is having her OT cognitive evaluation tomorrow. Recommendation given: Continue to monitor her neuro status and go to the ED if they notice cognitive issues or speech changes. Offer periods of rest as the patient is recovering. Call the clinic with any concerns. GER MUTUAL FUND Telephone Encounter - Bhavani Dewitt - 07/19/2021 3:29 PM CST Reason for call: Pt's daughter Gina called regarding some symptoms of concern such as cognitive issues post surgery. She would like a call back to discuss at [phone]. Thank you GER MUTUAL FUND documented in this encounter Plan of Treatment Not on filedocumented as of this encounter Visit Diagnoses Not on filedocumented in this encounter Care Teams Star Route Mail Driver Relationship Specialty Start Date End Date Melissa Parikh PCP - General Internal Medicine 04/24/21 [address] [place] [address] Thony Sousa, Assigned Neuroscience 06/05/21 PA-C Provider [address] [place] [address] documented as of this encounter
--- OUTSIDE RECORDS SUMMARY | 2022-08-06 00:55 | XMS_ITS | Encounter Summary ---
:1945 Author Organization [facility] Address [address] [place] [address] Care Team Providers Name Role Phone Melissa Parikh Primary Care Provider Unavailable Thony Sousa PA-C Unavailable Encounter Details Date Type Department Care Team Description 06/16/2021 Travel Social History Tobacco Use Types Packs/Day [...] been in contact with No / Unsure 06/16/2021 10:15 AM CDT someone who was confirmed or suspected to have Coronavirus / COVID-19? documented as of this encounter Plan of Treatment Not on filedocumented as of this encounter Visit Diagnoses Not on filedocumented in this encounter Care Teams Shellacker Relationship Specialty Start Date End Date Melissa Parikh PCP - General Internal Medicine 04/24/21 [address] [place] [address] Thony Sousa, Assigned Neuroscience 06/05/21 MAL[place] Provider [address] [place] [address] documented as of this encounter
--- OUTSIDE RECORDS SUMMARY | 2022-08-06 00:55 | XMS_ITS | Encounter Summary ---
:1945 Author Organization [facility] Address [address] [place] [address] Care Team Providers Name Role Phone Melissa Parikh Primary Care Provider Unavailable Thony Sousa PA-C Unavailable Reason for Visit Reason Comments RECHECK Subdural Hematoma; 3 week re turn w/ CT review Auth/Cert Specialty Diagnoses / Procedures Referred By Contact Refer red To Contact Intensive Care Diagnoses Confusion Subdural hematoma SDH (subdural hematoma) SDH (subdural hematoma) (H) Subdural hematoma (H) Confusion Intensive Care [address] [place] [phone] Phone: Referral ID Status Reason Start Date Expiration Date Visits Requ ested Visits Authorized [id number] 1 1 Encounter Details Date Type Department Care Team Description 07/11/2021 Office Visit [facility] Thony Sousa SDH (subd ural Neurosurgery Clinic MALIA Bennett hematoma) (H) Bianca [address] (Primary Dx) [address] [place] [id number] [facility] [place] [address] [place] [address] [place] [address] (Work) [phone] Social History Tobacco Use Types Packs/Day Years [...] been in contact with No / Unsure 07/11/2021 11:35 AM BARREL PLANER someone who was confirmed or suspected to have Coronavirus / COVID-19? documented as of this encounter Last Filed Vital Signs Vital Sign Reading Time Taken Comments Blood Pressure 145/79 07/11/2021 1:18 PM BARREL PLANER Pulse 66 07/11/2021 1:18 PM BARREL PLANER Temperature - - Respiratory Rate - - Oxygen Saturation 98% 07/11/2021 1:18 PM BARREL PLANER Inhaled Oxygen Concentration - - Weight 66.2 kg (146 lb) 07/11/2021 1:18 PM BARREL PLANER Height 160 cm (5' 3) 07/11/2021 1:18 PM BARREL PLANER Body Mass Index 25.86 07/11/2021 1:18 PM BARREL PLANER documented in this encounter Patient Instructions Patient InstructionsThony Sousa PA-C - 07/11/2021 1:00 PM CST Diagnosis : Left Subdural Hematoma with Brain Compression Surgery is recommended to drain the blood and relieve the pressure from the brain. Surgery would be what is called a Craniotomy. Hospital stay of at least 3 days after surgery. If you decide against surgery, we would repeat the head CT scan in 4-6 weeks or sooner if symptoms worsen. EL PLANER documented in this encounter Progress Notes Thony Sousa PA-C - 07/11/2021 1:00 PM CST Neurosurgery follow-up Ms. Davison is a 76-year-old female who returns to clinic about 3 weeks since her last head CT scan.She initially fell in April, and was found to have a small possible falx hematoma, this then has steadily increased since then 2, large left hemispheric subdural hematoma with acute component. The patient remains essentially asymptomatic and feels well. She was not on anticoagulation, and continues to not take any aspirin or ibuprofen. She denies significant headaches or weakness or numbness or seizure-like symptoms. Exam B/P: 145/79, T: Data Unavailable, P: 66, R: Data Unavailable Alert not in acute distress Bilateral upper extremities with appropriate strength Negative pronator drift bilaterally in the upper and lower extremities Finger-nose slow negative bilaterally Extraocular movements intact Shoulder shrug equal Imaging Head CT scan please demonstrate increased subdural hematoma size on the left, now with possible 9 mmof midline shift compared to 6 mm on the last head CT scan. There does also appear to be acute component to the subdural hematoma as well. 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 Orantes met with the patient today, and discussed left craniotomy for evacuation of subdural hematoma. The patient yet remains hesitant to proceed with surgery given that she is not feeling any symptoms. She wants to think about this some more at home and talk to her family and get back to us when she makes a decision. I instructed her that should she begin to experience any concerning symptoms she should immediately present to the emergency department for further evaluation. Patient expressed understanding. If she decides not to proceed with surgery would recommend repeating the head CT scan again in the next 4 to 6 weeks as long as she is not expensing any worsening symptoms. Total time of 30 minutes spent with the patient today in counseling and coordination of care. EL PLANER documented in this encounter Nursing Notes Sameer Berrios CMA - 07/11/2021 1:00 PM CST Ema Davison is a 76 year old female who presents for: Chief Complaint Patient presents with ??? RECHECK Subdural Hematoma; 3 week return w/ CT review Initial Vitals: BP (!) 145/79 Pulse 66 Ht 5' 3 (1.6 m) Wt 146 lb (66.2 kg) SpO2 98% BMI 25.86 kg/m?? Estimated body mass index is 25.86 kg/m?? as calculated from the following: Height as of this encounter: 5' 3 (1.6 m). Weight as of this encounter: 146 lb (66.2 kg).. Body surface area is 1.72 meters squared. BP completed using cuff size: regular No Pain (0) Sameer Berrios MA EL PLANER documented in this encounter Plan of Treatment Not on filedocumented as of this encounter Visit Diagnoses Diagnosis SDH (subdural hematoma) - Primary Subdural hemorrhage documented in this encounter Care Teams Behavioral School Counselors Relationship Specialty Start Date End Date Melissa Parikh PCP - General Internal Medicine 04/24/21 [address] [place] [address] Thony Sousa, Assigned Neuroscience 06/05/21 PAPhongC Provider [address] [place] [address] documented as of this encounter
--- OUTSIDE RECORDS SUMMARY | 2022-08-06 00:55 | XMS_ITS | Encounter Summary ---
:1945 Author Organization [facility] Address [address] [place] [address] Care Team Providers Name Role Phone Melissa Parikh A Primary Care Provider Unavailable Reason for Referral Diagnostic Imaging CT Scan (Routine) - Closed Specialty Diagnoses / Procedures Referred By Contact Refer red To Contact Radiology. Diagnoses SDH (subdural hematoma) Candido Lira MD Ct Scan Procedures CT Head w/o Contrast [address] [place] [address] [place] [address] Referral ID Status Reason Start Date Expiration Date Visits Requ ested Visits Authorized [id number] Closed 05/16/2021 05/16/2022 1 1 Reason for Visit Diagnostic Imaging CT Scan (Routine) - Closed Specialty Diagnoses / Procedures Referred By Contact Refer red To Contact Radiology. Diagnoses SDH (subdural hematoma) Candido Lira MD Ct Scan Procedures CT Head w/o Contrast [address] [place] [address] [place] [address] Referral ID Status Reason Start Date Expiration Date Visits Requ ested Visits Authorized [id number] Closed 05/16/2021 05/16/2022 1 1 Encounter Details Date Type Department Care Team Description 05/26/2021 Hospital Encounter [facility] Candido Lira SDH (subdural [facility] MD Marques hematoma) (H) [address] Valenzuela, ERICA [address] [phone] ERICA SHETTY [phone] [id number] Social History Tobacco Use Types Packs/Day Years [...] been in contact with No / Unsure 05/26/2021 10:21 AM CDT someone who was confirmed or suspected to have Coronavirus / COVID-19? documented as of this encounter Medications at Time of Discharge Medication Sig Dispensed Refills Start Date End Date atorvastatin (LIPITOR) 40 Take 40 mg by mouth 0 MG tablet At Bedtime At hs Cholecalciferol (VITAMIN D) Take 1 tablet by 0 2000 UNIT tablet mouth daily. levothyroxine Take 75 mcg by mouth 0 (SYNTHROID/LEVOTHROID) 75 daily MCG tablet lisinopril (ZESTRIL) 20 MG Take 20 mg by mouth 0 tablet At Bedtime meclizine (ANTIVERT) 25 MG Take 1 tablet (25 30 tablet 1 tablet mg) by mouth every 6 hours as needed for dizziness documented as of this encounter Plan of Treatment Not on filedocumented as of this encounter Procedures Procedure Name Priority Date/Time Associated Diagnosis Comme nts CT HEAD W/O Routine 05/26/2021 11:39 AM SDH (subdural Results for this CONTRAST CDT hematoma) (H) procedure are in the results section. documented in this encounter Results (ABNORMAL) CT Head w/o Contrast (05/26/2021 11:39 AM CDT) [facility] Method Time Signature Radiologist Head bleed RADIOLOGY flags (AA) RESULTS Anatomical Region Laterality Modality Head, SUBRAD CT NEURO, SUBRAD CT NEURO, UMP CT NEURO, Computed Tomography RAD CT Specimen (Source) Anatomical Location Collection Method / Collectio n Time Received Time / Laterality Volume Impressions 05/26/2021 2:20 PM CDT IMPRESSION: 1. Increased size of acute/subacute left convexity subdural hematoma with worsening mass effect/midline shift . 2. Resolution of subdural hematoma along the falx cerebri. [Critical Result: Head bleed] Finding was identified on 05/26/2021 1:13 PM. Oswaldo physician event sales assistant was contacted by me on 05/26/2021 approximately 2:00 p.m. and verbalized u nderstanding of the critical result. YAYO CHILEL MD Narrative 05/26/2021 2:[address] SCAN OF THE HEAD WITHOUT CONTRAST ?? 05/26/2021 11:39 AM HISTORY: SDH (subdural hematoma) (H). TECHNIQUE: Axial images of the head and coronal reformations without IV contrast material. Radiation dose for this scan was reduced using automated exposure control, adjustment o f the mA and/or kV according to patient size, or iterative reconstruc tion technique. COMPARISON: Head CT 04/25/2021 FINDINGS: Increased size of left convexi ty subdural hematoma measuring up to 11 mm in thickness, previously 3 t o 4 mm. The hematoma demonstrates hypoattenuating fluid anter iorly and hyperattenuating fluid dependently suggestive of acute/smith bacute blood products. Uful-mz-uvpza midline shift has slightly worsened compared to the prior exam measuring approximately 5 to 6 mm. Increased left-sided sulcal effacement. Subdural hematoma eun ng the falx cerebri has essentially resolved. No evidence of acu te ischemia or hydrocephalus. The visualized calvarium, tympanic cavit ies, mastoid cavities, and extracranial soft tissues are unremarkab le. Trace paranasal sinus mucosal thickening. Procedure Note Yayo Chilel MD - 05/26/2021F ormatting of this note might be different from the original. CT SCAN OF THE HEAD WITHOUT CONTRAST 05/05 11:39 AM HISTORY: SDH (subdural hematoma) (H). TECHNIQUE: Axial images of the head and coronal reformations without IV contrast material. Radiation dose for this scan was reduced using automated exposure control, adjustment o f the mA and/or kV according to patient size, or iterative reconstruc tion technique. COMPARISON: Head CT 04/25/2021 FINDINGS: Increased size of left convexi ty subdural hematoma measuring up to 11 mm in thickness, previously 3 t o 4 mm. The hematoma demonstrates hypoattenuating fluid anter iorly and hyperattenuating fluid dependently suggestive of acute/smith bacute blood products. Zrzh-ka-jnxdh midline shift has slightly worsened compared to the prior exam measuring approximately 5 to 6 mm. Increased left-sided sulcal effacement. Subdural hematoma eun ng the falx cerebri has essentially resolved. No evidence of acu te ischemia or hydrocephalus. The visualized calvarium, tympanic cavit ies, mastoid cavities, and extracranial soft tissues are unremarkab le. Trace paranasal sinus mucosal thickening. IMPRESSION: 1. Increased size of acute/subacute left convexity subdural hematoma with worsening mass effect/midline shift . 2. Resolution of subdural hematoma along the falx cerebri. [Critical Result: Head bleed] Finding was identified on 05/26/2021 1:13 PM. Oswaldo physician event sales assistant was contacted by me on 05/26/2021 approximately 2:00 p.m. and verbalized u nderstanding of the critical result. YAYO CHILEL MD Candido Lira MD IMG CT ORDERABLES documented in this encounter Visit Diagnoses Diagnosis SDH (subdural hematoma) Subdural hemorrhage documented in this encounter Care Teams Employment Security Officer Relationship Specialty Start Date End Date Melissa Parikh PCP - General Internal Medicine 04/24/21 [address] [place] [address] documented as of this encounter
--- OUTSIDE RECORDS SUMMARY | 2022-08-06 00:55 | XMS_ITS | Encounter Summary ---
:1945 Author Organization [facility] Address [address] [place] [address] Care Team Providers Name Role Phone Melissa Parikh Spenser Primary Care Provider Unavailable Encounter Details Date Type Department Care Team Description 05/26/2021 Telephone [facility] Thony Sousa, Neurosurgery Clinic MALIA De Pere [address] [id number] [facility] [address] [place] [address] [place] [address] [phone] Social History Tobacco Use Types Packs/Day Years [...] this encounter Miscellaneous Notes Telephone Encounter - Aide Painter - 05/26/2021 2:15 PM CDT LVM to call to schedule another CT and f/u with Thony in 3 weeks from 05/31 per Nikki's staff message. documented in this encounter Plan of Treatment Not on filedocumented as of this encounter Visit Diagnoses Not on filedocumented in this encounter Care Teams Dietitian Relationship Specialty Start Date End Date Melissa Parikh PCP - General Internal Medicine 04/24/21 [address] [facility] [address] [place] [address] documented as of this encounter
--- OUTSIDE RECORDS SUMMARY | 2022-08-06 00:55 | XMS_ITS | Encounter Summary ---
:1945 Author Organization [facility] Address [address] [place] [address] Care Team Providers Name Role Phone Melissa Parikh Primary Care Provider Unavailable Reason for Visit Diagnostic Imaging CT Scan (Routine) - Closed Specialty Diagnoses / Procedures Referred By Contact Refer red To Contact Radiology. Diagnoses SDH (subdural hematoma) Candido Lira MD Ct Scan Procedures CT Head w/o Contrast [address] [place]enz[place]a [phone] [place] [address] Referral ID Status Reason Start Date Expiration Date Visits Requ ested Visits Authorized [id number] Closed 05/16/2021 05/16/2022 1 1 Encounter Details Date Type Department Care Team Description 05/26/2021 Hospital Encounter [facility] Candido Lira [facility] MD [address] [address] [address] [place] [phone] [facility] [address] [place], [place] [address] (Wo rk) Social History Tobacco Use Types Packs/Day Years [...] Head w/o Contrast (05/26/2021 11:39 AM CDT) [facility] Method Time Signature Radiologist Head bleed RADIOLOGY [...] identified on 05/26/2021 1:13 PM. Oswaldo physician wardrobe assistant was contacted by me on 05/26/2021 [...] dependently suggestive of acute/smith bacute blood products. Zzbw-me-mymsj midline shift has slightly worsened compared to [...] dependently suggestive of acute/smith bacute blood products. Oxbm-jh-frjeg midline shift has slightly worsened compared to [...] identified on 05/26/2021 1:13 PM. Oswaldo physician wardrobe assistant was contacted by me on 05/26/2021 approximately 2:00 p.m. and verbalized u nderstanding of the critical result. YAYO CHILEL MD Candido Lira MD IMG CT ORDERABLES documented in this encounter Visit Diagnoses Not on filedocumented in this encounter Care Teams Director Camp Relationship Specialty Start Date End Date Melissa Parikh PCP - General Internal Medicine 04/24/21 [address] [facility] [address] [place] [address] documented as of this encounter
--- OUTSIDE RECORDS SUMMARY | 2022-08-06 00:55 | XMS_ITS | Encounter Summary ---
:1945 Author Organization [facility] Address [address] [place] [address] Care Team Providers Name Role Phone EveMelissa vanegas Primary Care Provider Unavailable Thony Sousa PA-C Unavailable Reason for Referral Diagnostic Imaging CT Scan (Routine) - Closed Specialty Diagnoses / Procedures Referred By Contact Refer red To Contact Radiology. Diagnoses SDH (subdural hematoma) Thony Sousa Sh Ct Scan Procedures CT Head w/o Contrast MALIA [address] [place] [phone] [address] [place] [address] Referral ID Status Reason Start Date Expiration Date Visits Requ ested Visits Authorized [id number] Closed 06/17/2021 07/11/2022 1 1 HOUSE SITTER Reason for Visit Auth/Cert Specialty Diagnoses / Procedures Referred By Contact Refer red To Contact Intensive Care Diagnoses Confusion Subdural hematoma SDH (subdural hematoma) SDH (subdural hematoma) (H) Subdural hematoma (H) Confusion Intensive Care [address] [phone] Phone: Referral ID Status Reason Start Date Expiration Date Visits Requ ested Visits Authorized [id number] 1 1 Encounter Details Date Type Department Care Team Description 07/11/2021 Hospital Encounter [facility] Thony Sousa SDH (subdural [facility] MALIA Bennett hematoma) (H) [address] [place] [phone] [address] [phone] [place] [id number] Social History Tobacco Use Types Packs/Day Years [...] with No / Unsure 07/11/2021 11:35 AM PET HOUSE SITTER someone who was confirmed or suspected to [...] Diagnosis Comme nts CT HEAD W/O Routine 07/11/2021 12:01 PM SDH (subdural Results for this CONTRAST PET HOUSE SITTER hematoma) (H) procedure are in the results section. documented in this encounter Results CT Head w/o Contrast (07/11/2021 12:01 PM PET HOUSE SITTER) Anatomical Region Laterality Modality Head, SUBRAD CT NEURO, SUBRAD CT NEURO, UMP CT NEURO, Computed Tomography RAD CT Specimen (Source) Anatomical Location Collection Method / Collectio n Time Received Time / Laterality Volume Impressions 07/11/2021 4:29 PM PET HOUSE SITTER IMPRESSION: Significant interval increase in size of a mixed density holohemispheric left cerebral convexity subdural hematoma with recent-appearing blood components, as de scribed. Progressive mass effect on the left cerebral ??hemisphere and worsening rightward midline shift measuring up to approximat kristofer 9-10 mm. Progressive narrowing of the supratentorial ventricu lar system. The findings were discussed by myself wi sophie Sousa of the neurosurgery service at approximately 3: 35 PM on 07/11/2021. NELY YIP MD Narrative 07/11/2021 4:[address] SCAN OF THE HEAD WITHOUT CONTRAST ?? 07/11/2021 12:01 PM HISTORY: SDH (subdural hematoma) (H). TECHNIQUE: ??Axial images of the head an d coronal reformations without IV contrast material. Radiation dose for this scan was reduced using automated exposure control, adjustment o f the mA and/or kV according to patient size, or iterative reconstruc tion technique. COMPARISON: CT head 06/16/2021. FINDINGS: Interval increase in size of a mixed density holohemispheric subdural hematoma overlying the left cer ebral convexity with new/increased heterogeneously hyperdense components. This collection now measures up to approximately 22 mm i n radial thickness compared to 15 mm on the previous exam. There is ass ociated significant, increased mass effect on the left cerebral hemisph ere with worsening rightward midline shift now measuring 9-10 mm comp ared to 4 mm previously. There has been progressive narrowing of the smith pratentorial ventricular system, with effacement of the posterior body, atrium, and occipital and temporal horns of the left lateral v entricle and near complete effacement of the third ventricle. No ob vious ventricular entrapment/hydrocephalus at this time. N o significant transtentorial herniation at this time. Visualized aspects of the orbits are nor mal. Mild/moderate circumferential mucosal thickening in th e left sphenoid sinus has increased. The visualized aspects of the mastoid and middle ear cavities are clear. The calvarium and sk ull base appear intact. Procedure Note Nely Yip MD - 07/11/2021Formattin g of this note might be different from the original. CT SCAN OF THE HEAD WITHOUT CONTRAST 07/11/2021 12:01 PM HISTORY: SDH (subdural hematoma) (H). TECHNIQUE: Axial images of the head and coronal reformations without IV contrast material. Radiation dose for this scan was reduced using automated exposure control, adjustment o f the mA and/or kV according to patient size, or iterative reconstruc tion technique. COMPARISON: CT head 06/16/2021. FINDINGS: Interval increase in size of a mixed density holohemispheric subdural hematoma overlying the left cer ebral convexity with new/increased heterogeneously hyperdense components. This collection now measures up to approximately 22 mm i n radial thickness compared to 15 mm on the previous exam. There is ass ociated significant, increased mass effect on the left cerebral hemisph ere with worsening rightward midline shift now measuring 9-10 mm comp ared to 4 mm previously. There has been progressive narrowing of the smith pratentorial ventricular system, with effacement of the posterior body, atrium, and occipital and temporal horns of the left lateral v entricle and near complete effacement of the third ventricle. No ob vious ventricular entrapment/hydrocephalus at this time. N o significant transtentorial herniation at this time. Visualized aspects of the orbits are nor mal. Mild/moderate circumferential mucosal thickening in th e left sphenoid sinus has increased. The visualized aspects of the mastoid and middle ear cavities are clear. The calvarium and sk ull base appear intact. IMPRESSION: Significant interval increas e in size of a mixed density holohemispheric left cerebral convexity subdural hematoma with recent-appearing blood components, as de scribed. Progressive mass effect on the left cerebral hemisphere a nd worsening rightward midline shift measuring up to approximat kristofer 9-10 mm. Progressive narrowing of the supratentorial ventricu lar system. The findings were discussed by myself [facility] Thony Sousa of the neurosurgery service at approximately 3: 35 PM on 07/11/2021. NELY YIP MD Thony Sousa PA-C IMG CT ORDERABLES documented in this encounter Visit Diagnoses Diagnosis SDH (subdural hematoma) Subdural hemorrhage documented in this encounter Care Teams Golf Stud Riveter Relationship Specialty Start Date End Date Melissa Parikh PCP - General Internal Medicine 04/24/21 [address] [facility] [address] [place] [address] Thony Sousa, Assigned Neuroscience 06/05/21 MIGUEL-C Provider [address] [place] [id number] documented as of this encounter
--- OUTSIDE RECORDS SUMMARY | 2022-08-06 00:55 | XMS_ITS | Encounter Summary ---
:1945 Author Organization [facility] Address [facility] [place] [address] Care Team Providers Name Role Phone MarciMelissa izaguirre A Primary Care Provider Unavailable Reason for Referral Diagnostic Imaging CT Scan (Routine) - Closed Specialty Diagnoses / Procedures Referred By Contact Refer red To Contact Diagnoses SDH (subdural hematoma) Nikki Brownlee PA-C Procedures CT Head w/o Contrast [facility] [address] [place] [address] [place] [address] Referral ID Status Reason Start Date Expiration Date Visits Requ ested Visits Authorized [id number] Closed 05/26/2021 05/26/2022 1 1 Encounter Details Date Type Department Care Team Description 05/26/2021 Orders Only [facility] Nikki Brownlee, SDH ( subdural Neurosurgery Clinic PA-C hematoma) (H) (Primary Bianca [facility]) [address] [place] [address] [address] [place] [address] [place] [address] [phone] Social History Tobacco Use Types Packs/Day Years [...] / COVID-19? documented as of this encounter Progress Notes Nikki Brownlee PA-C - 05/26/2021 2:09 PM CDT Called Ema regarding head CT findings from today. Ema admits she has been doing well without any concerns since last in the hospital. She has no concerns at this time. Reviewed imaging findings with Ema. Reviewed we will plan to keep appointment on 05/31 but will have to follow her more closely to ensure subdural collection starts trending in the right direction. Recommended appt 05/31 then follow up appt with head CT 2-3 weeks after that. I will message our team to assist in scheduling this. Reviewed with Ema if there are changes in symptoms to call us or present sooner. Ema in agreement with plans and had no further questions Reviewed plans with Dr. Lockwood as well. IMPRESSION: ?? 1. Increased size of acute/subacute left convexity subdural hematoma with worsening mass effect/midline shift. 2. Resolution of subdural hematoma along the falx cerebri. Nikki Munguia documented in this encounter Plan of Treatment Scheduled Orders Name Type Priority Associated Diagnoses Order S chedule CT Head w/o Contrast Imaging Routine SDH (subdural hemato ma) Expected: 06/25/2021 (H) (Approximate), Expires: 2021 documented as of this encounter Visit Diagnoses Diagnosis SDH (subdural hematoma) - Primary Subdural hemorrhage documented in this encounter Care Teams Quality Internship Relationship Specialty Start Date End Date Melissa Parikh PCP - General Internal Medicine 04/24/21 [address] [place] [address] documented as of this encounter
--- OUTSIDE RECORDS SUMMARY | 2022-08-06 00:55 | XMS_ITS | Encounter Summary ---
:1945 Author Organization [facility] Address [address] [place] [address] Care Team Providers Name Role Phone EveMelissa vanegas Spenser Primary Care Provider Unavailable Thony Sousa PA-C Unavailable Encounter Details Date Type Department Care Team Description 07/13/2021 Telephone [facility] Thony Sousa, Neurosurgery Clinic MALIA [place] [address] [facility] [address] [place] [address] [place] [address] [phone] Social History Tobacco Use Types Packs/Day Years [...] with No / Unsure 07/21/2021 9:58 AM ROTARY SCREEN PRINTING MACHINE 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 documented as of this encounter Miscellaneous Notes Telephone Encounter - Esdras Bhavani Church - 07/13/2021 1:41 PM CST Pt's daughter Kimberley Mcadams called to advise that her mother is being [facility] now because she is having red flag symptoms that need immediate attention, she is slurring her words and is 'off'. She wanted our providers to be aware. She said you can call her if you have questions at [phone]. Thank you~ RY SCREEN PRINTING MACHINE OPERATOR Telephone Encounter - Rebecca Christianson RN - 07/13/2021 10:27 AM CST Called Daughter Kathe back. Yesterday, Kathe asked a provider call her sister Gina to discuss questions they had regarding theoffice visit she had with Dr Orantes. Thony called the daughter (Gina) back and discussed with them, she will discuss with her mother further contact us with a make a decision about whether to proceed with surgery or to continue monitoring. Now Kathe has her own questions: 1. How common is the surgery? 2. How long does the surgery take? 3. How urgent is the surgery? 4. When would the surgery be done? 5. How do you expect her to recover? Will she have amnesia or need to learn to talk again? 6. What are the other risks? 7. How life threatening is the surgery? 8. What is the survival rate? Questions routed to Thony for review RY SCREEN PRINTING MACHINE OPERATOR Telephone Encounter - Aide Painter - 07/13/2021 9:49 AM CST Kathe called for Thony to get updated on her mother's recommendations for her mother. Please reach her at: [phone]. RY SCREEN PRINTING MACHINE OPERATOR documented in this encounter Plan of Treatment Not on filedocumented as of this encounter Visit Diagnoses Not on filedocumented in this encounter Care Teams Battery Charger Conveyor Line Relationship Specialty Start Date End Date Melissa Parikh PCP - General Internal Medicine 04/24/21 [address] [place] [address] Thony Sousa, Assigned Neuroscience 06/05/21 PA-C Provider [address] [place] [address] documented as of this encounter
--- OUTSIDE RECORDS SUMMARY | 2022-08-06 00:55 | XMS_ITS | Encounter Summary ---
:1945 Author Organization [facility] Address [address] [place] [id number] Care Team Providers Name Role Phone Melissa Parikh Primary Care Provider Unavailable Thony Sousa PA-C Unavailable Reason for Visit Reason Onset Date Comments follow up questions 07/12/2021 Encounter Details Date Type Department Care Team Description 07/12/2021 [facility] Guido Orantes Ra, MD follow up questions Clinic [place] [address] [facility] [place] [address] [facility] [address] [place] [address] [place], [place] [phone] (Wo rk) [id number] [phone] Social History Tobacco Use Types Packs/Day Years [...] with No / Unsure 07/11/2021 11:35 AM LABEL PRINTER someone who was confirmed or suspected to have Coronavirus / COVID-19? documented as of this encounter Miscellaneous Notes Telephone Encounter - Thony Sousa PA-C - 07/12/2021 3:36 PM LABEL PRINTER I called the daughter back and discussed with them, she will discuss with her mother further contactus with a make a decision about whether to proceed with surgery or to continue monitoring. L PRINTER Telephone Encounter - Wen Walton RN - 07/12/2021 12:45 PM CST Called pt and got verbal consent to communicate with her daughter Kathe on the phone. Kathe states that there was a lot of information given at the appointment and one of the pt's symptoms is confusion so the daughters have a few questions for the provider. Kathe asks that the provider call her sister Kimberley. Informed Kathe that her and Gina will need to fill out a consent to communicate to receive any future information on their mother the pt. Kathe requests form be emailed to her at [email or web address] and she will fax it back to us filled out. L PRINTER Telephone Encounter - Sara Wu - 07/12/2021 10:03 AM CST Patient's daughter would like to ask questions regarding the procedure that was discussed during recent office visit with Dr. Orantes. L PRINTER documented in this encounter Plan of Treatment Not on filedocumented as of this encounter Visit Diagnoses Not on filedocumented in this encounter Care Teams Coding Validator Relationship Specialty Start Date End Date Melissa Parikh PCP - General Internal Medicine 04/24/21 [address] [place] [id number] Thony Sousa, Assigned Neuroscience 06/05/21 [facility] Provider [address] [place] [id number] documented as of this encounter
--- OUTSIDE RECORDS SUMMARY | 2022-08-06 00:55 | XMS_ITS | Encounter Summary ---
:1945 Author Organization [facility] Address [address] [place] [id number] Care Team Providers Name Role Phone Melissa Parikh Spenser Primary Care Provider Unavailable Thony Sousa PA-C Unavailable Reason for Visit Reason Comments Aphasia Auth/Cert Specialty Diagnoses / Procedures Referred By Contact Refer red To Contact Intensive Care Diagnoses Confusion Subdural hematoma SDH (subdural hematoma) SDH (subdural hematoma) (H) Subdural hematoma (H) Confusion Intensive Care [address] [phone] Phone: Referral ID Status Reason Start Date Expiration Date Visits Requ ested Visits Authorized [id number] 1 1 Encounter Details Date Type Department Care Team Description 07/13/2021 Surgery [facility] Guido Orantes [facility] PeriOP MD SUBDURAL HEMATOMA Services [address] EVACUATION [address], [address] [place] [address] [address] [phone] Surgery Details Date/Time Status Location OR Service Patient Class Case Case Trauma Class Type Case? 07/13/21 8:00 Posted OR OR M Neurosurgery Inpatient PM 33 Panel 1 Procedure LRB Anes Op Region Wound Class Commen ts CRANIOTOMY, FOR SUBDURAL HEMATOMA Left General Head I- Clean EVACUATION Surgeon Surgeon Role Service Panel Guido Orantes MD Primary Neurosurgery 1 Nikki Brownlee PA-C Assisting 1 documented in this encounter Social History Tobacco [...] with No / Unsure 07/13/2021 2:44 PM TUBE AND ROD STRAIGHTENER someone who was confirmed or suspected to have Coronavirus / COVID-19? documented as of this encounter Last Filed Vital Signs Vital Sign Reading Time Taken Comments Blood Pressure 120/65 07/13/2021 10:50 PM TUBE AND ROD STRAIGHTENER Pulse 73 07/13/2021 10:50 PM TUBE AND ROD STRAIGHTENER Temperature 36.1 ??C (97 ??F) 07/13/2021 10:03 PM TUBE AND ROD STRAIGHTENER Respiratory Rate 14 07/13/2021 10:50 PM TUBE AND ROD STRAIGHTENER Oxygen Saturation 98% 07/13/2021 10:50 PM TUBE AND ROD STRAIGHTENER Inhaled Oxygen Concentration - - Weight 66.2 kg (146 lb) 07/13/2021 2:53 PM TUBE AND ROD STRAIGHTENER Height 160 cm (5' 3) 07/13/2021 2:53 PM TUBE AND ROD STRAIGHTENER Body Mass Index 25.66 07/13/2021 2:53 PM TUBE AND ROD STRAIGHTENER documented in this encounter Discharge Summaries Alea Hawkins OTR - 07/17/2021 8:42 AM CST Occupational Therapy Discharge Summary Reason for therapy discharge: Discharged to home with outpatient therapy. Progress towards therapy goal(s). See goals on Care Plan in [facility] electronic health record for goal details. Goals partially met. Barriers to achieving goals: discharge from facility. Therapy recommendation(s): Continued therapy is recommended. Rationale/Recommendations: to increase indep with functional cognition for completion of medication management and finances in home environment. AND ROD STRAIGHTENER Nikki Brownlee PA-C - 07/16/2021 11:29 AM CST [facility] Discharge Summary [facility] Neurosurgery Date of Admission: 07/13/2021 Date [...] in halls Time Spent on this Encounter INikki PA-C, personally saw the patient today and [...] have been scheduled . You may call [phone] to make, confirm or change your follow-up [...] other recreational vehicles. Call the office at [phone] for increasing redness, swelling or pus draining [...] tablet, Refills: 1 Allergies No Known Allergies AND ROD STRAIGHTENER documented in this encounter Medications at Time [...] Shirley LSW - 07/17/2021 10:31 AM CST STEVIE: Received VM from patients daughter Kathe. Kathe [...] whole w/water. Incision to head ivana intact, HYDRAULIC RUBBISH COMPACTOR MECHANIC. C/o slight pain on incision site, prn tylenol given once with effect. Plan to discharge home this morning, daughter picking her at 0900. BP 131/68 (BP Location: Left arm) Pulse 70 Temp 97.6 ??F (36.4 ??C) (Oral) Resp 18 Ht 1.6 m (5' 3) Wt 65.7 kg (144 lb 13.5 oz) SpO2 95% BMI 25.66 kg/m?? Octaviano Ward RN AND ROD STRAIGHTENER Mattie Shirley LSW - 07/16/2021 11:00 AM [...] Plan: unable to assess Referrals Placed by CM/STEVIE: Private pay costs discussed: Not applicable Additional Information: STEVIE spoke with patient's daughter Kathe and discussed [...] discharging to patient's daughter Sheila home in [facility]. Per Kathe, patient's other daughter [...] medically cleared for discharge at this time. AND ROD STRAIGHTENER Nikki Brownlee PA-C - 07/16/2021 10:21 AM CST [facility] Neurosurgery Daily Note Assessment & Plan Procedure(s): [...] in agreement with plans Nikki Brownlee PA-C [facility] Neurosurgery [address] [address] AND ROD STRAIGHTENER Isabel Madrigal MD - 07/16/2021 9:11 AM CST [facility] Hospitalist Progress Note Assessment & Plan Ema [...] Hyperglycemia Patient not currently on any medications FREIGHT BRAKE OPERATOR. Patient received 8 mg of dexamethasone intra-op. -Hemoglobin A1c 6.3 indicating prediabetes -Here continue with the sliding scale, upon discharge she could discuss initiating possibly Metformin through her primary care. -Lifestyle modification discussed in detail with patient. ?? HTN - Goal SBP < 140. - Restarted FREIGHT BRAKE OPERATOR lisinopril 20 mg daily on 07/15., Blood pressure stable ?? HLP -Continue on FREIGHT BRAKE OPERATOR Lipitor 40 mg/d. ?? Hypothyroidism, iatrogenic 2/2 thyroidectomy -Continue FREIGHT BRAKE OPERATOR levothyroxine 75 mcg/d. ?? Vertigo - Hold FREIGHT BRAKE OPERATOR PRN Meclizine. ?? DVT Prophylaxis: As per [...] previous visit (from the past 24 hour(s)). Octaviano Tipton RN - 07/16/2021 5:54 AM CST POD#3 [...] 98% BMI 25.66 kg/m?? Octaviano Ward RN Melonie Magallanes, PT - 07/15/2021 3:51 PM CST 07/15/21 1200 Signing Clinician's Name / Credentials Signing clinician's name / credentials Faustina Lozano SPt Dynamic Gait Index (Monico and Mcclendon Alisson, [...] 2.9 in community dwelling elderly according to Twan et al 2011 Assessment (rationale for performing, application to patient? s function & care plan): To assess dynamic balance. Minutes billed as physical performance test AND ROD STRAIGHTENER Nikki Brownlee PA-C - 07/15/2021 1:16 PM CST [facility] Neurosurgery Daily Note Assessment & Plan Procedure(s): [...] in agreement with plans Nikki Brownlee PA-C [facility] [place] [address] AND ROD STRAIGHTENER Isabel Madrigal MD - 07/15/2021 12:47 PM CST [facility] Hospitalist Progress Note Assessment & Plan Ema [...] Hyperglycemia Patient not currently on any medications FREIGHT BRAKE OPERATOR. Patient received 8 mg of dexamethasone intra-op. -Hemoglobin A1c 6.3 indicating prediabetes -Here continue with the sliding scale, upon discharge she could discuss initiating possibly Metformin through her primary care. -We will discuss lifestyle modifications prior to discharge ?? HTN - Goal SBP < 140. - Blood pressures are stable will restart her FREIGHT BRAKE OPERATOR medication (lisinopril 20 mg at bedtime) ?? HLP -Continue on FREIGHT BRAKE OPERATOR Lipitor 40 mg/d. ?? Hypothyroidism, iatrogenic 2/2 thyroidectomy -Continue FREIGHT BRAKE OPERATOR levothyroxine 75 mcg/d. ?? Vertigo - Hold FREIGHT BRAKE OPERATOR PRN Meclizine. ?? DVT Prophylaxis: As per [...] previous visit (from the past 24 hour(s)). AND ROD STRAIGHTENER Melissa Martinez, RN - 07/15/2021 8:44 AM CST Noted RN documents Home with home care at discharge Noted PT documents home;home with outpatient physical therapy Noted OT documents Home with assist;home with outpatient occupational therapy IF homecare is recommended please add Care Management / Social Work IP Consult IF discharging with outpatient therapies, no need for CM. AND ROD STRAIGHTENER Chadd Simon, PT - 07/14/2021 4:29 PM [...] unsafe. Daughter encouraging pt to move to alf apt as she beleives house is too [...] Evaluation Time Total Evaluation Time (Minutes) 10 AND ROD STRAIGHTENER Mary Regalado RN - 07/14/2021 3:57 PM CST Plan/Goals: Pt ambulatory SBA. Minimal output from LUAN drain. Transfer to 713. NEURO: neurologically intact, slow speech at times RESPIRATORY: maintaining o2 sats on room air CARDIAC: NSR on tele VASCULAR: no edema noted, pulses palpable GI: consistent carb diet ordered, encouraging intake : voids spontaneously. Family Update:daughterkimberley updated by phone AND ROD STRAIGHTENER Alea Hawkins, OTR - 07/14/2021 3:48 PM [...] improved. Bed Mobility Bed Mobility supine-sit Supine-Sit [place] (Bed Mobility) supervision Activities of Daily Living BADL Assessment grooming;lower body dressing Lower Body Dressing Assessment [place] Level (Lower Body Dressing) supervision Grooming Assessment [place] Level (Grooming) supervision Clinical Impression Criteria for [...] Time (Minutes) Total Evaluation Time (Minutes) 8 AND ROD STRAIGHTENER Oswaldo Rodriguez PA-C - 07/14/2021 11:53 AM CST [facility] Neurosurgery Daily Post-Op Note Assessment & Plan Procedure(s): CRANIOTOMY, FOR SUBDURAL HEMATOMA EVACUATION 1 Day Post-Op Doing well. Pain well-controlled. Tolerating physical therapy and rehabilitation well. No headache LUAN with 50 mL overnight. Plan: -Advance activity as tolerated -Continue supportive and symptomatic treatment -Start or continue physical therapy Ok to transfer [place] from [facility] standpoint Oswaldo Rodriguez Interval History Stable. Doing [...] chloride (PF) 3 mL Intracatheter Q8H Oswaldo Rodriguez PA-C [facility] Neurosurgery [address] [place] [address] Pager [phone] AND ROD STRAIGHTENER Mary Regalado, RN - 07/14/2021 11:24 AM CST MIGUEL Benavidez with neurosurgery for transfer orders AND ROD STRAIGHTENER Nikki Brownlee PA-C - 07/13/2021 9:54 PM [...] Monitor LUAN output. Likely will remove POD2 07/15. Chidi stitch in place (clear)- do NOT remove Therapies ordered Plans reviewed with Dr. Orantes who was in agreement with plans Contact concrete mixing plant laborer AHSAN with questions or concerns Nikki Brownlee PA-C [facility] Neurosurgery [address] [address] Nikki Meza PA-C - 07/13/2021 5:06 PM CST Plan for OR tonight at 1999 for left craniotomy and evacuation of SDH with Dr. Orantes Pre op orders placed EDMD has been updated and will update daughters as well Dr. Orantes in agreement with above stated plans SBP<140 AND ROD STRAIGHTENER documented in this encounter H&P Notes Diana Malhotra MD - 07/13/2021 7:40 PM CST I have reviewed the surgical (or preoperative) H&P that is linked to this encounter, and examined the patient. There are no significant changes AND ROD STRAIGHTENER Source Note - Indira Elizondo NP - 07/13/2021 4:56 PM TUBE AND ROD STRAIGHTENER [facility] Neurosurgery Consultation Date of Admission: 07/13/2021 Date [...] with further consultation recommendations. Indira Elizondo CNP [facility] Neurosurgery [place] [address] Pager [phone] Code Status Prior Reason for Consult Reason for consult: I was asked by Dr. Kelly to evaluate this patient for subdural hematoma. Primary Care Physician Melissa Parikh Chief Complaint Aphasia and confusion History is obtained from the patient, family, and EMR. History of Present Illness Ema Davison is a 76 year old female who is known to [place] [facility] [place] for a subdural hematoma. She was [...] History: Procedure Laterality Date ??? APPENDECTOMY ??? WRAPPING CHECKER SURGERY ??? nasal polyps removed ??? THYROIDECTOMY [...] Date INR 1.10 07/13/2021 INR 1.10 04/24/2021 AND ROD STRAIGHTENER documented in this encounter Consult Notes Zane Stafford PA-C - 07/14/2021 9:32 AM CSTAssociated Order(s): HOSPITALIST IP CONSULT [facility] Consult Note - Hospitalist Service Date of Admission: 07/13/2021 Consult Requested by: Nikki Brownlee PA-C Reason for Consult: Blood sugars management; s/p craniotomy with evacuation of subdural hematoma. PRIMARY CARE PROVIDER: Melissa Parikh & Audrey Andersen Saman is a 76 year old female admitted [...] Hyperglycemia Patient not currently on any medications FREIGHT BRAKE OPERATOR. Patient received 8 mg of dexamethasone intra-op. - Check A1c. - Medium intensity sliding scale. - Glucose checks QID. - Hypoglycemic protocol. - currently NPO but passed bed side swallow; awaiting Neurosurgery to approve advancement in diet and recommend Mod carb diet. HTN - Goal SBP < 140. - Hold FREIGHT BRAKE OPERATOR lisinopril 20 mg at bedtime; likely resume tomorrow. HLP - Resumed on FREIGHT BRAKE OPERATOR Lipitor 40 mg/d. Hypothyroidism, iatrogenic 2/2 thyroidectomy - Resumed on FREIGHT BRAKE OPERATOR levothyroxine 75 mcg/d. Vertigo - Hold FREIGHT BRAKE OPERATOR PRN Meclizine. Clinically Significant Risk Factors Present [...] will continue to follow. Zane Stafford PA-C [facility] Securely message with the [employer] Web Console (learn more here) Text page via [facility] Paging/Directory Chief Complaint Aphasia History is obtained [...] History: Procedure Laterality Date ??? APPENDECTOMY ??? WRAPPING CHECKER SURGERY ??? nasal polyps removed ??? THYROIDECTOMY 06/13/2011 Procedure:THYROIDECTOMY; TOTAL THYROIDECTOMY; Surgeon:ALFREDO VALENZUELA; Location:[facility] OR Appendectomy, D&C, Tubal Ligation, Thyroidectomy, Saphenous vein ligation (Right), Nasal polyps excised, Tonsillectomy. Social History I have reviewed this patient's social history and updated it with pertinent information if needed. [place] [facility] [place] She is a former smoker with quit [...] of 07/13/21 (from the past 24 hour(s)) [place] Draw Narrative The following orders were created for panel order [place] Draw. Procedure Abnormality Status --------- ------ Extra Blue Top Tube[[id number]] Final result Extra Red Top Tube[[id number]] Final result Extra Green Top ([place]...[[id number]] Final result Extra Purple Top Tube[[id number]] Final result Extra Blood Bank Purple ...[[id number]] Final result Please view results for these tests on the individual orders. Extra Blue Top Tube Result Value Ref Range Hold Specimen JIC Extra Red Top Tube Result Value Ref Range Hold Specimen JIC Extra Green Top ([place] Heparin) Tube Result Value Ref Range Hold Specimen JIC Extra Purple Top Tube Result Value Ref Range Hold Specimen JIC Extra Blood Bank Purple Top Tube Result Value Ref Range Hold Specimen JIC CBC with platelets differential Narrative The following orders were created for panel order CBC with platelets differential. Procedure Abnormality Status --------- ------ CBC with platelets and d...[[id number]] Abnormal Final result Please view results for these tests on the individual orders. INR Result Value Ref Range INR 1.10 0.85 - 1.15 ABO/Rh type and screen Narrative The following orders were created for panel order ABO/Rh type and screen. Procedure Abnormality Status --------- ------ Adult Type and Screen[[id number]] In process Please view results for these [...] recent exposure or clinical presentation suggests COVID-19. [facility] are certified under the Clinical Laboratory Improvement Amendments of 1988 (CLIA-88) as qualified [...] Narrative EXAM: CT HEAD W/O CONTRAST [facility] DATE/TIME: 07/14/2021 5:17 AM INDICATION: Subdural [...] POCT 161 (H) 70 - 99 mg/dL AND ROD STRAIGHTENER Associated attestation - Halle Riddle MD - 07/14/2021 2:48 PM TUBE AND ROD STRAIGHTENER Physician Attestation I, Halle Riddle, have reviewed [...] Elizondo NP - 07/13/2021 4:56 PM CST [facility] Neurosurgery Consultation Date of Admission: 07/13/2021 Date [...] with further consultation recommendations. Indira Elizondo CNP [facility] Neurosurgery [address] [place] [address] Pager [phone] Code Status Prior Reason for Consult Reason for consult: I was asked by Dr. Kelly to evaluate this patient for subdural hematoma. Primary Care Physician Melissa Parikh Chief Complaint Aphasia and confusion History is obtained from the patient, family, and EMR. History of Present Illness Ema Davison is a 76 year old female who is known to the [facility] [place] for a subdural hematoma. She was [...] History: Procedure Laterality Date ??? APPENDECTOMY ??? WRAPPING CHECKER SURGERY ??? nasal polyps removed ??? THYROIDECTOMY [...] Date INR 1.10 07/13/2021 INR 1.10 04/24/2021 AND ROD STRAIGHTENER Associated attestation - Guido Orantes MD - 07/13/2021 7:10 PM TUBE AND ROD STRAIGHTENER Physician Attestation I, Guido Orantes, saw and evaluated Ema Davison as part of a shared visit. I have reviewed anddiscussed with the advanced practice provider their history, physical and plan. I personally reviewed the imaging. My shoemaker history or physical exam findings: Left subdural hematoma with progressive growth, now admitted with aphasia and weakness Shoemaker management decisions made by me: OR for evac Guido Orantes Date of Service (when I saw the patient): 07/13/21 documented in this encounter Nursing Notes Alesha Parsons RN - 07/13/2021 7:55 PM CST Pt's daughter reports that pt has current UTI. Recently started on abx. Will need antibiotics continued while in-patient. AND ROD STRAIGHTENER documented in this encounter ED Notes Yusuf Anderson, SONY - 07/13/2021 7:13 PM CST Report given to preop AND ROD STRAIGHTENER Vivek Douglas - 07/13/2021 5:39 PM CST Pur wick placed on pt and pt and daughter educated on its function AND ROD STRAIGHTENER Yusuf Anderson, SONY - 07/13/2021 5:09 PM CST Per Nikki from NSG, SPB<140, she will put orders for BP management. OR time is 1999. AND ROD STRAIGHTENER Dorene Magana RN - 07/13/2021 4:34 PM CST Bed: ED27 Expected date: Expected time: Means of arrival: Comments: ED 16 AND ROD STRAIGHTENER Hakan Kelly MD - 07/13/2021 2:43 PM [...] DM Asymptomatic bacteruria Past Surgical History: Appendectomy WRAPPING CHECKER surgery Nasal polypectomy Thyroidectomy [facility] long saphenous vein ligation Dilation and curettage Family History: Brother - heart disease Father - [place], [place] Social History: Patient was accompanied to the [...] reviewed by me General: Pt seen on [facility], cooperative, and alert to conversation Eyes: Tracking [...] discussed plan for transfer to OR. Consults: [address] Chilel from Radiology. [address] Elizondo from Neuro [...] Kelly MD 07/13/212044 Hakan Kelly MD 07/13/212045 AND ROD STRAIGHTENER documented in this encounter Miscellaneous Notes Plan of Care - Mayo Dos Santos RN - 07/17/2021 10:31 AM CST Pt is POD 4 from L crani for SDH. A&Ox4. VSS on RA. SBA with GB. Slight R facial droop, neuros intact otherwise. Tolerating mod carb diet, takes pills whole with water. Tylenol for incisional pain.Incision to head with ivana, HYDRAULIC RUBBISH COMPACTOR MECHANIC and intact. Pt cleared for discharge. Discharge information provided to pt, pt's daughter and son-in-law. Pt and family verbalized understanding. Pt discharged to daughter's home. AND ROD STRAIGHTENER Plan of Care - Mayo Dos Santos [...] tomorrow 9AM. Plan for early discharge tomorrow. AND ROD STRAIGHTENER Plan of Care - Billy Valladares RN [...] at the hospital until this coming Sunday. AND ROD STRAIGHTENER Plan of Care - Alma Rosa Lockwood RN - 07/15/2021 6:52 PM CST A and O x4. VSS. No pain. Slight R facial droop. Edema and dried drainage at incision site, HYDRAULIC RUBBISH COMPACTOR MECHANIC withintact ivana. Good appetite on regular diet. Up with 1, belt. Scoring green on aggression screening tool. Plan is to discharge home with daughters. AND ROD STRAIGHTENER Plan of Care - Melonie Al, PT - 07/15/2021 12:53 PM CST Physical Therapy Discharge Summary Reason for therapy discharge: All goals and outcomes met, no further needs identified. Progress towards therapy goal(s). See goals on Care Plan in [facility] electronic health record for goal details. Goals met Therapy recommendation(s): Continued therapy is recommended. Rationale/Recommendations: Pt no longer requires IP PT intervention. However, pt would benefit from outpt PT to address deficits with more challenging balance and mobility tasks.. AND ROD STRAIGHTENER Plan of Care - Yuki Wyman - [...] thins. Home with home care at discharge AND ROD STRAIGHTENER Provider Notification - Sil Aj RN - 07/14/2021 11:02 PM TUBE AND ROD STRAIGHTENER ANTONIO Goode. Pt is 24 hour post-op crani, stable, no changes, can we change neuro checks from q2h to q4h? Thank you! Sil [phone] Update: Ok for q4h neuro and vital checks. AND ROD STRAIGHTENER Plan of Care - Sil Aj RN - 07/14/2021 10:30 PM CST Reason for Admission: POD 1 L Crani for subdural hematoma Cognitive/Mentation: A/Ox 4 Neuros/CMS: Intact ex occasional slow speech VS: stable. Tele: n/a. GI: BS hypoactive x4, passing flatus. Continent. : Voiding without difficulty. Continent. Pulmonary: LS clear throughout. Pain: denies. Drains: LUAN, PIV SL Skin: incision on L head, HYDRAULIC RUBBISH COMPACTOR MECHANIC, dried drainage Activity: SBA with GB. Diet: Mod Carb with thin liquids. Takes pills whole with water. Therapies recs: home with outpatient therapy Discharge: pending End of shift summary: Pt transferred to unit from ICU around 1550. Pt stable throughout shift. AND ROD STRAIGHTENER Pharmacy-Admission Medication History - Thi Galan [facility] - 07/14/2021 9:28 AM CST Pharmacy Medication History Admission medication history interview status for the 07/13/2021 admission is complete. See [facility] admission navigator for prior to admission [...] sources available at the time of update(s) AND ROD STRAIGHTENER Plan of Care - Reyes Ley RN [...] draining bright red blood. Pain/Gtts: Denies pain AND ROD STRAIGHTENER Brief Op Note - Nikki Brownlee PA-C - 07/13/2021 9:53 PM CST [facility] Brief Operative Note Pre-operative diagnosis: SDH (subdural hematoma) (H) [S06.5X9A] Post-operative diagnosis SDH Procedure: Procedure(s): CRANIOTOMY, FOR SUBDURAL HEMATOMA EVACUATION Surgeon(s): Surgeon(s) and Role: * Guido Orantes MD - Primary * Nikki Brownlee PA-C - Assisting Estimated blood loss: 50 mL Specimens: * No specimens in log * Findings: n/a AND ROD STRAIGHTENER Op Note - Guido Orantes MD - 07/13/2021 9:24 PM CST Date of surgery: 07/13/2021 Surgeon: Guido Orantes MD Shirring Machine Operator: MIGUEL Jordan Note: Nikki Brownlee was present for and assisted with the entire surgery, and his/her role as an assistant professor of chemistry was crucial for aid in positioning, exposure, [...] a straight left sided paramedian incision. The sales advisor was used to make a eliana hole, [...] subgaleal LUAN drain was left in place. AND ROD STRAIGHTENER documented in this encounter Plan of Treatment Scheduled Referrals Name Type Priority Associated Order Schedule Diagnoses Occupational Therapy Referral Routine: Next SDH (subdural Expec ronni: Referral available opening hematoma) (H) 07/17/2021 Subdural hematoma (Approxima te), (H) Expires: Confusion 07/17/2022 documented as of this encounter Procedures Procedure Name Priority Date/Time Associated Comments Diagnosis GLUCOSE BY METER Routine 07/17/2021 8:26 AM Resul ts for this TUBE AND ROD STRAIGHTENER procedure are i n the results section. GLUCOSE BY METER Routine 07/17/2021 1:42 AM Resul ts for this TUBE AND ROD STRAIGHTENER procedure are i n the results section. GLUCOSE BY METER Routine 07/16/2021 9:10 PM Resul ts for this TUBE AND ROD STRAIGHTENER procedure are i n the results section. GLUCOSE BY METER Routine 07/16/2021 7:14 PM Resul ts for this TUBE AND ROD STRAIGHTENER procedure are i n the results section. GLUCOSE BY METER Routine 07/16/2021 11:31 Results for this AM TUBE AND ROD STRAIGHTENER procedure are i n the results section. BASIC METABOLIC PANEL Routine 07/16/2021 8:56 AM Results for this TUBE AND ROD STRAIGHTENER procedure are i n the results section. GLUCOSE BY METER Routine 07/16/2021 8:04 AM Resul ts for this [employer] procedure are i n the results section. GLUCOSE BY METER Routine 07/15/2021 9:03 PM Resul ts for this [employer] procedure are i n the results section. GLUCOSE BY METER Routine 07/15/2021 4:57 PM Resul ts for this [employer] procedure are i n the results section. GLUCOSE BY METER Routine 07/15/2021 12:07 Results for this PM [employer] procedure are i n the results section. GLUCOSE BY METER Routine 07/15/2021 6:21 AM Resul ts for this [employer] procedure are i n the results section. GLUCOSE BY METER Routine 07/14/2021 9:35 PM Resul ts for this [employer] procedure are i n the results section. GLUCOSE BY METER Routine 07/14/2021 4:29 PM Resul ts for this [employer] procedure are i n the results section. GLUCOSE BY METER Routine 07/14/2021 12:23 Results for this PM [employer] procedure are i n the results section. GLUCOSE BY METER Routine 07/14/2021 8:43 AM Resul ts for this [employer] procedure are i n the results section. CT HEAD W/O CONTRAST Routine 07/14/2021 5:17 AM R esults for this [employer] procedure are i n the results section. GLUCOSE BY METER Routine 07/14/2021 4:52 AM Resul ts for this [employer] procedure are i n the results section. GLUCOSE BY METER Routine 07/13/2021 11:24 Results for this PM [employer] procedure are i n the results section. GLUCOSE BY METER Routine 07/13/2021 7:29 PM Resul ts for this [employer] procedure are i n the results section. COVID-19 VIRUS STAT 07/13/2021 6:24 PM Results for this (CORONAVIRUS) BY PCR [employer] procedu re are in the results section. CRANIOTOMY, EVACUATE STAT 07/13/2021 5:29 PM SDH (subdural HEMATOMA SUBDURAL, [employer] hematoma) (H) COMBINED CT HEAD W/O CONTRAST STAT 07/13/2021 3:38 PM R esults for this [employer] procedure are i n the results section. EXTRA TUBE STAT 07/13/2021 3:10 PM Results f or this [employer] procedure are i n the results section. EXTRA BLOOD BANK PURPLE STAT 07/13/2021 3:10 PM Results for this TOP TUBE [employer] procedure are i n the results section. EXTRA PURPLE TOP TUBE STAT 07/13/2021 3:10 PM Results for this [employer] procedure are i n the results section. EXTRA GREEN TOP STAT 07/13/2021 3:10 PM Result s for this (LITHIUM HEPARIN) TUBE [employer] proce dure are in the results section. EXTRA RED TOP TUBE STAT 07/13/2021 3:10 PM Res ults for this [employer] procedure are i n the results section. EXTRA BLUE TOP TUBE STAT 07/13/2021 3:10 PM Re sults for this [employer] procedure are i n the results section. CBC WITH PLATELETS AND STAT 07/13/2021 3:10 PM Results for this DIFFERENTIAL [employer] procedure are i n the results section. TYPE AND SCREEN, ADULT STAT 07/13/2021 3:10 PM Results for this [employer] procedure are i n the results section. CBC WITH PLATELETS & STAT 07/13/2021 3:10 PM R esults for this DIFFERENTIAL [employer] procedure are i n the results section. INR STAT 07/13/2021 3:10 PM Results f or this [employer] procedure are i n the results section. PARTIAL THROMBOPLASTIN STAT 07/13/2021 3:10 PM Results for this TIME [employer] procedure are i n the results section. HEMOGLOBIN A1C Routine 07/13/2021 3:10 PM Results for this [employer] procedure are i n the results section. COMPREHENSIVE METABOLIC STAT 07/13/2021 3:10 PM Results for this PANEL [employer] procedure are i n the results section. ABO/RH TYPE AND SCREEN STAT 07/13/2021 3:10 PM Results for this [employer] procedure are i n the results section. documented in this encounter Results (ABNORMAL) Glucose by meter (07/17/2021 8:26 AM [employer]) P athologist Signature GLUCOSE BY 101 (H) 70 - 99 07/17/2021 [facility] METER POCT mg/dL 8:33 AM [employer] POC Specimen Anatomical Collection Method Collection Time Receive d Time (Source) Location / / Volume Laterality Blood BLOOD SPECIMEN / 07/17/2021 8:26 AM 07/17 8:33 Unknown [employer] AM [employer] Provider Unknown LAB - BEAKER POCT Performing Organization Address City/State/ZIP Code Phon e Number LABORATORY POC [facility] [place] [address] Care [facility] [address] 1st floor, Room 20B (ABNORMAL) Glucose by meter (07/17/2021 1:42 AM [employer]ENER) athologist Signature GLUCOSE BY 105 (H) 70 - 99 07/17/2021 LABORATORY METER POCT mg/dL 1:49 AM [employer] POC Specimen Anatomical Collection Method Collection Time Receive d Time (Source) Location / / Volume Laterality Blood BLOOD SPECIMEN / 07/17/2021 1:42 AM 07/17 1:49 Unknown [employer] AM [employer] Provider Unknown LAB - BEAKER POCT Performing Organization Address City/State/ZIP Code Phon e Number LABORATORY POC [facility] [place] [address] Care [facility] [address] 1[address], Room 20B (ABNORMAL) Glucose by meter (07/16/2021 9:10 PM [employer]) P athologist Signature GLUCOSE BY 167 (H) 70 - 99 07/16/2021 [facility]OR[facility] METER POCT mg/dL 9:17 PM [employer] POC Specimen Anatomical Collection Method Collection Time Receive d Time (Source) Location / / Volume Laterality Blood BLOOD SPECIMEN / 07/16/2021 9:10 PM 07/16 9:17 Unknown [employer]ENER PM [employer] Provider Unknown LAB - BEAKER POCT Performing Organization Address [facility]/ZIP Code Phon e Number LABORATORY POC [facility] [place] [address] Care [facility] [address] 1[address], Room 20B (ABNORMAL) Glucose by meter (07/16/2021 7:14 PM [employer]) P athologist Signature GLUCOSE BY 100 (H) 70 - 99 07/16/2021 LABORATORY METER POCT mg/dL 7:21 PM [employer] POC Specimen Anatomical Collection Method Collection Time Receive d Time (Source) Location / / Volume Laterality Blood BLOOD SPECIMEN / 07/16/2021 7:14 PM 07/16 7:21 Unknown [employer]ENER PM [employer] Provider Unknown LAB - BEAKER POCT Performing Organization Address [facility]/ZIP Code Phon e Number LABORATORY POC [facility] [place] [address] Care Lab [address] 1[address], Room 20B (ABNORMAL) Glucose by meter (07/16/2021 11:31 AM [employer]) P athologist Signature GLUCOSE BY 132 (H) 70 - 99 07/16/2021 LABORATORY METER POCT mg/dL 11:37 AM [employer]ENER POC Specimen Anatomical Collection Method Collection Time Receive d Time (Source) Location / / Volume Laterality Blood BLOOD SPECIMEN / 07/16/2021 11:31 07/16/2 021 Unknown AM [employer]ENER 11:37 AM [employer]ENER Provider Unknown LAB - BEAKER POCT Performing Organization Address [facility]/ZIP Code Phon e Number LABORATORY POC [facility] [place] [address] Care Lab [address] 1[address], Room 20B (ABNORMAL) Basic metabolic panel (07/16/2021 8:56 AM T[employer]ENER) Analysis Performed At Patho logist Time Signature Sodium 137 133 - 144 07/16/2021 LABORATORY mmol/L 9:49 AM [employer] Potassium 3.8 3.4 - 5.3 07/16/2021 LABORATORY mmol/L 9:49 AM [employer] Chloride 104 94 - 109 07/16/2021 LABORATORY mmol/L 9:49 AM [employer] Carbon Dioxide 29 20 - 32 07/16/2021 LABORATORY (CO2) mmol/L 9:49 AM [employer] Anion Gap 4 3 - 14 07/16/2021 LABORATORY mmol/L 9:49 AM [employer] Urea Nitrogen 13 7 - 30 07/16/2021 LABORATORY mg/dL 9:49 AM [employer] Creatinine 0.89 0.52 - 07/16/2021 LABORATORY 1.04 mg/dL 9:49 AM [employer] Calcium 9.1 8.5 - 10.1 07/16/2021 LABORATORY mg/dL 9:49 AM [employer] Glucose 117 (H) 70 - 99 07/16/2021 LABORATORY mg/dL 9:49 AM [employer] GFR Estimate 63 >60 07/16/2021 LABORATORY mL/min/1.7 9:49 AM [employer] 3m2 Comment: As of March 13, 2021, [...] 07/16 9:24 UPPER LIMB / Unknown AM [employer]ENER AM [employer]AIGHTENER Unknown Isabel Madrigal MD LAB - BLOOD ORDERABLES Performing Organization Address City/State/ZIP Code [place] [address] Care Lab [address] 1st floor, Room 20B (ABNORMAL) Glucose by meter (07/16/2021 8:04 AM [employer]ENER) P athologist Signature GLUCOSE BY 101 (H) 70 - 99 07/16/2021 LABORATORY METER POCT mg/dL 8:11 AM [employer] POC Specimen Anatomical Collection Method Collection Time Receive d Time (Source) Location / / Volume Laterality Blood BLOOD SPECIMEN / 07/16/2021 8:04 AM 07/16 8:11 Unknown [employer]ENER AM [employer]ENER Provider Unknown LAB - BEAKER POCT Performing Organization Address City/State/ZIP Code Phon e Number LABORATORY POC [facility] [place] [address] Care Lab [address] 1[address], Room 20B (ABNORMAL) Glucose by meter (07/15/2021 9:03 PM [employer]ENER) P athologist Signature GLUCOSE BY 115 (H) 70 - 99 07/15/2021 LABORATORY METER POCT mg/dL 9:10 PM [employer] STRA[employer]ENER POC Specimen Anatomical Collection Method Collection Time Receive d Time (Source) Location / / Volume Laterality Blood BLOOD SPECIMEN / 07/15/2021 9:03 PM 07/15 9:10 Unknown [employer] STRA[employer]ENER PM [employer] STRAIGHTENER Provider Unknown LAB - BEAKER POCT Performing Organization Address City/State/ZIP Code Phon e Number LABORATORY POC [facility] [place] [address] Care Lab [address] 1[address], Room 20B (ABNORMAL) Glucose by meter (07/15/2021 4:57 PM [employer] STRA[employer]ENER) P athologist Signature GLUCOSE BY 119 (H) 70 - 99 07/15/2021 LABORATORY METER POCT mg/dL 5:03 PM [employer] STRA[employer]ENER POC Comment: /RN Notified Specimen Anatomical Collection Method Collection Time Receive d Time (Source) Location / / Volume Laterality Blood BLOOD SPECIMEN / 07/15/2021 4:57 PM 07/15 5:03 Unknown [employer] STRA[employer]ENER PM [employer] STRAIGHTENER Provider Unknown LAB - BEAKER POCT Performing Organization Address City/State/ZIP Code Phon e Number LABORATORY POC [facility] [place] [address] Care Lab [address] 1[address], Room 20B (ABNORMAL) Glucose by meter (07/15/2021 12:07 PM T[employer] STRA[employer]ENER) P athologist Signature GLUCOSE BY 124 (H) 70 - 99 07/15/2021 LABORATORY METER POCT mg/dL 12:18 PM [employer]ENER POC Specimen Anatomical Collection Method Collection Time Receive d Time (Source) Location / / Volume Laterality Blood BLOOD SPECIMEN / 07/15/2021 12:07 021 Unknown PM [employer]ENER 12:18 PM [employer] STRA[employer]ENER Provider Unknown LAB - BEAKER POCT Performing Organization Address [facility]/ZIP Code Phon e Number LABORATORY POC [facility] [place] [address] Care Lab [address] 1[address] floor, Room 20B (ABNORMAL) Glucose by meter (07/15/2021 6:21 AM [employer] STRA[employer]ENER) P athologist Signature GLUCOSE BY 106 (H) 70 - 99 07/15/2021 SH LABORATORY METER POCT mg/dL 6:27 AM [employer] STRA[employer]ENER POC Specimen Anatomical Collection Method Collection Time Receive d Time (Source) Location / / Volume Laterality Blood BLOOD SPECIMEN / 07/15/2021 6:21 AM 07/15 6:27 Unknown [employer] STRA[employer]ENER AM [employer] STRAIGHTENER Provider Unknown LAB - BEAKER POCT Performing Organization Address [facility]/ZIP Code Phon e Number LABORATORY POC [facility] [place] [address] Care Lab [address] 1[address] floor, Room 20B (ABNORMAL) Glucose by meter (07/14/2021 9:35 PM T[employer] STRA[employer]ENER) P athologist Signature GLUCOSE BY 136 (H) 70 - 99 07/14/2021 SH LABORATORY METER POCT mg/dL 9:41 PM T[employer] STRA[employer]ENER POC Specimen Anatomical Collection Method Collection Time Receive d Time (Source) Location / / Volume Laterality Blood BLOOD SPECIMEN / 07/14/2021 9:35 PM 07/14 9:41 Unknown [employer] STRAIGHTENER PM [employer] STRAIGHTENER Provider Unknown LAB - BEAKER POCT Performing Organization Address City/[facility]/ZIP Code Phon e Number LABORATORY POC [facility] [place] [address] Care Lab [address] 1[address], Room 20B (ABNORMAL) Glucose by meter (07/14/2021 4:29 PM T[employer] STRA[employer]ENER) P athologist Signature GLUCOSE BY 114 (H) 70 - 99 07/14/2021 SH LABORATORY METER POCT mg/dL 4:36 PM [employer] STRA[employer]ENER POC Specimen Anatomical Collection Method Collection Time Receive d Time (Source) Location / / Volume Laterality Blood BLOOD SPECIMEN / 07/14/2021 4:29 PM 07/14 4:36 Unknown [employer] STRAIGHTENER PM [employer] STRAIGHTENER Provider Unknown LAB - BEAKER POCT Performing Organization Address City/[facility]/ZIP Code Phon e Number LABORATORY POC [facility] [place] [address] Care [facility] [address] 1[address], Room 20B (ABNORMAL) Glucose by meter (07/14/2021 12:23 PM T[employer] STRA[employer]ENER) P athologist Signature GLUCOSE BY 127 (H) 70 - 99 07/14/2021 LABORATORY METER POCT mg/dL 12:31 PM [employer] STRA[employer]ENER POC Specimen Anatomical Collection Method Collection Time Receive d Time (Source) Location / / Volume Laterality Blood BLOOD SPECIMEN / 07/14/2021 12:23 021 Unknown PM [employer] STRAIGHTENER 12:31 PM [employer] STRAIGHTENER Provider Unknown LAB - BEAKER POCT Performing Organization Address City/[facility]/ZIP Code Phon e Number LABORATORY POC [facility] [place] [address] Care [facility] [address] 1[address], Room 20B (ABNORMAL) Glucose by meter (07/14/2021 8:43 AM T[employer] STRAIGHTENER) P athologist Signature GLUCOSE BY 161 (H) 70 - 99 07/14/2021 LABORATORY METER POCT mg/dL 8:49 AM [employer] STRAIGHTENER POC Specimen Anatomical Collection Method Collection Time Receive d Time (Source) Location / / Volume Laterality Blood BLOOD SPECIMEN / 07/14/2021 8:43 AM 07/14 8:49 Unknown [employer] STRAIGHTENER AM [employer] STRAIGHTENER Provider Unknown LAB - BEAKER POCT Performing Organization Address City/[facility]/ZIP Code Phon e Number LABORATORY POC [facility] [place] [address] Care Lab [address] 1[address] floor, Room 20B CT Head w/o Contrast (07/14/2021 5:17 AM TUBE AND R[employer] STRAIGHTENER) Anatomical Region Laterality Modality Head, SUBRAD CT NEURO, SUBRAD CT NEURO, UMP CT NEURO, Computed Tomography RAD CT Specimen (Source) Anatomical Collection Method Collection Time Re ceived Time Location / / Volume Laterality 07/14/2021 5:17 AM TU[employer] STRAIGHTENER Impressions 07/14/2021 6:11 AM [employer] AND R[employer] STRAIGHTENER IMPRESSION: 1. ??Interval changes relating to evacua tion of previously demonstrated left- sided mixed attenuation subdural hematoma. No postprocedure complication is identified. 2. ??A residual mixed attenuation subdur al collection is demonstrated as above. 3. ??Improvement in intracranial mass ef fect with residual 5 mm of left to right shift of midline structures. Narrative 07/14/2021 6:11 AM TUBE AND R[employer] STRAIGHTENER EXAM: CT HEAD W/O CONTRAST LOCATION: [facility] DATE/TIME: 07/14/2021 5:17 AM INDICATION: Subdural [...] EXAM: CT HEAD W/O CONTRAST LOCATION: [facility] DATE/TIME: 07/14/2021 5:17 AM INDICATION: Subdural [...] (ABNORMAL) Glucose by meter (07/14/2021 4:52 AM TU[employer] AND R[employer] STRAIGHTENER) athologist Signature GLUCOSE BY 187 (H) 07/14/2021 LABORATORY METER POCT mg/dL 4:59 AM T[employer] STRAIGHTENER POC Specimen Anatomical Collection Method Collection Time Receive d Time (Source) Location / / Volume Laterality Blood BLOOD SPECIMEN / 07/14/2021 4:52 AM 07/14 4:59 Unknown [employer] STRAIGHTENER AM [employer] STRAIGHTENER Provider Unknown LAB - BEAKER POCT Performing Organization Address City/State/ZIP Code Phon [place] [address] Care Lab [address] 1[address], Room 20B (ABNORMAL) Glucose by meter (07/13/2021 11:24 PM TU[employer] AND R[employer] STRAIGHTENER) athologist Signature GLUCOSE BY 180 (H) 70 - 99 07/13/2021 LABORATORY METER POCT mg/dL 11:31 PM TU[employer] AND R[employer] STRAIGHTENER POC Specimen Anatomical Collection Method Collection Time Receive d Time (Source) Location / / Volume Laterality Blood BLOOD SPECIMEN / 07/13/2021 11:24 021 Unknown PM [employer] STRAIGHTENER 11:31 PM T[employer] AND [employer] STRAIGHTENER Provider Unknown LAB - SIDDHARTHA POCT Performing Organization Address City/State/ZIP Code Phon e Number LABORATORY POC [facility] [place] [address] Care Lab [address] 1[address] floor, Room 20B (ABNORMAL) Glucose by meter (07/13/2021 7:29 PM TU[employer] AND R[employer] STRAIGHTENER) P athologist Signature GLUCOSE BY 135 (H) 70 - 99 07/13/2021 LABORATORY METER POCT mg/dL 7:36 PM TU[employer] AND R[employer] STRAIGHTENER POC Specimen Anatomical Collection Method Collection Time Receive d Time (Source) Location / / Volume Laterality Blood BLOOD SPECIMEN / 07/13/2021 7:29 PM 07/13 7:36 Unknown TUBE AND ROD STRAIGHTENER PM TUBE AND ROD STRAIGHTENER Hakan REYES - SIDDHARTHA PO CT Performing Organization Address City/State/ZIP Code Phon e Number LABORATORY POC [facility] [place] [address] Care [facility] [address] 1[address], Room 20B Asymptomatic COVID-19 Virus (Coronavirus) by PCR Nasopharyngeal (07/13/2021 6:24 PM TUBE AND ROD STRAIGHTENER) Analysis Performed At Patho logist Time Signature SARS CoV2 PCR Negative Negative 07/13/2021 LABORATORY 7:50 PM [employer] STRAIGHTENER Comment: NEGATIVE: SARS-CoV-2 (COVID-19) RNA not detected, presumed negative. Specimen Anatomical Location / Collection Method Collection Paulino e Received Time (Source) Laterality / Volume Swab NASOPHARYNGEAL Non-blood 07/13/2021 6:24 07/13/2021 6:55 STRUCTURE / Unknown Collection / PM T[employer]BE AND R[employer] STRAIGHTENER PM TUBE AND ROD STRAIGHTENER Unknown Narrative LABORATORY - 07/13/2021 7:50 PM TUBE AND R[employer] STRAIGHTENER Testing was performed using the elvis?? SARS-CoV-2 [...] exposure or clinical presentation sugges ts COVID-19. ??[facility] [employer] are certified under the Clinical Laborat ory Improvement Amendments of 1988 (CLIA-88) as qualified to perform moderate and/or high complexity laboratory testing. Hakan Kelly MD LAB - MICRO GEN ERAL ORDERABLES Performing Organization Address City/State/ZIP Code [place] [address] Care Lab [address] 1[address] floor, Room 20B CT Head w/o Contrast (07/13/2021 3:38 PM TUBE AND ROD STRAIGHTENER) Anatomical Region Laterality Modality Head, SUBRAD CT NEURO, SUBRAD CT NEURO, UMP CT NEURO, Computed Tomography RAD CT Specimen (Source) Anatomical Location Collection Method / Collectio n Time Received Time / Laterality Volume Impressions 07/13/2021 4:14 PM TUBE AND R[employer] STRAIGHTENER IMPRESSION: Slight increase in size of left convexit y subdural hematoma with slight worsening of left to right midlin e shift and left uncal herniation. Recommend neurosurgical cons ultation. Findings were discussed by phone between Dr. Chilel and Dr. Kelly at 3:48 PM on 07/13/2021. YAYO CHILEL MD SYSTEM ID: [id number] Narrative 07/13/2021 4:14 PM TUBE AND ROD STRAIGHTENER CT SCAN OF THE HEAD WITHOUT CONTRAST [...] ES (ABNORMAL) Hemoglobin A1c (07/13/2021 3:10 PM TUBE AND ROD STRAIGHTENER) Analysis Performed At Patho logist Time Signature Hemoglobin A1C 6.3 (H) 0.0 - 5.6 07/14/2021 LABORATORY % 12:13 PM T[employer] AND R[employer] STRAIGHTENER Comment: Normal <5.7% Prediabetes 5.7-6.4% ?? Diabetes 6.5% or higher Note: Adopted from ADA consensus guideli alis. Specimen Anatomical Collection Method / Collection Time Recei louie Time (Source) Location / Volume Laterality Blood STRUCTURE OF RIGHT Venipuncture / 07/13/2021 3:10 07/04 3:32 UPPER LIMB / Unknown PM TUBE AND ROD STRAIGHTENER PM TUBE AND ROD STRAIGHTENER Unknown Zane Stafford PA-C LAB - BLOOD ORDERABLES Performing Organization Address City/State/ZIP Code [place] [address] [phone] [facility] [address] 1st floor, Room 20B (ABNORMAL) CBC with platelets and differential (07/13/2021 3:10 PM TUBE AND ROD STRAIGHTENER) [facility] gist Method Time Signature WBC Count 10.5 4.0 - 07/13/2021 LABORATORY 11.0 3:45 PM TUBE AND ROD STRAIGHTENER 10e3/uL RBC Count 4.57 3.80 - 07/13/2021 LABORATORY 5.20 3:45 PM TU[employer] AND R[employer] STRAIGHTENER 10e6/uL Hemoglobin 13.2 11.7 - 07/13/2021 LABORATORY 15.7 g/dL 3:45 PM TU[employer] AND R[employer] STRAIGHTENER Hematocrit 40.6 35.0 - 07/13/2021 LABORATORY 47.0 % 3:45 PM TU[employer] AND R[employer] STRAIGHTENER MCV 89 78 - 100 07/13/2021 LABORATORY fL 3:45 PM T[employer] AND R[employer] STRAIGHTENER MCH 28.9 26.5 - 07/13/2021 LABORATORY 33.0 pg 3:45 PM TU[employer] AND R[employer] STRAIGHTENER MCHC 32.5 31.5 - 07/13/2021 LABORATORY 36.5 g/dL 3:45 PM TU[employer] AND R[employer] STRAIGHTENER RDW 13.1 10.0 - 07/13/2021 LABORATORY 15.0 % 3:45 PM TU[employer] AND R[employer] STRAIGHTENER Platelet Count 253 150 - 450 07/13/2021 LABORATORY 10e3/uL 3:45 PM TUBE AND ROD STRAIGHTENER % Neutrophils 82 % 07/13/2021 LABORATORY 3:45 PM TUBE AND ROD STRAIGHTENER % Lymphocytes 12 % 07/13/2021 LABORATORY 3:45 PM TUBE AND ROD STRAIGHTENER % Monocytes 6 % 07/13/2021 LABORATORY 3:45 PM TUBE AND ROD STRAIGHTENER % Eosinophils 0 % 07/13/2021 LABORATORY 3:45 PM TUBE AND ROD STRAIGHTENER % Basophils 0 % 07/13/2021 LABORATORY 3:45 PM TUBE AND ROD STRAIGHTENER % Immature 0 % 07/13/2021 LABORATORY Granulocytes 3:45 PM TU[employer] AND R[employer] STRAIGHTENER NRBCs per 100 WBC 0 <1 /100 07/13/2021 LABORATO RY 3:45 PM TUBE AND R[employer] STRAIGHTENER Absolute 8.6 (H) 1.6 - 8.3 07/13/2021 LABORATORY Neutrophils 10e3/uL 3:45 PM TUBE AND R[employer] STRAIGHTENER Absolute 1.2 0.8 - 5.3 07/13/2021 LABORATORY Lymphocytes 10e3/uL 3:45 PM TUBE AND ROD STRAIGHTENER Absolute 0.6 0.0 - 1.3 07/13/2021 LABORATORY Monocytes 10e3/uL 3:45 PM TUBE AND ROD STRAIGHTENER Absolute 0.0 0.0 - 0.7 07/13/2021 LABORATORY Eosinophils 10e3/uL 3:45 PM TUBE AND ROD STRAIGHTENER Absolute 0.0 0.0 - 0.2 07/13/2021 LABORATORY Basophils 10e3/uL 3:45 PM TUBE AND ROD STRAIGHTENER Absolute Immature 0.0 <=0.0 07/13/2021 LABORATO RY Granulocytes 10e3/uL 3:45 PM TUBE AND ROD STRAIGHTENER Absolute NRBCs 0.0 10e3/uL 07/13/2021 LABORATORY 3:45 PM TU[employer] AND R[employer] STRAIGHTENER Specimen Anatomical Collection Method / Collection Time Recei louie Time (Source) Location / Volume Laterality Blood STRUCTURE OF RIGHT Venipuncture / 07/13/2021 3:10 07/04 3:32 UPPER LIMB / Unknown PM T[employer] AND R[employer] STRAIGHTENER PM TUBE AND ROD STRAIGHTENER Unknown Hakan Kelly MD LAB - BLOOD ORD ERABLES Performing Organization Address City/State/ZIP Code Phon e Number LABORATORY [facility] [place] [address] [facility] [address] 1[address], Room [address]B Adult Type and Screen (07/13/2021 3:10 PM TUBE AND ROD STRAIGHTENER) P athologist Signature ABO/RH(D) o pos 07/15/2021 LABORATORY 1:48 PM [employer] R[employer] STRAIGHTENER Antibody Screen neg 07/15/2021 LABORATORY 1:48 PM T[employer] AND R[employer] STRAIGHTENER Specimen Anatomical Collection Method / Collection Time Recei louie Time (Source) Location / Volume Laterality Blood STRUCTURE OF RIGHT Venipuncture / 07/13/2021 3:10 11/ 3:29 UPPER LIMB / Unknown PM TUBE AND ROD STRAIGHTENER PM TUBE AND ROD STRAIGHTENER Unknown Hakan Kelly MD LAB - BLOOD BAN K TEST ORDER Performing Organization Address City/State/ZIP Code Phon e Number LABORATORY [facility] [place] [address] [phone] Care Lab [address] 1st floor, Room 20B (ABNORMAL) Comprehensive metabolic panel (07/13/2021 3:10 PM TUBE AND ROD STRAIGHTENER) Patholo gist Method Time Signature Sodium 140 133 - 144 07/13/2021 LABORATORY mmol/L 4:02 PM TUBE AND ROD STRAIGHTENER Potassium 3.5 3.4 - 5.3 07/13/2021 LABORATORY mmol/L 4:02 PM TUBE AND ROD STRAIGHTENER Chloride 109 94 - 109 07/13/2021 LABORATORY mmol/L 4:02 PM TUBE [employer] ROD STRAIGHTENER Carbon Dioxide 25 20 - 32 07/13/2021 LABORATORY (CO2) mmol/L 4:02 PM TUBE AND ROD STRAIGHTENER Anion Gap 6 3 - 14 07/13/2021 LABORATORY mmol/L 4:02 PM TUBE [employer] R[employer] STRAIGHTENER Urea Nitrogen 11 7 - 30 07/13/2021 LABORATORY mg/dL 4:02 PM TUBE AND ROD STRAIGHTENER Creatinine 0.84 0.52 - 07/13/2021 LABORATORY 1.04 mg/dL 4:02 PM TUBE AND ROD STRAIGHTENER Calcium 8.6 8.5 - 10.1 07/13/2021 LABORATORY mg/dL 4:02 PM TUBE AND ROD STRAIGHTENER Glucose 127 (H) 70 - 99 07/13/2021 LABORATORY mg/dL 4:02 PM TUBE AND ROD STRAIGHTENER Alkaline 122 40 - 150 07/13/2021 LABORATORY Phosphatase U/L 4:02 PM TUBE AND ROD STRAIGHTENER AST 11 0 - 45 U/L 07/13/2021 LABORATORY 4:02 PM TUBE AND ROD STRAIGHTENER ALT 19 0 - 50 U/L 07/13/2021 LABORATORY 4:02 PM TUBE AND ROD STRAIGHTENER Protein Total 7.5 6.8 - 8.8 07/13/2021 LABORATORY g/dL 4:02 PM TUBE AND ROD STRAIGHTENER Albumin 3.5 3.4 - 5.0 07/13/2021 LABORATORY g/dL 4:02 PM TUBE AND ROD STRAIGHTENER Bilirubin Total 0.8 0.2 - 1.3 07/13/2021 LABORATORY mg/dL 4:02 PM TUBE AND ROD STRAIGHTENER GFR Estimate 67 >60 07/13/2021 LABORATORY mL/min/1.7 4:02 PM TUBE AND ROD STRAIGHTENER 3m2 Comment: As of March 13, 2021, [...] 3:07/04 3:29 UPPER LIMB / Unknown PM TUBE AND ROD STRAIGHTENER PM TUBE AND ROD STRAIGHTENER Unknown Hakan Kelly MD LAB - BLOOD ORD ERABLES Performing Organization Address City/State/ZIP Code Phon e Number [place] [address] Care Lab [address] 1st floor, Room [address] Partial thromboplastin time (07/13/2021 3:10 PM TUBE AND ROD STRAIGHTENER) athologist Signature aPTT 30 22 - 38 07/13/2021 LABORATORY Seconds 3:45 PM TUBE AND ROD STRAIGHTENER Specimen Anatomical Collection Method / Collection Time Recei louie Time (Source) Location / Volume Laterality Blood STRUCTURE OF RIGHT Venipuncture / 07/13/2021 3:10 07/04 3:29 UPPER LIMB / Unknown PM TUBE AND ROD STRAIGHTENER PM TUBE AND ROD STRAIGHTENER Unknown Hakan Kelly MD LAB - BLOOD ORD ERABLES Performing Organization Address City/State/ZIP Code Phon e Number LABORATORY [facility] [place] [address] Care Lab [address] 1st [address], Room 20B INR (07/13/2021 3:10 PM TUBE AND ROD STRAIGHTENER) athologist Signature INR 1.10 0.85 - 1.15 07/13/2021 LABORATORY 3:45 PM TUBE AND ROD STRAIGHTENER Specimen Anatomical Collection Method / Collection Time Recei louie Time (Source) Location / Volume Laterality Blood STRUCTURE OF RIGHT Venipuncture / 07/13/2021 3:10 07/04 3:29 UPPER LIMB / Unknown PM TUBE AND ROD STRAIGHTENER PM TUBE AND ROD STRAIGHTENER Unknown Hakan Kelly MD LAB - BLOOD ORD ERABLES Performing Organization Address City/State/ZIP Code Phon e Number LABORATORY [facility] [place] [address] Care Lab [address] 1[address], Room 20B Extra Blood Bank Purple Top Tube (07/13/2021 3:10 PM TUBE AND ROD STRAIGHTENER) athologist Signature Hold Specimen [facility] 07/13/2021 BLOOD BANK 4:31 PM TUBE AND ROD STRAIGHTENER Specimen Anatomical Collection Method / Collection Time Recei louie Time (Source) Location / Volume Laterality Blood STRUCTURE OF RIGHT Venipuncture / 07/13/2021 3:10 07/04 3:29 UPPER LIMB / Unknown PM TUBE AND ROD STRAIGHTENER PM TUBE AND ROD STRAIGHTENER Unknown Hakan Kelly MD LAB - BLOOD ORD ERABLES Performing Organization Address City/State/ZIP Code Phon e Number BLOOD BANK [address] [place] [address] Extra Purple Top Tube (07/13/2021 3:10 PM TUBE AND ROD STRAIGHTENER) athologist Signature Hold Specimen [facility] 07/13/2021 LABORATORY 4:31 PM TUBE AND ROD STRAIGHTENER Specimen Anatomical Collection Method / Collection Time Recei louie Time (Source) Location / Volume Laterality Blood STRUCTURE OF RIGHT Venipuncture / 07/13/2021 3:10 07/04 3:29 UPPER LIMB / Unknown PM TUBE AND ROD STRAIGHTENER PM TUBE AND ROD STRAIGHTENER Unknown Hakan Kelly MD LAB - BLOOD ORD ERABLES Performing Organization Address City/State/ZIP Code Phon e Number LABORATORY [facility] [place] [address] Care [address] 1st [address], Room 20B Extra Green Top ([place] Heparin) Tube (07/13/2021 3:10 PM TUBE AND ROD STRAIGHTENER) athologist Signature Hold Specimen [facility] 07/13/2021 LABORATORY 4:31 PM TUBE AND ROD STRAIGHTENER Specimen Anatomical Collection Method / Collection Time Recei louie Time (Source) Location / Volume Laterality Blood STRUCTURE OF RIGHT Venipuncture / 07/13/2021 3:07/04 3:29 UPPER LIMB / Unknown PM TUBE AND ROD STRAIGHTENER PM TUBE AND ROD STRAIGHTENER Unknown Hakan Kelly MD LAB - BLOOD ORD ERABLES Performing Organization Address City/State/ZIP Code Phon e Number LABORATORY [facility] [place] [address] [phone] 1st floor, Room 20B Extra Red Top Tube (07/13/2021 3:10 PM TUBE AND ROD STRAIGHTENER) athologist Signature Hold Specimen [facility] 07/13/2021 LABORATORY 4:31 PM TUBE AND ROD STRAIGHTENER Specimen Anatomical Collection Method / Collection Time Recei louie Time (Source) Location / Volume Laterality Blood STRUCTURE OF RIGHT Venipuncture / 07/13/2021 3:07/04 3:29 UPPER LIMB / Unknown PM TUBE AND ROD STRAIGHTENER PM TUBE AND ROD STRAIGHTENER Unknown Hakan Kelly MD LAB - BLOOD ORD ERABLES Performing Organization Address City/State/ZIP Code Phon e Number LABORATORY [facility] [place] [address] Care [address] 1st floor, Room 20B Extra Blue Top Tube (07/13/2021 3:10 PM TUBE AND ROD STRAIGHTENER) athologist Signature Hold Specimen [facility] 07/13/2021 LABORATORY 4:31 PM TUBE AND ROD STRAIGHTENER Specimen Anatomical Collection Method / Collection Time Recei louie Time (Source) Location / Volume Laterality Blood STRUCTURE OF RIGHT Venipuncture / 07/13/2021 3:07/04 3:29 UPPER LIMB / Unknown PM TUBE AND ROD STRAIGHTENER PM TUBE AND ROD STRAIGHTENER Unknown Hakan Kelly MD LAB - BLOOD ORD ERABLES Performing Organization Address City/State/ZIP Code Phon e Number LABORATORY [facility] [place] [address] Care Lab [address] 1st floor, Room 20B documented in this encounter Visit Diagnoses Diagnosis SDH (subdural hematoma) - Primary Subdural hemorrhage Subdural hematoma Subdural hemorrhage Confusion Unspecified psychosis SDH (subdural hematoma) Subdural hemorrhage documented in this encounter Admitting Diagnoses Diagnosis Confusion Unspecified psychosis Subdural hematoma Subdural hemorrhage SDH (subdural hematoma) Subdural hemorrhage documented in this encounter Administered Medications Inactive Administered Medications - up to 3 most recent administrations Medication Order MAR Action Action Date Dose Rate Site acetaminophen (TYLENOL) tablet 650 Given 07/17/2021 8:31 AM TUBE AND ROD STRAIGHTENER 650 mg mg 650 mg, Oral, EVERY 4 HOURS PRN, other, For optimal non-opioid multimodal pain management to improve pain control., Starting on 07/16/21 at 0000, May give first dose 4 hours after last scheduled dose of acetaminophen (TYLENOL). Maximum acetaminophen dose from all sources = 75 mg/kg/day not to exceed 4 grams/day. Given 07/16/2021 10:18 PM TUBE AND ROD STRAIGHTENER 650 mg atorvastatin (LIPITOR) tablet 40 mg Given 07/16/2021 8:44 PM TUBE AND ROD STRAIGHTENER 40 mg 40 mg, Oral, AT BEDTIME, First dose on Karyn 07/14/21 at 2200 Given 07/15/2021 10:21 PM TUBE AND ROD STRAIGHTENER 40 mg Given 07/14/2021 9:15 PM TUBE AND ROD STRAIGHTENER 40 mg bisacodyl (DULCOLAX) Suppository 10 mg 10 mg, Rectal, DAILY PRN, constipation, Use if Magnesi um hydroxide (MILK of MAGNESIA) not effective after 24 hours. May discontinu e if patient having bowel movement., Starting on Sun07/13/21 at 2304, Hold for loose stools. bupivacaine 0.5 % - Given 07/13/2021 8:44 PM 10 mLs Operative Site/Surgical EPINEPHrine 1:200,000 TUBE AND ROD STRAIGHTENER Sit e injection PRN, Starting on Sun07/13/21 at 2044, Intra-procedure calcium carbonate (TUMS) chewable tablet 1,000 mg 1,000 mg, Oral, 4 TIMES DAILY PRN, heartburn, Starting on Sun07/13/21 at 2304 clindamycin 900 mg, Given 07/13/2021 8:44 PM 1,000 mLs Operative gentamicin 120 mg in 0.9% TUBE AND ROD STRAIGHTENER Site/Surgical Site NaCl 1000 mL irrigation PRN, Starting on Sun07/13/21 at 2044, Intra-procedure dextrose 50 % injection 25-50 mL 25-50 mL, Intravenous, EVERY 15 MIN PRN, low blood sug ar, Administer over 1-5 Minutes, Starting on Karyn 07/14/21 at 091 4, Use if have IV [...] Caution to be used when administering multiple CREDIT ADVISOR depressing meds within a short time frame. [...] of start of meal labetalol (NORMODYNE/TRANDATE) injection 10-40 mg 10-40 mg, [...] not met. PROTECT FROM LIGHT. levETIRAcetam (KEPPRA) tablet 500 mg Given 07/17/2021 8:31 AM TUBE AND ROD STRAIGHTENER 500 mg 500 mg, Oral, 2 TIMES DAILY, First dose on Karyn 07/14/21 at 2100 Given 07/16/2021 8:44 PM TUBE AND ROD STRAIGHTENER 500 mg Given 07/16/2021 8:49 AM TUBE AND ROD STRAIGHTENER 500 mg levothyroxine (SYNTHROID/LEVOTHROID) tablet Given 07/17/2021 8:31 AM TUBE AND ROD STRAIGHTENER 75 mcg 75 mcg 75 mcg, Oral, DAILY, First dose on Karyn 07/14/21 at 1000, Separate oral administration of iron- or calcium-containing products and levothyroxine by at least 4 hours. Given 07/16/2021 8:49 AM TUBE AND ROD STRAIGHTENER 75 mcg Given 07/15/2021 8:29 AM TUBE AND ROD STRAIGHTENER 75 mcg lidocaine (LMX4) cream Topical, EVERY [...] 2313, Administer intramuscular if an intravenous ro [place] is not available and notify provider when [...] 2313, Administer intramuscular if an intravenous ro [place] is not available and notify provider when [...] injection 4 mg Given 07/14/2021 5:21 AM TUBE AND ROD STRAIGHTENER 4 mg 4 mg, Intravenous, EVERY 6 [...] analgesic side effects. Hold while on IV SPEECH LANGUAGE PATHOLOGIST PRN or with regular IV opioid dosing. oxyCODONE (ROXICODONE) tablet 5 mg 5 mg, Oral, EVERY 4 HOURS PRN, other, mo derate pain (pain rating 4-6), Starting on Sun07/13/21 at 2304, Hold oral PRN dose for analgesic side effects. Notify provider to assess for uncontrolled pain or analgesic side effects. Hold while on IV SPEECH LANGUAGE PATHOLOGIST PRN or with regular IV opioid dosing. polyethylene glycol (MIRALAX) Packet 17 g Given 07/15/2021 8:27 AM TUBE AND ROD STRAIGHTENER 17 g 17 g, Oral, DAILY, First [...] for loose stools. Given 07/14/2021 12:30 PM TUBE AND ROD STRAIGHTENER 17 g prochlorperazine (COMPAZINE) injection 5 mg [...] for loose stools. Given 07/15/2021 8:29 AM TUBE AND ROD STRAIGHTENER 1 tablet Given 07/14/2021 9:15 PM TUBE AND ROD STRAIGHTENER 1 tablet sodium chloride (PF) 0.9% PF flush 3 mL Given 07/16/2021 8:47 PM TUBE AND ROD STRAIGHTENER 3 mLs 3 mL, Intracatheter, EVERY 8 HOURS, First dose on Sun07/13/21 at 2330, to lock peripheral IV dormant line Given 07/16/2021 2:55 PM TUBE AND ROD STRAIGHTENER 3 mLs Given 07/16/2021 8:49 AM TUBE AND ROD STRAIGHTENER 3 mLs sodium chloride (PF) 0.9% PF flush 3 mL 3 mL, Intracatheter, EVERY 1 MIN PRN, li ne flush, other, to ensure patency or to lock dormant line, Starting on Sun07/13/21 at 2304 sodium chloride 0.9% Given 07/13/2021 9:12 PM 1,000 mLs Operative (bottle) irrigation TUBE AND ROD STRAIGHTENER Site/Surgical S ite PRN, Starting on Sun07/13/21 at 2044, Intra-procedure Given 07/13/2021 8:44 PM TUBE AND ROD STRAIGHTENER 1,000 mLs Opera tive Site/Surgical Site thrombin pump spray kit Given 07/13/2021 8:44 PM 20,000 Units Operative PRN, Starting on Sun TUBE AND ROD STRAIGHTENER Site /Surgical Site 07/13/21 at 2044, Intra-procedure documented in this encounter Active and Recently Administered Medications Times are shown in TUBE AND ROD STRAIGHTENER. Scheduled Medication Order 07/15/2021 07/16/2021 07/17/2021 acetaminophen (TYLENOL) tablet 975 mg () 0621 ( Given - Provider: Yuki Wyman)0705 (Not Given - Provider: Yuki Wyman - Reason: Other - Comment: Given at 0621)1651 (Given - Provider: Billy Valladares RN)2308 (Given - Provider: Billy Valladares RN) 0849 (Given - Provider: Mayo Dos Santos, SONY)1454 (Given - Provider: Mayo Dos Santos RN) [...] First dose on Karyn 07/14/21 at 2200 cephALEXin (KEFLEX) capsule 500 mg (COMPLETED) 828 (Lavern garcia - Provider: Alma Rosa Lockwood, SONY)193 (Given - Provider: Billy Valladares RN) Routine, 500 mg, Oral, EVERY 12 HOURS SC HEDULED, First dose on Karyn 07/14/21 at 0930, For 4 doses, Indications: Urinary [...] 0829 (Given - Pro vider: Alma Rosa Lockwood RN)2026 (Given - Provider: Billy Valladares RN) 0849 (Given - Provider: Mayo Dos Santos RN)2043 (Given - Provider: Octaviano Ward RN) 0831 (Given - Provider: Mayo Dos Santos RN) 500 mg, Oral, 2 TIMES DAILY, First dose on Karyn 07/14/21 at 2100 levothyroxine (SYNTHROID/LEVOTHROID) tablet 75 mcg [...] 0829 (Given - Provider: Alma Rosa Lockwood RN)2119 (Not Given - Provider: Billy Valladares RN - Reason: Patient/family refused - Comment: Pt had a big loose BM during the shift.) 0850 (Not Given - Provider: Mayo fowler RN - Reason: Order parameters not met)204 (Given - Provider: Octaviano Ward RN) 0823 [...] 0849 (Given - Provider: Mayo Dos Santos RN)1455 (Given - Provider: Mayo Dos Santos RN)204 (Given - Provider: Octaviano Ward RN) 0824 [...] 4 TIMES DAILY PRN, heartburn, Starting on 07/13/21 at 2304 dextrose 50 % injection [...] od sugar, Starting on Karyn 07/14/21 at 0914, Give first dose for initial [...] Caution to be used when administering multiple CREDIT ADVISOR depressing meds within a short time frame. [...] esic side effects. Hold while on IV SPEECH LANGUAGE PATHOLOGIST PRN or with regular IV opioi d dosing. oxyCODONE (ROXICODONE) tablet 5 mg(Linked Group 5) 5 mg, Oral, EVERY 4 HOURS PRN, other, mo derate pain (pain rating 4-6), Starting on Sun07/13/21 at 2304, Hold oral PRN dose for analgesic side effects. Notify provider to assess for uncontrolled pain or analgesic side effects. Hold while on IV SPEECH LANGUAGE PATHOLOGIST PRN or with regular IV opioid dosing. prochlorperazine [...] not resolved in 15 minutes, go to [facility] 2 prochlorperazine (COMPAZINE). Irritant.
Group 5: oxyCODONE (ROXICODONE) tablet 5 mgJump to med 5 mg, Oral, EVERY 4 HOURS PRN, other, mo derate pain (pain rating 4-6), Starting on Sun07/13/21 at 2304
Hold oral PRN dose for analgesic side effects. Notify provider to assess for uncontrolled pain or analgesic side effects. H old while on IV SPEECH LANGUAGE PATHOLOGIST PRN or with regular IV opioid dosing.
Or oxyCODONE (ROXICODONE) tablet 10 mgJump to med 10 mg, Oral, EVERY 4 HOURS PRN, severe p ain, (pain rating 7-10), Starting on Sun07/13/21 at 2304
Hold oral PRN dose for analgesic side effects. Notify provider to assess for uncontrolled pain or analgesic side effects. Hold wh ile on IV SPEECH LANGUAGE PATHOLOGIST PRN or with regular IV opioid dosing.
Group [...] provider.
documented in this encounter Care Teams Shanker Out Relationship Specialty Start Date End Date Melissa Parikh PCP - General Internal Medicine 04/24/21 [address] [place] [address] Thony Sousa, Assigned Neuroscience 06/05/21 PAPhongC Provider [address] [place] [id number] documented as of this encounter
--- OUTSIDE RECORDS SUMMARY | 2022-08-06 00:55 | XMS_ITS | Encounter Summary ---
:1945 Author Organization [facility] Address [address] [place] [address] Care Team Providers Name Role Phone Melissa Parikh Primary Care Provider Unavailable Encounter Details Date Type Department Care Team Description 05/31/2021 Travel Social History Tobacco Use Types Packs/Day [...] been in contact with No / Unsure 05/31/2021 10:33 AM CDT someone who was confirmed or suspected to have Coronavirus / COVID-19? documented as of this encounter Plan of Treatment Not on filedocumented as of this encounter Visit Diagnoses Not on filedocumented in this encounter Care Teams Glove Finisher Relationship Specialty Start Date End Date Melissa Parikh PCP - General Internal Medicine 04/24/21 [address] [address] documented as of this encounter
--- OUTSIDE RECORDS SUMMARY | 2022-08-06 00:55 | XMS_ITS | Encounter Summary ---
:1945 Author Organization [facility] Address [address] [place] [address]. [place] [address] Care Team Providers Name Role Phone Melissa Parikh A Primary Care Provider Unavailable Reason for Visit Reason Comments Results SDH 1 mo f/u Ct review Encounter Details Date Type Department Care Team Description 05/31/2021 Office Visit [facility] Thony Suosa SDH (subd ural Neurosurgery [facility] MALIA Bennett hematoma) (H) Bianca [address] [facility] [address] (Primary Dx) [id number] [place] [address] [address] [address] [place] [address] (Work) [phone] Social History Tobacco Use Types Packs/Day Years [...] Sign Reading Time Taken Comments Blood Pressure 135/79 05/31/2021 10:59 AM CDT Pulse 78 05/31/2021 10:59 AM CDT Temperature 36.7 ??C (98 ??F) 05/31/2021 10:59 AM CDT Respiratory Rate - - Oxygen Saturation 97% 05/31/2021 10:59 AM CDT Inhaled Oxygen Concentration - - Weight - - Height - - Body Mass Index - - documented in this encounter Patient Instructions Patient InstructionsThony Sousa PA-C - 05/31/2021 10:30 AM CDT Follow up CT head without contrast in 2 week and return to clinic afterwards documented in this encounter Progress Notes Thony Sousa PA-C - 05/31/2021 10:30 AM CDT Neurosurgery follow-up Ms. Davison is a 76-year-old female who fell about 1 was found to have subdural hematoma. She underwent a repeat head CT scan on 26 May which showed increased left-sided subdural hematoma. She returns to clinic today for evaluation. She was contacted that same day stated she was feeling well with no symptoms. Today she states she continues to feel well and is not having any concerning symptoms. She denies constant headaches or weakness on her right side or confusion or any other issues. She is not on any anticoagulation or antiplatelet medications. Exam B/P: Data Unavailable, T: Data Unavailable, P: Data Unavailable, R: Data Unavailable Alert and oriented no acute distress Gait is normal Finger-nose slow and accurate Negative pronator drift Extraocular movements intact Imaging 1. Increased size of acute/subacute left convexity subdural hematoma with worsening mass effect/midline shift. 2. Resolution of subdural hematoma along the falx cerebri. Assessment Subdural hematoma Plan We will have the patient follow-up in 2 weeks with a repeat head CT scan without contrast at that time. I told her that if her symptoms significantly worsen she should either contact the clinic or present to the emergency department. Patient continue to avoid aspirin ibuprofen or any anticoagulation or antiplatelet medication. Total time of 30 minutes spent with the patient today in counseling and coordination of care. documented in this encounter Nursing Notes Markie Galarza MA - 05/31/2021 10:30 AM CDT Ema Davison is a 76 year old female who presents for: Chief Complaint Patient presents with ??? Results SDH 1 mo f/u Ct review Initial Vitals: BP 135/79 Pulse 78 Temp 98 ??F (36.7 ??C) SpO2 97% Estimated body mass index is 25.28 kg/m?? as calculated from the following: Height as of 06/13/11: 5' 3.5 (1.613 m). Weight as of 04/24/21: 145 lb (65.8 kg).. There is no height or weight on file to calculate BSA. BP completed using cuff size: regular Severe Pain (6) Markie Galarza MA documented in this encounter Plan of Treatment Not on filedocumented as of this encounter Visit Diagnoses Diagnosis SDH (subdural hematoma) - Primary Subdural hemorrhage documented in this encounter Care Teams Assembly Line Robot Operator Relationship Specialty Start Date End Date Melissa Parikh PCP - General Internal Medicine 04/24/21 [address] [address] [place] [phone] documented as of this encounter
--- OUTSIDE RECORDS SUMMARY | 2022-08-06 00:55 | XMS_ITS | Encounter Summary ---
:1945 Author Organization [facility] Address [address] [place] [address]. [place] [address] Care Team Providers Name Role Phone Melissa Parikh Primary Care Provider Unavailable Thony Sousa PA-C Unavailable Reason for Visit Reason Onset Date Comments Care Plan 06/17/2021 Encounter Details Date Type Department Care Team Description 06/17/2021 Telephone [facility] Thony Sousa, Renee re Plan Neurosurgery Clinic Bianca FINLEY [address] [facility] out [address] [facility] [address] [place] [phone] [place] [phone] (Wo rk) Social History Tobacco Use Types [...] Telephone Encounter - Harlan Burks RN - 06/17/2021 3:00 PM CDT As per Thony Sousa PA-C to call patient and update her regarding the plan and set up a follow-up visit in 3 weeks with a repeat head CT scan prior. Assessment Stable left subdural hematoma Plan Imaging was discussed with Dr. Chappell, we would recommend the patient monitor her symptoms for another 3 weeks and return to clinic with a repeat head CT scan. ??Its encouraging that the patient feelswell however it is concerning that the patient does have effacement of the ventricle on the left, although this is stable. I instructed the patient of course to avoid any ibuprofen or aspirin or any blood thinning medications. ??If she has any worsening symptoms headaches or concerns she should contact the clinic or present immediately to the emergency department. Called and spoke to patient regarding above plan and she is in agreement. Message sent to schedulersto call patient And set up CT scan and appointment. documented in this encounter Plan of Treatment Not on filedocumented as of this encounter Visit Diagnoses Not on filedocumented in this encounter Care Teams Pump Station Operator Relationship Specialty Start Date End Date Melissa Parikh PCP - General Internal Medicine 04/24/21 [address] [place] [address] Thony Sousa, Assigned Neuroscience 06/05/21 MAL[facility] Provider [address] [place] [address] documented as of this encounter
--- OUTSIDE RECORDS SUMMARY | 2022-08-06 00:55 | XMS_ITS | Encounter Summary ---
:1945 Author Organization [facility] Address [address] [place] [address] Care Team Providers Name Role Phone Melissa Parikh Primary Care Provider Unavailable Thony Sousa PA-C Unavailable Encounter Details Date Type Department Care Team Description 07/11/2021 Travel Social History Tobacco Use Types Packs/Day [...] with No / Unsure 07/11/2021 11:35 AM OCCUPATIONAL PHYSICIAN someone who was confirmed or suspected to have Coronavirus / COVID-19? documented as of this encounter Plan of Treatment Not on filedocumented as of this encounter Visit Diagnoses Not on filedocumented in this encounter Care Teams Residence Life Director Relationship Specialty Start Date End Date Melissa Parikh PCP - General Internal Medicine 04/24/21 [address] [place] [address] Thony Sousa, Assigned Neuroscience 06/05/21 MALIA Provider [address] [place] [id number] documented as of this encounter
--- OUTSIDE RECORDS SUMMARY | 2022-08-06 00:55 | XMS_ITS | Encounter Summary ---
:1945 Author Organization [place] Address [address] [place] [address] Care Team Providers Name Role Phone Melissa Parikh Primary Care Provider Unavailable Reason for Visit Reason Onset Date Comments Erroneous encounter-disregard 05/26/2021 Encounter Details Date Type Department Care Team Description 05/26/2021 [facility] Candido Lira Erroneous Neurosurgery Clinic MD [place]ques encounter-disregard [facility] [address] [address] [facility] [address] [place], [place] [address] [address] [place] [address] [phone] Social History Tobacco Use Types Packs/Day Years [...] on filedocumented in this encounter Care Teams Alcoholic Counselor Relationship Specialty Start Date End Date Melissa Parikh PCP - General Internal Medicine 04/24/21 0804 Ashli [address] [place] [address] documented as of this encounter
--- OUTSIDE RECORDS SUMMARY | 2022-08-06 00:55 | XMS_ITS | Encounter Summary ---
:1945 Author Organization [place] Address [address] [place] [address] Care Team Providers Name Role Phone Melissa Parikh Primary Care Provider Unavailable Thony Sousa PA-C Unavailable Encounter Details Date Type Department Care Team Description 06/20/2021 Telephone [facility] Thony Sousa, [facility] [place] 1945 [facility] [id number] [place] [address] [address] [place], [place] [phone] [place] [address] (Wo rk) Social History Tobacco Use Types [...] Notes Telephone Encounter - Aide Painter - 06/20/2021 10:19 AM CDT LVM to call-back to schedule a CT and follow-up with Thony Oleaemy's staff message. documented in this encounter Plan of Treatment Not on filedocumented as of this encounter Visit Diagnoses Not on filedocumented in this encounter Care Teams Dumbwaiter Operator Relationship Specialty Start Date End Date Melissa Parikh PCP - General Internal Medicine 04/24/21 7373 Ashli Luong [address] [place] [address] Thony Sousa, Assigned Neuroscience 06/05/21 PA-C Provider [address] [place] [address] documented as of this encounter
--- OUTSIDE RECORDS SUMMARY | 2022-08-06 00:55 | XMS_ITS | Encounter Summary ---
:1945 Author Organization [place] Address [address] [place] [address] Care Team Providers Name Role Phone Melissa Parikh Primary Care Provider Unavailable Encounter Details Date Type Department Care Team Description 04/28/2021 Travel Social History Tobacco Use Types Packs/Day [...] been in contact with No / Unsure 04/28/2021 11:29 AM CDT someone who was confirmed or suspected to have Coronavirus / COVID-19? documented as of this encounter Plan of Treatment Not on filedocumented as of this encounter Visit Diagnoses Not on filedocumented in this encounter Care Teams Woodworking Bench Carpenter Relationship Specialty Start Date End Date Melissa Parikh PCP - General Internal Medicine 04/24/21 [address] [address] documented as of this encounter
--- OUTSIDE RECORDS SUMMARY | 2022-08-06 00:55 | XMS_ITS | Encounter Summary ---
:1945 Author Organization [place] Address [address] [place] [address] Care Team Providers Name Role Phone Melissa Parikh A Primary Care Provider Unavailable Reason for Referral Diagnostic Imaging CT Scan (Routine) - Closed Specialty Diagnoses / Procedures Referred By Contact Refer red To Contact Radiology. Diagnoses SDH (subdural hematoma) Candido Lira MD Ct Scan Procedures CT Head w/o Contrast [id number] [address]OL[address] [facility] [address] [address] [place] [address] Referral ID Status Reason Start Date Expiration Date Visits Requ ested Visits Authorized [id number] Closed 05/26/2021 05/26/2022 1 1 Encounter Details Date Type Department Care Team Description 05/26/2021 Orders Only [facility] Candido Powell SDH (subd ural Neurosurgery Clinic MD Marques hematoma) (H) [place] [address] AB[address]ISHE[address] ROLAND (Primary Dx) [address] [address] [place] [address] Social History Tobacco Use Types Packs/Day [...] this encounter Results CT Head w/o Contrast (06/16/2021 10:38 AM CDT) Anatomical Region Laterality Modality Head, SUBRAD CT NEURO, SUBRAD CT NEURO, UMP CT NEURO, Computed Tomography RAD CT Specimen (Source) Anatomical Location Collection Method / Collectio n Time Received Time / Laterality Volume Impressions 06/16/2021 1:15 PM CDT IMPRESSION: Persistent left hemispheric convexity subdural hematoma without significant change in size but t here does appear to be slightly more left to right midline shif t. SALEEM CORTES MD Narrative 06/16/2021 1:[address] SCAN OF THE HEAD WITHOUT CONTRAST ?? 06/16/2021 10:38 AM HISTORY: SDH (subdural hematoma) (H). TECHNIQUE: ??Axial images of the head an d coronal reformations without IV contrast material. ??Radiation dose f or this scan was reduced using automated exposure control, adjustment o f the mA and/or kV according to patient size, or iterative reconstruc tion technique. COMPARISON: 05/26/2021. FINDINGS: Again seen is a left-sided sub dural hematoma which is relatively isodense to mildly hypodense to brain parenchyma. Subdural hematoma currently measures approximatel y 1.1 cm in thickness which is a similar to that seen on the prior stud y. There is some left to right midline shift measuring 0.6 cm which jad ears slightly more pronounced than on the prior exam where it measured approximately 0.4 cm. There is no evidence for parenchymal hemorrhag e or hydrocephalus. Brain parenchyma appears within normal limits. No evidence for acute infarct. Procedure Note Saleem Cortes MD - 06/16/2021Form atting of this note might be different from the original. CT SCAN OF THE HEAD WITHOUT CONTRAST 10:38 AM HISTORY: SDH (subdural hematoma) (H). TECHNIQUE: Axial images of the head and coronal reformations without IV contrast material. Radiation dose for this scan was reduced using automated exposure control, adjustment o f the mA and/or kV according to patient size, or iterative reconstruc tion technique. COMPARISON: 05/26/2021. FINDINGS: Again seen is a left-sided sub dural hematoma which is relatively isodense to mildly hypodense to brain parenchyma. Subdural hematoma currently measures approximatel y 1.1 cm in thickness which is a similar to that seen on the prior stud y. There is some left to right midline shift measuring 0.6 cm which jad ears slightly more pronounced than on the prior exam where it measured approximately 0.4 cm. There is no evidence for parenchymal hemorrhag e or hydrocephalus. Brain parenchyma appears within normal limits. No evidence for acute infarct. IMPRESSION: Persistent left hemispheric convexity subdural hematoma without significant change in size but t here does appear to be slightly more left to right midline shif t. SALEEM CORTES MD Candido Lira MD IMG CT ORDERABLES documented in this encounter Visit Diagnoses Diagnosis SDH (subdural hematoma) - Primary Subdural hemorrhage SDH (subdural hematoma) Subdural hemorrhage documented in this encounter Care Teams Group Burner Machine Relationship Specialty Start Date End Date Melissa Parikh PCP - General Internal Medicine 04/24/21 7373 [address] [place] [address] documented as of this encounter
--- OUTSIDE RECORDS SUMMARY | 2022-08-06 00:55 | XMS_ITS | Encounter Summary ---
:1945 Author Organization [place] Address [address] [place] [address] Care Team Providers Name Role Phone Melissa Parikh A Primary Care Provider Unavailable Reason for Referral Diagnostic Imaging CT Scan (Routine) - Closed Specialty Diagnoses / Procedures Referred By Contact Refer red To Contact Radiology. Diagnoses SDH (subdural hematoma) Candido Lira MD Ct Scan Procedures CT Head w/o Contrast [id number] ABHISHE[address] ROLAND [facility] [address] [address] [place] [address] Referral ID Status Reason Start Date Expiration Date Visits Requ ested Visits Authorized [id number] Closed 05/16/2021 05/16/2022 1 1 Encounter Details Date Type Department Care Team Description 05/16/[address] [facility] Candido Powell SDH (subd ural Neurosurgery Clinic MD Marques hematoma) (H) [place] [address] AB[address]ISHE[address] ROLAND (Primary Dx) [address] [address] [place] [address] Social History Tobacco Use Types [...] on filedocumented as of this encounter Results (ABNORMAL) CT Head w/o Contrast (05/26/2021 11:39 AM CDT) [facility] gist Method Time Signature Radiologist Head bleed RADIOLOGY [...] identified on 05/26/2021 1:13 PM. Oswaldo physician quality assurance assistant was contacted by me on 05/26/2021 [...] dependently suggestive of acute/smith bacute blood products. Taju-oq-rhodw midline shift has slightly worsened compared to [...] dependently suggestive of acute/smith bacute blood products. Cyny-rc-lxjhb midline shift has slightly worsened compared to [...] identified on 05/26/2021 1:13 PM. Oswaldo physician quality assurance assistant was contacted by me on 05/26/2021 approximately 2:00 p.m. and verbalized u nderstanding of the critical result. YAYO CHILEL MD Candido Lira MD IMG CT ORDERABLES documented in this encounter Visit Diagnoses Diagnosis SDH (subdural hematoma) - Primary Subdural hemorrhage documented in this encounter Care Teams Tin Tie Machine Operator Automatic Relationship Specialty Start Date End Date Melissa Parikh PCP - General Internal Medicine 04/24/21 1552 [address] Luong [address] [place] [address] documented as of this encounter
--- OUTSIDE RECORDS SUMMARY | 2022-08-06 00:55 | XMS_ITS | Encounter Summary ---
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 documented as of this encounter Plan of Treatment Not on filedocumented as of this encounter Visit Diagnoses Not on filedocumented in this encounter Care Teams Cardroom Worker Relationship Specialty Start Date End Date Melissa Parikh PCP - General Internal Medicine 04/24/21 [address] [place] [address] Thony Sousa, Assigned Neuroscience 06/05/21 [place] Provider [address] [place] [address] [id number] documented as of this encounter
--- OUTSIDE RECORDS SUMMARY | 2022-08-06 00:55 | XMS_ITS | Encounter Summary ---
:1945 Author Organization [place] Address [address] [place] [address] Care Team Providers Name Role Phone Melissa Parikh Primary Care Provider Unavailable Thony Sousa PA-C Unavailable Encounter Details Date Type Department Care Team Description 07/13/2021 Telephone [facility] Thony Sousa, Neurosurgery Clinic [place] [address] [place] [address] [place] [address] [phone] Social History Tobacco Use Types Packs/Day Years [...] with No / Unsure 07/21/2021 9:58 AM MAT CLEANING MACHINE 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 documented as of this encounter Plan of Treatment Not on filedocumented as of this encounter Visit Diagnoses Not on filedocumented in this encounter Care Teams Control Clerk Auditing Relationship Specialty Start Date End Date Melissa Parikh PCP - General Internal Medicine 04/24/[address] [place] [address] Thony Sousa, Assigned Neuroscience 06/05/21 PA-C Provider [address] [place] [id number] documented as of this encounter
--- OUTSIDE RECORDS SUMMARY | 2022-08-06 00:55 | XMS_ITS | Encounter Summary ---
:1945 Author Organization [facility] Address [address] [place] [address] Care Team Providers Name Role Phone Melissa Parikh Primary Care Provider Unavailable Encounter Details Date Type Department Care Team Description 05/26/2021 Travel Social History Tobacco Use Types Packs/Day [...] on filedocumented in this encounter Care Teams Antique Clocks Repairer Relationship Specialty Start Date End Date Melissa Parikh PCP - General Internal Medicine 04/24/21 [address] [address] documented as of this encounter
--- OUTSIDE RECORDS SUMMARY | 2022-08-06 00:55 | XMS_ITS | Encounter Summary ---
:1945 Author Organization [facility] Address [address] [place] [address] Care Team Providers Name Role Phone Melissa Parikh Spenser Primary Care Provider Unavailable Thony Sousa PA-C Unavailable Reason for Referral Diagnostic Imaging CT Scan (Routine) - Closed Specialty Diagnoses / Procedures Referred By Contact Refer red To Contact Radiology. Diagnoses SDH (subdural hematoma) Candido Lira MD Ct Scan Procedures CT Head w/o Contrast [address] [address] [place] [address] [place] [address] Referral ID Status Reason Start Date Expiration Date Visits Requ ested Visits Authorized [id number] Closed 05/26/2021 05/26/2022 1 1 Reason for Visit Diagnostic Imaging CT Scan (Routine) - Closed Specialty Diagnoses / Procedures Referred By Contact Refer red To Contact Radiology. Diagnoses SDH (subdural hematoma) Candido Lira MD Ct Scan Procedures CT Head w/o Contrast [address] [place] [address] [place] [address] Referral ID Status Reason Start Date Expiration Date Visits Requ ested Visits Authorized [id number] Closed 05/26/2021 05/26/2022 1 1 Encounter Details Date Type Department Care Team Description 06/16/2021 Hospital Encounter [facility] Candido Lira SDH (subdural [facility] MD Marques hematoma) (H) [address] [place], [address] [address] [place] SHETTY [phone] [address] Social History Tobacco Use Types Packs/Day Years [...] Diagnosis Comme nts CT HEAD W/O Routine 06/16/2021 10:38 AM SDH (subdural Results for this CONTRAST [...] hemorrhage documented in this encounter Care Teams Software Development Engineer Relationship Specialty Start Date End Date Melissa Parikh PCP - General Internal Medicine 04/24/21 [address] [place] [address] Thony Sousa, Assigned Neuroscience 06/05/21 PA-C Provider [address] [place] [address] documented as of this encounter
--- OUTSIDE RECORDS SUMMARY | 2022-08-06 00:55 | XMS_ITS | Encounter Summary ---
:1945 Author Organization [place] Address [facility] [address] Care Team Providers Name Role Phone Melissa Parikh A Primary Care Provider Unavailable Thony Sousa PA-C Unavailable Reason for Referral Diagnostic Imaging CT Scan (Routine) - Closed Specialty Diagnoses / Procedures Referred By Contact Refer red To Contact Radiology. Diagnoses SDH (subdural hematoma) Thony Sousa Sh Ct Scan Procedures CT Head w/o Contrast [place] [address] [facility] [place] [address] [address] [place] [address] Referral ID Status Reason Start Date Expiration Date Visits Requ ested Visits Authorized [id number] Closed 06/17/2021 07/11/2022 1 1 Reason for Visit Reason Comments Follow Up Head CT scan Encounter Details Date Type Department Care Team Description 06/16/2021 Office Visit [facility] Thony Sousa SDH (subd ural Neurosurgery Clinic MALIA Bennett hematoma) (H) [place] [address] (Primary Dx) 6545 [facility] [address] [facility] [place] [address] [address] [place] [address] (Work) [phone] Social History Tobacco Use Types Packs/Day Years [...] Sign Reading Time Taken Comments Blood Pressure 122/73 06/16/2021 2:43 PM CDT Pulse 71 06/16/2021 2:29 PM CDT Temperature - - Respiratory Rate - - Oxygen Saturation 99% 06/16/2021 2:29 PM CDT Inhaled Oxygen Concentration - - Weight 66.2 kg (146 lb) 06/16/2021 2:29 PM CDT Height 160 cm (5' 3) 06/16/2021 2:29 PM CDT Body Mass Index 25.86 06/16/2021 2:29 PM CDT documented in this encounter Progress Notes Thony Sousa PA-C - 06/16/2021 2:30 PM CDT Neurosurgery follow-up Ms. Davison is a 76-year-old female who returns for 2-week follow-up of left subdural hematoma. At her last visit she had been found to have increased subdural hematoma however she is neurologically intact and feeling well. Today she continues to feel well with no complaints. Her imaging shows no change in overall size of the subdural hematoma although possibly slightly more left to right midline shift. She has had no falls. She denies any anticoagulation, she is not taking aspirin or ibuprofen. Exam B/P: 122/73, T: Data Unavailable, P: 71, R: Data Unavailable Alert and oriented no acute distress Bilateral upper extremities with appropriate strength Finger-nose slow and accurate Negative pronator drift Imaging Head CT scan demonstrates Persistent left hemispheric convexity subdural hematoma without significant change in size but there does appear to be slightly more left to right midline shift. Assessment Stable left subdural hematoma Plan Imaging was discussed with Dr. Chappell, we would recommend the patient monitor her symptoms for another 3 weeks and return to clinic with a repeat head CT scan. Its encouraging that the patient feels well however it is concerning that the patient does have effacement of the ventricle on the left, although this is stable. I instructed the patient of course to avoid any ibuprofen or aspirin or any blood thinning medications. If she has any worsening symptoms headaches or concerns she should contact the clinic or present immediately to the emergency department. Total time of 30 minutes spent with the patient today in counseling and coordination of care. documented in this encounter Nursing Notes Jeffery Pace - 06/16/2021 2:30 PM CDT Chief Complaint Patient presents with ??? Follow Up Head CT scan documented in this encounter Plan of Treatment Not on filedocumented as of this encounter Results CT Head w/o Contrast (07/11/2021 12:01 PM FIRER LOCOMOTIVE) Anatomical Region Laterality Modality Head, SUBRAD CT NEURO, SUBRAD CT NEURO, UMP CT NEURO, Computed Tomography RAD CT Specimen (Source) Anatomical Location Collection Method / Collectio n Time Received Time / Laterality Volume Impressions 07/11/2021 4:29 PM FIRER LOCOMOTIVE IMPRESSION: Significant interval increase in size of a mixed density holohemispheric left cerebral convexity subdural hematoma with recent-appearing blood components, as de scribed. Progressive mass effect on the left cerebral ??hemisphere and worsening rightward midline shift measuring up to approximat kristofer 9-10 mm. Progressive narrowing of the supratentorial ventricu lar system. The findings were discussed by myself sc sophie Sousa of the neurosurgery service at approximately 3: 35 PM on 07/11/2021. NELY YIP MD Narrative 07/11/2021 4:[address] SCAN OF THE HEAD WITHOUT CONTRAST [...] system. The findings were discussed by myself sc sophie Sousa of the neurosurgery service at approximately 3: 35 PM on 07/11/2021. NELY YIP MD Thony Sousa PA-C IMG CT ORDERABLES documented in this encounter Visit Diagnoses Diagnosis SDH (subdural hematoma) - Primary Subdural hemorrhage SDH (subdural hematoma) Subdural hemorrhage documented in this encounter Care Teams Concierge Manager Relationship Specialty Start Date End Date Melissa Parikh PCP - General Internal Medicine 04/24/21 [address] [place] [address] Thony Sousa, Assigned Neuroscience 06/05/21 PA-C Provider [address] [place] [address] documented as of this encounter
--- OUTSIDE RECORDS SUMMARY | 2022-08-06 00:56 | XMS_ITS | Encounter Summary ---
:1945 Author Organization [place] Address [address] [place] [address] Care Team Providers Name Role Phone Melissa Parikh Primary Care Provider Unavailable Reason for Referral Care Coordination (Routine) - Closed Specialty Diagnoses / Procedures Referred By Contact Refer red To Contact Diagnoses Other specified counseling Melissa Parikh [facility] [address] [address] Referral ID Status Reason Start Date Expiration Date Visits Requ ested Visits Authorized [id number] Closed 04/27/2021 04/27/2022 1 1 Encounter Details Date Type Department Care Team Description 04/27/2021 Orders Only [facility] Melissa Parikh Other specified Coordination [facility] [address] [address] [place], [place] [phone] [id number] Social History Tobacco Use Types Packs/Day Years [...] been in contact with No / Unsure 04/24/2021 5:14 PM CDT someone who was confirmed or suspected to have Coronavirus / COVID-19? documented as of this encounter Plan of Treatment Scheduled Referrals Name Type Priority Associated Diagnoses Order S [facility] Discharge Referral Routine Other specified Ex pected: 04/27/2021 - Referral to [facility] counseling (Approximat e), Expires: 2021 documented as of this encounter Visit Diagnoses Diagnosis Other specified counseling documented in this encounter Care Teams Lighting Technician Relationship Specialty Start Date End Date Melissa Parikh PCP - General Internal Medicine 04/24/21 [address] [place] [address] documented as of this encounter
--- OUTSIDE RECORDS SUMMARY | 2022-08-06 00:56 | XMS_ITS | Encounter Summary ---
:1945 Author Organization [facility] Address [address] [place] [id number] Care Team Providers Name Role Phone Echo Davison MD Primary Care Provider Reason for Visit Auth/Cert - Closed Specialty Diagnoses / Procedures Referred By Contact Refer red To Contact Surgery Diagnoses Multinodular Goiter Sh Periop Services Procedures THYROIDECTOMY [address], [address] [place] [address] Phone: Referral ID Status Reason Start Date Expiration Date Visits Requ ested Visits Authorized [id number] Closed 06/06/2011 12/03/2011 1 1 Encounter Details Date Type Department Care Team Description 06/13/2011 - [facility] [place], Multinodul ar goiter 06/14/2011 Encounter Prasanth Espinoza MD Intermediate [facility] [address] [place] [address] [place], [place] [phone] Social History Tobacco Use Types Packs/Day Years Used Date Smoking Tobacco: Former Cigarettes 0.5 20 Comments: quit 30 yrs a go/ maybe a pack a week Alcohol Use Standard Drinks/Week Comments Yes 0 (1 standard drink = 0.6 oz pure alcoho l) one drink a month Sex Assigned at Date Recorded Not on file documented as of this encounter Last Filed Vital Signs Vital Sign Reading Time Taken Comments Blood Pressure 150/76 06/14/2011 12:00 PM CDT Pulse - - Temperature 36.7 ??C (98 ??F) 06/14/2011 12:00 PM CDT Respiratory Rate 16 06/14/2011 12:00 PM CDT Oxygen Saturation 98% 06/14/2011 12:00 PM CDT Inhaled Oxygen Concentration - - Weight 74.2 kg (163 lb 9.6 oz) 06/13/2011 6:40 AM CDT Height 161.3 cm (5' 3.5) 06/13/2011 6:40 AM CDT Body Mass Index 28.53 06/13/2011 6:40 AM CDT documented in this encounter Discharge Instructions Discharge InstructionsClaire Saenz RN - 06/14/2011 1:11 PM CDT Discharge Instructions following Thyroidectomy/Parathyroidectomy [facility] Diet: -Regular diet; drink plenty of fluids Activity: -As tolerated: No heavy lifting or strenuous activity until approved by surgeon Bathing/Incision Care: -Ok to shower. No tub baths or swimming until incision healed. If present, tape dressing (steri strips) will fall off on own in 7-10 days. No lotions, powders or perfumes near or on incision What to expect: -If total thyroidectomy: you will be started on Synthroid in hospital & you will need to continue this daily at home. Calcium levels will be drawn as directed by doctor. Call your surgeon if you have these signs or symptoms: -Facial muscle spams -Difficulty breathing -Swollen, hard area around incision that may or may be discolored (hematoma) documented in this encounter Medications at Time of Discharge Medication Sig Dispensed Refills Start Date End Date atorvastatin (LIPITOR) 40 Take 40 mg by 0 MG tablet mouth At Bedtime At hs Cholecalciferol (VITAMIN Take 1 tablet by 0 D) 2000 UNIT tablet mouth daily. aspirin 81 MG tablet Take 1 tablet by 0 04/24/2021 mouth daily. atenolol (TENORMIN) 50 MG Take 50 mg by 0 04/24/2021 tablet mouth. At HS calcium carbonate 500 MG Take 2 tablets by 100 tablet 0 06/0304/24/2021 tabletIndications: mouth 2 times Multinodular goiter daily. hydrocodone-acetaminophen Take 1-2 tablets 30 tablet 0 06/0304/24/2021 5-325 MG per by mouth every 4 tabletIndications: hours as needed. Multinodular goiter levothyroxine (SYNTHROID, Take 1 tablet by 90 tablet 0 06/0304/24/2021 LEVOTHROID) 112 MCG mouth every tabletIndications: morning (before Multinodular goiter breakfast). documented as of this encounter Progress Notes Claire Saenz RN - 06/14/2011 1:05 PM CDT Pt given written and verbal discharge instructions. Pt verbalizes understanding of instructions and knows that follow up care is needed. Pt knows who to call should problems arise. Olga Valenzuela MD - 06/14/2011 8:54 AM CDT Patient is tired, incisional soreness. Voice is normal. Afeb, VSS Site looks good, slightly ecchymotic. Chvostek is negative. LUAN output scant, discontinued. Calcium 8.6, 8.2 this am. Doing well post-op thyroidectomy. Mild Hypocalcemia. Re-check Calcium, discharge later today if stable. documented in this encounter H&P Notes Rosi Smith - 06/12/2011 8:26 AM CDT This note is for the purpose of making the H & P performed in clinic within the last 30 days Available in the hospital surgical encounter. Source Note - Olga Valenzuela MD - 06/09/2011 12:22 PM CDT Olga Valenzuela MD - 06/09/2011 12:22 PM CDT documented in this encounter OR Notes OR Anesthesia - Olga Valenzuela MD - 07/30/2011 4:[address] MACHINE [address] MACHINE documented in this encounter Miscellaneous Notes Plan of Care - Marcia Reardon RN - 06/14/2011 5:26 AM CDT Problem: IP GENERAL POC-ADULT,OB,BEHAVIORAL FVCPM Goal: Individualization/Patient-Specific Goal (Adult,OB,Behavioral 06/13/11 RN: thyroidectomy Outcome: Improving VSS, pt had mild pain being controlled with Tylenol, J/P with small amount out, dressings CDI, no numbness/tingling in fingers/mouth. Schumacher catheter with adequate output. Bedrest. Plan of Care - Krista Asher RN - 06/13/2011 10:43 PM CDT Problem: IP GENERAL POC-ADULT,OB,BEHAVIORAL FVCPM Goal: Individualization/Patient-Specific Goal (Adult,OB,Behavioral 06/13/11 RN: thyroidectomy Outcome: Improving VSS. Tylenol given for pain X 1 -- helpful. Up to side of bed with one assist - denied dizziness or light headedness. Pt is in bed resting at this time. Pt is encouraged to call for help/assistance. Will cont to monitor and assess. Krista Asher Op Note - Olga Valenzuela MD - 06/13/2011 10:17 AM CDT [employer] Ranger: Rosalinda Salinas PA-C PREOPERATIVE DIAGNOSIS: Multinodular goiter. POSTOPERATIVE DIAGNOSIS: Multinodular goiter. PROCEDURE: Total thyroidectomy. ANESTHESIA: General. PREOPERATIVE MEDICATIONS: Ancef 1 gram IV. INDICATIONS: Ema Davison is a 66-year-old female who has had a goiter for some time, slowly progressive. She now has compression symptoms and has an asymmetric goiter with multiple nodules in both lobes. She presents now for total thyroidectomy. PROCEDURE: The patient was placed supine, head and neck in extension and a bump between the scapulas. Transverse cervical neck creases had been marked in the preinduction area and the one most suitablewas utilized for exposure. Superior and inferior skin flaps were raised and the midline fascia opened and reflected to the left. The upper pole was taken down by double ligation and division. This lobewas considerably larger than the right, although the right-sided isthmus lesion was also quite dominant. The nodules on the left projected inferiorly and posteriorly predominantly. The middle thyroidalvein and inferior thyroidal veins were ligated and divided. The gland was reflected medially and thesuperior and inferior parathyroid and the left recurrent laryngeal nerves were seen and preserved. The posterior dissection was meticulously done to ligate and divide the ligament of Pelletier and small vascular branches of the inferior thyroidal artery. Once the dissection continued across the anterior trachea, we turned our attention to the right side. The isthmus lesion was largely right-sided and this was dissected free of the anterior trachea. We then went to the upper pole of the right lobe, whichalso had nodular enlargement. The upper pole was taken down by double ligation and division. Middle thyroidal and inferior thyroidal veins were ligated and divided. The gland reflected medially. The superior parathyroid was dissected free of the posterior aspect of the gland. The recurrent laryngeal nerve was seen and preserved. The inferior parathyroid was identified after the posterior dissection was completed and appeared to be preserved as well. Once the remaining attachments were divided, the gland was submitted to pathology for permanent sections with a suture marking the right superior pole.The site was inspected for hemostasis, irrigated and closed over a 10 round LUAN drain with running 3-0 Vicryl for the midline fascia, interrupted for platysma and 4-0 subcuticular Monocryl for skin. Thepatient was transferred to recovery in good condition. ESTIMATED BLOOD LOSS: Less than 20 cc. INTRAOPERATIVE FINDINGS: 1. Asymmetric multinodular goiter with dominant nodules in the right and left lobe and isthmus. 2. Both recurrent laryngeal nerves seen and preserved. 3. All 4 parathyroids seen and preserved. OLGA VALENZUELA MD MT: [id number] Name: EMA DAVISON MRN: [id number] Account: [id number] : 1945 Procedure Date: 06/13/2011 Document: [id number] Brief Op Note - Olga Valenzuela MD - 06/13/2011 10:01 AM CDT General Surgery Brief Operative Note Pre-operative diagnosis: Multinodular Goiter Post-operative diagnosis: same Procedure: Procedure(s) (LRB): THYROIDECTOMY (N/A) Surgeon: Olga Valenzuela MD [employer] Ranger(s): Rosalinda Salinas PA-C Anesthesia: General Estimated blood loss: 20 cc Specimens: ID Type Source Tests Collected by Time Destination A : Total Thyroid, stitch @ Right Superior Pole Tissue Thyroid SURGICAL PATHOLOGY EXAM OLGA VALENZUELA 06/13/2011 9:23 AM Pathology Olga Valenzuela MD documented in this encounter Plan of Treatment Not on filedocumented as of this encounter Procedures Procedure Name Priority Date/Time Associated Diagnosis Comme nts CREATININE Routine 06/14/2011 12:10 Results for this PM CDT procedure are i n the results section. CALCIUM Routine 06/14/2011 12:10 Results for this PM CDT procedure are i n the results section. CALCIUM Timed 06/14/2011 5:57 AM Results f or this CDT procedure are i n the results section. CALCIUM Timed 06/13/2011 8:50 PM Results f or this CDT procedure are i n the results section. SURGICAL PATHOLOGY Routine 06/13/2011 9:23 AM Res ults for this EXAM CDT procedure are i n the results section. THYROIDECTOMY, 06/13/2011 7:57 AM Multinodular Goiter TOTAL CDT HEMOGLOBIN STAT 06/13/2011 7:08 AM Results f or this CDT procedure are i n the results section. documented in this encounter Results Creatinine (06/14/2011 12:10 PM CDT) P athologist Signature Creatinine 0.65 0.52 - [place] 1.04 mg/dL [facility] GFR Estimate >90 >60 [place] mL/min/1.[address] LAB GFR Estimate If >90 >60 [place] Black mL/min/1.[address] LAB Specimen Anatomical Collection Method Collection Time Receive d Time (Source) Location / / Volume Laterality Blood specimen 06/14/2011 12:10 1 (specimen) PM CDT 12:17 PM CDT Olga Valenzuela MD LAB - BLOOD ORDERABLES Performing Organization Address City/State/ZIP Code Phon e Number [facility] [address] [place] [address] [phone] [facility] Calcium (06/14/2011 12:10 PM CDT) P athologist Signature Calcium 8.5 8.5 - 10.4 [place] mg/dL [facility] Specimen Anatomical Collection Method Collection Time Receive d Time (Source) Location / / Volume Laterality Blood specimen 06/14/2011 12:10 1 (specimen) PM CDT 12:17 PM CDT Olga Valenzuela MD LAB - BLOOD ORDERABLES Performing Organization Address City/State/ZIP Code Phon e Number [facility] [address] [phone] [facility] LAB (ABNORMAL) Calcium (06/14/2011 5:57 AM CDT) P athologist Signature Calcium 8.2 (L) 8.5 - 10.4 [place] mg/dL [facility] Specimen Anatomical Collection Method Collection Time Receive d Time (Source) Location / / Volume Laterality Blood specimen 06/14/2011 5:57 AM 011 6:02 (specimen) CDT AM CDT Olga Valenzuela MD LAB - BLOOD ORDERABLES Performing Organization Address City/State/ZIP Code Phon e Number [facility] [address] [place] [address] [facility] Calcium (06/13/2011 8:50 PM CDT) P athologist Signature Calcium 8.6 8.5 - 10.4 [place] mg/dL [facility] Specimen Anatomical Collection Method Collection Time Receive d Time (Source) Location / / Volume Laterality Blood specimen 06/13/2011 8:50 PM 011 8:58 (specimen) CDT PM CDT Olga Valenzuela MD LAB - BLOOD ORDERABLES Performing Organization Address City/State/ZIP Code Phon e Number [facility] [address] [phone] [facility] Surgical pathology exam (06/13/2011 9:23 AM CDT) Component Value Ref Test Analysis Performed At Patholo gist Range Method Time Signature Copath Report Patient Name: EMA DAVISON MR#: [id number] Specimen #: [id number] Collected: 06/13/2011 Received: 06/13/2011 Reported: 06/14/2011 14:27 Ordering Phy(s): OLGA VALENZUELA SPECIMEN(S): Thyroid FINAL DIAGNOSIS: Thyroid gland, total thyroidectomy showing - ? 1. ??Multinodular hyperplasia with focal calcificatio ns. ? 2. ??No parathyroid glands seen. ? 3. ??No evidence of malignancy. Electronically signed out by: Saleem Gil M.D. CLINICAL HISTORY: Multinodular goiter. GROSS: The specimen is labeled total thyroid. ??The specimen cons ists of a 73 g enlarged nodular total thyroid (8.6 x 7.0 x 3.2 cm). ??The re is a suture attached marking the right superior pole. ??The trach eal reflection is inked blue. ??The remaining tissue is inked bl ack. ??Upon serial section, the entire thyroid is replaced by pale well-circumscribed nodules in which a few of the nodules con tain calcified areas. ??The largest nodule, measures up to 3.1 cm . Cooker Meal sections are submitted. ??SI TRS/ls Cassettes: 1-5. ??Sections of right lobe from superior to inferior. 6-10. ??Left lobe from superior to inferior. MICROSCOPIC: Cooker Meal sections show benign thyroid tissue with a mu ltinodular architecture. The nodules are by incomplete bands of collagen connective tissue and are composed of numerous thyroid folli cles of varying sizes. The follicles contain abundant colloid and ar e lined by bland epithelial cells. ??Focal areas of hyalinization of so me of the nodules are seen accompanied by areas of dense calcification s. ??A few focal collections of foamy histiocytes and focal collections of pigmented macrophages are present. ??No parathyroid tissue i s seen. There is no evidence of malignancy. DGB/ls 06/14/2011 TESTING LAB LOCATION: [facility] [address] [place], [place] ??[phone] COLLECTION SITE: Client: [facility] Location: [facility] (S) Specimen Anatomical Collection Method Collection Time Receive d Time (Source) Location / / Volume Laterality 06/13/2011 9:23 AM 1 CDT 10:58 AM CDT Olga Valenzuela MD LAB - [facility] Performing Organization Address City/State/ZIP Code Phon e Number [facility] Hemoglobin (06/13/2011 7:08 AM CDT) P athologist Signature Hemoglobin 13.7 11.7 - 15.7 [place] g/dL [facility] Specimen Anatomical Collection Method Collection Time Receive d Time (Source) Location / / Volume Laterality Blood specimen 06/13/2011 7:08 AM 011 7:16 (specimen) CDT AM CDT Negro Llanos MD LAB - BLOOD ORDERABLES Performing Organization Address City/[facility]/ZIP Code Phon e Number [facility] [address] [place] [address] [phone] [facility] documented in this encounter Visit Diagnoses Diagnosis Multinodular goiter Nontoxic multinodular goiter documented in this encounter Administered Medications Inactive Administered Medications - up to 3 most recent administrations Medication Order MAR Action Action Date Dose Rate Site acetaminophen (TYLENOL) tablet Given 06/13/2011 9:09 PM CDT 650 mg 325-650 mg 325-650 mg, Oral, EVERY 4 HOURS PRN, mild pain, or temp > 102 degrees F., Starting on Sun06/13/11 at 1227, Max dose Acetaminophen = 4 gm / 24 hours. May give in addition to other nam-bsstbfjehgqfk-ufgsklqpfv analgesic if moderate to severe pain is unrelieved 15 minutes after administration., Post-procedure atenolol (TENORMIN) tablet 50 mg Given 06/13/2011 9:02 PM CDT 50 mg 50 mg, Oral, DAILY, First dose on Sun06/13/11 at 2100, Post-procedure atorvastatin (LIPITOR) tablet 40 mg Given 06/13/2011 9:02 PM CDT 40 mg 40 mg, Oral, DAILY, First dose on Sun06/13/11 at 2100, Post-procedure calcium carbonate tablet 1,000 mg Given 06/14/2011 9:50 AM CDT 1,000 mg 1,000 mg (2 tablet), Oral, 2 TIMES DAILY, First dose on Sun06/13/11 at 1300 cholecalciferol (VITAMIN D) tablet 400 Given 06/14/2011 12:18 PM CDT 400 Units Units 400 Units, Oral, DAILY, First dose on Sun06/13/11 at 1300, Post-procedure Given 06/13/2011 9:03 PM CDT 400 Units dextrose 5 % and 0.45 % NaCl + Rate/Dose Verify 06/14/2011 6:00 AM CDT 100 mL/hr KCl 20 mEq/L at 100 mL/hr, Intravenous, CONTINUOUS, Discontinue IV fluids when PO well tolerated., Post-procedure, Starting on Sun06/13/11 at 1045, Until Sun06/14/11 at 1142 New Bag 06/13/2011 11:27 PM CDT 100 mL/hr New Bag 06/13/2011 1:14 PM CDT 100 mL/hr HYDROmorphone (DILAUDID) injection 0.2-0.4 Given 06/13/2011 10:45 AM CDT 0.4 mg mg 0.2-0.4 mg, Intravenous, EVERY 5 MIN PRN, moderate to severe pain, acute pain. May administer if RR is > 10 , Starting on Sun06/13/11 at 1034, If fentanyl is also ordered, use HYDROmorphone if pain control insufficient with fentanyl or a longer acting agent is needed. Max cumulative dose = 2 mg , Phase ll influenza trivalent-split vaccine Given 06/14/2011 1:50 PM CDT 0 .5 mLs Left Deltoid for ages 3yrs and older (PF) (FLUZONE (ages 3yrs and older)) injection 0.5 mL 0.5 mL, Intramuscular, PRIOR TO DISCHARGE, Starting on Sun06/14/11 at 0000, For 1 dose, Administer when afebrile (<100.4??) x 24 hr OR Prior to discharge. Give vaccine fact sheet to patient. Dispose as HW ketorolac (TORADOL) injection 15 mg Given 06/13/2011 10:47 AM CDT 15 mg 15 mg, Intravenous, ONCE PRN, moderate to severe pain, Starting on Sun06/13/11 at 1034, For 1 dose, Check with Surgical Team PRIOR to administration., PACU/Phase II lactated ringers infusion New Bag 06/13/2011 7:29 AM CDT 1,000 mLs 100 mL/hr at 75-100 mL/hr, Intravenous, CONTINUOUS, UNLESS otherwise indicated., Pre-procedure, Starting on Sun06/13/11 at 0645, Until Sun06/13/11 at 1124 levothyroxine (SYNTHROID, LEVOTHROID) tablet Given 08/2011 8:00 AM CDT 112 mcg 112 mcg 112 mcg, Oral, EVERY MORNING BEFORE BREAKFAST, First dose on Sun06/14/11 at 0730, Post-procedure Lidocaine 1% injection 1 mL Given 06/13/2011 7:29 AM CDT 0.4 mLs 1 mL, Other, ONCE PRN, mild pain with VAD insertion or accessing implanted port,, Starting on Sun06/13/11 at 0724, For 1 dose, Do NOT give if patient has a history of allergy to any local anesthetic or any carolina product. MAX dose 1 mL subcutaneous OR intradermal in divided doses., Pre-procedure documented in this encounter Active and Recently Administered Medications Times are shown in CDT. Scheduled Medication Order 06/12/2011 06/13/2011 06/14/2011 atenolol (TENORMIN) tablet 50 mg (CANCELED) 2101 (Given - Provider: Krista Asher RN) 50 mg, Oral, DAILY, First dose on Sun06/13/11 at 2100, Post-pro cedure atorvastatin (LIPITOR) tablet 40 mg (CANCELED) 2101 (Given - Provider: Krista Asher RN) 40 mg, Oral, DAILY, First dose on Sun06/13/11 at 2100, Post-pro cedure calcium carbonate tablet 1,000 mg 1300 ( Not Given - Provider: Kaleigh Ordaz RN - Reason: Other - Comment: only taking sips)1323 (Not Given - Provider: Kaleigh Ordaz, RN - Reason: Other - Comment: only taking sips.) 0950 (Given - Provider: Claire Saenz RN) 2 tablet = 1,000 mg, Oral, 2 TIMES DAILY, First dose on Sun06/13/11 at 1300 2100 (Not Given - Provider: Krista Asher RN - Reason: Patient/family refused - Comment: refused -- too big) ceFAZolin (ANCEF) 1 g vial to attach to IVPB (COMPLETED) 0810 (Given - Provider: Neha Mattson APRN CRNA) 1 g, Intravenous, for 30 Minutes, PRE-OP /PRE-PROCEDURE, For 1 dose, Give first dose within 1 hour PRIOR to incision., Pre-procedure cholecalciferol (VITAMIN D) tablet 400 Units (CANCELED) 2102 (Given - Provider: Krista Asher RN) 1218 (Given - Provider: Claire Saenz RN - Comment: medication not available this AM) 400 Units, Oral, DAILY, First dose on Sun06/13/11 at 1300, Post -procedure levothyroxine (SYNTHROID, LEVOTHROID) tablet 112 mcg 0800 (Given - Provider: Claire Saenz RN) 112 mcg, Oral, EVERY MORNING BEFORE TRISH KFAST, First dose on Sun06/14/11 at 0730, Post-procedure Continuous Medication Order 06/12/2011 06/13/2011 06/14/2011 dextrose 5 % and 0.45 % NaCl + KCl 20 mEq/L (CANCELED) 1314 (New Bag - Provider: Kaleigh Ordaz, SONY)2327 (New Bag - Provider: Krista Asher RN) 0600 (Rate/Dose Verify - Provider: Marcia Reardon RN) Intravenous, at 100 mL/hr, CONTINUOUS, S tarting Sun06/13/11 at 1045, Discontinue IV fluids when PO well tolerated., Post-procedure lactated ringers infusion (CANCELED) 072 9 (New Bag - Provider: Autumn Multani, RN) 1,000 mL, Intravenous, at 75-100 mL/hr, CONTINUOUS, Starting Sun06/13/11 at 0645, UNLESS otherwise indicated., Pre-procedure PRN Medication Order 06/12/2011 06/13/2011 06/14/2011 acetaminophen (TYLENOL) tablet 325-650 mg (CANCELED) 2108 (Given - Provider: Krista Asher, RN) 325-650 mg, Oral, EVERY 4 HOURS PRN, mil d pain, or temp > 102 [address] F., Starting Sun06/13/11 at 1227, Max dose Acetaminophen = 4 gm / 24 hours. May give in addition to other prs-cxwvlhwmmsoth-nfia aining analgesic if moderate to severe p ain is unrelieved 15 minutes after administration., Post-procedure hydrocodone-acetaminophen 5-325 MG per tablet 1-2 tablet 1-2 tablet, Oral, EVERY 4 HOURS PRN, mod erate to severe pain, Starting Sun06/13/11 at 1227, Post-procedure HYDROmorphone (DILAUDID) injection 0.2-0.4 mg (CANCELED) 1045 (Given - Provider: Ashley Alvares, SONY) 0.2-0.4 mg, Intravenous, EVERY 5 MIN PRN , Starting Sun06/13/11 at 1034, Until Sun06/13/11 at 1209, moderate to severe pain, acute pain. May administer if RR is > 10 , Phase ll, If fentanyl is also ordered, use HYDROmorphone if pain contr ol insufficient with fentanyl or a longer acting agent is needed. Max cumulative dose = 2 mg influenza trivalent-split vaccine for ag es 3yrs and older (PF) (FLUZONE (ages 3yrs and older)) injection 0.5 mL (COMPLETED) 1350 (Given - Provider: Claire Saenz, SONY) 0.5 mL, Intramuscular, PRIOR TO DISCHARG E, Starting Sun06/14/11 at 0000, For 1 dose, Administer when afebrile (<100.4??) x 24 hr OR Prior to discharge. Give vaccine fact sheet to patient. Dispose as HW ketorolac (TORADOL) injection 15 mg (COMPLETED) 1047 (Given - Provider: Ashley Alvares, RN) 15 mg, Intravenous, ONCE PRN, moderate t o severe pain, Starting Sun06/13/11 at 1034, For 1 dose, Check with Surgical Team PRIOR to administration., PACU/Phase II Lidocaine 1% injection 1 mL (COMPLETED) 07 (Given - Provider: Autumn Multani, OSNY) 1 mL, Other, ONCE PRN, mild pain with VA D insertion or accessing implanted port,, Starting Sun06/13/11 at 0724, For 1 dose, Do NOT give if patient has a history of allergy to any local anesthetic or an y carolina product. MAX dose 1 mL subcuta neous OR intradermal in divided doses., Pre-procedure documented in this encounter Care Teams Floor Clerk Relationship Specialty Start Date End Date Echo Davison MD PCP - General Family Practice 03/22/11 04/23/21 documented as of this encounter
--- OUTSIDE RECORDS SUMMARY | 2022-08-06 00:56 | XMS_ITS | Encounter Summary ---
:1945 Author Organization [place] Address [facility] [place] [address] Care Team Providers Name Role Phone Unavailable Primary Care Provider Unavailable Encounter Details Date Type Department Care Team Description 11/27/2007 Results Only [facility] Owen Arango MD [facility] Results [address] [place] [address] (Wo rk) Social History Tobacco Use Types Packs/Day Years Used Date Smoking Tobacco: Never Assessed Sex Assigned at Date Recorded Not on file documented as of this encounter Plan of Treatment Not on filedocumented as of this encounter Procedures Procedure Name Priority Date/Time Associated Diagnosis Comme nts MRI BRAIN W/O Routine 11/27/2007 6:24 PM Resul ts for this CONTRAST CDT procedure are i n the results section. documented in this encounter Results MRI BRAIN (11/27/2007 6:24 PM CDT) Anatomical Region Laterality Modality Other Specimen (Source) Anatomical Collection Method Collection Time Re ceived Time Location / / Volume Laterality 11/27/2007 6:24 PM CDT Impressions 11/28/2007 9:05 AM CDT MRI BRAIN WITH AND WITHOUT CONTRAST ?? 6:24 PM HISTORY: Asymmetric sensorineural hearin g loss, worse on left. TECHNIQUE: Routine pulse sequences witho ut and with contrast were performed including thin section images through the IACs. 15 mL of Magnevist given. FINDINGS: Diffusion-weighted images are normal. The brain parenchyma, brainstem, ventricular system, and subar achnoid spaces are normal in appearance. Vascular structures are cox nt at the skull base. Thin section images through the IACs show nor mal proximal 7th and 8th nerve roots bilaterally. The cochlea and vesti bular systems are normal morphology and signal characteristics. T he mastoids do not show any abnormal signal. IMPRESSION: Negative brain and internal auditory canal MRI exam without and with contrast. Owen Arango MD SPECIAL IMAGING STUDIES documented in this encounter Visit Diagnoses Not on filedocumented in this encounter
--- OUTSIDE RECORDS SUMMARY | 2022-08-06 00:56 | XMS_ITS | Encounter Summary ---
:1945 Author Organization [place] Address [address] [place] [address] Care Team Providers Name Role Phone Echo Davison MD Primary Care Provider Reason for Visit Auth/Cert - Closed Specialty Diagnoses / Procedures Referred By Contact Refer red To Contact Surgery Diagnoses Multinodular Goiter Sh Periop Services Procedures THYROIDECTOMY [address] , [address] [place] [address] Phone: Referral ID Status Reason Start Date Expiration Date Visits Requ ested Visits Authorized [id number] Closed 06/06/2011 12/03/2011 1 1 Encounter Details Date Type Department Care Team Description 06/13/2011 Surgery [facility] Mirna Valenzuela MD TOTAL THYROIDECTOMY [place] [facility] [address] [facility] Services [address], [place] [address] [facility] [place] [address] [phone] Surgery Details Date/Time Status Location OR Service Patient Case Class Case Tr auma Class Type Case? 06/13/11 8:00 Posted OR OR M 42 General Surgery AM Admit Panel 1 Procedure LRB Anes Op Region Wound Class Commen ts TOTAL THYROIDECTOMY N/A Other Neck I-Clean TOTAL THYROIDECTOMY Surgeon Surgeon Role Service Panel Olga Valenzuela MD Primary General 1 documented in this encounter Social History [...] 1:11 PM CDT Discharge Instructions following Thyroidectomy/Parathyroidectomy [facility] 33 Diet: -Regular diet; [...] 0 MG tablet mouth At Bedtime At Cholecalciferol (VITAMIN Take 1 tablet by 0 [...] Olga Valenzuela MD - 07/30/2011 4:02 PM EXECUTIVE COACH UTIVE COACH documented in this encounter Miscellaneous Notes Plan [...] MD - 06/13/2011 10:17 AM CDT 1st Law Enforcement Officer: Rosalinda Salinas PA-C PREOPERATIVE DIAGNOSIS: Multinodular goiter. [...] EM#[id number] Name: EMA DAVISON MRN: [id number] Account: [id number] : 1945 Procedure Date: 06/13/2011 Document: [id number] Brief Op Note - Olga Valenzuela MD - 06/13/2011 10:01 AM CDT General Surgery Brief Operative Note Pre-operative diagnosis: Multinodular Goiter Post-operative diagnosis: same Procedure: Procedure(s) (LRB): THYROIDECTOMY (N/A) Surgeon: Ogla Valenzuela MD Law Enforcement Officer(s): Rosalinda Salinas PA-C Anesthesia: General Estimated blood [...] encounter Results Creatinine (06/14/2011 12:10 PM CDT) athologist Signature Creatinine 0.65 0.52 - [facility] 1.04 mg/dL [facility] GFR Estimate >90 >60 [place] mL/min/1.[address] LAB GFR Estimate If >90 >60 [place] Black mL/min/1.[address] LAB Specimen Anatomical Collection Method Collection Time Receive d Time (Source) Location / / Volume Laterality Blood specimen 06/14/2011 12:10 1 (specimen) PM CDT 12:17 PM CDT Olga Valenzuela MD LAB - BLOOD ORDERABLES Performing Organization Address City/State/ZIP Code Phon e Number M [facility] [address] [phone] [facility] Calcium (06/14/2011 12:10 PM CDT) athologist Signature Calcium 8.5 8.5 - 10.4 [place] mg/dL [facility] Specimen Anatomical Collection Method Collection Time Receive d Time (Source) Location / / Volume Laterality Blood specimen 06/14/2011 12:10 1 (specimen) PM CDT 12:17 PM CDT Olga Valenzuela MD LAB - BLOOD ORDERABLES Performing Organization Address City/State/ZIP Code Phon e Number M [facility] [address] [place] [address] [facility] LAB (ABNORMAL) Calcium (06/14/2011 5:57 AM CDT) athologist Signature Calcium 8.2 (L) 8.5 - 10.4 [place] mg/dL [facility] Specimen Anatomical Collection Method Collection Time Receive d Time (Source) Location / / Volume Laterality Blood specimen 06/14/2011 5:57 AM 011 6:02 (specimen) CDT AM CDT Olga Valenzuela MD LAB - BLOOD ORDERABLES Performing Organization Address City/State/ZIP Code Phon e Number M [facility] [address] [address] [phone] [facility] LAB Calcium (06/13/2011 8:50 PM CDT) P athologist Signature Calcium 8.6 8.5 - 10.4 [place] mg/dL [facility] Specimen Anatomical Collection Method Collection Time Receive d Time (Source) Location / / Volume Laterality Blood specimen 06/13/2011 8:50 PM 011 8:58 (specimen) CDT PM CDT Olga Valenzuela MD LAB - BLOOD ORDERABLES Performing Organization Address City/[facility]/ZIP Code Phon e Number M [facility] [address] [phone] [facility] LAB Surgical pathology exam (06/13/2011 9:23 AM CDT) Component Value Ref Test Analysis Performed At Patholo gist Range Method Time Signature Copath Report Patient Name: EMA DAVISON MR#: [id number] Specimen #: [id number] Collected: 06/13/2011 Received: 06/13/2011 Reported: 06/14/2011 14:27 [...] nodule, measures up to 3.1 cm . Proposal Lead Writer sections are submitted. ??SI TRS/ls Cassettes: 1-5. ??Sections of right lobe from superior to inferior. 6-10. ??Left lobe from superior to inferior. MICROSCOPIC: Proposal Lead Writer sections show benign thyroid tissue with a [...] of malignancy. DGB/ls 06/14/2011 TESTING LAB LOCATION: [address] ??[address] COLLECTION SITE: Client: [facility] Location: [facility] (S) Specimen Anatomical Collection Method Collection Time Receive d Time (Source) Location / / Volume Laterality 06/13/2011 9:23 AM 1 CDT 10:58 AM CDT Olga Valenzuela MD LAB - BEAKER AP Performing Organization Address City/[facility]/ZIP Code Phon e Number [place] Hemoglobin (06/13/2011 7:08 AM CDT) P athologist Signature Hemoglobin 13.7 11.7 - 15.7 [place] g/dL [facility] Specimen Anatomical Collection Method Collection Time Receive d Time (Source) Location / / Volume Laterality Blood specimen 06/13/2011 7:08 AM 011 7:16 (specimen) CDT AM CDT Negro Llanos MD LAB - BLOOD ORDERABLES Performing Organization Address City/[facility]/ZIP Code Phon e Number M [place] [address] [place] [address] [facility] documented in this encounter Visit Diagnoses Not on filedocumented in this encounter Active and Recently Administered Medications Times are shown in CDT. Scheduled Medication Order 06/12/2011 06/13/2011 06/14/2011 atenolol (TENORMIN) tablet 50 mg (CANCELED) 2101 (Given - Provider: Krista Asher, SONY) 50 mg, Oral, DAILY, First dose on [...] taking sips)1323 (Not Given - Provider: Kaleigh Ordaz RN - [...] g vial to attach to IVPB (COMPLETED) 08 (Given - Provider: Neha Mattson APRN CRNA) 1 g, Intravenous, for 30 Minutes, PRE-OP /PRE-PROCEDURE, For 1 dose, Give first dose within 1 hour PRIOR to incision., Pre-procedure cholecalciferol (VITAMIN D) tablet 400 Units (CANCELED) 2102 (Given - Provider: Krista Asher RN) 1218 (Given - Provider: Claire Saenz , SONY - Comment: medication not available this AM) 400 Units, Oral, DAILY, First dose on Sun06/13/11 at 1300, Post -procedure levothyroxine (SYNTHROID, LEVOTHROID) tablet 112 mcg 0800 (Given - Provider: Claire Saenz, SONY) 112 mcg, Oral, EVERY MORNING BEFORE TRISH KFAST, First dose on Sun06/14/11 at 0730, Post-procedure Continuous Medication Order 06/12/2011 06/13/2011 06/14/2011 dextrose 5 % and 0.45 % NaCl + KCl 20 mEq/L (CANCELED) 1314 (New Bag - Provider: Kaleigh Ordaz, SONY)2327 (New Bag - Provider: Krista Asher RN) 0600 (Rate/Dose Verify - Provider: Marcia Reardon, RN) Intravenous, at 100 mL/hr, CONTINUOUS, S tarting Sun06/13/11 at 1045, Discontinue IV fluids when PO well tolerated., Post-procedure lactated ringers infusion (CANCELED) 072 9 (New Bag - Provider: Autumn Multani, SONY) 1,000 mL, Intravenous, at 75-100 mL/hr, CONTINUOUS, Starting Sun06/13/11 at 0645, UNLESS otherwise indicated., Pre-procedure PRN Medication Order 06/12/2011 06/13/2011 06/14/2011 acetaminophen (TYLENOL) tablet 325-650 mg (CANCELED) 2108 (Given - Provider: Krista Asher RN) 325-650 mg, Oral, EVERY 4 HOURS PRN, mil d pain, or temp > 102 degrees F., Starting Sun06/13/11 at 1227, Max dose Acetaminophen = 4 gm / 24 hours. May give in addition to other nef-yzylfzqwdpsdn-neko aining analgesic if moderate to severe p [...] (COMPLETED) 1350 (Given - Provider: Claire Saenz, RN) 0.5 mL, Intramuscular, PRIOR TO DISCHARG E, [...] II Lidocaine 1% injection 1 mL (COMPLETED) 0729 (Given - Provider: Autumn Multani, SONY) 1 mL, Other, ONCE PRN, mild pain with VA D insertion or accessing implanted port,, Starting Sun06/13/11 at 0724, For 1 dose, Do NOT give if patient has a history of allergy to any local anesthetic or an y [place] product. MAX dose 1 mL subcuta neous OR intradermal in divided doses., Pre-procedure documented in this encounter Care Teams Enchilada Maker Relationship Specialty Start Date End Date Echo Davison MD PCP - General Family Practice 03/22/11 04/23/21 documented as of this encounter
--- OUTSIDE RECORDS SUMMARY | 2022-08-06 00:56 | XMS_ITS | Clinical Summary ---
:1945 Author Organization [email or web address] [place] [address] Care Team Providers Name Role Phone Melissa Parikh MD Primary Care Provider Allergies No known active allergies Medications Medication Sig Dispensed Refills Start Date End Date Status cholecalciferol (VITAMIN Take 1 tablet 0 10/16/2014 Active D) 1,000 unit tablet by mouth once daily. cyanocobalamin (VITAMIN Take 1 tablet 90 tablet 3 07/29/2019 Active B-12) 1,000 mcg tablet by mouth once daily. traZODone (DESYREL) 50 mg Take 1 tablet 90 tablet 0 11/14/2019 Active tabletIndications: by mouth at Medicare annual wellness bedtime. visit, subsequent atorvastatin (LIPITOR) 40 Take 1 Tablet 90 Tablet 3 10/31/2021 Active mg tabletIndications: (40 mg) by Hyperlipidemia LDL goal mouth at <100 bedtime. lisinopriL (PRINIVIL; Take 1 Tablet 90 Tablet 0 05/11/2022 Active ZESTRIL) 20 mg (20 mg) by tabletIndications: mouth once Essential hypertension, daily. benign levothyroxine (SYNTHROID) Take 1 Tablet 90 Tablet 0 05/28/2022 Active 75 mcg tabletIndications: (75 mcg) by Acquired hypothyroidism mouth once daily. Active Problems Problem Noted Date Type 2 diabetes mellitus with stage 3a chronic kidney disease, without 02/09/2022 long-term current use of insulin Prediabetes 07/26/2021 Overview: 06/10/2020 6.3 Advanced care planning/counseling discussion Overview: did not discuss today but will add to pr oblem list for future discussion. SDH (subdural hematoma) 05/02/2021 Overview: doing well regarding this. no new recomm endations. agree with f/u per neurosurgery. Admission 04/24// stable clinical ly 07/11/21 CT scan showed increased finding s. 07/13/21-07/17/21 increased confusion, aphasia right sided weakness(admission) 07/13/21 left craniotomy Asymptomatic bacteriuria 01/21/2021 Overview: 11/3019, 06/2020; 01/2021- Urinalysis scre ened patient asymptomatic with positive findings (first 2 times treated) held treatment 01/2021 after discussion with Infectious Disease since patient is asymptomatic. Recommendations: 01/21/2021 no screening unless symptoms present, hydration, cranberry Bilateral hearing loss 06/16/2016 Overview: Bilateral hearing aid Medicare annual wellness visit, subsequent 06/15/2016 Visit for screening mammogram 06/15/2016 Postmenopausal 06/15/2016 Hyperlipidemia LDL goal <100 10/18/2015 Overview: Last Lipids: 06/10/2020 Chol: 164 T HDL: 43 LDL: 103 Current medications: lipitor. Primary insomnia 10/18/2015 Overview: Medications tried; trazodone: No current medications: Essential hypertension, benign 04/19/2015 Overview: Current medications: lisinopril Acquired hypothyroidism 04/19/2015 Overview: S/p thyroidectomy for treatment of goite r. Current levothyroxine. Urinary retention with incomplete bladder emptying Resolved Problems Problem Noted Date Resolved Date Stage 3a chronic kidney disease 07/26/2021 10/31/19 22 Pulmonary nodule 04/19/2015 06/16/2016 Encounters Date Type Specialty Care Team Description 07/11/2022 Orders Only Scanner <No scans attac hed> 07/05/2022 Ancillary Procedure 07/05/2022 Travel 05/26/2022 Refill Melissa Parikh, Refill Request (Levothyroxine) 05/08/2022 Refill Melissa Parikh, Refill Request (Lisinopril) from Last 3 Months Immunizations Name Administration Dates Next Due AMB INFLUENZA IIV3 (AGE 65+ YRS) PF (Flu 06/07/2021 Clinic Only) COVID-19 vaccine ([employer] 07/26/2021, 11/09/2020, 30mcg/0.3mL) PF, MDV Hepatitis A (Adult) 05/27/2018 Influenza, High-dose Inactivated 06/12/2016, 07/05/2015 Influenza, High-dose Quadrivalent 06/07/2021 Inactivated Influenza, IIV3 (Age 6-35 mos) 06/14/2011 Influenza, IIV3 (Age >=3 years) 05/04/2009 Influenza, Inactivated AIIV4 (Age 65+ 06/07/2020 Years) Preserv Free Influenza, Inactivated IIV3 (Age 65+ 06/11/2019, 05/27/2018, 07/13/2017 Years) Preserv Free MMR 05/27/2018 MMR, Unspecified 05/27/2018 Pneumococcal Poly,23-Valent (Pneumovax) 06/16/2016, 11/29/19 05 Pneumococcal conj 13-Valent (Prevnar 13) 10/18/2015 Td (Age >=7 Years) 10/02/1989 Tdap 09/23/2012 Zoster (Zostavax-ZVL, live) 02/22/2014 Family History Medical History Relation Name Comments Heart Disease Brother Good Health Daughter 1 Other Daughter 1 gallbladder dylan louie Good Health Daughter 2 Diabetes Father Heart attack Father Unknown Mother Good Health Son Cancer-breast No Family History Relation Name Status Comments Brother Daughter 1 Alive Daughter 2 Alive Father Mother (Age 89) possibly from heart attack Son Alive Social History Tobacco Use Types Packs/Day Years Used Date Former Smoker Cigarettes 0.25 20 Smokeless Tobacco: Never Used Tobacco Cessation: Counseling Given: No Comments: Quit in 1981 Alcohol Use Standard Drinks/Week Comments Yes 0 (1 standard drink = 0.6 oz pure alcoho l) rare Alcohol Habits Answer Date Recorded How often do you have a drink containing alcohol? Monthly or less 06/11/2019 How many drinks containing alcohol do you have on a 1 or 2 06/11/2019 typical day when you are drinking? How often do you have six or more drinks on one Never 06/11/2019 occasion? Comment: rare 12/17/2012 Sex Assigned at Date Recorded Not on file Obstetrics History Para Term AB IAB SAB Ectopic Multiple Living Live Births 4 3 3 3 Date Outcome GA Total Labor/2nd/3rd Weight Sex Delivery Anes PTL Rebekah A 1 A5 Name Clin Labor Para Para Para Last Filed Vital Signs Vital Sign Reading Time Taken Comments Blood Pressure 118/84 02/09/2022 9:28 AM CDT Pulse 86 02/09/2022 9:28 AM CDT Temperature 35.9 ??C (96.6 ??F) 02/09/2022 9:28 AM CDT Respiratory Rate - - Oxygen Saturation 99% 02/09/2022 9:28 AM CDT Inhaled Oxygen Concentration - - Weight 65.9 kg (145 lb 3 oz) 02/09/2022 9:28 AM CDT Height 160 cm (5' 3) 02/09/2022 9:28 AM CDT Body Mass Index 25.72 02/09/2022 9:28 AM CDT Plan of Treatment Health Maintenance Due Date Last Done Comments Hepatitis C screening for age 0905/07/1963 18-79 Zoster (shingles) series for age 0804/19/2014 02/22/2014 50+ (2 of 3) COVID-19 vaccine series (5 - 03/03/2022 01/06/2022, 021, Booster for Pfizer series) 11/09/2020, Additiona l history exists Influenza for age 65+ 05/04/2022 06/07/2021, 06/07/2021, 06/07/2020, Additional history exists Depression screening for age 12+ 07/26/2022 07/26/2021, 08/2021, 11/14/2019, Additional history exists Medicare Wellness for age 65+ 07/26/2022 07/26/2021, 2019, 11/06/2018, Additional history exists Tetanus booster 09/23/2022 09/23/2012, 10/02/1989 BMI (ht and wt on same day) for 02/09/2023 02/09/2022, 07/05, age 18+ 06/10/2020, Additional history exists Tdap Completed 09/23/2012 DEXA/DXA scan for age 65+ Completed 06/16/2016, 09/23/2012 (Completed outside of [facility]) Pneumococcal series for age 65+ Completed 06/16/2016, 10/04, 11/28/2004 Procedures Procedure Name Priority Date/Time Associated Diagnosis Comme nts SCAN-EYE EXAM 07/11/2022 12:00 AM Results for this SPRAY APPLICATOR procedure are i n the results section. XR MAMMO RAFA BILAT Routine 07/05/2022 2:54 PM Visit for darius ramsay Results for this SCREEN CDT mammogram procedure are i n the results section. from Last 3 Months Results SCAN-EYE EXAM (07/11/2022 12:00 AM SPRAY APPLICATOR) Narrative This result has an attachment that is no t available. Scanner OTHER XR MAMMO RAFA BILAT SCREEN (07/05/2022 2:54 PM CDT) Anatomical Region Laterality Modality BREASTS, Breast Left, Breast Right Bilateral Mammo graphy Specimen (Source) Anatomical Location Collection Method / Collectio n Time Received Time / Laterality Volume Impressions 07/05/2022 3:06 PM CDT ??There is no radiographic evidence for malignancy. ??Recommend annual mammograms. MAMMOGRAM ASSESSMENT: ??ACR 1 Negative PATIENTS: You will also receive a letter with your examination results in an easy to read format. ??If you have qu estions about your results, please contact your referring provider. Narrative 07/05/2022 3:06 PM CDT For Patients: As a result of the Century Cures Act, medical imaging exams and procedure reports are released immediately into your electronic medical record. You may view this report before your referring provider. If you have questions, please contact our [facility] care provider. XR MAMMO RAFA BILAT SCREEN [[id number]] CLINICAL HISTORY: ??This is an asymptoma tic 77 y.o. patient. INDICATION FOR EXAM: Mammogram Screening . TECHNIQUE: CC & MLO views were obtained. ??This study was evaluated with the assistance of Computer-Aided Detecti on. Breast Tomosynthesis was used in interpretation. COMPARISON FILM: Yes 11/14/19 [facility] 11/06/18 [facility] FINDINGS: ??The breasts have scattered a reas of fibroglandular density. There are no dominant masses, suspicious micro calcifications or areas of architectural distortion. Melissa Parikh MD MAMMO from Last 3 Months Insurance Payer Benefit Plan / Subscriber ID Effective Dates Phone Addre ss Type Group MEDICARE PART B MEDICARE PART B [id number] 2009-Present ATTN: CLAIMS - HB USE ONLY HB ONLY [address] [place] [address] MEDICARE - PB MEDICARE [place] [id number] 2014-Present ATT N: CLAIMS USE ONLY ONLY [address] [place] [address] [employer] [id number] 2016-Present [address] [address] [place] [address] (Work) Care Teams Wire Drawer Relationship Specialty Start Date End Date Melissa Parikh MD PCP - General Internal Medicine 01/12/[address] [place], [place] [address]
--- OUTSIDE RECORDS SUMMARY | 2022-08-06 00:56 | XMS_ITS | Encounter Summary ---
:1945 Author Organization [facility] Address [address] [place] [address]. [place] [address] Care Team Providers Name Role Phone Echo Davison MD Primary Care Provider Melissa Parikh Primary Care Provider Unavailable Thony Sousa PA-C Unavailable Reason for Visit Reason Onset Date Comments Call to schedule test 04/25/2012 Encounter Details Date Type Department Care Team Description 04/25/2012 Telephone [facility] Jesus Armendariz Call to schedule test Clinic Aditya Mcallister MD [address] [phone] [place] [id number] (Wo rk) Social History Tobacco Use Types [...] on filedocumented in this encounter Care Teams Grade Checker Relationship Specialty Start Date End Date Echo Davison MD PCP - General Family Practice 03/22/11 04/23/21 Melissa Parikh PCP - General Internal Medicine 04/24/21 [address] [place] [address] Thony Sousa, Assigned Neuroscience 06/05/21 PA-C Provider [address] [place] [phone] documented as of this encounter
--- OUTSIDE RECORDS SUMMARY | 2022-08-06 00:56 | XMS_ITS | Encounter Summary ---
:1945 Author Organization [place] Address [address] [place] [address] Care Team Providers Name Role Phone Unavailable Primary Care Provider Unavailable Encounter Details Date Type Department Care Team Description 11/29/2007 Historic Results INTERFACED REPORT Félix Gates MD [address] [address] (Wo rk) Social History Tobacco Use Types Packs/Day Years Used Date Smoking Tobacco: Never Assessed Sex Assigned at Date Recorded Not on file documented as of this encounter Plan of Treatment Not on filedocumented as of this encounter Procedures Procedure Name Priority Date/Time Associated Diagnosis Comme [facility] CYTOPATHOLOGY Routine 11/29/2007 2:04 PM Results for this CDT procedure are i n the results section . documented in this encounter Results Cytopathology (11/29/2007 2:04 PM CDT) Component Value Ref Test Analysis Performed At [facility] Range Method Time Signature Copath Report CASE: [id number] ^ COPATH Patient Name: EMA ALVARES MR#: [id number] Specimen #: [id number] Collected: 11/29/2007 Received: 11/29/2007 Reported: 12/02/2007 16:45 Ordering Phy(s): NELSY GATES Additional Phy(s): TERRIE JOSEPH SPECIMEN/STAIN PROCESS: A: FNA-thyroid, right #2 ? Pap-Cyto x 6 B: FNA-thyroid, left #5 ? Pap-Cyto x 6 ---- CYTOLOGIC INTERPRETATION: A. ??FNA-thyroid, right #2: ?? Negative forMalignancy, pleas e see description Specimen Adequacy: Satisfactory for evaluation but limited b y: ...scant follicular cells present. B. ??FNA-thyroid, left #5: ?? Negative for Malignancy consistent with benign colloid nodule. Specimen Adequacy:Satisfactory for evaluation. Electronically signed out by: Martha Duong M.D. Processed and screened at [facility] CLINICAL HISTORY: , GROSS: A. ??FNA-thyroid, right#2: ??6 fixed smears received B. ??FNA-thyroid, left #5: ??6 fixed smears received MICROSCOPIC: A. ??Examination of 6 smears, designated right #2, shows n umerous macrophage in the background indicating degeneration. ?? A p opulation of spindled cells, consistent with cyst lining cells, is also s een. Evaluation of the follicular epithelial component shows this to be very scant, limiting diagnostic evaluation. ??The few groups visu alized appear benign. ??Colloid is evident. ??Please correlate with the ra diographic and clinical impression with consideration for re-biopsy should there be a high index of suspicion for malignancy, or should the lesion increase in size. B. ??Examination of 6 smears, designated left #5, shows th is to horne adequate sample with sufficient follicular epithelial cell g roups present for evaluation. ??The follicle cells are arranged in small clusters, and they are morphologically bland and benign. ??S mall numbers of macrophage are again noted and colloid is visualized. The findings are those of benign colloid nodule. KPF/tw 12/02/07 TESTING LAB LOCATION: [address] ??[id number] COLLECTION SITE: Client: ??[facility] Location: ??ULT (S) Specimen Anatomical Collection Method Collection Time Receive d Time (Source) Location / / Volume Laterality 11/29/2007 2:04 PM 03/31/200 8 4:45 CDT PM CDT Nelsy Gates MD LAB - COPATH SPECIAL DIAG OR DERABLES Performing Organization Address City/State/ZIP Code Phon e Number COPATH documented in this encounter Visit Diagnoses Not on filedocumented in this encounter
--- OUTSIDE RECORDS SUMMARY | 2022-08-06 00:56 | XMS_ITS | Encounter Summary ---
:1945 Author Organization [place] Address [address] [place] [address] Care Team Providers Name Role Phone Echo Davison MD Primary Care Provider Encounter Details Date Type Department Care Team Description 12/05/[address] [facility] Heart Unknown, [address] [phone] Social History Tobacco Use Types Packs/Day Years Used Date Smoking Tobacco: Never Assessed Sex Assigned at Date Recorded Not on file documented as of this encounter Plan of Treatment Not on filedocumented as of this encounter Procedures Procedure Name Priority Date/Time Associated Diagnosis Comme nts ECHO CARDIAC - HIM SCAN 12/05/2004 12:00 AM CDT - ARCHIVE documented in this encounter Results ECHO CARDIAC - HIM SCAN - ARCHIVE (12/05/2004 12:00 AM CDT) Anatomical Region Laterality Modality Echocardiography Specimen (Source) Anatomical Location Collection Method / Collectio n Time Received Time / Laterality Volume 12/05/2004 Narrative This result has an attachment that is no t available. Provider Scan CV ECHO ORDERABLES documented in this encounter Visit Diagnoses Not on filedocumented in this encounter Care Teams Data Entry Relationship Specialty Start Date End Date Echo Davison MD PCP - General Family Practice 03/22/11 04/23/21 documented as of this encounter
--- OUTSIDE RECORDS SUMMARY | 2022-08-06 00:56 | XMS_ITS | Encounter Summary ---
:1945 Author Organization [place] Address [address] [place] [address] Care Team Providers Name Role Phone Echo Davison MD Primary Care Provider Encounter Details Date Type Department Care Team Description 06/13/2011 Anesthesia Event [facility] [place] Martha PeriOP Ser mohit Fam MD [address] ANESTHESIA [facility] [address] [place] [address] [place] [address] [phone] Anesthesia Record Procedure Summary Procedure Name Responsible Anesthesia Start Anesthesia Stop Anesthesiologist Time Time TOTAL THYROIDECTOMY 06/13/11 0757 06/13/11 102 2 (Neck) Events Date Time Event Comment 06/13/2011 0757 An Start 0826 1022 An Stop Name Total ceFAZolin (ANCEF) 1 g vial to attach to IVPB 1 g Agents No agents on file. Blood No blood administrations on file. Lines, Drains, and Airways Type Details Placement Removal Urethral Catheter 06/13/11 06/13/11 0000 by 06/14/11 1304 by Kaleigh Ordaz Rotegard, Me lissa, RN RN Peripheral IV 06/13/11; 0728; 18 G; 06/13/11 0728 by 06/14/11 1304 by Left; Hand; Autumn Multani, Renee mary jane, Chlorhexidine; SONY Staton RN Injectable RETIRED ETT 06/13/11; 0808; Airway 06/13/11 0808 by 06/13/11 0955 by Size: 7; Cuffed; Oral Neha Mattson Risvo ld, Charlotte endotracheal tube, ELEUTERIO Payne RN Other (comment) (HEBER Tube); Blade Type: Patricia; Blade Size: 3; Place by: Cindy Mattson; Insertion Attempts: 1; Secured at (cm)to lip: 22 cm; Breath Sounds: Equal, clear and bilateral; End Tidal CO2: Present; Dentition: Intact; Grade View of Cords: 2 Closed/Suction Drain 06/13/11; 947; Neck; 06/13/11 0948 by 06/03 10/14 1304 by Bulb; 10 Jimi Parekh RN Rotegard, Agata chicas RN Incision/Surgical Site 06/13/11; 0948; 06/13/11 0948 by 07/17/21 0847 by Transverse; Neck; Jimi Hardy RN Mokaya, Wycli ffe O, 07/17/21; 0847 RN RETIRED ETT 06/13/11 1001 by 06/13/11 0955 Neha Mcgregor Ma, APRN CRNA documented in this encounter Social History Tobacco Use Types Packs/Day Years Used Date Smoking Tobacco: Former Cigarettes 0.5 20 Comments: quit 30 yrs a go/ maybe a pack a week Alcohol Use Standard Drinks/Week Comments Yes 0 (1 standard drink = 0.6 oz pure alcoho l) one drink a month Sex Assigned at Date Recorded Not on file documented as of this encounter OR Notes Anesthesia Postprocedure Evaluation - Larry Uribe MD - 06/13/2011 11:46 AM CDT Anesthesia Post-Evaluation Note Patient: Eam Davison Patient location: PACU Procedure(s) Performed: THYROIDECTOMY - TOTAL THYROIDECTOMY Anesthesia type: General Patient Condition Respiratory Function (RR / SpO2 / Airway Patency): Satisfactory Cardiac Function (HR / Rhythm / BP): Satisfactory Mental Status: Satisfactory Temperature: Satisfactory Pain Control: Satisfactory PONV: None Beta-Phuong Therapy: None indicated Last Vitals: Filed Vitals: 06/13/11 1100 06/13/11 1115 06/13/11 1130 BP: 152/81 147/77 137/74 Temp: Resp: 07 15 SpO2: 97% 96% 96% Additional Comments: Anesthesia Preprocedure Evaluation - Larry Uribe MD - 06/13/2011 6:34 AM CDT Procedure: Procedure(s): THYROIDECTOMY Preop diagnosis: Multinodular Goiter No Known Allergies There is no problem list on file for this patient. Current facility-administered medications ordered prior to encounter: ceFAZolin (ANCEF) 1 g vial to attach to IVPB ceFAZolin (ANCEF) 1 g vial to attach to IVPB Lidocaine 1% injection 1 mL lactated ringers infusion Current outpatient prescriptions ordered prior to encounter: atenolol (TENORMIN) 50 MG tablet Take 50 mg by mouth. At HS atorvastatin (LIPITOR) 40 MG tablet Take 40 mg by mouth daily. At hs aspirin 81 MG tablet Take 1 tablet by mouth daily. Cholecalciferol (VITAMIN D) 2000 UNIT tablet Take 1 tablet by mouth daily. There were no vitals taken for this visit. No results found for this basename: wbc, hgb, plt, na, potassium, cl, co2, bun, cr, glucose, ptt, inr Anesthesia Evaluation history and physical reviewed - Goiter. Pt has had prior anesthetic. Type: General No hx of anesthetic complications ROS/MED HX Pulmonary: (+) Other pulmonary disease (-) tobacco use, asthma, COPD and sleep apneaCystic fibrosis: lung nodule. Neurologic: (-) CVATIA: lung nodule noted and SOB. Cardiovascular: Comment: hyperlipidemia (-) hypertension and CAD METS/Exercise Tolerance: 4 - Raking leaves, gardening Hematologic: Musculoskeletal: GI/Hepatic: Comment: Non alcoholic liver disease (+) liver disease, Renal: Comment: Renal stone (-) renal disease Endo: (+) thyroid problem Thyroid disease - Other, (-) Type I DM and Type II DM Psychiatric: Comment: anxiety Infectious Disease: Other: Physical Exam Normal systems: cardiovascular, pulmonary and dental Airway Mallampati: II TM distance: >3 FB Neck ROM: full Dental Cardiovascular Pulmonary Anesthesia Plan ASA Score 2 . Plan for General, ETT and Other with Intravenous induction. Maintenance will be Inhalation. Routine analgesia and antiemetics to be used for post-operative care. Anesthetic plan, risks, benefits and alternatives discussed with: patient or customer account representative. Zofran, decadron 4mg, HEBER tube, Deep extubation if patient is easy to mask . documented in this encounter Miscellaneous Notes Anesthesia Care Transfer Note - Neha Mattson APRN CRNA - 06/13/2011 10:21 AM CDT Anesthesia Care Transfer Note Patient: Ema Davison Transferred to: PACU Patient vital signs: stable Airway: none documented in this encounter Plan of Treatment Not on filedocumented as of this encounter Visit Diagnoses Not on filedocumented in this encounter Administered Medications Inactive Administered Medications - up to 3 most recent administrations Medication Order MAR Action Action Date Dose Rate Site ceFAZolin (ANCEF) 1 g vial to attach Given 06/13/2011 8:10 AM CD T 1 g to IVPB Routine, 1 g, Intravenous, PRE-OP/PRE-PROCEDURE, Starting on Sun06/13/11 at 0645, For 1 dose, Give first dose within 1 hour PRIOR to incision., Pre-procedure documented in this encounter Care Teams Unix Developer Relationship Specialty Start Date End Date Echo Davison MD PCP - General Family Practice 03/22/11 04/23/21 documented as of this encounter
--- OUTSIDE RECORDS SUMMARY | 2022-08-06 00:56 | XMS_ITS | Encounter Summary ---
:1945 Author Organization [place] Address [address] [place] [address] Care Team Providers Name Role Phone Melissa Parikh Primary Care Provider Unavailable Encounter Details Date Type Department Care Team Description 04/24/2021 Travel Social History Tobacco Use Types Packs/Day [...] on filedocumented in this encounter Care Teams Industrial Cafeteria Manager Relationship Specialty Start Date End Date Melissa Parikh PCP - General Internal Medicine 04/24/21 [address] Ash[address] Cantu [address] [address] documented as of this encounter
--- OUTSIDE RECORDS SUMMARY | 2022-08-06 00:56 | XMS_ITS | Encounter Summary ---
:1945 Author Organization [place] Address [facility] [place] [address] Care Team Providers Name Role Phone Unavailable Primary Care Provider Unavailable Encounter Details Date Type Department Care Team Description 11/29/2007 Results Only [facility] Owen Arango MD [facility] Results [address] [place], [place] [phone] (Wo rk) Social History Tobacco Use Types Packs/Day Years Used Date Smoking Tobacco: Never Assessed Sex Assigned at Date Recorded Not on file documented as of this encounter Plan of Treatment Not on filedocumented as of this encounter Procedures Procedure Name Priority Date/Time Associated Diagnosis Comme nts [facility] FINE NEEDLE Routine 11/29/2007 2:02 PM Result s for this ASPIR,SUPERFICIAL CDT procedure are in the results section. documented in this encounter Results FINE NEEDLE ASPIR,SUPERFICIAL (11/29/2007 2:02 PM CDT) [facility] Method Time Signature [facility]AGECAST RADIOLOGY RESULT ULTRASOUND-GUIDED BIOPSY, THYROID, FINE NEEDLE ASPIRAT ION - 11/29/2007, RESULTS 2:02 PM CLINICAL INFORMATION: Enlarged thyroid with multiple thyroid nodules seen on outside ultrasound. Request for biopsy of the larges t nodule in each thyroid lobe. FINDINGS: Procedure and risks discussed, and consent obtaine d. Under sterile conditions, local anesthesia (ethyl chloride spray) and direct ultrasound guidance, the largest nodule in each lobe was bio psied three times ?? using a 25-gauge needle. No immediate complic ations. The patient tolerated the procedure well. Pathology is pending. The biopsied nodules include a 2.5 x 2.0 x 1.7 cm nodule in the right mid thyroid and a 2.4 x 2.6 x 2.0 cm complex hypoechoic nodu le left mid thyroid. IMPRESSION: Ultrasound guided biopsy of two thyroid nodules, one in each lobe. Specimen (Source) Anatomical Collection Method Collection Time Re ceived Time Location / / Volume Laterality 11/29/2007 2:02 PM CDT Owen Arango MD LABORATORY Performing Organization Address City/State/ZIP Code Phon e Number RADIOLOGY RESULTS documented in this encounter Visit Diagnoses Not on filedocumented in this encounter
--- OUTSIDE RECORDS SUMMARY | 2022-08-06 00:56 | XMS_ITS | Encounter Summary ---
:1945 Author Organization [facility] Address [address] [place] [address] Care Team Providers Name Role Phone Melissa Parikh A Primary Care Provider Unavailable Reason for Referral Rehab Therapy Physical Therapy (Routine) - Closed Specialty Diagnoses / Procedures Referred By Contact Refer red To Contact Diagnoses Dizziness Colleen Higuera PA-C [facility] [place] [address] [address] [place], [place] [address] Referral ID Status Reason Start Date Expiration Date Visits Requ ested Visits Authorized [id number] Closed 04/28/2021 04/28/2022 1 1 Reason for Visit Reason Comments Dizziness Encounter Details Date Type Department Care Team Description 04/28/2021 Emergency [facility] Colleen Higuera History o f subdural hematoma; [facility] Emergency [facility] Dizziness Dept [facility] [address] [place] [address] [address] [place] [phone] [address] [place] [address] (Wo rk) Social History Tobacco Use Types [...] Sign Reading Time Taken Comments Blood Pressure 128/81 04/28/2021 12:00 PM CDT Pulse 73 04/28/2021 3:00 PM CDT Temperature 36.7 ??C (98 ??F) 04/28/2021 11:35 AM CDT Respiratory Rate 16 04/28/2021 3:00 PM CDT Oxygen Saturation 98% 04/28/2021 3:00 PM CDT Inhaled Oxygen Concentration - - Weight - - Height - - Body Mass Index - - documented in this encounter Discharge Instructions Discharge InstructionsColleen Higuera PA-C - 04/28/2021 3:06 PM CDT Drink fluids and eat well over the weekend. Take meclizine if feeling dizzy. Avoid getting up quickly. Follow up with PCP over the weekend. If worsening symptoms over the weekend, new weakness, cannot walk, fevers, difficulty moving hands/feet, come back here [facility]. Discharge Instructions Vertigo You have been diagnosed with vertigo. This is a dizzy feeling often described as spinning or that the room is moving around you. You will often have nausea (sick to your stomach), vomiting (throwing up), and balance problems with it. Vertigo is usually caused by a problem in the inner ear which helps control your balance. Many things can cause vertigo, including calcium collections in the inner ear, a virus infection of the inner ear, concussion, migraine, and some medicines. Luckily, these causes are not life threatening and will eventually go away. However, sometimes there is a serious problem that does not show up right away. Generally, every Emergency Department visit should have a follow-up clinic visit with either a primary or a specialty clinic/provider. Please follow-up as instructed by your emergency provider today. Return to the Emergency Department if you have: New or severe headache. Double vision (seeing two of things). Trouble speaking or hearing. Weakness or trouble moving/using one side of your body. Passing out. Numbness or tingling. Chest pain. Vomiting that will not stop. Treatment: There are several commonly prescribed medications: Antihistamines such as meclizine (Antivert??), dimenhydrinate (Dramamine??), or diphenhydramine (Benadryl??). Prescription anti-nausea medicines, such as promethazine (Phenergan??), metoclopramide (Reglan??), or ondansetron (Zofran??). Prescription sedative medicines, such as diazepam (Valium??), lorazepam (Ativan??), or clonazepam (Klonopin??). Most of these medicines make you sleepy, and you should not take them before you work or drive. You should only take prescription medicines to treat severe vertigo symptoms, and you should stop the medicine when your symptoms improve. Follow Up: If you have vertigo longer than three days, it is important that you follow up either with your primary provider or an Ear, Nose, and Throat (ENT) specialist. You may need further testing to evaluate your vertigo and you may also need ???vestibular?? therapy which is a special form of physical therapy to make the vertigo go away. If you were given a prescription for medicine here today, be sure to read all of the information (including the package insert) that comes with your prescription. This will include important information about the medicine, its side effects, and any warnings that you need to know about. The pharmacist who fills the prescription can provide more information and answer questions you may have about the medicine. If you have questions or concerns that the pharmacist cannot address, please call or return to the Emergency Department. Remember that you can always come back to the Emergency Department if you are not able to see your regular provider in the amount of time listed above, if you get any new symptoms, or if there is anything that worries you. documented in this encounter Medications at Time of Discharge Medication Sig Dispensed Refills Start Date End Date atorvastatin (LIPITOR) 40 Take 40 mg by mouth 0 MG tablet At Bedtime At hs Cholecalciferol (VITAMIN Take 1 tablet by 0 D) 2000 UNIT tablet mouth daily. levothyroxine Take 75 mcg by 0 (SYNTHROID/LEVOTHROID) 75 mouth daily MCG tablet lisinopril (ZESTRIL) 20 MG Take 20 mg by mouth 0 tablet At Bedtime meclizine (ANTIVERT) 25 MG Take 1 tablet (25 30 tablet 1 tablet mg) by mouth every 6 hours as needed for dizziness HYDROcodone-acetaminophen Take 1 tablet by 3 tablet 0 04/0404/29/2021 (NORCO) 5-325 MG mouth every 6 hours tabletIndications: SDH as needed for (subdural hematoma) severe pain documented as of this encounter ED Notes Ninoska Frost RN - 04/28/2021 12:00 PM CDT Patient's respirations are even and non labored. Patient denies CP or SOB. Liane Salazar RN - 04/28/2021 11:31 AM CDT Recent discharge from [facility] for subdural. States this morning woke up with dizziness (room spinning) and nausea. Brought in by daughter. No new falls or injuries. T La Nena Allen RN - 04/28/2021 11:30 AM CDT Bed: ED14 Expected date: Expected time: Means of arrival: Comments: Triage Colleen Higuera PA-C - 04/28/2021 11:28 AM CDT History Chief Complaint: Dizziness The history is provided by the patient. Ema Davison is a 75 year old female who presents with dizziness. The patient had a fall 5 daysago and was in the hospital for 3 days. She has bruise on the anterior aspect of her left shoulder from the fall and still has some pain. She also mentions that her hearing has been worse since the fall. She was a little nauseas yesterday morning, but otherwise felt normal for the rest of the day. Then this morning around 0700, she woke up feeling dizzy. She went back to bed again for another hour, but the dizziness did not go away. She also has been having an intermittent odd feeling in her upperabdomen, some blurry vision, and an intermittent headache. She mentions that her stools have been loo se for the past couple of days, but suspects its due to not eating much. She denies having any new falls or being on blood thinners. There is no association of hematochezia or chest pain. Review of Systems Eyes: Positive for visual disturbance. Cardiovascular: Negative for chest pain. Gastrointestinal: Positive for nausea. Negative for blood in stool. Neurological: Positive for dizziness and headaches. All other systems reviewed and are negative. Allergies: No Known Allergies Medications: Atorvastatin Synthroid Lisinopril Past Medical History: Hyperlipidemia Hypertension Kidney stone Post-nasal drip Thyroid disease Subdural hematoma Asymptomatic bacteruria Hearing loss Insomnia Type 2 diabetes mellitus Pulmonary nodule Ovarian cyst Past Surgical History: Appendectomy Saphenous vein ligation Polypectomy Thyroidectomy Family History: Brother - heart disease Father - diabetes, [place] Social History: Patient was accompanied to the ED with her daughter. Physical Exam Patient Vitals for the past 24 hrs: BP Temp Temp src Pulse Resp SpO2 04/28/21 1200 128/81 -- -- 75 9 97 % 04/28/21 1135 (!) 151/75 98 ??F (36.7 ??C) Oral 79 16 96 % Physical Exam General: Alert and interactive. Appears well. Cooperative and pleasant. Eyes: The pupils are equal and round. EOMs intact. No scleral icterus. ENT: No abnormalities to the external nose or ears. Mucous membranes moist. Posterior oropharynx is non-erythematous. Neck: Trachea is in the midline. No nuchal rigidity. CV: Regular rate and rhythm. S1 and S2 normal without murmur, click, gallop or rub. Resp: Breath sounds are clear bilaterally, without rhonchi, wheezes, rales. Non- labored, no retractions or accessory muscle use. GI: Abdomen is soft without distension. No tenderness to palpation. No peritoneal signs. MS: Moving all extremities well. Good muscle tone. Good ROM in the left shoulder. Tenderness to lefttrapezius. Skin: Warm and dry. Bruising to the left shoulder and left anterior chest wall. Neuro: Speech is normal and fluent. Vertiginous when sitting up. Face is symmetric without droop. 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 Negative pronator drift. Finger to nose intact. Heel to alfaro intact. Right Arm: Good security officer strength. 5/5 elbow flexion. 5/5 elbow extension. Sensation intact to light touch. Left Arm: Good security officer strength. 5/5 elbow flexion. 5/5 elbow extension. Sensation intact to light touch. Right Le/5 straight leg raise, 5/5 knee flexion, 5/5 knee extension, 5/5 dorsiflexion, 5/5 plantar flexion. Sensation intact to light touch. Left Le/5 straight leg raise, 5/5 knee flexion, 5/5 knee extension, 5/5 dorsiflexion, 5/5 plantar flexion. Sensation intact to light touch. Normal gait. No antalgia or ataxia. Psych: Awake. Alert. Normal affect. Appropriate interactions. Lymph: No anterior or posterior cervical lymphadenopathy noted. Emergency Department Course EC ECG taken at 1143, ECG read at 1143 Normal sinus rhythm Normal ECG Rate 73 bpm. ND interval 128 ms. QRS duration 100 ms. QT/QTc 406/447 ms. P-R-T axes 24 -17 27. Imaging: Head CT w/o contrast Final Result IMPRESSION: 1. No significant change compared to CT head of 04/26/2021. 2. Unchanged thin left cerebral convexity subdural hematoma. Unchanged thin parafalcine subdural hematoma. Unchanged minimal mass effect on the left cerebral convexity without midline shift/herniation. 3. No new intracranial hemorrhage or other acute abnormality. NELY DAVENPORT MD SYSTEM ID: [id number] Laboratory: CBC: WBC 6, HGB 12.4, PLT 177 BMP: Glucose 171 (H) o/w WNL (Creatinine 0.88) Emergency Department Course: Reviewed: I reviewed nursing notes, vitals, past history and care everywhere Assessments: 1143 I obtained history and examined the patient as noted above. 1400 I rechecked the patient and explained findings. 1502 I rechecked the patient and discussed plans for discharge home. Interventions: 1244 Ns 1L IV 1244 Antivert 50mg PO Disposition: The patient was discharged to home. Impression & Plan Medical Decision Making: Ema Davison is a 75 year old female who presents for evaluation of intermittent vertigo.The patient had a history of a subdural hematoma from a recent fall. She has been feeling well since being discharged from the hospital until this morning when she began to feel dizzy with position changes. The patient describes a room spinning sensation only when sitting up or moving her head. EKG shows no ischemic changes or concerning arrhythmias. No anemia, renal insufficiency, or electrolyte abnormalities. The patient here feels better after normal saline and 50 mg of meclizine. She was able to ambulate throughout the department and felt steady on her feet. There is no ataxia or antalgia. I did repeat a CT scan given her recent subdural hematoma, and there has been no acute change to this or signs of midline shift. I discussed that the most definitive way to rule out a central etiology for her dizziness is an MRI. With her positional changes, I felt posterior circulation CVA was less likely. She declined MRI and requested discharge home. At this juncture, will discharge patient with meclizine to take at home. Vestibular therapy ordered.Patient will follow up with neurosurgery as indicated for hospital follow-up. Additionally, the patient has a primary care visit on Sunday, 3 days from now. I have requested that she drink lots of fluids, eat a normal diet, and avoid sudden movements of her head. She has any worsening over the weekend, she should return here immediately for further evaluation and treatment. The patient, her daughter,and her granddaughter all were present for this discussion. They understand the risks of discharge and the reasons to return to the emergency department. Questions were answered to the best of my ability. Covid-19 Ema Davison was evaluated during a global COVID-19 pandemic, which necessitated consideration that the patient might be at risk for infection with the SARS-CoV-2 virus that causes COVID-19. Applicable protocols for evaluation were followed during the patient's care. Diagnosis: ICD-10-CM 1. History of subdural hematoma Z86.79 2. Dizziness R42 Physical Therapy Referral Discharge Medications: Discharge Medication List as of 04/28/2021 3:13 PM START taking these medications Details meclizine (ANTIVERT) 25 MG tablet Take 1 tablet (25 mg) by mouth every 6 hours as needed for dizziness, Disp-30 tablet, R-1, Local Print Scribe Disclosure: I, Jose Carlos Monge, am serving as a scribe at 11:52 AM on 04/28/2021 to document services personally performed by Colleen Higuera PA-C based on my observations and the provider's statements to me. Colleen Higuera PA-C 04/28/211810 documented in this encounter Plan of Treatment Scheduled Referrals Name Type Priority Associated Diagnoses [facility] Referral Referral Routine Dizziness Or dered: 04/28/2021 documented as of this encounter Procedures Procedure Name Priority Date/Time Associated Comments Diagnosis CT HEAD W/O CONTRAST STAT 04/28/2021 1:10 PM R esults for this CDT procedure are i n the results section. EXTRA TUBE STAT 04/28/2021 11:53 Results for this AM CDT procedure are i n the results section. EXTRA PURPLE TOP TUBE STAT 04/28/2021 11:53 Re sults for this AM CDT procedure are i n the results section. EXTRA GREEN TOP STAT 04/28/2021 11:53 Results for this (LITHIUM HEPARIN) AM CDT procedure are in TUBE the results section. EXTRA RED TOP TUBE STAT 04/28/2021 11:53 Resul ts for this AM CDT procedure are i n the results section. EXTRA BLUE TOP TUBE STAT 04/28/2021 11:53 Resu lts for this AM CDT procedure are i n the results section. CBC WITH PLATELETS STAT 04/28/2021 11:53 Resul ts for this AND DIFFERENTIAL AM CDT procedure a re in the results section. CBC WITH PLATELETS & STAT 04/28/2021 11:53 Res ults for this DIFFERENTIAL AM CDT procedure are i n the results section. BASIC METABOLIC PANEL STAT 04/28/2021 11:53 Re sults for this AM CDT procedure are i n the results section. EKG 12-LEAD, TRACING STAT 04/28/2021 11:43 Res ults for this ONLY AM CDT procedure are i n the results section. documented in this encounter Results Head CT w/o contrast (04/28/2021 1:10 PM CDT) Anatomical Region Laterality Modality Head, SUBRAD CT NEURO, SUBRAD CT NEURO, UMP CT NEURO, Computed Tomography RAD CT Specimen (Source) Anatomical Location Collection Method / Collectio n Time Received Time / Laterality Volume Impressions 04/28/2021 3:08 PM CDT IMPRESSION: 1. No significant change compared to CT head of 04/26/2021. 2. Unchanged thin left cerebral convexit y subdural hematoma. Unchanged thin parafalcine subdural hematoma. Unch anged minimal mass effect on the left cerebral convexity without midl ine shift/herniation. 3. No new intracranial hemorrhage or oth er acute abnormality. NELY DAVENPORT MD SYSTEM ID: ??[id number] Narrative 04/28/2021 3:[address] SCAN OF THE HEAD WITHOUT CONTRAST ?? 04/28/2021 1:10 PM HISTORY: Recent subdural. New dizziness since this morning. Rule out worsening subdural hemorrhage. ?? TECHNIQUE: ??Axial images of the head an d coronal reformations without IV contrast material. Radiation dose for this scan was reduced using automated exposure control, adjustment o f the mA and/or kV according to patient size, or iterative reconstruc tion technique. COMPARISON: CT head 04/26/2021. FINDINGS: No significant change in the s mall focal right parafalcine subdural hematoma measuring approximatel y 4 mm in thickness. No change in thin left cerebral convexity subdural hematoma measuring up to approximately 3 mm in thickness over the lateral left frontal region and 2-3 mm in thickness along the left p arietal vertex (series 5 image 27). Unchanged minimal mass effect on th e lateral hemisphere without midline shift/herniation. Mild generaliz ed brain parenchymal volume loss. Brain parenchyma otherwise appears normal for the patient's age. The ventricles are normal in size and co nfiguration. Unchanged small amount of fluid or mucos al thickening along the posterior wall of the left sphenoid sinu s. Otherwise the paranasal sinuses and mastoids are clear where vis ualized. The bony calvarium and bones of the skull base appear intac t. Procedure Note Nely Davenport MD - 04/28/2021Formattin g of this note might be different from the original. CT SCAN OF THE HEAD WITHOUT CONTRAST 04/04 1:10 PM HISTORY: Recent subdural. New dizziness since this morning. Rule out worsening subdural hemorrhage. TECHNIQUE: Axial images of the head and coronal reformations without IV contrast material. Radiation dose for this scan was reduced using automated exposure control, adjustment o f the mA and/or kV according to patient size, or iterative reconstruc tion technique. COMPARISON: CT head 04/26/2021. FINDINGS: No significant change in the s mall focal right parafalcine subdural hematoma measuring approximatel y 4 mm in thickness. No change in thin left cerebral convexity subdural hematoma measuring up to approximately 3 mm in thickness over the lateral left frontal region and 2-3 mm in thickness along the left p arietal vertex (series 5 image 27). Unchanged minimal mass effect on th e lateral hemisphere without midline shift/herniation. Mild generaliz ed brain parenchymal volume loss. Brain parenchyma otherwise appears normal for the patient's age. The ventricles are normal in size and co nfiguration. Unchanged small amount of fluid or mucos al thickening along the posterior wall of the left sphenoid sinu s. Otherwise the paranasal sinuses and mastoids are clear where vis ualized. The bony calvarium and bones of the skull base appear intac t. IMPRESSION: 1. No significant change compared to CT head of 04/26/2021. 2. Unchanged thin left cerebral convexit y subdural hematoma. Unchanged thin parafalcine subdural hematoma. Unch anged minimal mass effect on the left cerebral convexity without midl ine shift/herniation. 3. No new intracranial hemorrhage or oth er acute abnormality. NELY DAVENPORT MD SYSTEM ID: [id number] Colleen Higuera PA-C [facility] [place] CT ORDERABLES CBC with platelets and differential (04/28/2021 11:53 AM CDT) Analysis Performed At Patho logist Time Signature WBC Count 6.0 4.0 - 11.0 04/28/2021 LABORATORY 10e3/uL 12:58 PM CDT RBC Count 4.31 3.80 - 04/28/2021 LABORATORY 5.20 12:58 PM CDT 10e6/uL Hemoglobin 12.4 11.7 - 04/28/2021 LABORATORY 15.7 g/dL 12:58 PM CDT Hematocrit 38.0 35.0 - 04/28/2021 LABORATORY 47.0 % 12:58 PM CDT MCV 88 78 - 100 04/28/2021 LABORATORY fL 12:58 PM CDT MCH 28.8 26.5 - 04/28/2021 LABORATORY 33.0 pg 12:58 PM CDT MCHC 32.6 31.5 - 04/28/2021 LABORATORY 36.5 g/dL 12:58 PM CDT RDW 13.0 10.0 - 04/28/2021 LABORATORY 15.0 % 12:58 PM CDT Platelet Count 177 150 - 450 04/28/2021 LABORATORY 10e3/uL 12:58 PM CDT % Neutrophils 71 % 04/28/2021 LABORATORY 12:58 PM CDT % Lymphocytes 20 % 04/28/2021 LABORATORY 12:58 PM CDT % Monocytes 6 % 04/28/2021 LABORATORY 12:58 PM CDT % Eosinophils 1 % 04/28/2021 LABORATORY 12:58 PM CDT % Basophils 1 % 04/28/2021 LABORATORY 12:58 PM CDT % Immature 1 % 04/28/2021 LABORATORY Granulocytes 12:58 PM CDT NRBCs per 100 WBC 0 <1 /100 04/28/2021 LABORATO RY 12:58 PM CDT Absolute 4.3 1.6 - 8.3 04/28/2021 LABORATORY Neutrophils 10e3/uL 12:58 PM CDT Absolute 1.2 0.8 - 5.3 04/28/2021 LABORATORY Lymphocytes 10e3/uL 12:58 PM CDT Absolute 0.4 0.0 - 1.3 04/28/2021 LABORATORY Monocytes 10e3/uL 12:58 PM CDT Absolute 0.0 0.0 - 0.7 04/28/2021 LABORATORY Eosinophils 10e3/uL 12:58 PM CDT Absolute 0.0 0.0 - 0.2 04/28/2021 LABORATORY Basophils 10e3/uL 12:58 PM CDT Absolute Immature 0.0 <=0.0 04/28/2021 LABORATO RY Granulocytes 10e3/uL 12:58 PM CDT Absolute NRBCs 0.0 10e3/uL 04/28/2021 LABORATORY 12:58 PM CDT Specimen Anatomical Collection Method / Collection Time Recei louie Time (Source) Location / Volume Laterality Blood STRUCTURE OF RIGHT Venipuncture / 04/28/2021 11:53 UPPER LIMB / Unknown AM CDT 11:56 AM CDT Unknown Colleen Higuera PA-C LAB - BLOOD ORDERABLES Performing Organization Address City/State/ZIP Code Phon e Number [place] [place] [address] Care [facility] [address] 1[address], [address] (ABNORMAL) Basic metabolic panel (04/28/2021 11:53 AM CDT) Analysis Performed At Patho logist Time Signature Sodium 139 133 - 144 04/28/2021 LABORATORY mmol/L 1:21 PM CDT Potassium 3.8 3.4 - 5.3 04/28/2021 LABORATORY mmol/L 1:21 PM CDT Chloride 107 94 - 109 04/28/2021 LABORATORY mmol/L 1:21 PM CDT Carbon Dioxide 27 20 - 32 04/28/2021 LABORATORY (CO2) mmol/L 1:21 PM CDT Anion Gap 5 3 - 14 04/28/2021 LABORATORY mmol/L 1:21 PM CDT Urea Nitrogen 18 7 - 30 04/28/2021 LABORATORY mg/dL 1:21 PM CDT Creatinine 0.88 0.52 - 04/28/2021 LABORATORY 1.04 mg/dL 1:21 PM CDT Calcium 9.0 8.5 - 10.1 04/28/2021 LABORATORY mg/dL 1:21 PM CDT Glucose 171 (H) 70 - 99 04/28/2021 LABORATORY mg/dL 1:21 PM CDT GFR Estimate 64 >60 04/28/2021 LABORATORY mL/min/1.7 1:21 PM CDT 3m2 Comment: As of March 13, 2021, [...] Laterality Blood STRUCTURE OF RIGHT Venipuncture / 04/28/2021 11:53 UPPER LIMB / Unknown AM CDT 11:56 AM CDT Unknown Colleen Higuera PA-C LAB - BLOOD ORDERABLES Performing Organization Address City/State/ZIP Code Phon e Number LABORATORY [place] [place] [address] Care Lab [address] 1[address], Room [address] Extra Purple Top Tube (04/28/2021 11:53 AM CDT) athologist Signature Hold Specimen [facility] 04/28/2021 LABORATORY 1:02 PM CDT Specimen Anatomical Collection Method / Collection Time Recei louie Time (Source) Location / Volume Laterality Blood STRUCTURE OF RIGHT Venipuncture / 04/28/2021 11:53 UPPER LIMB / Unknown AM CDT 11:56 AM CDT Unknown Tyree Curry MD LAB - BLOOD ORDERABLES Performing Organization Address City/[facility]/ZIP Code Phon e Number [place]ATORY [place] [place] [address] Care Lab [address] 1[address], [address] Extra Green Top ([place] Heparin) Tube (04/28/2021 11:53 AM CDT) athologist Signature Hold Specimen [facility] 04/28/2021 LABORATORY 1:01 PM CDT Specimen Anatomical Collection Method / Collection Time Recei louie Time (Source) Location / Volume Laterality Blood STRUCTURE OF RIGHT Venipuncture / 04/28/2021 11:53 UPPER LIMB / Unknown AM CDT 11:56 AM CDT Unknown Tyree Curry MD LAB - BLOOD ORDERABLES Performing Organization Address City/State/ZIP Code Phon e Number LAB[place]ATORY [place] [place] [address] [phone] Care Lab [address] 1[address], [address] Extra Red Top Tube (04/28/2021 11:53 AM CDT) athologist Signature Hold Specimen [facility] 04/28/2021 LABORATORY 1:02 PM CDT Specimen Anatomical Collection Method / Collection Time Recei louie Time (Source) Location / Volume Laterality Blood STRUCTURE OF RIGHT Venipuncture / 04/28/2021 11:53 UPPER LIMB / Unknown AM CDT 11:56 AM CDT Unknown Tyree Curry MD LAB - BLOOD ORDERABLES Performing Organization Address City/State/ZIP Code Phon e Number LAB[place]ATORY [place] [place] [phone] Care Lab [address] 1[address], [address] Extra Blue Top Tube (04/28/2021 11:53 AM CDT) P athologist Signature Hold Specimen [facility] 04/28/2021 LABORATORY 1:02 PM CDT Specimen Anatomical Collection Method / Collection Time Recei louie Time (Source) Location / Volume Laterality Blood STRUCTURE OF RIGHT Venipuncture / 04/28/2021 11:53 UPPER LIMB / Unknown AM CDT 11:56 AM CDT Unknown Tyree Curry MD LAB - BLOOD ORDERABLES Performing Organization Address City/State/ZIP Code Phon e Number LABORATORY [place] [address] [phone] [facility] [address] 1[address] floor, Room 20B EKG 12-lead, tracing only (04/28/2021 11:43 AM CDT) Patholo gist Method Time Signature Systolic Blood mmHg RADIOLOGY Pressure RESULTS Diastolic Blood mmHg RADIOLOGY Pressure RESULTS Ventricular Rate 73 BPM RADIOLOGY RESULTS Atrial Rate 73 BPM RADIOLOGY RESULTS ND Interval 128 ms RADIOLOGY RESULTS QRS Duration 100 ms RADIOLOGY RESULTS QT 406 ms RADIOLOGY RESULTS QTc 447 ms RADIOLOGY RESULTS P Delong 24 degrees RADIOLOGY RESULTS R AXIS -17 degrees RADIOLOGY RESULTS T Delong 27 degrees RADIOLOGY RESULTS Interpretation Sinus rhythm RADIOLOGY ECG Normal ECG RESULTS No previous ECGs available Confirmed by COMPUTER CARMEN ([id number]), editor farm journal Ifeanyi Caban ([id number]) on 04/28/2021 11:55:40 AM Specimen Anatomical Collection Method Collection Time Receive d Time (Source) Location / / Volume Laterality 04/28/2021 11:43 04/28/2021 AM CDT 11:55 AM CDT Colleen Higuera PA-C ECG ORDERABLES Performing Organization Address City/State/ZIP Code Phon e Number RADIOLOGY RESULTS documented in this encounter Visit Diagnoses Diagnosis History of subdural hematoma Dizziness Dizziness and giddiness documented in this encounter Administered Medications Inactive Administered Medications - up to 3 most recent administrations Medication Order MAR Action Action Date Dose Rate Site 0.9% sodium chloride BOLUS New Bag 04/28/2021 12:44 PM 1,000 mLs 1000 mL/hr Intravenous, 1,000 mL, CDT ONCE, at 1,000 mL/hr, Administer over 1 Hours, On Karyn 04/28/21 at 1215, For 1 dose meclizine (ANTIVERT) tablet 50 mg Given 04/28/2021 12:44 PM CDT 50 mg 50 mg, Oral, ONCE, On Karyn 04/28/21 at 1215, For 1 dose documented in this encounter Active and Recently Administered Medications Times are shown in CDT. Scheduled Medication Order 04/26/2021 04/27/2021 04/28/2021 0.9% sodium chloride BOLUS (COMPLETED) 1244 (New Bag - Provider: Ninoska Frost RN)1513 (Stopped - Provider: Ninoska Frost, SONY) Intravenous, 1,000 mL, ONCE, at 1,000 mL /hr, Administer over 1 Hours, On Karyn 04/28/21 at 1215, For 1 dose meclizine (ANTIVERT) tablet 50 mg (COMPLETED) 1244 (Given - Provider: Ninoska Frost, RN) 50 mg, Oral, ONCE, On Karyn 04/28/21 at 1215, For 1 dose documented in this encounter Care Teams Doper Operator Relationship Specialty Start Date End Date Melissa Parikh PCP - General Internal Medicine 04/24/21 [id number] [place] [address] documented as of this encounter
--- OUTSIDE RECORDS SUMMARY | 2022-08-06 00:56 | XMS_ITS | Encounter Summary ---
:1945 Author Organization [facility] Address [address] [place] [id number] Care Team Providers Name Role Phone Melissa Parikh A Primary Care Provider Unavailable Reason for Referral Occupational Therapy (Routine) - Closed Specialty Diagnoses / Procedures Referred By Contact Refer red To Contact Diagnoses SDH (subdural hematoma) Talib Manzanares MD [address] [phone] Referral ID Status Reason Start Date Expiration Date Visits Requ ested Visits Authorized [id number] Closed 04/26/2021 04/26/2022 1 1 ehab Therapy Physical Therapy (Routine) - Closed Specialty Diagnoses / Procedures Referred By Contact Refer red To Contact Diagnoses SDH (subdural hematoma) Talib Manzanares MD [address] [phone] Referral ID Status Reason Start Date Expiration Date Visits Requ ested Visits Authorized [id number] Closed 04/26/2021 04/26/2022 1 1 Reason for Visit Reason Comments Fall Auth/Cert Specialty Diagnoses / Procedures Referred By Contact Refer red To Contact Med Surg Diagnoses SDH (subdural hematoma) Fall, initial encounter Left shoulder strain, initial encounter Abrasion, knee, right, initial encounter SDH (subdural hematoma) (H) Left shoulder strain, initial encounter Fall, initial encounter Neuroscience Abrasion, knee, right, initial encounter [address] [place] [id number] Phone: Referral ID Status Reason Start Date Expiration Date Visits Requ ested Visits Authorized [id number] 1 1 Encounter Details Date Type Department Care Team Description 04/24/2021 - [facility] Cleve Davidson MD [facility] [address] [place] [address] SDH (subdural hematoma) (H); 04/26/2021 Encounter Elian Dietrich MD [facility] [address] [place] [address] Left shoulder strain, initial encounter; Neuroscience Unit Kala Santiago MD [facility] [address] [place] [address] Fall, initial encounter; [address] Marilee Buenrostro MD [address] [place] [address] Abrasion, knee, right, initial encounter [place] [id number] Social History Tobacco Use Types Packs/Day [...] Sign Reading Time Taken Comments Blood Pressure 142/77 04/26/2021 7:41 AM CDT Pulse 63 04/26/2021 7:41 AM CDT Temperature 36.9 ??C (98.5 ??F) 04/26/2021 7:41 AM CDT Respiratory Rate 18 04/26/2021 7:41 AM CDT Oxygen Saturation 95% 04/26/2021 7:41 AM CDT Inhaled Oxygen Concentration - - Weight 65.8 kg (145 lb) 04/24/2021 5:55 PM CDT Height - - Body Mass Index 25.28 06/13/2011 6:40 AM CDT documented in this encounter Discharge Summaries Talib Manzanares MD - 04/26/2021 9:58 AM CDT [facility] Hospitalist Discharge Summary Date of Admission: 04/24/2021 Date of Discharge: 04/26/2021 11:10 AM Discharging Provider: Talib Manzanares MD Discharge Diagnoses Traumatic SDH Left shoulder contusion Mechanical fall HTN HLD Hypothyroidism Follow-ups Needed After Discharge Follow-up Appointments Follow-up and recommended labs and tests Follow up with primary care provider, Melissa Parikh, within 7 days for hospital follow- up. No follow up labs or test are needed. Follow up with Neurosurgery clinic in [address] scan. Clinic will contact you to schedule these appointments. Discharge Disposition Discharged to home Condition at discharge: Stable Hospital Course Ema Davison is a 75 year old female admitted on 04/24/2021. She presented after a mechanical fall down her stairs. Admission CT with anterior falcine SDH. Repeat CT in follow up 04/25 showed stablefalcine hemorrhage but new subdural hemorrhage along the posterior left cerebral convexity measuring6 mm in thickness. She was monitored an additional 24 hours with repeat head CT 04/26 stable. Neurosurgery followed, recommending non-operative management. Other than headache, she remained asymptomatic. Therapies recommended discharge home. She will follow up with Neurosurgery clinic in 6 weeks with repeat head CT. She complained of left shoulder pain with negative XR imaging. Bruising noted over the shoulder withimprovement in pain prior to discharge. All other medical problems remain stable with no changes to regimen. Consultations This Hospital Stay NEUROSURGERY IP CONSULT PHYSICAL THERAPY ADULT IP CONSULT OCCUPATIONAL THERAPY ADULT IP CONSULT CARE MANAGEMENT / SOCIAL WORK IP CONSULT Code Status Full Code Time Spent on this Encounter I, Talib Manzanares MD, personally saw the patient today and spent less than or equal to 30 minutes discharging this patient. Talib Manzanares MD [address] [facility] [place] [address] Physical Exam Vital Signs: Temp: 98.5 ??F (36.9 ??C) Temp src: Oral BP: (!) 142/77 Pulse: 63 Resp: 18 SpO2: 95 % O2 Device: None (Room air) Weight: 145 lbs 0 oz General Appearance: Well nourished female in NAD Respiratory: lungs CTAB, no wheezes or crackles, no tachypnea Cardiovascular: RRR, normal s1/s2 without murmur GI: abdomen soft, normal bowel sounds Skin: mild bruising over left shoulder Other: Alert and appropriate, cranial nerves grossly intact Primary Care Physician Melissa Parikh Discharge Orders Physical Therapy Referral Occupational Therapy Referral Reason for your hospital stay You were admitted for fall causing bleeding around your brain (subdural hematoma). Activity Your activity upon discharge: activity as tolerated. No driving or operating heavy machinery while taking hydrocodone. Discharge Instructions Do not use NSAIDs (aspirin, ibuprofen, naproxen, etc.) for pain control as these have mild blood thinning effect and may worsen your bleeding. You may use up to 4000mg of acetaminophen in 24 hours (beaware that [place] contains tylenol if you take this for pain). When to contact your care team Call your primary doctor or present to the ED if you have any of the following: worsening headache or new neurologic symptoms (confusion, weakness or tingling of the extremities, difficulty with speech, etc). Follow-up and recommended labs and tests Follow up with primary care provider, Melissa Parikh, within 7 days for hospital follow- up. No follow up labs or test are needed. Follow up with Neurosurgery clinic in [address] scan. Clinic will contact you to schedule these appointments. Diet Follow this diet upon discharge: Regular Diet Adult Significant Results and Procedures Most Recent 3 CBC's:Recent Labs Lab Test 04/28/21 1153 04/24/211958 WBC 6.0 11.0 HGB 12.4 12.9 MCV 88 88 PLT 177 181 Most Recent 3 BMP's:Recent Labs Lab Test 04/28/21 1153 04/26/21 0941 04/24/211958 NA 139 138 140 POTASSIUM 3.8 3.7 3.7 CHLORIDE 107 108 109 CO2 27 24 26 BUN 18 13 16 CR 0.88 0.79 0.78 ANIONGAP 5 6 5 HOSEA 9.0 9.1 9.2 GLC 171* 151* 118* , Results for orders placed or performed during the hospital encounter of 04/24/[address] w/o contrast Narrative CT SCAN OF THE HEAD WITHOUT CONTRAST 04/24/2021 7:20 PM HISTORY: Head trauma, minor (Age >= 65y). TECHNIQUE: Axial images of the head and coronal reformations without IV contrast material. Radiation dose for this scan was reduced using automated exposure control, adjustment of the mA and/or kV according to patient size, or iterative reconstruction technique. COMPARISON: MR brain 11/27/2007 FINDINGS: Intracranial contents: There is hyperdense thickening and/or subdural hemorrhage at the anterior falcine region just to the right of midline. The falx is thicker than on previous MR 11/27/2007 and in this patient with history of trauma likely represents subdural hemorrhage. Maximal dimension is about 2.5 mm. No mass effect or midline shift. No additional hyperdense hemorrhage is noted intracranially. No evidence for acute infarction. No midline shift. Satisfactory ventricular caliber. Minimal chronic ischemic change periventricular deep white matter of both cerebral hemispheres is evident. Position of cerebellar tonsils is satisfactory. Sella shows no acute abnormality. Visualized orbits/sinuses/mastoids: Mild membrane thickening/fluid dependently in the sphenoid sinus. Remainder of paranasal sinuses and mastoid air cells are clear. Osseous structures/soft tissues: No evidence for acute fracture of the calvarium or skull base. No significant swelling of the facial tissues or scalp is evident. Impression IMPRESSION: 1. Increased density/thickening associated with the anterior falcine region worrisome for small acute subdural hemorrhage. 2. No mass effect. 3. Nothing for additional hemorrhage or parenchymal contusion/infarction. 4. Additional details above. No fractures. 5. Discussed with Dr. Davidson at 7:25 on 04/24/2021. QUINN LOWE MD SYSTEM ID: [id number] Cervical spine CT w/o contrast Narrative CT OF THE CERVICAL SPINE WITHOUT CONTRAST 04/24/2021 7:21 PM COMPARISON: None HISTORY: Neck trauma (Age >= 65y); see above. TECHNIQUE: Axial images of the cervical spine were acquired without intravenous contrast. Multiplanar reformations were created. FINDINGS: Degenerative cervical spondylolysis. Satisfactory height. 1 mm anterior subluxation C3-4, C4-5 and C7-T1. Articular pillars are intact with multilevel cervical facet joint arthropathy. Foramen magnum is satisfactory. Occipital condyles are intact. C1 ring is intact. Hyoid bone and cartilaginous structures of the neck are satisfactory. No evidence for displaced upper rib fractures. No acute fracture or posttraumatic malalignment in the cervical spine is evident. No interspace widening. Anterior osteophytes C4-7. Airways patent. Normal cervical prevertebral soft tissues. Minimal scarring in the lung apices. Airways patent. No acute process in the posterior fossa. Nothing for epidural or paraspinous hemorrhage. No high-grade spinal stenosis with moderate spinal canal narrowing evident at the C6-7 level in the left paracentral zone. Moderate to severe foraminal compromise on a chronic degenerative basis at multiple levels in the cervical spine including right C3-4, left C4-5, right C5-6 and bilateral C6-7. Remainder negative. Impression IMPRESSION: 1. No fracture or post traumatic malalignment in the cervical spine. 2. Moderate spinal stenosis C6-7 on a chronic basis. Moderate to severe foraminal narrowing multiple levels in the cervical spine also appears chronic. 3. Additional details above. Radiation dose for this scan was reduced using automated exposure control, adjustment of the mA and/or kV according to patient size, or iterative reconstruction technique QUINN LOWE MD SYSTEM ID: [id number] XR Shoulder Left G/E 3 Views Narrative EXAM: XR SHOULDER LEFT G/E 3 VIEWS LOCATION: [facility] DATE/TIME: 04/24/2021 7:18 PM INDICATION: Left-sided shoulder pain after a fall. COMPARISON: None. Impression IMPRESSION: 1. No fracture or joint malalignment. 2. Moderate left acromioclavicular arthrosis. CT Head w/o Contrast Narrative EXAM: CT HEAD W/O CONTRAST LOCATION: [facility] DATE/TIME: 04/25/2021 6:18 AM INDICATION: Follow-up intracranial hemorrhage. COMPARISON: 04/24/2021. TECHNIQUE: Routine CT Head without IV contrast. Multiplanar reformats. Dose reduction techniques were used. FINDINGS: INTRACRANIAL CONTENTS: Stable 3 mm parafalcine subdural hemorrhage. There is a new subdural hemorrhage along the posterior left cerebral convexity that measures approximately 6 [address] thickness[address] No CT evidence of acute infarct. Minimal presumed chronic small vessel ischemic changes. Mild generalized volume loss. No hydrocephalus. VISUALIZED ORBITS/SINUSES/MASTOIDS: No intraorbital abnormality. Trace fluid or mucosal thickening in the sphenoid sinuses. No middle ear or mastoid effusion. BONES/SOFT TISSUES: No acute abnormality. Impression IMPRESSION: 1. New subdural hemorrhage along the posterior left cerebral convexity measuring 6 mm in thickness. 2. Stable thin parafalcine subdural hemorrhage. 3. No midline shift or effacement of the basal cisterns. Findings of a new subdural hemorrhage were discussed with Dr. Gilliland at 6:35 AM on 04/25/2021. CT Head w/o Contrast Narrative CT OF THE HEAD WITHOUT CONTRAST 04/26/2021 8:12 AM COMPARISON: Head CT 04/25/2021. HISTORY: Subdural hemorrhage. TECHNIQUE: [address] images of the head were acquired without IV contrast material. FINDINGS: Thin subdural hemorrhage along the anterior falx again noted without change. Thin subdural hemorrhage along the high posterior left cerebral convexity again noted. No definite evidence for new or increasing intracranial hemorrhage. There is mild diffuse cerebral volume loss. There are subtle patchy areas of decreased density in the cerebral white matter bilaterally that are consistent with sequela of chronic small vessel ischemic disease. The ventricles and basal cisterns are within normal limits in configuration given the degree of cerebral volume loss. There is no midline shift. No intracranial mass or recent infarct. The visualized paranasal sinuses are well-aerated. There is no mastoiditis. There are no fractures of the visualized bones. Impression IMPRESSION: 1. Thin subdural hemorrhage along the anterior falx and along the high posterior left cerebral convexity again noted without change. 2. No evidence for new or increasing intracranial hemorrhage. 3. Diffuse cerebral volume loss and cerebral white matter changes consistent with chronic small vessel ischemic disease. Radiation dose for this scan was reduced using automated exposure control, adjustment of the mA and/or kV according to patient size, or iterative reconstruction technique. KWABENA ORR MD Discharge Medications Current Discharge Medication List START taking these medications Details HYDROcodone-acetaminophen (NORCO) 5-325 MG tablet Take 1 tablet by mouth every 6 hours as needed forsevere pain Qty: 3 tablet, Refills: 0 Associated Diagnoses: SDH (subdural hematoma) (H) CONTINUE these medications which have NOT CHANGED Details atorvastatin (LIPITOR) 40 MG tablet Take 40 mg by mouth At Bedtime At hs Cholecalciferol (VITAMIN D) 2000 UNIT tablet Take 1 tablet by mouth daily. levothyroxine (SYNTHROID/LEVOTHROID) 75 MCG tablet Take 75 mcg by mouth daily lisinopril (ZESTRIL) 20 MG tablet Take 20 mg by mouth At Bedtime Allergies No Known Allergies documented in this encounter Discharge Instructions AttachmentsThe following attachments cannot be sent through Care Everywhere.What Is a Subdural Hematoma? (Filipino)documented in this encounter Medications at Time of Discharge Medication Sig Dispensed Refills Start Date End Date atorvastatin (LIPITOR) 40 Take 40 mg by 0 MG tablet mouth At Bedtime At hs Cholecalciferol (VITAMIN D) Take 1 tablet by 0 2000 UNIT tablet mouth daily. levothyroxine Take 75 mcg by 0 (SYNTHROID/LEVOTHROID) 75 mouth daily MCG tablet lisinopril (ZESTRIL) 20 MG Take 20 mg by 0 tablet mouth At Bedtime HYDROcodone-acetaminophen Take 1 tablet by 3 tablet 0 04/0404/29/2021 (NORCO) 5-325 MG mouth every 6 tabletIndications: SDH hours as needed (subdural hematoma) for severe pain documented as of this encounter Progress Notes Laney Daley OTR - 04/26/2021 10:57 AM CDT 04/26/21 1048 Quick Adds Type of Visit Initial Occupational Therapy Evaluation Living Environment People in home alone Current Living Arrangements house Home Accessibility stairs to enter home;stairs within home Stair Railings, Within Home, Primary railings safe and in good condition Transportation Anticipated car, drives self Living Environment Comments tub shower combo, stairs to enter, standard toilet Self-Care Usual Activity Tolerance good Current Activity Tolerance moderate Activity/Exercise/Self-Care Comment reports indp with ADL, reports typically takes bath in tub Instrumental Activities of Daily Living (IADL) IADL Comments indp with all IADL and drives Disability/Function Hearing Difficulty or Deaf no Fall history within last six months no (this admission was fall down stairs, tripped on shoes ) General Information Onset of Illness/Injury or Date of Surgery 04/23/21 Referring Physician Marilee Hickman MD Patient/Family Therapy Goal Statement (OT) to go home today Additional Occupational Profile Info/Pertinent History of Current Problem 75-year-old right-handed female, not anticoagulated, other than aspirin, who presented to the Emergency Room after a fall. She states that she tripped near her steps because her shoe got stuck on the ground and she fell down appr oximately 6 stairs. She fell onto her left side. She immediately had the onset of the left shoulder and arm pain after her body hit the sewing machine at the bottom of the steps. She did not have loss of consciousness, but did hit her head, so presented to the Emergency Room for further evaluation. Currently, her primary complaint is left shoulder pain, but also complains of a headache rated a 5/10 in severity. Otherwise, denies nausea, vomiting or other complaints. In addition, she actually denies any neck or back pain as well Performance Patterns (Routines, Roles, Habits) retired Existing Precautions/Restrictions fall General Observations and Info pleasant Cognitive Status Examination Orientation Status orientation to person, place and time Visual Perception Visual Impairment/Limitations WNL Pain Assessment Patient Currently in Pain No Range of Motion Comprehensive Comment, General Range of Motion RUE WNL, LUE limited 2/2 pain SH flexion to 75% of full range Strength Comprehensive (MMT) General Manual Muscle Testing (MMT) Assessment no strength deficits identified Coordination Upper Extremity Coordination No deficits were identified Bed Mobility Bed Mobility No deficits identified Transfers Transfers No deficits identified Activities of Daily Living BADL Assessment lower body dressing Lower Body Dressing Assessment [place] Level (Lower Body Dressing) supervision Comment (Lower Body Dressing) donning shoes Clinical Impression Criteria for Skilled Therapeutic Interventions Met (OT) yes;meets criteria;skilled treatment is necessary OT Diagnosis decreased function in ADL OT Problem List-Impairments impacting ADL problems related to;range of motion (ROM);pain Assessment of Occupational Performance 1-3 Performance Deficits Identified Performance Deficits bathing, dressing Planned Therapy Interventions (OT) ADL retraining Clinical Decision Making Complexity (OT) low complexity Therapy Frequency (OT) 1x eval and treat Anticipated Equipment Needs Upon Discharge (OT) tub bench;shower chair Risk & Benefits of therapy have been explained risks/benefits reviewed;care plan/treatment goalsreviewed;evaluation/treatment results reviewed;current/potential barriers reviewed;participants voiced agreement with care plan;participants included;patient Comment-Clinical Impression skilled tx for safe DC planning necessary OT Discharge Planning OT Discharge Recommendation (DC Rec) home;home with outpatient occupational therapy OT Rationale for DC Rec OP OT recommended for UE ROM and ADL safety. safe to DC home, not a fall risk at this time, has recommendations made and pt agreeable to plan OT Brief overview of current status indp or supervision for cares Total Evaluation Time (Minutes) Total Evaluation Time (Minutes) 8 Coping Strategies Trust Relationship/Rapport care explained;questions answered Albin Gaspar RN - 04/25/2021 6:36 PM CDT Patient is A/O x 4, vss, a-febrile, denies pain, patient admitted last evening after a fall down thestairs at home, transfer from ED to the floor at 1430, patient has a mall SDH from the fall, cms andneuros are intact, up to the bathroom with SBA, neuro surgery following, follow up CT tomorrow, possibly discharge in the afternoon, continue to monitor. Magda Asher, PT - 04/25/2021 5:19 PM CDT 04/25/21 1630 Quick Adds Type of Visit Initial PT Evaluation Living Environment People in home alone Current Living Arrangements house Home Accessibility stairs to enter home;stairs within home Stair Railings, Main Entrance railings safe and in good condition Number of Stairs, Within Home, Primary greater than 10 stairs Stair Railings, Within Home, Primary railings safe and in good condition Transportation Anticipated family or friend will provide Living Environment Comments does not have to access upstairs but does need to do laundry in basement, does not have FWW/cane at home. Self-Care Usual Activity Tolerance moderate Current Activity Tolerance moderate Regular Exercise No Equipment Currently Used at Home none Activity/Exercise/Self-Care Comment ind with all self-cares and ADLs, retired 3 years ago, discussing how she feels less active now d/t retiring Disability/Function Fall history within last six months no (fall down stairs prior to admission, tripped on shoes ) General Information Onset of Illness/Injury or Date of Surgery 04/24/21 Referring Physician Marilee Hickman MD Patient/Family Therapy Goals Statement (PT) return home Pertinent History of Current Problem (include personal factors and/or comorbidities that impact the POC) 75-year-old right-handed female, not anticoagulated, other than aspirin, who presented to the Emergency Room after a fall. She states that she tripped near her steps because her shoe got stuck on the ground and she fell down approximately 6 stairs. She fell onto her left side. She immediately had the onset of the left shoulder and arm pain after her body hit the sewing machine at the bottom of the steps. She did not have loss of consciousness, but did hit her head, so presented to the Emergency Room for further evaluation. Currently, her primary complaint is left shoulder pain, but also complains of a headache rated a 5/10 in severity. Otherwise, denies nausea, vomiting or other complaints. Inaddition, she actually denies any neck or back pain as well General Observations + saccades and smooth pursits. Increased overshooting when looking towards left, increased saccadic movements with philip pursuit to the left, impaired VOR Cognition Orientation Status (Cognition) oriented x 4 Affect/Mental Status (Cognition) WFL Follows Commands (Cognition) WFL Pain Assessment Patient Currently in Pain Yes, see Vital Sign flowsheet (stating 5/10 headache pain, >6/10 left shoulder pain) Strength Manual Muscle Testing Quick Adds No deficits observed during functional mobility Strength Comments MMT L shoulder: limited to lifting left arm to 90 deg, able to lift 170 deg on R shoulder without pain. Shoulder flexion/abduction equal from side to side. Increased pain with AROM, decreased pain with PROM at left shoulder Bed Mobility Comment (Bed Mobility) ind with bed mob Transfers Transfer Safety Comments ind with transfers Gait/Stairs (Locomotion) [place] Level (Gait) supervision Assistive Device (Gait) (none ) Distance in Feet (Required for LE Total Joints) 250' Comment (Gait/Stairs) continues to have headache while walking but no increase in headache pain, denies dizziness/nausea Balance Balance Comments steady ambulation without walker Sensory Examination Sensory Perception Comments describes hx of daily headaches for the past year and some numbness intermittently down left arm Clinical Impression Criteria for Skilled Therapeutic Intervention yes, treatment indicated PT Diagnosis (PT) impaired mobility Influenced by the following impairments impaired balance, left shoulder pain, headache pain Functional limitations due to impairments decreased activity tolerance Clinical Presentation Stable/Uncomplicated Clinical Presentation Rationale clinical judgement Clinical Decision Making (Complexity) low complexity Therapy Frequency (PT) Daily Predicted Duration of Therapy Intervention (days/wks) 3 days Planned Therapy Interventions (PT) balance training;transfer training;stair training;strengthening;gait training Anticipated Equipment Needs at Discharge (PT) (none ) Risk & Benefits of therapy have been explained evaluation/treatment results reviewed;care plan/treatment goals reviewed;risks/benefits reviewed;current/potential barriers reviewed;participants voiced agreement with care plan;participants included;patient PT Discharge Planning PT Discharge Recommendation (DC Rec) home PT Rationale for DC Rec see 1x more to ensure no change in status, recommend home with OP PT for left shoulder and chronic headache pain. Pt ind to standy by assist with all mobiltiy and appears close to baseline. PT Brief overview of current status SBA/ind with all mobility. Gait x 250 feet and stairs x 4 with SBA Total Evaluation Time Total Evaluation Time (Minutes) 10 Talib Manzanares MD - 04/25/2021 4:08 PM CDT [facility] Medicine Progress Note - Hospitalist Service Date of Admission: 04/24/2021 Assessment & Plan Ema Davison is a 75 year old female admitted on 04/24/2021. She tripped down some stairs at home and came to the emergency department for evaluation where head CT shows a small subdural hematoma. ?? Principal Problem: SDH (subdural hematoma) (H) ? Repeat head CT 04/25 with new area of SDH; neurosurg recommending repeat CT tomorrow ? Neurosurgery recs appreciated ? Every 4 hour neuro checks ? Repeat head CT in 6 weeks or as advised by neurosurgery ? Avoid aspirin NSAIDs or any anticoagulant Active Problems: Shoulder contusion ? X-rays negative for fracture ? Exam suggests contusion, recommend ice, pain relief ? Begin PT when able Fall, initial encounter ? No other injuries noted ? Likely simple mechanical fall ? PT, OT consults requested Hypertension ? Continue lisinopril Hyperlipidemia ? Continue statin Thyroid disease - Continue thyroid hormone Diet: Combination Diet Regular Diet Adult DVT Prophylaxis: Pneumatic Compression Devices Schumacher Catheter: Not present Central Lines: None Code Status: Full Code Disposition Plan Expected discharge: Tomorrow recommended to prior living arrangement once cleared by neurosurgery. The patient's care was discussed with the Bedside Nurse and Patient. Talib Manzanares MD Hospitalist Service [facility] Securely message with the App[employer] Console (learn more here) Text page via Infotop Paging/Directory Clinically Significant Risk Factors Present on Admission Interval History She is feeling well other than mild headache. Denies any focal neurologic symptoms. Worried about insurance coverage for [facility] as her provider is through [employer]. Data reviewed today: I reviewed all medications, new labs and imaging results over the last 24 hours. I personally reviewed no images or EKG's today. Physical Exam Vital Signs: Temp: 97.9 ??F (36.6 ??C) Temp src: Oral BP: 130/74 Pulse: 64 Resp: 18 SpO2: 96 % O2 Device: None (Room air) Weight: 145 lbs 0 oz General Appearance: Well nourished female in NAD Respiratory: lungs CTAB, no wheezes or crackles, no tachypnea Cardiovascular: RRR, normal s1/s2 without murmur GI: abdomen soft, normal bowel sounds Skin: no peripheral edema Other: Alert and appropriate, cranial nerves III-XII intact, strength grossly intact Data Recent Labs Lab 08/22/21 1959 WBC 11.0 HGB 12.9 MCV 88 PLT 181 INR 1.10 NA 140 POTASSIUM 3.7 CHLORIDE 109 CO2 26 BUN 16 CR 0.78 ANIONGAP 5 HOSEA 9.2 GLC 118* ALBUMIN 4.0 PROTTOTAL 7.6 BILITOTAL 0.6 ALKPHOS 115 ALT 30 AST 20 Albin Gaspar RN - 04/25/2021 1:56 PM CDT RECEIVING UNIT ED HANDOFF REVIEW ED Nurse Handoff Report was reviewed by: Albin Gaspar RN on April 25, 2021 at 1:57 PM Indira Elizondo NP - 04/25/2021 10:42 AM CDT [facility] Neurosurgery Progress Note Date of Service (when I saw the patient): 04/25/2021 Assessment & Plan Ema Davison is a 75 year old female who was admitted on 04/24/2021. She presented with a fall down the stairs. Imaging at that time revealed a possible small falx SDH vs increased density or thickening. Repeat imaging revealed a new SDH along the posterior left cerebral convexity and stable thin parafalcine SDH. She was seen today in the ED. She complains of a mild headache. She denies dizziness, nausea/vomiting, and weakness. Principal Problem: SDH (subdural hematoma) (H) Assessment: small left SDH and stable thin parafalcine SDH Plan: -Agree with continued observation -Follow up head CT tomorrow AM -Goal normotension I have discussed the following assessment and plan Dr. Lira who is in agreement with initial plan and will follow up with further consultation recommendations. Indira Elizondo CNP [facility] [address] [place] [id number] Pager [phone] Interval History Stable. Physical Exam Temp: 99.3 ??F (37.4 ??C) Temp src: Temporal BP: 118/67 Pulse: 59 Resp: 13 SpO2: 94 % O2 Device: None (Room air) Vitals: 04/24/21 1755 Weight: 145 lb (65.8 kg) Vital Signs with Ranges Temp: [99.3 ??F (37.4 ??C)] 99.3 ??F (37.4 ??C) Pulse: [59-83] 59 Resp: [13-16] 13 BP: (94-177)/(53-98) 118/67 SpO2: [92 %-99 %] 94 % No intake/output data recorded. , Blood pressure 118/67, pulse 59, temperature 99.3 ??F (37.4 ??C), temperature source Temporal, resp. rate 13, weight 145 lb (65.8 kg), SpO2 94 %. 145 lbs 0 oz HEENT: Normocephalic. PERRLA. Heart: No peripheral edema Lungs: No SOB Skin: Warm and dry, good capillary refill. Extremities: Good radial and dorsalis pedis pulses bilaterally, no edema, cyanosis or clubbing. NEUROLOGICAL EXAMINATION: Mental status: Alert and Oriented x 3, speech is fluent. WILTON. Cranial nerves: II-XII intact. Motor: Strength is 5/5 throughout the upper and lower extremities Coordination: Smooth finger to nose testing. Negative pronator drift. Medications ??? atorvastatin 40 mg Oral At Bedtime ??? levothyroxine 75 mcg Oral QAM AC ??? lisinopril 20 mg Oral At Bedtime Data CBC RESULTS: Recent Labs Lab Test 04/24/211958 WBC 11.0 RBC 4.42 HGB 12.9 HCT 39.0 MCV 88 MCH 29.2 MCHC 33.1 RDW 13.0 PLT 181 Basic Metabolic Panel: Lab Results Component Value Date NA 140 04/24/2021 Lab Results Component Value Date POTASSIUM 3.7 04/24/2021 Lab Results Component Value Date CHLORIDE 109 04/24/2021 Lab Results Component Value Date HOSEA 9.2 04/24/2021 HOSEA 8.5 06/14/2011 Lab Results Component Value Date CO2 26 04/24/2021 Lab Results Component Value Date BUN 16 04/24/2021 Lab Results Component Value Date CR 0.78 04/24/2021 CR 0.65 06/14/2011 Lab Results Component Value Date GLC 118 04/24/2021 INR: Lab Results Component Value Date INR 1.10 04/24/2021 documented in this encounter H&P Notes Marilee Hickman MD - 04/24/2021 8:22 PM CDT [facility] History and Physical - Hospitalist Service Date of Admission: 04/24/2021 Assessment & Plan Ema Davison is a 75 year old female admitted on 04/24/2021. She tripped down some stairs at home and came to the emergency department for evaluation where head CT shows a small subdural hematoma. Principal Problem: SDH (subdural hematoma) (H) ?? Admit as inpatient ?? Neurosurgery consultation requested ?? Every 4 hour neuro checks ?? Repeat head CT in 6 weeks or as advised by neurosurgery ?? Avoid aspirin NSAIDs or any anticoagulant Active Problems: Shoulder contusion ?? X-rays negative for fracture ?? Exam suggests contusion, recommend ice, pain relief ?? Begin PT when able Fall, initial encounter ?? No other injuries noted ?? Likely simple mechanical fall ?? PT, OT consults requested Hypertension ?? Continue beta hilda Hyperlipidemia ?? Continue statin Thyroid disease ?? Continue thyroid hormone Diet: Regular DVT Prophylaxis: Pneumatic Compression Devices Schumacher Catheter: Not present Central Lines: None Code Status: Full Clinically Significant Risk Factors Present on Admission # Platelet Defect: home medication list includes an antiplatelet medication Disposition Plan Expected discharge: Tomorrow recommended to prior living arrangement once Subdural hematoma stable. The patient's care was discussed with the Patient and ED , Dr. Davidson. Marilee Hickman MD [facility] Securely message with the App[employer] Console (learn more here) Text page via Infotop Paging/Directory Chief Complaint I almost did not even come in. History of Present Illness Ema Davison is a 75 year old female with history of thyroid disease, hypertension, hyperlipidemia who presents the emergency department after a fall at home. She tripped on some stairs. Patient says she was wearing some shoes with rubber soles and think her shoe stuck to the carpeting on a step. She fell down about 6 stairs and landed on her left shoulder. She says she does not think she hit her head and is certain she did not lose consciousness. She says she did not really think sheneeded evaluation but a friend urged her to call her doctor, recommend she come to the emergency department. She drove herself to the ED. Here, x-ray of the left shoulder is negative for fracture. CT of the cervical spine shows moderate spinal stenosis which is chronic, but no fracture. Head CT shows small acute subdural hemorrhage. She is admitted for further evaluation and treatment. Review of Systems The 10 point Review of Systems is negative other than noted in the HPI or here. Past Medical History I have reviewed this patient's medical history and updated it with pertinent information if needed. Past Medical History: Diagnosis Date ??? Hyperlipidemia ??? Hypertension ??? Kidney stone ??? Post-nasal drip ??? Thyroid disease Past Surgical History I have reviewed this patient's surgical history and updated it with pertinent information if needed. THYROIDECTOMY ? HCHG LIGATION LONG SAPHENOUS VEIN ? polyps removed ? DILATION AND CURETTAGE ? APPENDECTOMY ?? Social History I have reviewed this patient's social history and updated it with pertinent information if needed. Social History Tobacco Use ??? Smoking status: Former Smoker Packs/day: 0.50 Years: 20.00 Pack years: 10.00 Types: Cigarettes ??? Smokeless tobacco: Never Used ??? Tobacco comment: quit 30 yrs a go/ maybe a pack a week Substance Use Topics ??? Alcohol use: Yes Comment: one drink a month ??? Drug use: No Family History Heart Disease Brother ? Good Health Daughter ? Other Daughter ?? gallbladder removed Good Health Daughter ? Diabetes Father ? Heart attack Father ? Unknown Mother ? Good Health Son ? Cancer-breast No Family History ? Relation Name Status Comments Brother ? Daughter ?? Alive ?? Daughter ?? Alive ?? Father ? Mother ?? (Age 89) possibly from heart attack Son ?? Alive ?? Prior to Admission Medications Prior to Admission Medications Prescriptions Last Dose Informant Patient Reported? Taking? Cholecalciferol (VITAMIN D) 2000 UNIT tablet Yes No Sig: Take 1 tablet by mouth daily. aspirin 81 MG tablet Yes No Sig: Take 1 tablet by mouth daily. atenolol (TENORMIN) 50 MG tablet Yes No Sig: Take 50 mg by mouth. At HS atorvastatin (LIPITOR) 40 MG tablet Yes No Sig: Take 40 mg by mouth daily. At hs calcium carbonate 500 MG tablet No No Sig: Take 2 tablets by mouth 2 times daily. hydrocodone-acetaminophen 5-325 MG per tablet No No Sig: Take 1-2 tablets by mouth every 4 hours as needed. levothyroxine (SYNTHROID, LEVOTHROID) 112 MCG tablet No No Sig: Take 1 tablet by mouth every morning (before breakfast). Facility-Administered Medications: None Allergies No Known Allergies Physical Exam Vital Signs: Temp: 99.3 ??F (37.4 ??C) Temp src: Temporal BP: (!) 155/98 Pulse: 83 Resp: 16 SpO2: 96% O2 Device: None (Room air) Weight: 145 lbs 0 oz Constitutional: Awake, alert, looks reasonably comfortable. Eyes: Conjunctiva and pupils examined and normal. HEENT: Moist mucous membranes, normal dentition. She wears bilateral hearing aids Respiratory: Clear to auscultation bilaterally, no crackles or wheezing. Cardiovascular: Regular rate and rhythm GI: Soft, non-distended, non-tender, normal bowel sounds. Lymph/Hematologic: No anterior cervical or supraclavicular adenopathy. Skin: No rash. There is a faint ecchymosis overlying the left shoulder girdle Musculoskeletal: Left shoulder region has modest swelling and ecchymosis as noted above Neurologic: She has difficulty raising the left arm due to pain, otherwise moves both arms and both legs, neurologic exam is nonfocal Psychiatric: Mood is pleasant, but somewhat aloof. Data Data reviewed today: I reviewed all medications, new labs and imaging results over the last 24 hours. I personally reviewed the head CT image(s) showing Small acute subdural hemorrhage and the Cervicalspine CT image(s) showing No fracture. Recent Labs Lab 04/24/211958 WBC 11.0 HGB 12.9 MCV 88 PLT 181 INR 1.10 NA 140 POTASSIUM 3.7 CHLORIDE 109 CO2 26 BUN 16 CR 0.78 ANIONGAP 5 HOSEA 9.2 GLC 118* ALBUMIN 4.0 PROTTOTAL 7.6 BILITOTAL 0.6 ALKPHOS 115 ALT 30 AST 20 Recent Results (from the past 24 hour(s)) Head CT w/o contrast Narrative CT SCAN OF THE HEAD WITHOUT CONTRAST 04/24/2021 7:20 PM HISTORY: Head trauma, minor (Age >= 65y). TECHNIQUE: Axial images of the head and coronal reformations without IV contrast material. Radiation dose for this scan was reduced using automated exposure control, adjustment of the mA and/or kV according to patient size, or iterative reconstruction technique. COMPARISON: MR brain 11/27/2007 FINDINGS: Intracranial contents: There is hyperdense thickening and/or subdural hemorrhage at the anterior falcine region just to the right of midline. The falx is thicker than on previous MR 11/27/2007 and in this patient with history of trauma likely represents subdural hemorrhage. Maximal dimension is about 2.5 mm. No mass effect or midline shift. No additional hyperdense hemorrhage is noted intracranially. No evidence for acute infarction. No midline shift. Satisfactory ventricular caliber. Minimal chronic ischemic change periventricular deep white matter of both cerebral hemispheres is evident. Position of cerebellar tonsils is satisfactory. Sella shows no acute abnormality. Visualized orbits/sinuses/mastoids: Mild membrane thickening/fluid dependently in the sphenoid sinus. Remainder of paranasal sinuses and mastoid air cells are clear. Osseous structures/soft tissues: No evidence for acute fracture of the calvarium or skull base. No significant swelling of the facial tissues or scalp is evident. Impression IMPRESSION: 1. Increased density/thickening associated with the anterior falcine region worrisome for small acute subdural hemorrhage. 2. No mass effect. 3. Nothing for additional hemorrhage or parenchymal contusion/infarction. 4. Additional details above. No fractures. 5. Discussed with Dr. Davidson at 7:25 on 04/24/2021. QUINN LOWE MD SYSTEM ID: [id number] Cervical spine CT w/o contrast Narrative CT OF THE CERVICAL SPINE WITHOUT CONTRAST 04/24/2021 7:21 PM COMPARISON: None HISTORY: Neck trauma (Age >= 65y); see above. TECHNIQUE: Axial images of the cervical spine were acquired without intravenous contrast. Multiplanar reformations were created. FINDINGS: Degenerative cervical spondylolysis. Satisfactory height. 1 mm anterior subluxation C3-4, C4-5 and C7-T1. Articular pillars are intact with multilevel cervical facet joint arthropathy. Foramen magnum is satisfactory. Occipital condyles are intact. C1 ring is intact. Hyoid bone and cartilaginous structures of the neck are satisfactory. No evidence for displaced upper rib fractures. No acute fracture or posttraumatic malalignment in the cervical spine is evident. No interspace widening. Anterior osteophytes C4-7. Airways patent. Normal cervical prevertebral soft tissues. Minimal scarring in the lung apices. Airways patent. No acute process in the posterior fossa. Nothing for epidural or paraspinous hemorrhage. No high-grade spinal stenosis with moderate spinal canal narrowing evident at the C6-7 level in the left paracentral zone. Moderate to severe foraminal compromise on a chronic degenerative basis at multiple levels in the cervical spine including right C3-4, left C4-5, right C5-6 and bilateral C6-7. Remainder negative. Impression IMPRESSION: 1. No fracture or post traumatic malalignment in the cervical spine. 2. Moderate spinal stenosis C6-7 on a chronic basis. Moderate to severe foraminal narrowing multiple levels in the cervical spine also appears chronic. 3. Additional details above. Radiation dose for this scan was reduced using automated exposure control, adjustment of the mA and/or kV according to patient size, or iterative reconstruction technique QUINN LOWE MD SYSTEM ID: [id number] XR Shoulder Left G/E 3 Views Narrative EXAM: XR SHOULDER LEFT G/E 3 VIEWS LOCATION: [facility] DATE/TIME: 04/24/2021 7:18 PM INDICATION: Left-sided shoulder pain after a fall. COMPARISON: None. Impression IMPRESSION: 1. No fracture or joint malalignment. 2. Moderate left acromioclavicular arthrosis. documented in this encounter Consult Notes Kala Michael RN - 04/26/2021 10:23 AM CDTAssociated Order(s): CARE MANAGEMENT / SOCIAL WORK IP CONSULT Care Management Discharge Note Discharge Date: 04/26/2021 Discharge Disposition: Home Discharge Services: Discharge DME: Discharge Transportation: car, drives self Private pay costs discussed: Not applicable Patient/family educated on Medicare website which has current facility and service quality ratings: no Education Provided on the Discharge Plan: Recommended she check with her insurance provider regarding coverage for the [facility] Neurosurgery provider; if follow up would not be covered she should obtain referral from her PCP to follow up with [facility]. Provided the phone number for the [facility] [phone]. Persons Notified of Discharge Plans: Patient/Family in Agreement with the Plan: yes Handoff Referral Completed: No Additional Information: Patient had concerns about insurance coverage at [facility] as insurance associated with [facility]. She understands to contact her insurance provider for this information. She will schedule PCP follow up. Kala Michael RN Jaelyn Duran PA-C - 04/24/2021 8:54 PM CDT Neurosurgery consult dictated. Small possible falx SDH. Admit for observation. Repeat head CT in AM Every 4 hour neuro checks. ORAL Ferr[address] [facility] [place] [address] Pager [phone] Jaelyn Castillo PA-C - 04/24/2021 8:52 PM CDT Consult Date: 04/24/2021 IMPRESSION: Pleasant 75-year-old female presenting after a fall down the stairs with a head CT revealing a possible small falx subdural hematoma versus just increased density or thickening. PLAN: From the neurosurgical standpoint, plan to admit her for observation in the hospital overnight. We will repeat head CT in the morning, q.4 hour neuro checks overnight and keep her blood pressure at 150 systolic. TYPE OF VISIT: The neurosurgical service was consulted see Mrs. Davison for subdural hematoma. HISTORY OF PRESENT ILLNESS: Mrs. Davison is a 75-year-old right-handed female, not anticoagulated, other than aspirin, who presented to the Emergency Room after a fall. She states that she tripped nearher steps because her shoe got stuck on the ground and she fell down approximately 6 stairs. She fell onto her left side. She immediately had the onset of the left shoulder and arm pain after her body hit the sewing machine at the bottom of the steps. She did not have loss of consciousness, but did hit her head, so presented to the Emergency Room for further evaluation. Currently, her primary complaint is left shoulder pain, but also complains of a headache rated a 5/10 in severity. Otherwise, denies nausea, vomiting or other complaints. In addition, she actually denies any neck or back pain as well. PAST MEDICAL HISTORY: Includes high blood pressure, nephrolithiasis, thyroid disease, hyperlipidemia. 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 SOCIAL HISTORY: She lives at home independently. She is right-handed. She denies cigarette or tobacco abuse. PHYSICAL EXAMINATION: VITAL SIGNS: Temperature is 99.3. Her blood pressure was 177/84 upon arriving to the ER, currently 155/98, her pulse is 82, respiratory rate 16. NEUROLOGIC: She is awake and alert, in no acute distress and pleasant during the exam. Neuro exam testing is difficult because she has a difficult time lifting her left arm up in the air secondary to pain, but other than that, she is able to move her right upper extremity and lower extremities withoutdifficulty. Her pupils are equal, round, and reactive. Her Thad coma scale is 15. Her cranial nerves are grossly intact. IMAGING STUDIES: She had a head CT performed in the Emergency Room, which reveals very small possible falx subdural hematoma, but also could just be increased density or thickening of the anterior falx, but with her trauma history certainly possible could be a subdural hematoma. CT cervical spine negat melissa for any acute pathology. LABORATORY DATA: INR is normal at 1.1. Her white count is 11. Her platelet counts 181. Sodium was 140. Total time spent for the patient, 70 minutes including 50 minutes of counseling and coordination of care. Discussed with Dr. Lira. As Dictated by MIGUEL MASCORRO MT: [id number] Name: EMA DAVISON Account: [id number] : 1945 Consult Date: 04/24/2021 Document: [id number] Associated attestation - Candido Lira MD - 04/25/2021 11:38 AM CDT Physician Attestation I, Candido Lira, have reviewed and discussed with the advanced practice provider their history, physical and plan for Ema Davison. I did not participate in a shared visit by interviewing orexamining the patient and this should be billed as an advanced practice provider only visit. Candido Lira Date of Service (when I saw the patient): I did not personally see this patient today. documented in this encounter ED Notes Karla Cuenca RN - 04/25/2021 7:10 AM CDT Report given to SONY Catherine. Care of patient relinquished. Elian Gilliland MD - 04/25/2021 6:50 AM CDT Repeat head CT at 0619 demonstrated: IMPRESSION: 1. New subdural hemorrhage along the posterior left cerebral convexity measuring 6 mm in thickness. 2. Stable thin parafalcine subdural hemorrhage. 3. No midline shift or effacement of the basal cisterns. I discussed the patient with neurosurgery who recommended no change to current plan, bed status, frequency of neuro checks or level of care. They will plan to repeat head CT in 24 hours. Per nursing staff, patient has remained stable on every 4 hour neuro checks. Elian Gilliland MD 04/25/21 0652 Karla Cuenca RN - 04/25/2021 6:00 AM CDT Patient is resting quietly on cart with eyes closed. Respirations are regular and unlabored. Patientrepositions self independently on cart. Continue to monitor. Karla Cuenca RN - 04/25/2021 5:15 AM CDT Patient reports some improvement of headache. Patient continues to rate pain at 6-7/10. Patient medicated as ordered. Patient updated on continued POC and waits Continue to monitor. Karla Cuenca RN - 04/25/2021 4:50 AM CDT Patient reports need to urinate. Patient ambulated to with EDT. Gait stable. Patient ambulated back to ED room 6 Placed back on NIBP and SaO2 monitoring. VSS. Continue to monitor. Karla Cuenca RN - 04/25/2021 4:00 AM CDT Rounds. Patient lying on cart in darkened room. Patient awake when RN opened door after knocking. RN introduced self to patient. Patient is awake, alert, and oriented to person, place, time and situation. Patient airway is patent. Respirations are regular and unlabored. Patient talking in full sentences. Patient face is symmetrical. Patient pupils are equal round and reactive to light. Patient denies any numbness or tingling to face or extremities. Patient has equal strong movements with all four extremities. Patient has no pronator drift. Patient tongue is midline. Patient admits to headache. Rates at 7-8on 0-10 pain scale. Patient has large amount of bruising to left anterior shoulder. Patient complains of pain to left posterior shoulder. Ice pack applied. Patient has small abrasion to anterior right knee. Wound cleansed and bacitracin and bandaid appliedby LIZANDRO Barros. MD Gilliland updated regarding pain. Orders received. Patient updated on continued POC and waits. Patient on NIBP and SaO2 monitoring. VSS. Continue to monitor. Karla Cuenca RN - 04/25/2021 3:15 AM CDT Report received. Care of patient assumed. Lucila Gilbert RN - 04/24/2021 8:10 PM CDT [facility] ED Nurse Handoff Report ED Chief complaint: Fall ED Diagnosis: Final diagnoses: SDH (subdural hematoma) (H) Left shoulder strain, initial encounter Fall, initial encounter Abrasion, knee, right, initial encounter Code Status: Full Code, confirm with hospitalist Allergies: No Known Allergies Patient Story: Pt from home where she had a fall down 6 carpeted steps, hitting head and left arm. No LOC. Not anticoagulated. Focused Assessment: Pt alert and oriented and drove self to ED today. Pt reports mild headache and pain in left shoulder and neck. Found to have small subdural hematoma. Pleasant and cooperative. Treatments and/or interventions provided: CT head/neck, Xray, labs, monitoring XR Shoulder Left G/E 3 Views Final Result IMPRESSION: 1. No fracture or joint malalignment. 2. Moderate left acromioclavicular arthrosis. Cervical spine CT w/o contrast Final Result IMPRESSION: 1. No fracture or post traumatic malalignment in the cervical spine. 2. Moderate spinal stenosis C6-7 on a chronic basis. Moderate to severe foraminal narrowing multiple levels in the cervical spine also appears chronic. 3. Additional details above. Radiation dose for this scan was reduced using automated exposure control, adjustment of the mA and/or kV according to patient size, or iterative reconstruction technique QUINN LOWE MD SYSTEM ID: [id number] Head CT w/o contrast Final Result IMPRESSION: 1. Increased density/thickening associated with the anterior falcine region worrisome for small acute subdural hemorrhage. 2. No mass effect. 3. Nothing for additional hemorrhage or parenchymal contusion/infarction. 4. Additional details above. No fractures. 5. Discussed with Dr. Davidson at 7:25 on 04/24/2021. QUINN LOWE MD SYSTEM ID: [id number] Labs Ordered and Resulted from Time of ED Arrival Up to the Time of Departure from the ED CBC WITH PLATELETS - Normal COVID-19 VIRUS (CORONAVIRUS) BY PCR COMPREHENSIVE METABOLIC PANEL INR EXTRA RED TOP TUBE IV ACCESS EXTRA TUBE Narrative: The following orders were created for panel order [place] Draw. Procedure Abnormality Status --------- ------ Extra Red Top Tube[[id number]] In process Please view results for these tests on the individual orders. 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 Family Comments: Not present OBS brochure/video discussed/provided to patient/family: [place] of person given brochure if not patient: n/a Relationship to patient: n/a For the majority of the shift this patient's behavior was Green. Behavioral interventions performed were Rounding. ED NURSE PHONE NUMBER: *[id number] Ninoska Frost RN - 04/24/2021 5:54 PM CDT Patient states fell down 6 [address]ed steps. States hit her head. Left arm struck her portable sewing machine. Patient states unable to raise left arm up due to pain. Patient denies LOC. Complains of neck pain From shoulder to base of her left neck, denies neck pain. Has abrasion to right knee. Cleve Davidson MD - 04/24/2021 5:14 PM CDT History Chief Complaint: Fall The history is provided by the patient. Ema Davison is a 75 year old right handed female with history of HTN who presents after a fall. The patient reports that her shoe stuck on the ground earlier tonight which caused her to fall forward down 6 stairs after which she struck her left arm on her sewing machine. She denies loss of consciousness, but she did hit the top of her head. She is not on blood thinners, other than aspirin 81 mg. She endorses left arm pain, left shoulder pain and is unable to lift her left arm. She denies neck pain, back pain and hip pain. She notes she has an abrasion to her right knee, but is able to ambulate. Review of Systems Musculoskeletal: Positive for arthralgias (Left arm and shoulder). Negative for back pain and neck pain. Neurological: Negative for syncope. All other systems reviewed and are negative. 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?F (37.4 ??C) Temporal 82 16 99 % 65.8 kg (145 lb) General: Alert and Interactive. Head: Bump on top of head just right of midline. Mouth/Throat: Oropharynx is clear and moist. Eyes: Conjunctivae are normal. Pupils are equal, round, and reactive to light. Neck: Normal range of motion. No nuchal rigidity. CV: Normal rate and regular rhythm. Resp: Effort normal and breath sounds normal. No respiratory distress. GI: Soft. There is no tenderness or guarding. MSK: Tenderness and decreased range of motion superior portion of left shoulder. Abrasion over rightpatella, no deformity and normal range of motion. No edema. Neuro: The patient is alert and oriented to person, place, and time. PERRLA, EOMI, strength in upper/lower extremities normal and symmetrical. No spinal tenderness. Sensation normal. Speech normal. GCS eye subscore is 4. GCS verbal subscore is 5. GCS motor subscore is 6. Skin: Skin is warm and dry. No rash noted. Psych: normal mood and affect. behavior is normal. Emergency Department Course Imaging: CT Head w/o IV contrast: 1. Increased density/thickening associated with the anterior falcine region worrisome for small acute subdural hemorrhage. 2. No mass effect. 3. Nothing for additional hemorrhage or parenchymal contusion/infarction. 4. Additional details above. No fractures, as per radiology. 5. Discussed with Dr. Davidson at 7:25 on 04/24/2021. CT Cervical Spine w/o IV contrast: 1. No fracture or post traumatic malalignment in the cervical spine. 2. Moderate spinal stenosis C6-7 on a chronic basis. Moderate to severe foraminal narrowing multiple levels in the cervical spine also appears chronic. 3. Additional details above, as per radiology. XR Shoulder Left G/E 3 views: 1. ??No fracture or joint malalignment. 2. ??Moderate left acromioclavicular arthrosis, as per radiology. Laboratory: CBC: WBC: 11.0, HGB: 12.9, PLT: 181 CMP: Glucose 118 (H), o/w WNL (Creatinine: 0.78) INR: 1.10 Asymptomatic Covid: Negative Emergency Department Course: Reviewed: I reviewed nursing notes, vitals, past medical history and care everywhere Assessments: 1839 I obtained history and examined the patient as noted above. 2156 I rechecked the patient and explained findings. Consults: [address] Lowe of radiology regarding the patient's head CT. [address] Hickman of the hospital regarding admission of the patient. Interventions: 2047 Tylenol, 1,000 mg, Oral Disposition: The patient was admitted to the hospital under the care of Dr. Hickman. Impression & Plan Medical Decision Making: Ema Davison is a 75 year old female who presents for evaluation of a fall. The fall appears mechanical in nature, there is no evidence of syncope. No prodromal symptoms. I doubt stroke, cardiac arrhythmia, other serious pathology. Differential diagnosis included intracranial bleed, skull fracture, concussion, soft tissue injury, contusion, amongst others. Upon exam, the patient is neurologically intact. Due to the patient's age, head CT was completed due to Cuban head CT rules. Imaging results returned with a subdural hematoma. The patient will be admitted to the care of the hospital due to CT imaging results. Additional workup for syncope, stroke, ACS, PE was not completed through blood w ork or urinalysis as the patient's fall appears mechanical in nature. Questions were answered and patient is in agreement with this plan. Patient admitted to the hospital in stable condition. Covid-19 Ema Davison was evaluated during a [...] ICD-10-CM 1. SDH (subdural hematoma) (H) S06.5X9A 2. Left shoulder strain, initial encounter S46.912A 3. Fall, initial encounter W19.XXXA 4. Abrasion, knee, right, initial encounter S80.211A Scribe Disclosure: I, Catherine Davison, am serving as a scribe at 6:38 PM on 04/24/2021 to document services personally performed by Cleve Davidson MD based on my observations and the provider's statements to me. Cleve Davidson MD 04/25/21 0135 documented in this encounter Miscellaneous Notes Plan of Care - Magda Asher, PT - 04/26/2021 11:10 AM CDT Physical Therapy Discharge Summary Reason for therapy discharge: Discharged to home with outpatient therapy. Progress towards therapy goal(s). See goals on Care Plan in [facility] electronic health record for goal details. Goals met Therapy recommendation(s): Continued therapy is recommended. Rationale/Recommendations: Patient would benefit from PT/OT for left shoulder pain/ROM management and reports of chronic headaches. Plan of Care - Laney Daley OTR - 04/26/2021 11:04 AM CDT Occupational Therapy Discharge Summary Reason for therapy discharge: Discharged to home. Progress towards therapy goal(s). See goals on Care Plan in [facility] electronic health record for goal details. Goals met, pt being discharged this date to home. Therapy recommendation(s): Continued therapy is recommended. Rationale/Recommendations: OP for SH pain, ROM, mgmt and safety with ADL and complex IADL. Safe to discontinue home with education, training, and recommendations from IP OT. Plan of Care - Melissa Martinez RN - 04/26/2021 10:55 AM CDT Pt here with fall resulting in SDH. A&O. Neuros intact. VSS. Regular diet, thin liquids. Takes pills whole. Up independently (with supervision in hospital but cleared for independent at home). Denies pain. Pt scoring green on the Aggression Stop Light Tool. Discharging today, all discharge teaching completed, verbalized understanding, and pt dressed with no remaining questions before 11am; went to the bathroom and discharged to drive self home. Provider Notification - Melissa Martinez RN - 04/26/2021 9:56 AM CDT Updated Hopsitalist: 1) PT recommends outpatient therapies; please add to discharge orders (done) 2) Neurosurg came by, OK to discharge from their standpoint; their office will schedule f/u in [address] scan. Provider Notification - Dontae Dooley MD - 04/25/2021 6:45 AM CDT Brief update: Paged regarding CT findings with increasing subdural Neurosurgery is being updated as well by Dr. Gilliland Patient is doing well, so I do not anticipate procedural intervention, though with increasing subdural might need a change to every 2 hours neuro checks on neuro floor versus ICU. Will defer this to neurosurgery, though discussed this possibility with nursing. Dontae Dooley MD 6:46 AM Pharmacy-Admission Medication History - Zari Siegel [facility] - 04/24/2021 9:53 PM CDT Pharmacy Medication History Admission medication history interview status for the 04/24/2021 admission is complete. See [facility] admission navigator for prior to admission medications Location of Interview: Patient room Medication history sources: Patient and Surescripts Significant changes made to the medication list: In the past week, patient estimated taking medication this percent of the time: greater than 90% Additional medication history information: Medication reconciliation completed by provider prior to medication history? No Time spent in this activity: 10min Prior to Admission medications Medication Sig Last Dose Taking? Auth Provider atorvastatin (LIPITOR) 40 MG tablet Take 40 mg by mouth At Bedtime At hs 04/23/2021 at Unknown time Yes Reported, Patient Cholecalciferol (VITAMIN D) 2000 UNIT tablet Take 1 tablet by mouth daily. Past Week at Unknown timeYes Reported, Patient levothyroxine (SYNTHROID/LEVOTHROID) 75 MCG tablet Take 75 mcg by mouth daily 04/24/2021 at Unknown time Yes Unknown, Entered By History lisinopril (ZESTRIL) 20 MG tablet Take 20 mg by mouth At Bedtime 04/23/2021 at Unknown time Yes Unknown, Entered By History The information provided in this note is only as accurate as the sources available at the time of update(s) Zari Siegel PharmD documented in this encounter Plan of Treatment Scheduled Referrals Name Type Priority Associated Diagnoses Order S chedule Physical Therapy Referral Referral Routine SDH (subdural E xpected: 04/26/2021 hematoma) (H) (Approximate), Expires: 2021 Occupational Therapy Referral Routine SDH (subdural Expect ed: 04/26/2021 Referral hematoma) (H) (Approximate), Expires: 2021 documented as of this encounter Procedures Procedure Name Priority Date/Time Associated Comments Diagnosis BASIC METABOLIC PANEL Routine 04/26/2021 9:41 AM Results for this CDT procedure are i n the results section. CT HEAD W/O CONTRAST Routine 04/26/2021 8:12 AM R esults for this CDT procedure are i n the results section. CT HEAD W/O CONTRAST STAT 04/25/2021 6:19 AM R esults for this CDT procedure are i n the results section. EXTRA TUBE STAT 04/24/2021 7:59 PM Results f or this CDT procedure are i n the results section. EXTRA RED TOP TUBE STAT 04/24/2021 7:59 PM Res ults for this CDT procedure are i n the results section. INR STAT 04/24/2021 7:59 PM Results f or this CDT procedure are i n the results section. COMPREHENSIVE STAT 04/24/2021 7:59 PM Results for this METABOLIC PANEL CDT procedure ar e in the results section. CBC WITH PLATELETS STAT 04/24/2021 7:59 PM Res ults for this CDT procedure are i n the results section. COVID-19 VIRUS STAT 04/24/2021 7:46 PM Results for this (CORONAVIRUS) BY PCR CDT procedu re are in the results section. XR SHOULDER LEFT G/E 3 STAT 04/24/2021 7:27 PM Results for this VIEWS CDT procedure are i n the results section. CT CERVICAL SPINE W/O STAT 04/24/2021 7:21 PM Results for this CONTRAST CDT procedure are i n the results section. CT HEAD W/O CONTRAST STAT 04/24/2021 7:20 PM R esults for this CDT procedure are i n the results section. documented in this encounter Results (ABNORMAL) Basic metabolic panel (04/26/2021 9:41 AM CDT) Analysis Performed At Patho logist Time Signature Sodium 138 133 - 144 04/26/2021 LABORATORY mmol/L 10:50 AM CDT Potassium 3.7 3.4 - 5.3 04/26/2021 LABORATORY mmol/L 10:50 AM CDT Chloride 108 94 - 109 04/26/2021 LABORATORY mmol/L 10:50 AM CDT Carbon Dioxide 24 20 - 32 04/26/2021 LABORATORY (CO2) mmol/L 10:50 AM CDT Anion Gap 6 3 - 14 04/26/2021 LABORATORY mmol/L 10:50 AM CDT Urea Nitrogen 13 7 - 30 04/26/2021 LABORATORY mg/dL 10:50 AM CDT Creatinine 0.79 0.52 - 04/26/2021 LABORATORY 1.04 mg/dL 10:50 AM CDT Calcium 9.1 8.5 - 10.1 04/26/2021 LABORATORY mg/dL 10:50 AM CDT Glucose 151 (H) 70 - 99 04/26/2021 LABORATORY mg/dL 10:50 AM CDT GFR Estimate 73 >60 04/26/2021 LABORATORY mL/min/1.7 10:50 AM CDT 3m2 Comment: As of March 13, [...] Laterality Blood STRUCTURE OF RIGHT Venipuncture / 04/26/2021 9:41 04/04 UPPER LIMB / Unknown AM CDT 10:24 AM CDT Unknown Marilee Hickman MD LAB - BLOOD ORDERABLES Performing Organization Address City/State/ZIP Code Phon [place] [address] Care Lab [address] 1st floor, Room [address] CT Head w/o Contrast (04/26/2021 8:12 AM CDT) Anatomical Region Laterality Modality Head, SUBRAD CT NEURO, SUBRAD CT NEURO, UMP CT NEURO, Computed Tomography RAD CT Specimen (Source) Anatomical Location Collection Method / Collectio n Time Received Time / Laterality Volume Impressions 04/26/2021 9:46 AM CDT IMPRESSION: 1. Thin subdural hemorrhage along the an terior falx and along the high posterior left cerebral convexity again noted without change. 2. No evidence for new or increasing int racranial hemorrhage. 3. Diffuse cerebral volume loss and cere bral white matter changes consistent with chronic small vessel isc hemic disease. Radiation dose for this scan was reduced using automated exposure control, adjustment of the mA and/or kV according to patient size, or iterative reconstruction technique. KWABENA ORR MD Narrative 04/26/2021 9:[address] OF THE HEAD WITHOUT CONTRAST 04/26/2021 8:12 AM COMPARISON: Head CT 04/25/2021. HISTORY: Subdural hemorrhage. TECHNIQUE: [address] images of the head were acquired without IV contrast material. FINDINGS: Thin subdural hemorrhage along the anterior falx again noted without change. Thin subdural hemorrhage along the high posterior left cerebral convexity again noted. No defin ite evidence for new or increasing intracranial hemorrhage. Ther e is mild diffuse cerebral volume loss. There are subtle patchy are as of decreased density in the cerebral white matter bilaterally that a re consistent with sequela of chronic small vessel ischemic disease. T he ventricles and basal cisterns are within normal limits in con figuration given the degree of cerebral volume loss. ??There is no midl ine shift. No intracranial mass or recent infarct. The visualized paranasal sinuses are wel l-aerated. There is no mastoiditis. There are no fractures of t he visualized bones. Procedure Note Kwabena Orr MD - 04/26/2021Forma tting of this note might be different from the original. CT OF THE HEAD WITHOUT CONTRAST 8:12 AM COMPARISON: Head CT 04/25/2021. HISTORY: Subdural hemorrhage. TECHNIQUE: [address] images of the head were acquired without IV contrast material. FINDINGS: Thin subdural hemorrhage along the anterior falx again noted without change. Thin subdural hemorrhage along the high posterior left cerebral convexity again noted. No defin ite evidence for new or increasing intracranial hemorrhage. Ther e is mild diffuse cerebral volume loss. There are subtle patchy are as of decreased density in the cerebral white matter bilaterally that a re consistent with sequela of chronic small vessel ischemic disease. T he ventricles and basal cisterns are within normal limits in con figuration given the degree of cerebral volume loss. There is no midlin e shift. No intracranial mass or recent infarct. The visualized paranasal sinuses are wel l-aerated. There is no mastoiditis. There are no fractures of t he visualized bones. IMPRESSION: 1. Thin subdural hemorrhage along the an terior falx and along the high posterior left cerebral convexity again noted without change. 2. No evidence for new or increasing int racranial hemorrhage. 3. Diffuse cerebral volume loss and cere bral white matter changes consistent with chronic small vessel isc hemic disease. Radiation dose for this scan was reduced using automated exposure control, adjustment of the mA and/or kV according to patient size, or iterative reconstruction technique. KWABENA ORR MD Talib Manzanares MD IMG CT ORDERABLES CT Head w/o Contrast (04/25/2021 6:19 AM CDT) Anatomical Region Laterality Modality Head, SUBRAD CT NEURO, SUBRAD CT NEURO, UMP CT NEURO, Computed Tomography RAD CT Specimen (Source) Anatomical Collection Method Collection Time Re ceived Time Location / / Volume Laterality 04/25/2021 6:18 AM CDT Impressions 04/25/2021 6:43 AM CDT IMPRESSION: 1. ??New subdural hemorrhage along the p osterior left cerebral convexity measuring 6 mm in thickness. 2. ??Stable thin parafalcine subdural he morrhage. 3. ??No midline shift or effacement of t he basal cisterns. ? Findings of a new subdural hemorrhage we re discussed with Dr. Gilliland at 6:35 AM on 04/25/2021. Narrative 04/25/2021 6:43 AM CDT EXAM: CT HEAD W/O CONTRAST LOCATION: [facility] DATE/TIME: 04/25/2021 6:18 AM INDICATION: Follow-up intracranial hemor rhage. COMPARISON: 04/24/2021. TECHNIQUE: Routine CT Head without IV co ntrast. Multiplanar reformats. Dose reduction techniques were used. FINDINGS: INTRACRANIAL CONTENTS: Stable 3 mm paraf alcine subdural hemorrhage. There is a new subdural hemorrhage along the posterior left cerebral convexity that measures approximately 6 [address] in thickness[address] No CT ev idence of acute infarct. Minimal presume d chronic small vessel ischemic changes. Mild gene ralized volume loss. No hydrocephalus. VISUALIZED ORBITS/SINUSES/MASTOIDS: No i ntraorbital abnormality. Trace fluid or mucosal thickening in the sphenoid sinuses. No middle ear or mastoid effusion. BONES/SOFT TISSUES: No acute abnormality . Procedure Note Jordyn Romero MD - 04/25/20 21 EXAM: CT HEAD W/O CONTRAST LOCATION: [facility] DATE/TIME: 04/25/2021 6:18 AM INDICATION: Follow-up intracranial hemor rhage. COMPARISON: 04/24/2021. TECHNIQUE: Routine CT Head without IV co ntrast. Multiplanar reformats. Dose reduction techniques were used. FINDINGS: INTRACRANIAL CONTENTS: Stable 3 mm paraf alcine subdural hemorrhage. There is a new subdural hemorrhage along the posterior left cerebral convexity that measures approximately 6 mm in thickness. No CT evidence of acute infarct. Minimal presumed chronic small vessel ischemic changes. Mild gene ralized volume loss. No hydrocephalus. VISUALIZED ORBITS/SINUSES/MASTOIDS: No i ntraorbital abnormality. Trace fluid or mucosal thickening in the sphenoid sinuses. No middle ear or mastoid effusion. BONES/SOFT TISSUES: No acute abnormality . IMPRESSION: 1. New subdural hemorrhage along the pos terior left cerebral convexity measuring 6 mm in thickness. 2. Stable thin parafalcine subdural hemo rrhage. 3. No midline shift or effacement of the basal cisterns. Findings of a new subdural hemorrhage we re discussed with Dr. Gilliland at 6:35 AM on 04/25/2021. Dontae Dooley MD IMG CT ORDERABLES Extra Red Top Tube (04/24/2021 7:59 PM CDT) athologist Signature Hold Specimen JIC 04/24/2021 LABORATORY 9:16 PM CDT Specimen Anatomical Collection Method / Collection Time Recei louie Time (Source) Location / Volume Laterality Blood STRUCTURE OF LEFT Venipuncture / 04/24/2021 7:59 04/24 8:06 UPPER LIMB / Unknown PM CDT PM CDT Unknown Cleve Davidson MD LAB - BLOOD ORDERABLES Performing Organization Address City/State/ZIP Code Phon e Number LABORATORY [place] [address] Care Lab [address] 1[address], Room [address]B INR (04/24/2021 7:59 PM CDT) athologist Signature INR 1.10 0.85 - 1.15 04/24/2021 LABORATORY 8:20 PM CDT Comment: Effective 03/13/2021, the refere nce range for this assay has changed. Specimen Anatomical Collection Method / Collection Time Recei louie Time (Source) Location / Volume Laterality Blood STRUCTURE OF LEFT Venipuncture / 04/24/2021 7:59 04/24 8:06 UPPER LIMB / Unknown PM CDT PM CDT Unknown Cleve Davidson MD LAB - BLOOD ORDERABLES Performing Organization Address City/State/ZIP Code Phon e Number LABORATORY [place] [address] [phone] Care Lab [address] 1[address], Room [address]B (ABNORMAL) Comprehensive metabolic panel (04/24/2021 7:59 PM CDT) [facility] Method Time Signature Sodium 140 133 - 144 04/24/2021 LABORATORY mmol/L 8:34 PM CDT Potassium 3.7 3.4 - 5.3 04/24/2021 LABORATORY mmol/L 8:34 PM CDT Chloride 109 94 - 109 04/24/2021 LABORATORY mmol/L 8:34 PM CDT Carbon Dioxide 26 20 - 32 04/24/2021 LABORATORY (CO2) mmol/L 8:34 PM CDT Anion Gap 5 3 - 14 04/24/2021 LABORATORY mmol/L 8:34 PM CDT Urea Nitrogen 16 7 - 30 04/24/2021 LABORATORY mg/dL 8:34 PM CDT Creatinine 0.78 0.52 - 04/24/2021 LABORATORY 1.04 mg/dL 8:34 PM CDT Calcium 9.2 8.5 - 10.1 04/24/2021 LABORATORY mg/dL 8:34 PM CDT Glucose 118 (H) 70 - 99 04/24/2021 LABORATORY mg/dL 8:34 PM CDT Alkaline 115 40 - 150 04/24/2021 LABORATORY Phosphatase U/L 8:34 PM CDT AST 20 0 - 45 U/L 04/24/2021 LABORATORY 8:34 PM CDT ALT 30 0 - 50 U/L 04/24/2021 LABORATORY 8:34 PM CDT Protein Total 7.6 6.8 - 8.8 04/24/2021 LABORATORY g/dL 8:34 PM CDT Albumin 4.0 3.4 - 5.0 04/24/2021 LABORATORY g/dL 8:34 PM CDT Bilirubin Total 0.6 0.2 - 1.3 04/24/2021 LABORATORY mg/dL 8:34 PM CDT GFR Estimate 74 >60 04/24/2021 LABORATORY mL/min/1.7 8:34 PM CDT 3m2 Comment: As of March [...] Laterality Blood STRUCTURE OF LEFT Venipuncture / 04/24/2021 7:59 04/24 8:06 UPPER LIMB / Unknown PM CDT PM CDT Unknown Cleve Davidson MD LAB - BLOOD ORDERABLES Performing Organization Address City/State/ZIP Code Phon e Number LABORATORY [place] [address] [phone] [facility] [address] 1[address] floor, Room [address] CBC (+ platelets, no diff) (04/24/2021 7:59 PM CDT) P athologist Signature WBC Count 11.0 4.0 - 11.0 04/24/2021 LABORATORY 10e3/uL 8:08 PM CDT RBC Count 4.42 3.80 - 04/24/2021 LABORATORY 5.20 8:08 PM CDT 10e6/uL Hemoglobin 12.9 11.7 - 04/24/2021 LABORATORY 15.7 g/dL 8:08 PM CDT Hematocrit 39.0 35.0 - 04/24/2021 LABORATORY 47.0 % 8:08 PM CDT MCV 88 78 - 100 04/24/2021 LABORATORY fL 8:08 PM CDT MCH 29.2 26.5 - 04/24/2021 LABORATORY 33.0 pg 8:08 PM CDT MCHC 33.1 31.5 - 04/24/2021 LABORATORY 36.5 g/dL 8:08 PM CDT RDW 13.0 10.0 - 04/24/2021 LABORATORY 15.0 % 8:08 PM CDT Platelet Count 181 150 - 450 04/24/2021 LABORATORY 10e3/uL 8:08 PM CDT Specimen Anatomical Collection Method / Collection Time Recei louie Time (Source) Location / Volume Laterality Blood STRUCTURE OF LEFT Venipuncture / 04/24/2021 7:59 04/24 8:06 UPPER LIMB / Unknown PM CDT PM CDT Unknown Cleve Davidson MD LAB - BLOOD ORDERABLES Performing Organization Address City/State/ZIP Code Phon e Number LABORATORY [place] [address] [facility] [address] 1[address], Room [address]B Asymptomatic COVID-19 Virus (Coronavirus) by PCR Nasopharyngeal (04/24/2021 7:46 PM CDT) Analysis Performed At Patho logist Time Signature SARS CoV2 PCR Negative Negative 04/24/2021 LABORATORY 10:12 PM CDT Comment: NEGATIVE: SARS-CoV-2 (COVID-19) RNA not detected, presumed negative. Specimen Anatomical Location / Collection Method Collection Paulino e Received Time (Source) Laterality / Volume Swab NASOPHARYNGEAL Non-blood 04/24/2021 7:46 04/24/2021 8:06 STRUCTURE / Unknown Collection / PM CDT PM CDT Unknown Narrative LABORATORY - 04/24/2021 10:12 PM CDT Testing was performed using the elvis?? SARS-CoV-2 & Influenza A/B Assay on the elvis?? Dottie?? System. ??This test shoul d be ordered for the detection of SARS-COV-2 in individuals who meet SARS-CoV-2 clini hosea and/or epidemiological criteria. Test performance is unknown [...] exposure or clinical presentation sugges ts COVID-19. ??[facility] are certified under the Clinical Laborat ory Improvement Amendments of 1988 (CLIA-88) as qualified to perform moderate and/or high complexity laboratory testing. Cleve Davidson MD LAB - MICRO GENERAL ORDERABL ES Performing Organization Address City/State/ZIP Code Phon e Number LABORATORY [facility] [place], [place] [phone] [facility] [address] 1[address], Room [address]B XR Shoulder Left G/E 3 Views (04/24/2021 7:27 PM CDT) Anatomical Region Laterality Modality Shoulder, Left Shoulder Left Digital Radiogra phy Specimen (Source) Anatomical Collection Method Collection Time Re ceived Time Location / / Volume Laterality 04/24/2021 7:18 PM CDT Impressions 04/24/2021 8:10 PM CDT IMPRESSION: 1. ??No fracture or joint malalignment. 2. ??Moderate left acromioclavicular art hrosis. Narrative 04/24/2021 8:10 PM CDT EXAM: XR SHOULDER LEFT G/E 3 VIEWS LOCATION: [facility] DATE/TIME: 04/24/2021 7:18 PM INDICATION: Left-sided shoulder pain aft er a fall. COMPARISON: None. Procedure Note Chadd Frost MD - 04/24/2021For matting of this note might be different from the original. EXAM: XR SHOULDER LEFT G/E 3 VIEWS LOCATION: [facility] DATE/TIME: 04/24/2021 7:18 PM INDICATION: Left-sided shoulder pain aft er a fall. COMPARISON: None. IMPRESSION: 1. No fracture or joint malalignment. 2. Moderate left acromioclavicular arthr osis. Cleve Davidson MD IMG DIAGNOSTIC IMAGING ORDER [place] Cervical spine CT w/o contrast (04/24/2021 7:21 PM CDT) Anatomical Region Laterality Modality Spine, SUBRAD CT NEURO, SUBRAD CT NEURO, UMP CT SPINE, Computed Tomography RAD CT Specimen (Source) Anatomical Location Collection Method / Collectio n Time Received Time / Laterality Volume Impressions 04/24/2021 8:09 PM CDT IMPRESSION: 1. No fracture or post traumatic malalig nment in the cervical spine. 2. Moderate spinal stenosis C6-7 on a ch ronic basis. Moderate to severe foraminal narrowing multiple leve ls in the cervical spine also appears chronic. 3. Additional details above. Radiation dose for this scan was reduced using automated exposure control, adjustment of the mA and/or kV according to patient size, or iterative reconstruction technique QUINN LOWE MD SYSTEM ID: ??[id number] Narrative 04/24/2021 8:[address] OF THE CERVICAL SPINE WITHOUT CONTRAST ?? 04/24/2021 7:21 PM COMPARISON: None HISTORY: Neck trauma (Age >= 65y); see a qian. TECHNIQUE: Axial images of the cervical spine were acquired without intravenous contrast. Multiplanar reform ations were created. ?? FINDINGS: Degenerative cervical spondylo lysis. Satisfactory height. 1 mm anterior subluxation C3-4, C4-5 and C 7-T1. Articular pillars are intact with multilevel cervical facet mami int arthropathy. Foramen magnum is satisfactory. Occipital condyl es are intact. C1 ring is intact. Hyoid bone and cartilaginous str uctures of the neck are satisfactory. No evidence for displaced upper rib fractures. No acute fracture or posttraumatic malalignment i n the cervical spine is evident. No interspace widening. Anterio r osteophytes C4-7. Airways patent. Normal cervical prevertebral sof t tissues. Minimal scarring in the lung apices. Airways patent. No acut e process in the posterior fossa. Nothing for epidural or paraspino us hemorrhage. No high-grade spinal stenosis with moderate spinal can al narrowing evident at the C6-7 level in the left paracentral zone. Moderate to severe foraminal compromise on a chronic degenerative bas is at multiple levels in the cervical spine including right C3-4, lef t C4-5, right C5-6 and bilateral C6-7. Remainder negative. Procedure Note Qiunn Lowe MD - 04/24/2021For matting of this note might be different from the original. CT OF THE CERVICAL SPINE WITHOUT CONTRAS T 04/24/2021 7:21 PM COMPARISON: None HISTORY: Neck trauma (Age >= 65y); see carolyn laughlin. TECHNIQUE: Axial images of the cervical spine were acquired without intravenous contrast. Multiplanar reform ations were created. FINDINGS: Degenerative cervical spondylo lysis. Satisfactory height. 1 mm anterior subluxation C3-4, C4-5 and C 7-T1. Articular pillars are intact with multilevel cervical facet mami int arthropathy. Foramen magnum is satisfactory. Occipital condyl es are intact. C1 ring is intact. Hyoid bone and cartilaginous str uctures of the neck are satisfactory. No evidence for displaced upper rib fractures. No acute fracture or posttraumatic malalignment i n the cervical spine is evident. No interspace widening. Anterio r osteophytes C4-7. Airways patent. Normal cervical prevertebral sof t tissues. Minimal scarring in the lung apices. Airways patent. No acut e process in the posterior fossa. Nothing for epidural or paraspino us hemorrhage. No high-grade spinal stenosis with moderate spinal can al narrowing evident at the C6-7 level in the left paracentral zone. Moderate to severe foraminal compromise on a chronic degenerative bas is at multiple levels in the cervical spine including right C3-4, lef t C4-5, right C5-6 and bilateral C6-7. Remainder negative. IMPRESSION: 1. No fracture or post traumatic malalig nment in the cervical spine. 2. Moderate spinal stenosis C6-7 on a ch ronic basis. Moderate to severe foraminal narrowing multiple leve ls in the cervical spine also appears chronic. 3. Additional details above. Radiation dose for this scan was reduced using automated exposure control, adjustment of the mA and/or kV according to patient size, or iterative reconstruction technique QUINN LOWE MD SYSTEM ID: [id number] Cleve Davidson MD IMG CT ORDERABLES Head CT w/o contrast (04/24/2021 7:20 PM CDT) Anatomical Region Laterality Modality Head, SUBRAD CT NEURO, SUBRAD CT NEURO, P CT NEURO, Computed Tomography RAD CT Specimen (Source) Anatomical Location Collection Method / Collectio n Time Received Time / Laterality Volume Impressions 04/24/2021 8:10 PM CDT IMPRESSION: 1. Increased density/thickening associat ed with the anterior falcine region worrisome for small acute subdura l hemorrhage. 2. No mass effect. 3. Nothing for additional hemorrhage or parenchymal contusion/infarction. 4. Additional details above. No fracture s. 5. Discussed with Dr. Davidson at 7:25 on . QUINN LOWE MD SYSTEM ID: ??[id number] Narrative 04/24/2021 8:[address] SCAN OF THE HEAD WITHOUT CONTRAST ?? 04/24/2021 7:20 PM HISTORY: Head trauma, minor (Age >= 65y) . TECHNIQUE: ??Axial images of the head an d coronal reformations without IV contrast material. Radiation dose for this scan was reduced using automated exposure control, adjustment o f the mA and/or kV according to patient size, or iterative reconstruc tion technique. COMPARISON: MR brain 11/27/2007 FINDINGS: Intracranial contents: There is hyperden se thickening and/or subdural hemorrhage at the anterior falcine regio n just to the right of midline. The falx is thicker than on pre vious MR 11/27/2007 and in this patient with history of trauma likely re presents subdural hemorrhage. Maximal dimension is about 2.5 mm. No ma ss effect or midline shift. No additional hyperdense hemorrhage is note d intracranially. No evidence for acute infarction. No midline shift. Satisfactory ventricular caliber. Minimal chronic ischemic change periventricular deep white matter of both cerebral hemispheres is e vident. Position of cerebellar tonsils is satisfactory. Sella shows no acute abnormality. Visualized orbits/sinuses/mastoids: ??Mi ld membrane thickening/fluid dependently in the sphenoid sinus. Remai nder of paranasal sinuses and mastoid air cells are clear. Osseous structures/soft tissues: ??No ev idence for acute fracture of the calvarium or skull base. No signific ant swelling of the facial tissues or scalp is evident. Procedure Note Quinn Lowe MD - 04/24/2021For matting of this note might be different from the original. CT SCAN OF THE HEAD WITHOUT CONTRAST 04/04 7:20 PM HISTORY: Head trauma, minor (Age >= 65y) . TECHNIQUE: Axial images of the head and coronal reformations without IV contrast material. Radiation dose for this scan was reduced using automated exposure control, adjustment o f the mA and/or kV according to patient size, or iterative reconstruc tion technique. COMPARISON: MR brain 11/27/2007 FINDINGS: Intracranial contents: There is hyperden se thickening and/or subdural hemorrhage at the anterior falcine regio n just to the right of midline. The falx is thicker than on pre vious MR 11/27/2007 and in this patient with history of trauma likely re presents subdural hemorrhage. Maximal dimension is about 2.5 mm. No ma ss effect or midline shift. No additional hyperdense hemorrhage is note d intracranially. No evidence for acute infarction. No midline shift. Satisfactory ventricular caliber. Minimal chronic ischemic change periventricular deep white matter of both cerebral hemispheres is e vident. Position of cerebellar tonsils is satisfactory. Sella shows no acute abnormality. Visualized orbits/sinuses/mastoids: Mild membrane thickening/fluid dependently in the sphenoid sinus. Remai nder of paranasal sinuses and mastoid air cells are clear. Osseous structures/soft tissues: No evid ence for acute fracture of the calvarium or skull base. No signific ant swelling of the facial tissues or scalp is evident. IMPRESSION: 1. Increased density/thickening associat ed with the anterior falcine region worrisome for small acute subdura l hemorrhage. 2. No mass effect. 3. Nothing for additional hemorrhage or parenchymal contusion/infarction. 4. Additional details above. No fracture s. 5. Discussed with Dr. Davidson at 7:25 on . QUINN LOWE MD SYSTEM ID: [id number] Cleve Davidson MD IMG CT ORDERABLES documented in this encounter Visit Diagnoses Diagnosis SDH (subdural hematoma) - Primary Subdural hemorrhage SDH (subdural hematoma) Subdural hemorrhage Left shoulder strain, initial encounter Fall, initial encounter Abrasion, knee, right, initial encounter Fall, initial encounter Hypertension Unspecified essential hypertension Hyperlipidemia Other and unspecified hyperlipidemia Thyroid disease Unspecified disorder of thyroid documented in this encounter Admitting Diagnoses Diagnosis Abrasion, knee, right, initial encounter documented in this encounter Administered Medications Inactive Administered Medications - up to 3 most recent administrations Medication Order MAR Action Action Date Dose Rate Site acetaminophen (TYLENOL) 325 MG tablet Starting on Sun04/25/21 at 0516, For 1 d oseBang, Tia: cabinet override Maximum acetaminophen dose from all sources = 75 mg/kg/day not to exceed 4 grams/day. acetaminophen (TYLENOL) tablet 1,000 mg Given 04/24/2021 8:48 PM CDT 1,000 mg 1,000 mg, Oral, ONCE, On Sun04/24/21 at 2050, For 1 dose, Maximum acetaminophen dose from all sources = 75 mg/kg/day not to exceed 4 gram acetaminophen (TYLENOL) tablet 650 mg Given 04/25/2021 5:19 AM CDT 650 mg 650 mg, Oral, ONCE, On Sun04/25/21 at 0520, For 1 dose, Maximum acetaminophen dose from all sources = 75 mg/kg/day not to exceed 4 grams/day. acetaminophen (TYLENOL) tablet 650 mg 650 mg, Oral, EVERY 6 HOURS PRN, mild pain, Starting o n Sun04/25/21 at 1555, Maximum acetaminophen dose from all sources = 75 mg/kg /day not to exceed 4 grams/day. atorvastatin (LIPITOR) tablet 40 mg Given 04/25/2021 9:11 PM CDT 40 mg 40 mg, Oral, AT BEDTIME, First dose on Sun04/25/21 at 2200 diphenhydrAMINE (BENADRYL) 50 MG/ML inje ction Starting on Sun04/25/21 at 0415, For 1 dose, Karla Cuenca: cabinet override For ordered IV doses 1-50 mg, give IV Push u ndiluted. Give each 25mg over a minimum of 1 minute. Extend in non-emergency diphenhydrAMINE (BENADRYL) injection 12. 5 mg Given 04/25/2021 4:23 AM CDT 12.5 mg 12.5 mg, Intravenous, ONCE, On Sun04/25/21 at 0420, For 1 dose, For ordered IV doses 1-50 mg, give IV Push undiluted. Give each 25mg over a minimum of 1 minute. Extend in non-emergency hydrALAZINE (APRESOLINE) injection 10 mg 10 mg, Intravenous, EVERY 4 HOURS PRN, high blood pres sure, Administer over 1 Minutes, Starting on Sun04/24/21 at 2258 , If sBP is above 150 For ordered IV doses 1-40 mg, give IV Push undiluted over 1 minute. HYDROcodone-acetaminophen (NORCO) 5-325 MG Given 04/25 5:19 AM CDT 1 tablet per tablet 1 tablet 1 tablet, Oral, ONCE, On Sun04/25/21 at 0415, For 1 dose, Maximum acetaminophen dose from all sources= 75 mg/kg/day not to exceed 4 grams levothyroxine (SYNTHROID/LEVOTHROID) tablet Given 04/26/2021 8:37 AM CDT 75 mcg 75 mcg 75 mcg, Oral, Daily before breakfast, First dose (after last reorder) on Sun04/25/21 at 0930, Separate oral administration of iron- or calcium-containing products and levothyroxine by at least 4 hours. Given 04/25/2021 10:11 AM CDT 75 mcg lisinopril (ZESTRIL) tablet 20 mg Given 04/25/2021 9:11 PM CDT 20 mg 20 mg, Oral, AT BEDTIME, First dose on 8/23/21 at 2200 metoclopramide (REGLAN) injection 5 mg Given 04/25/2021 4:23 AM CDT 5 mg 5 mg, Intravenous, Administer over 2 Minutes, ONCE, On Sun04/25/21 at 0415, For 1 dose, Avoid use if patient has full bowel obstruction or perforation. Irritant. For ordered IV doses 1-10 mg, give IV Push undiluted over 2 minutes. naloxone (NARCAN) injection 0.2 mg 0.2 mg, Intravenous, EVERY 2 MIN PRN, op ioid reversal, Starting on Sun04/25/21 at 1600, Administer intravenous route when available and notify [...] not improved after 4 nalox one doses. For ordered IV doses 0.1-2mg give IVP. Give each 0.4mg over 15 seconds in emergency situations. For non-emergent situations further dilu te in 9mL of NS to facilitate titration of response. naloxone (NARCAN) injection 0.2 mg 0.2 mg, Intramuscular, EVERY 2 MIN PRN, opioid reversal, Starting on Sun04/25/21 at 1600, Administer intramuscular if an int ravenous route is not available and notify provider when administered. For unintend ed sedation or respiratory depression if all of the below criteria are met: ~ respiratory rate LESS than or EQUAL to 8. ~SaO2 less than 92% and or/end-tidal CO2 is greater th an 50. ~ the patient is receiving an [...] have not improved after 4 naloxone doses. For ordered IV doses 0.1-2mg give IVP. Give each 0.4mg over 15 seconds in emergency situations. For non -emergent situations further dilute in 9mL of NS to facilitate titration of response. naloxone (NARCAN) injection 0.4 mg 0.4 mg, Intravenous, EVERY 2 MIN PRN, op ioid reversal, Starting on Sun04/25/21 at 1600, Administer intravenous route when available and notify [...] not improved after 4 nalox one doses. For ordered IV doses 0.1-2mg give IVP. Give each 0.4mg over 15 seconds in emergency situations. For non-emergent situations further dilu te in 9mL of NS to facilitate titration of response. naloxone (NARCAN) injection 0.4 mg 0.4 mg, Intramuscular, EVERY 2 MIN PRN, opioid reversal, Starting on Sun04/25/21 at 1600, Administer intramuscular if an int ravenous route is not available and notify provider when administered. For unintend ed sedation or respiratory depression if all of the below criteria are met: ~ res piratory rate LESS than or EQUAL to 8. ~ SaO2 less than 92% and or/end-tidal CO2 is greater blaise n 50. ~ the patient is receiving an opioid, has unintended sedation assessed as RASS (-4) or (-5) and patient is currently not on mechanical ventilation. RA SS scale (-4) is deep sedation with no [...] have not improved after 4 naloxone doses. For ordered IV doses 0.1-2mg give IVP. Give each 0.4mg over 15 seconds in emergency situations. For non -emergent situations further dilute in 9mL of NS to facilitate titration of response. oxyCODONE IR (ROXICODONE) half-tab 2.5-5 mg 2.5-5 mg, Oral, EVERY 4 HOURS PRN, moder ate to severe pain, Starting on Sun04/25/21 at 1555 senna-docusate (SENOKOT-S/PERICOLACE) 8. 6-50 MG per tablet 1 tablet 1 tablet, Oral, 2 TIMES DAILY PRN, const ipation, Starting on Sun04/25/21 at 1426, If no bowel movement in 24 hours, increa se to 2 tablets by mouth. Hold for loose stools. senna-docusate (SENOKOT-S/PERICOLACE) 8. 6-50 MG per tablet 2 tablet 2 tablet, Oral, 2 TIMES DAILY PRN, const ipation, Starting on Sun04/25/21 at 1426, Hold for loose stools. sodium chloride (PF) 0.9% PF flush 3 mL Given 04/26/2021 6:59 AM CDT 3 mLs 3 mL, Intracatheter, EVERY 8 HOURS, First dose on Sun04/25/21 at 1430, to lock peripheral IV dormant line Given 04/25/2021 9:11 PM CDT 3 mLs Given 04/25/2021 5:02 PM CDT 3 mLs documented in this encounter Active and Recently Administered Medications Times are shown in CDT. Scheduled Medication Order 04/24/2021 04/25/2021 04/26/2021 acetaminophen (TYLENOL) tablet 1,000 mg (COMPLETED) 20 48 (Given - Provider: Lucila Gilbert RN) 1,000 mg, Oral, ONCE, On Sun04/24/21 at 2050, For 1 dose, Maximum acetaminophen dose from all sources = 75 mg/kg/day not to exceed 4 gram acetaminophen (TYLENOL) tablet 650 mg (COMPLETED) 518 (Given - Provider: Karla Cuenca RN) 650 mg, Oral, ONCE, On Sun04/25/21 at 05 20, For 1 dose, Maximum acetaminophen dose from all sources = 75 mg/kg/day not to exceed 4 grams/day. atorvastatin (LIPITOR) tablet 40 mg 2110 (Given - Provider: Edwar Rosales RN) 40 mg, Oral, AT BEDTIME, First dose on Sun04/25/21 at 2200 diphenhydrAMINE (BENADRYL) injection 12.5 mg (COMPLETED) 422 (Given - Provider: Karla Cuenca RN) 12.5 mg, Intravenous, ONCE, On Sun at 0420, For 1 dose, For ordered IV doses 1-50 mg, give IV Push undiluted. Give each 25mg over a minimum of 1 minute. Extend in non-emergency HYDROcodone-acetaminophen (NORCO) 5-325 MG per tablet 1 tabl et (COMPLETED) 518 (Given - Provider: Karla Cuenca RN) 1 tablet, Oral, ONCE, On Sun04/25/21 at 0415, For 1 dose, Maximum acetaminophen dose from all sources= 75 mg/kg/day not to exceed 4 grams levothyroxine (SYNTHROID/LEVOTHROID) tablet 75 mcg 101 (Given - Provider: Dorene Magana, SONY) 0837 (Given - Provider: Melissa Martinez , RN) 75 mcg, Oral, Daily before breakfast, Fi rst dose (after last reorder) on Sun04/25/21 at 0930, Separate oral administration of iron- or calcium-containing products and levothyroxine by at least 4 hours. lisinopril (ZESTRIL) tablet 20 mg 2110 (Given - Provider: Edwar Rosales RN) 20 mg, Oral, AT BEDTIME, First dose on Sun04/25/21 at 2200 metoclopramide (REGLAN) injection 5 mg (COMPLETED) 0423 (Given - Provider: Karla Cuenca RN) 5 mg, Intravenous, Administer over 2 Min utes, ONCE, On Sun04/25/21 at 0415, For 1 dose, Avoid use if patient has full bowel obstruction or perforation. Irritant. For ordered IV doses 1-10 mg, give IV Push undiluted over 2 minutes. sodium chloride (PF) 0.9% PF flush 3 mL 1702 (Given - Provider: Albin Gaspar RN)2111 (Given - Provider: Edwar Rosales RN)2234 (Not Given - Provider: Edwar Rosales RN - Reason: Other - Comment: pt recieved before the one hour window.) 0659 (Given - Provider: Rylee Nagel) 3 mL, Intracatheter, EVERY 8 HOURS, Firs t dose on Sun04/25/21 at 1430, to lock peripheral IV dormant line PRN Medication Order 04/24/2021 04/25/2021 04/26/2021 acetaminophen (TYLENOL) tablet 650 mg 650 mg, Oral, EVERY 6 HOURS PRN, mild pa in, Starting on Sun04/25/21 at 1555, Maximum acetaminophen dose from all sources = 75 mg/kg/day not to exceed 4 grams/day. hydrALAZINE (APRESOLINE) injection 10 mg 10 mg, Intravenous, EVERY 4 HOURS PRN, h igh blood pressure, Administer over 1 Minutes, Starting on Sun04/24/21 at 2258, If sBP is above 150 For ordered IV doses 1-40 mg, give IV Push undiluted over 1 minute. lidocaine (LMX4) cream Topical, EVERY 1 HOUR PRN, pain, with VA D insertion, Starting on Sun04/25/21 at 1426, Apply at least 30 minutes prior to VAD insertion in divided doses as needed for size of site for insertion. MAX Dose : 2.5 g (?? of 5 g tube) Do NOT give if patient has a history of allergy to any local anesthetic or any carolina product. Do NOT use both lidocaine intradermal/subcutaneous injection and the lidocaine cream on the same site. lidocaine 1 % 0.1-1 mL 0.1-1 mL, Other, EVERY 1 HOUR PRN, mild pain with VAD insertion, Starting on Sun04/25/21 at 1426, MAX dose 1 mL subcutaneous OR intradermal along the side of the vein in divided doses as needed for VAD insertion. Do NOT give if patient has a history of allergy to any local anesthetic or any carolina product. Do NOT use both lidocaine intradermal/subcutaneous injection and the lidocaine cream on the same site. melatonin tablet 1 mg 1 mg, Oral, AT BEDTIME PRN, sleep, Start ing on Sun04/25/21 at 1426, Do not give unless at least 6 hours of uninterrupted sleep is expected. naloxone (NARCAN) injection 0.2 mg(Linked Group 1) 0.2 mg, Intravenous, EVERY 2 MIN PRN, op ioid reversal, Starting on Sun04/25/21 at 1600, Administer intravenous route when available and notify provider when administered. For unintended sedation or resp iratory depression if all of the below c riteria are met: ~ respiratory rate LESS than or EQUAL to 8. ~SaO2 less than 92% and or/end-tidal CO2 is greater than 50. ~ the patient is receiving an opioid, garcia s unintended sedations assessed as RASS (-3), and [...] 2, then every 30 minutes x 2, the n every 1 hour x 1 after each naloxone d ose. Consider transfer to ICU if patient respiratory parameters have not improved after 4 naloxone doses. For ordered IV doses 0.1-2mg give IVP. Give each 0.4mg o ramez 15 seconds in emergency situations. For non-emergent situations further dilute in 9mL of NS to facilitate titration of response. naloxone (NARCAN) injection 0.2 mg(Linked Group 1) 0.2 mg, Intramuscular, EVERY 2 MIN PRN, opioid reversal, Starting on Sun04/25/21 at 1600, Administer intramuscular if an intravenous route is not available and notify provider when administered. For uni ntended sedation or respiratory depressi on if all of the below criteria are met: ~ respiratory rate LESS than or EQUAL to 8. ~SaO2 less than 92% and or/end- tidal CO2 is greater than 50. ~ the patient is receiving an opioid, has unintended sed ations assessed as RASS (-3), and is currently not on mechanical ventilation. RASS scale moderate (-3) is movement or eye opening to voice but no eye contact. Pat ient Monitoring Once the patient has dem onstrated a response to the naloxone, continue to monitor respiratory rate, depth, oxygen saturation and end-tidal CO2 (if available) every 15 minutes x 2, then e very 30 minutes x 2, then every 1 hour x 1 after each naloxone dose. Consider transfer to ICU if patient respiratory parameters have not improved after 4 naloxone doses. For ordered IV doses 0.1-2mg giv e IVP. Give each 0.4mg over 15 seconds i n emergency situations. For non-emergent situations further dilute in 9mL of NS to facilitate titration of response. naloxone (NARCAN) injection 0.4 mg(Linked Group 1) 0.4 mg, Intravenous, EVERY 2 MIN PRN, op ioid reversal, Starting on Sun04/25/21 at 1600, Administer intravenous route when available and notify provider when administered. For unintended sedation or resp iratory depression if all of the below c riteria are met: ~ respiratory rate LESS than or EQUAL to 8. ~ SaO2 less than 92% and or/end-tidal CO2 is greater than 50. ~ the patient is receiving an opioid, h as unintended sedation assessed as RASS (-4) or (-5) and patient is currently not on mechanical ventilation. RASS scale (-4) is deep sedation with no response to voice but movement or eye opening to phy sical stimulation. RASS scale (-5) is un arousable. Patient Monitoring Once the patient has demonstrated a response to the naloxone, continue to monitor respiratory rate, depth, oxygen saturation and end -tidal CO2 (if available) every 15 minut es x 2, then every 30 minutes x 2, then every 1 hour x 1 after each naloxone dose. Consider transfer to ICU if patient respiratory parameters have not improved af ter 4 naloxone doses. For ordered IV dos es 0.1-2mg give IVP. Give each 0.4mg over 15 seconds in emergency situations. For non-emergent situations further dilute in 9mL of NS to facilitate titration of response. naloxone (NARCAN) injection 0.4 mg(Linked Group 1) 0.4 mg, Intramuscular, EVERY 2 MIN PRN, opioid reversal, Starting on Sun04/25/21 at 1600, Administer intramuscular if an intravenous route is not available and notify provider when administered. For uni ntended sedation or respiratory depressi on if all of the below criteria are met: ~ respiratory rate LESS than or EQUAL to 8. ~ SaO2 less than 92% and or/end- tidal CO2 is greater than 50. ~ the patient i s receiving an opioid, has unintended se dation assessed as RASS (-4) or (-5) and patient is currently not on mechanical ventilation. RASS scale (-4) is deep sedation with no response to voice but moveme nt or eye opening to physical stimulatio n. RASS scale (-5) is unarousable. Patient Monitoring Once the patient has demonstrated a response to the naloxone, continue to monitor respiratory rate, depth, o xygen saturation and end-tidal CO2 (if a vailable) every 15 minutes x 2, then every 30 minutes x 2, then every 1 hour x 1 after each naloxone dose. Consider transfer to ICU if patient respiratory paramet ers have not improved after 4 naloxone d oses. For ordered IV doses 0.1-2mg give IVP. Give each 0.4mg over 15 seconds in emergency situations. For non-emergent situations further dilute in 9mL of NS to facilitate titration of response. oxyCODONE IR (ROXICODONE) half-tab 2.5-5 mg 2.5-5 mg, Oral, EVERY 4 HOURS PRN, moder ate to severe pain, Starting on Sun04/25/21 at 1555 senna-docusate (SENOKOT-S/PERICOLACE) 8. 6-50 MG per tablet 1 tablet(Linked Group 2) 1 tablet, Oral, 2 TIMES DAILY PRN, const ipation, Starting on Sun04/25/21 at 1426, If no bowel movement in 24 hours, increase to 2 tablets by mouth. Hold for loose stools. senna-docusate (SENOKOT-S/PERICOLACE) 8. 6-50 MG per tablet 2 tablet(Linked Group 2) 2 tablet, Oral, 2 TIMES DAILY PRN, const ipation, Starting on Sun04/25/21 at 1426, Hold for loose stools. sodium chloride (PF) 0.9% PF flush 3 mL 3 mL, Intracatheter, EVERY 1 MIN PRN, li ne flush, other, to ensure patency or to lock dormant line, Starting on Sun04/25/21 at 1426 Linked Groups Order Group 1: naloxone (NARCAN) injection 0.2 mgJump to med 0.2 mg, Intravenous, EVERY 2 MIN PRN, op ioid reversal, Starting on Sun04/25/21 at 1600
Administer intravenous route when available and notify provider when administered. For unintended sedation or respiratory depression if a ll of the below criteria are met: ~ respiratory rate LESS than or EQUAL to 8. ~SaO2 less than 92% and or/end- tidal CO2 is greater than 50.& nbsp;~ the patient is receiving an opioi d, has unintended sedations assessed as RASS (-3), and is currently not on mechanical ventilation. RASS scale moderate (-3) is movement or eye opening to voice but no eye contact.&nbs p; Patient Monitoring Once the patient has demonstrated a response to the naloxone, continue to monitor respiratory rate, depth, oxygen satu ration and end-tidal CO2 (if available) every 15 minutes x 2, then every 30 minutes x 2, then every 1 hour x 1 after each naloxone dose. Consider transfer to ICU if patient respirator y parameters have not improved after 4 n aloxone doses. For ordered IV doses 0.1-2mg give IVP. Give each 0.4mg over 15 seconds in emergency situations. For non-emergent situations further dilute in 9mL of NS to facilitate titration of response.
Or naloxone (NARCAN) injection 0.4 mgJump to med 0.4 mg, Intravenous, EVERY 2 MIN PRN, op ioid reversal, Starting on Sun04/25/21 at 1600
Administer intravenous route when available and notify provider when administered. For unintended sedation or respiratory depression if a ll of the below criteria are met: ~ respiratory rate LESS than or EQUAL to 8. ~ SaO2 less than 92% and or/end- tidal CO2 is greater than 50.& nbsp;~ the patient is receiving an opioi d, has unintended sedation assessed as RASS (-4) or (-5) and patient is currently not on mechanical ventilation. RASS scale (-4) is deep sedati on with no response to voice but movemen t or eye opening to physical stimulation. RASS scale (-5) is unarousable. Patient Monitoring On ce the patient has demonstrated a respon se to the naloxone, continue to monitor respiratory rate, depth, oxygen saturation and end-tidal CO2 (if available) every 15 minutes x 2, then every 30 minutes x 2, then every 1 hour x 1 after each nalo xone dose. Consider transfer to ICU if patient respiratory parameters have not improved after 4 naloxone doses. For ordered IV doses 0 .1-2mg give IVP. Give each 0.4mg over 15 seconds in emergency situations. For non-emergent situations further dilute in 9mL of NS to facilitate titration of response.
Or naloxone (NARCAN) injection 0.2 mgJump to med 0.2 mg, Intramuscular, EVERY 2 MIN PRN, opioid reversal, Starting on Sun04/25/21 at 1600
Administer intramuscular if an intravenous route is not available and notify provider when administered. For unintended sedation or respira tory depression if all of the below criteria are met: ~ respiratory rate LESS than or EQUAL to 8. ~SaO2 less than 92% and or/end-tidal CO2 is greater than 50. ~ the patient i s receiving an opioid, has unintended sedations assessed as RASS (-3), and is currently not on mechanical ventilation. RASS scale moderate (-3) is movement or eye opening to voice but no eye contact. Patient Monitoring Once the patient has demonstrated a response to the naloxone, continue to monitor respiratory rate, depth, oxygen saturation and end-t idal CO2 (if available) every 15 minutes x 2, then every 30 minutes x 2, then every 1 hour x 1 after each naloxone dose. Consider transfer to [facility] if patient respiratory parameters hav e not improved after 4 naloxone doses. For ordered IV doses 0.1-2mg give IVP. Give each 0.4mg over 15 seconds in emergency situations. For non-emergent s ituations further dilute in 9mL of NS to facilitate titration of response.
Or naloxone (NARCAN) injection 0.4 mgJump to med 0.4 mg, Intramuscular, EVERY 2 MIN PRN, opioid reversal, Starting on Sun04/25/21 at 1600
Administer intramuscular if an intravenous route is not available and notify provider when administered. For unintended sedation or respira tory depression if all of the below criteria are met: ~ respiratory rate LESS than or EQUAL to 8. ~ SaO2 less than 92% and or/end-tidal CO2 is greater than 50. ~ the patient i s receiving an opioid, has unintended sedation assessed as RASS (-4) or (-5) and patient is currently not on mechanical ventilation. RASS s christine (-4) is deep sedation with no respo nse to voice but movement or eye opening to physical stimulation. RASS scale (-5) is unarousable. Patien t Monitoring Once the patient has d emonstrated a response to the naloxone, continue to monitor respiratory rate, depth, oxygen saturation and end-tidal CO2 (if available) every 15 minutes x 2, then every 30 minutes x 2, then every 1 hour x 1 after each naloxone dose. Consider transfer to ICU if patient respiratory parameters have not improved after 4 naloxone doses.&nbs p;For ordered IV doses 0.1-2mg give IVP. Give each 0.4mg over 15 seconds in emergency situations. For non-emergent situations further dilute in 9mL of NS to facilitate titration of response.
Group 2: senna-docusate (SENOKOT-S/PERICOLACE) 8.6-50 MG per tablet 1 tabletJump to med 1 tablet, Oral, 2 TIMES DAILY PRN, const ipation, Starting on Sun04/25/21 at 1426
If no bowel movement in 24 hours, increase to 2 tablets by mouth. Hold for loose stools.
Or senna-docusate (SENOKOT-S/PERICOLACE) 8.6-50 MG per tablet 2 tabletJump to med 2 tablet, Oral, 2 TIMES DAILY PRN, const ipation, Starting on 04/25/21 at 1426
Hold for loose stools.
documented in this encounter Care Teams Speech Lang Path Relationship Specialty Start Date End Date Melissa Parikh PCP - General Internal Medicine 04/24/21 [id number] [place] [id number] documented as of this encounter
[2022-08-06 01:01] LABS: Bacteria Urine Many; Squamous Epithelial Cell Urine Few (None-Few)
[2022-08-06 01:01] LABS: Magnesium* 2.1 mg/dL (1.5-2.6)
--- NOTE | 2022-08-06 01:55 | P.IMCN_ITS ---
Date of Consult Consult date: 08/06/22 Primary Care Provider: Melissa Parikh MD Consult Narrative Narrative: Ema Davison is a 77 year old female [facility] Medical History (Updated 08/06/22 @ 00:46 by Laci Rincon MD) Acquired hypothyroidism Anxiety Bilateral hearing loss Essential hypertension, benign Insomnia Prediabetes SDH (subdural hematoma) Urinary retention with incomplete bladder emptying Surgical History (Updated 08/05/22 @ 23:08 by Sophie Smith RN) H/O craniotomy H/O dilation and curettage H/O thyroidectomy History of appendectomy Social History Smoking Status: Unknown if ever smoked Meds Home Medications and Allergies Home Medications Medication Instructions Recorded Confirmed Type atorvastatin 40 mg tablet 40 mg PO QHS 08/05/22 08/05/22 History cholecalciferol (vitamin D3) 25 25 mcg PO DAILY 08/05/22 08/05/22 History mcg (1,000 unit) tablet levothyroxine 75 mcg tablet 75 mcg PO DAILY 08/05/22 08/05/22 History lisinopril 20 mg tablet 20 mg PO DAILY 08/05/22 08/05/22 History vicks nyquil severe cold and flu 15 ml PO Q4H PRN 08/05/22 08/05/22 History medicine, maximum strength honey Allergies Allergy/AdvReac Type Severity Reaction Status Date / Time No Known Drug Allergies Allergy Verified 08/05/22 22:54 Exam 2 Const: Vital Signs, click to edit/add: Vital Signs - 24 hr 08/05/22 22:50 08/05/22 23:06 08/05/22 23:30 Temperature 98.9 F Pulse Rate 71 73 Pulse Rate [Left P ulse Oximeter] 83 Respiratory Rate 20 Blood Pressure Blood Pressure [Ri ght Upper Arm] 112/66 Pulse Oximetry 88 92 91 Oxygen Delivery Me thod Room Air Nasal Cannula Nasal Cannula Oxygen Flow Rate 3 3 08/06/22 00:02 08/06/22 00:41 08/06/22 00:42 Temperature Pulse Rate 69 71 71 Pulse Rate [Left P ulse Oximeter] Respiratory Rate Blood Pressure 129/94 H Blood Pressure [Ri ght Upper Arm] Pulse Oximetry 92 94 95 Oxygen Delivery Me thod Nasal Cannula Oxygen Flow Rate 3 08/06/22 01:00 08/06/22 01:02 08/05/22 22:59 Temperature Pulse Rate 70 72 Pulse Rate [Left P ulse Oximeter] Respiratory Rate Blood Pressure 133/84 Blood Pressure [Ri ght Upper Arm] Pulse Oximetry 96 96 90 Oxygen Delivery Me thod Oxygen Flow Rate 08/06/22 01:03 Temperature Pulse Rate 65 Pulse Rate [Left P ulse Oximeter] Respiratory Rate Blood Pressure Blood Pressure [Ri ght Upper Arm] Pulse Oximetry 96 Oxygen Delivery Me thod Nasal Cannula Oxygen Flow Rate 3 Labs Labs: Short CBC 08/05/22 Range/Units 23:55 WBC 7.99 (4.50-11.00) K/uL Hgb 12.0 (12.0-16.0) gm/dL Hct 35.5 (33.0-51.0) % Plt Count 152 (140-440) K/uL BMP 08/05/22 23:55 Sodium 132 L Potassium 2.9 L* Chloride 101 Carbon Dioxide 25 BUN 19 Creatinine 0.8 Glucose 165 H Calcium 8.0 L Urine 08/06/22 Range/Units 00:40 Urine Color Yellow (Yellow) Urine Appearance Clear (Clear) Urine pH 5.5 (5.0-8.5) Ur Specific [place] 1.015 (1.000-1.030) Urine Protein 1+ A (Negative) Urine Glucose (UA) Negative (Negative) Assessment and Plan Assessment and plan (1) Influenza A: Status: Acute (2) Pneumonia: Status: Acute Plan [facility] Hospitalist CONSULTATION NOTE: Reason for consult: Pneumonia HPI: Patient is a pleasant 77-year-old female who presents to the ER for worsening shortness of breath and cough. She has had symptoms for over a week. She is felt generally ill with her shortness of breath and cough. Cough is productive at times. She is also had headache but no lightheadedness. She denies any chest pain with this. She does not have abdominal pain, nausea, or vomiting. She has had diarrhea. She has had fevers at home but denies chills. She has not had any dysuria. She was tested positive for influenza A. She had chest x-ray which showed right basilar opacity consistent with pneumonia. Patient is a non-smoker. She drinks alcohol on rare occasion. We discussed CODE STATUS and she wishes to be a full code. Exam (performed via interactive video with assistance of bedside nurse): General: Alert, cooperative, no acute distress HEENT: Pupils reported ERRL, oral mucosa pink and moist without erythema Lungs: Clear to auscultation bilaterally without crackle or wheeze CV: Regular rate and rhythm without loud murmur rub or gallop Abd: Bowel sounds present, denies tenderness and does not exhibit signs of pain with palpation done by bedside nurse Ext: No pitting edema noted Skin: No rashes, bruises or lesions appreciated on gross visualization of exposed skin Neuro: Alert, oriented x 3. CN III -VII, XI, XII grossly intact, moves all extremities without any significant focal deficit appreciated by nurse Assessment and Plan: 1. Pneumonia 2. Influenza A Patient is a pleasant 77-year-old female who is admitted for influenza A and what appears to be secondary bacterial pneumonia. She is outside the time window of usefulness of Tamiflu. We will treat suspected bacterial pneumonia with ceftriaxone and azithromycin which were started in the ER. Albuterol as needed has been placed. We will work to titrate her off oxygen as able. Chronic outpatient medications will need to be continued when fully verified. PRNs are placed for pain and nausea. Enoxaparin is entered for DVT prophylaxis. Patient is a full code. [facility] This service is available for further assistance as requested by your care team by calling [phone].
--- NOTE | 2022-08-06 07:07 | PC.NURSE ---
pt to floor at 0130. Pleasant and cooperative. A&O. Indep in room. Pt requiring 2L O2 to maintain sats > 88%. Occasional dry cough, encouraged IS use. Offered pt PRN neb, pt declined and stated she would like to get some rest. Pt had loose stools throughout the night, pt stated she has been having loose stools this last week.
[2022-08-06] MEDS: ACETAMINOPHEN 325 MG TABLET PO (09:50)
[2022-08-06] MEDS: ALBUTEROL SULFATE 2.5 MG/3 ML VIAL.NEB NEB ×3 (09:51→21:23)
[2022-08-06] MEDS: OSELTAMIVIR 30 MG CAPSULE PO ×2 (09:51→21:20)
[2022-08-06] MEDS: LEVOTHYROXINE 75 MCG TABLET PO (09:52)
--- NOTE | 2022-08-06 13:46 | ONC.NURNOTE ---
Alert and oriented. [facility]. up ad glynn to bathroom and chair. steady. lore late breakfast. takes lisinopril at night. pharmacy aware. vs wnl. except sats 89 ra at rest. and 95 1L at rest. ls inspiratory crackles throu out with no sob. heart reg. talked with daughter re pts condition.
--- NOTE | 2022-08-06 13:52 | PM.IMHP1 ---
Hospitalist- H&P: HPI History of Present Illness Date Seen: 08/06/22 Chief complaint: Fever, Shortness of Breath Narrative: Ema Davison is a 77 year old female with hypertension and hyperlipidemia and hypothyroidism admitted to the hospital with approximately one-week history of illness. She reports starting about a week ago she was profoundly fatigued. She developed some diarrhea. She subsequently had some cough, fever and chills. She has had a poor appetite is not been eating well. She has also had a headache. She lives alone in [facility]. Her daughter came to visit her and felt that she was too sick to be alone so asked her to come and stay with her in [place]. Because she seemed to be getting worse she was brought to the emergency department. Daughter reported to the emergency department that she had a temperature of 101? F and also an oxygen saturation of 86%. She has no previous history of heart disease or lung disease. He has had no significant smoking history. She does report that she has generally felt like she has had chronic dyspnea for a her whole life but never had a medical diagnosis for that. She does report that she can walk 1 or 2 miles at a normal pace without stopping to catch her breath Review of Systems Narrative: She reports that she has generally been well up until this time. She does report that she has chronic urinary tract infections. 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 It sounds like these are not symptomatic that she mostly just has episodes where she gets her urine checked and is found to have an asymptomatic infection. Her doctor generally does not treat these episodes of asymptomatic bacteriuria. She reports last year she fell and hit her head and had a subdural hematoma. She had craniotomy for this. At that time she had a good recovery she reports and went to live with her daughter for 3 months after that. [facility] Medical History Acquired hypothyroidism Anxiety Bilateral hearing loss Essential hypertension, benign Insomnia Prediabetes SDH (subdural hematoma) Urinary retention with incomplete bladder emptying Surgical History H/O craniotomy H/O dilation and curettage H/O thyroidectomy History of appendectomy Family History (Updated 08/06/22 @ 13:59 by Rohan Carlson MD) Father Diabetes Coronary artery disease Brother Diabetes Coronary artery disease Social History (Updated 08/06/22 @ 14:00 by Rohan Carlson MD) Narrative: Remote history of smoking some 40 years ago. No history of lung disease. She occasionally drinks alcohol on special occasions only. Her code status is full. Her daughter in [place], [place], would be healthcare power of personal injury attorney. She has another daughter and son in the [facility] area as well. Smoking Status: Former smoker What tobacco products do you use: cigarettes Smoking quit date/years: >15 years ago Do you use any of these nicotine containing products: None Second hand tobacco smoke exposure: No How often do you have a drink containing alcohol: monthly or less How often do you have six or more drinks on one occasion: Never AUDIT-C Alcohol total score: 1 Non-prescribed substance use: denies use Caffeine: No service: No Meds Home Medications and Allergies Home Medications Medication Instructions Recorded Confirmed Type atorvastatin 40 mg tablet 40 mg PO HS 08/05/22 08/06/22 History cholecalciferol (vitamin D3) 25 25 mcg PO DAILY 08/05/22 08/05/22 History mcg (1,000 unit) tablet levothyroxine 75 mcg tablet 75 mcg PO DAILY 08/05/22 08/05/22 History lisinopril 20 mg tablet 20 mg PO DAILY 08/05/22 08/05/22 History vicks nyquil severe cold and flu 15 ml PO Q4H PRN 08/05/22 08/05/22 History medicine, maximum strength honey Allergies Allergy/AdvReac Type Severity Reaction Status Date / Time No Known Drug Allergies Allergy Verified 08/05/22 22:54 Exam Narrative: Exam Narrative: She is alert and appears in no distress. Head is normal. Eyes normal. Oropharynx is normal. Neck is supple without mass or adenopathy. Respirations with bibasilar crackles in posterior lung bernard greater on the right than the left. Cardiovascular: S1, S2, regular rate and rhythm. No murmur gallop or rub. Abdomen is soft without tenderness or mass. Extremities without edema. Intact peripheral pulses. No rash. Const: Vital Signs, click to edit/add: Vital Signs - 24 hr 08/05/22 22:50 08/05/22 23:06 08/05/22 23:30 Temperature 98.9 F Pulse Rate 71 73 Pulse Rate [Left P ulse Oximeter] 83 Pulse Rate [Pulse Oximeter] Respiratory Rate 20 Blood Pressure Blood Pressure [Ri ght Arm] Blood Pressure [Ri ght Upper Arm] 112/66 Pulse Oximetry 88 92 91 Oxygen Delivery Me thod Room Air Nasal Cannula Nasal Cannula Oxygen Flow Rate 3 3 08/06/22 00:02 08/06/22 00:41 08/06/22 00:42 Temperature Pulse Rate 69 71 71 Pulse Rate [Left P ulse Oximeter] Pulse Rate [Pulse Oximeter] Respiratory Rate Blood Pressure 129/94 H Blood Pressure [Ri ght Arm] Blood Pressure [Ri ght Upper Arm] Pulse Oximetry 92 94 95 Oxygen Delivery Me thod Nasal Cannula Oxygen Flow Rate 3 08/06/22 01:00 08/06/22 01:02 08/05/22 22:59 Temperature Pulse Rate 70 72 Pulse Rate [Left P ulse Oximeter] Pulse Rate [Pulse Oximeter] Respiratory Rate Blood Pressure 133/84 Blood Pressure [Ri ght Arm] Blood Pressure [Ri ght Upper Arm] Pulse Oximetry 96 96 90 Oxygen Delivery Me thod Oxygen Flow Rate 08/06/22 01:03 08/06/22 02:06 08/06/22 02:19 Temperature 98.5 F Pulse Rate 65 Pulse Rate [Left P ulse Oximeter] Pulse Rate [Pulse Oximeter] 79 Respiratory Rate 18 18 Blood Pressure Blood Pressure [Ri ght Arm] 131/91 H Blood Pressure [Ri ght Upper Arm] Pulse Oximetry 96 94 94 Oxygen Delivery Me thod Nasal Cannula Nasal Cannula Nasal Cannula Oxygen Flow Rate 3 3 3 08/06/22 10:00 08/06/22 11:04 08/06/22 11:59 Temperature Pulse Rate Pulse Rate [Left P ulse Oximeter] Pulse Rate [Pulse Oximeter] Respiratory Rate 16 Blood Pressure Blood Pressure [Ri ght Arm] Blood Pressure [Ri ght Upper Arm] Pulse Oximetry 89 95 Oxygen Delivery Me thod Room Air Oxygen Flow Rate 1 08/06/22 09:00 08/06/22 13:00 Temperature 98.3 F 97.5 F L Pulse Rate Pulse Rate [Left P ulse Oximeter] Pulse Rate [Pulse Oximeter] 74 74 Respiratory Rate 16 16 Blood Pressure Blood Pressure [Ri ght Arm] 117/71 112/72 Blood Pressure [Ri ght Upper Arm] Pulse Oximetry 94 95 Oxygen Delivery Me thod Nasal Cannula Nasal Cannula Oxygen Flow Rate 1 1 Documenting provider has reviewed patient's vital signs: yes Hospitalist - H&P: Result Labs Labs: Short CBC 08/05/22 Range/Units 23:55 WBC 7.99 (4.50-11.00) K/uL Hgb 12.0 (12.0-16.0) gm/dL Hct 35.5 (33.0-51.0) % Plt Count 152 (140-440) K/uL BMP 08/05/22 23:55 Sodium 132 L Potassium 2.9 L* Chloride 101 Carbon Dioxide 25 BUN 19 Creatinine 0.8 Glucose 165 H Calcium 8.0 L Urine 08/06/22 Range/Units 00:40 Urine Color Yellow (Yellow) Urine Appearance Clear (Clear) Urine pH 5.5 (5.0-8.5) Ur Specific [place] 1.015 (1.000-1.030) Urine Protein 1+ A (Negative) Urine Glucose (UA) Negative (Negative) Assessment and Plan Assessment and plan (1) Pneumonia: Problem comment: Clinically and radiographically apparent pneumonia. Uncertain if this is primarily influenza alone or bacterial as well as influenza. Will treat for community-acquired pneumonia and influenza with Tamiflu. Status: Acute (2) Influenza A: Problem comment: Treat with Tamiflu Status: Acute (3) Hypoxia: Problem comment: Supplemental oxygen and monitoring respiratory status Status: Acute (4) Respiratory failure: Problem comment: Hypoxic respiratory failure due to pneumonia. Supplemental oxygen. Status: Acute Plan Admit to hospital for IV antibiotics, respiratory monitoring, supplemental oxygen. Total time spent today is 70 minutes, 40 minutes in coordination of care and discussing with patient and other providers management of pneumonia and hypoxic respiratory failure
[2022-08-06] MEDS: AZITHROMYCIN 250 MG TABLET PO (14:18)
[2022-08-06] MEDS: lisinopriL 20 MG TABLET PO (21:20)
[2022-08-06] MEDS: ENOXAPARIN 40 MG/0.4 ML INJ SUBCUT (21:21)
[2022-08-06] MEDS: ATORVASTATIN CALCIUM 40 MG TABLET PO (21:21)
[2022-08-06] MEDS: ACETAMINOPHEN 325 MG TABLET 975 MG PO (21:34)
[2022-08-07 03:00] VITALS: BP 125/71; PULSE 61; RESP 20; TEMP 36.6; O2SAT 91
[2022-08-07] MEDS: ALBUTEROL SULFATE 2.5 MG/3 ML VIAL.NEB NEB (03:18)
--- NOTE | 2022-08-07 06:39 | PC.NURSE ---
15-07: pleasant and cooperative. Audible wheezes/rhonchi, PRN nebs given and encouraged IS use along with deep breathing exercises. While pt awake O2 sats on RA mid 90s. O2 sats dropped to mid 80s while sleeping, 1L O2 placed and maintaining 92-95%. Dtr Kimberley called and was given report on pts status.
[2022-08-07 07:30] VITALS: BP 122/64; PULSE 69; RESP 20; TEMP 37.1; O2SAT 95
[2022-08-07 07:41] LABS: Basophils Absolute Auto 0.01 K/uL (0.00-0.30); Basophils Percent Auto 0.1 % (0.0-3.0); Eosinophils Absolute Auto 0.02 K/uL (0.00-0.50); Eosinophils Percent Auto 0.2 % (0.0-7.0); Hematocrit 34.1 % (33.0-51.0); Hemoglobin* 11.5 gm/dL (12.0-16.0); Immature Granulocytes Abs Auto 0.03 K/uL (0.00-0.30); Immature Granulocytes Pct Auto 0.3 %; Lymphocytes Percent Auto 16.5 % (20-44); Mean Corpuscular HGB Conc 34 gm/dL (32-36); Mean Corpuscular Hemoglobin 29 pg (26-34); Mean Corpuscular Volume 86 fL (80-100); Monocytes Percent Auto 6.3 % (0.0-11.0); Neutrophils Percent Auto 76.6 % (42.0-72.0); Platelet Count* 165 K/uL (140-440); RDW Coefficient of Variation % 13.1 % (11.5-15.5); Red Blood Count 3.97 m/uL (4.00-5.20); White Blood Count* 9.02 K/uL (4.50-11.00)
[2022-08-07 07:52] LABS: Slide Review Reflex No
[2022-08-07 07:57] LABS: Chloride* 104 mmol/L (96-114); Potassium* 3.3 mmol/L (3.6-5.1); Sodium* 138 mmol/L (135-149)
[2022-08-07 07:59] LABS: Creatinine* 0.6 mg/dL (0.5-1.5); Est. Creatinine Clearance* 38.35; Estimated Glomerular Filt Rate 92 ml/min
[2022-08-07 08:00] LABS: Blood Urea Nitrogen* 11 mg/dL (7-30); Carbon Dioxide* 30 mmol/L (20-32); Glucose* 111 mg/dL (60-115)
[2022-08-07 08:01] LABS: Calcium* 8.2 mg/dL (8.4-10.6)
[2022-08-07 08:19] LABS: C Reactive Protein* 16.9 mg/dL (0.5-1.0)
[2022-08-07] MEDS: LEVOTHYROXINE 75 MCG TABLET PO (08:25)
[2022-08-07] MEDS: OSELTAMIVIR 30 MG CAPSULE PO (09:32)
--- NOTE | 2022-08-07 12:57 | P.DS_ITS ---
DS: Providers Provider Date Seen: 08/07/22 Date of admission: 08/06/22 11:04 Primary care physician: Melissa Parikh MD Admitting Clinician: Laci Rincon MD Attending Physician on discharge: Rohan Carlson MD Date of Discharge: 08/07/22 DS: Diagnosis Discharge Diagnosis (1) Respiratory failure: Status: Acute Problem details: Hypoxic respiratory failure due to pneumonia. Requiring oxygen on admission. Now managing without oxygen, maintaining O2 sats in the 90s on room air (2) Pneumonia: Status: Acute Problem details: Clinically and radiographically apparent pneumonia. Uncertain if this is primarily influenza alone or bacterial as well as influenza. Will treat for community-acquired pneumonia and influenza with Tamiflu. (3) Influenza A: Status: Acute Problem details: Treat with Tamiflu (4) Hypoxia: Status: Acute Problem details: Resolved DS: Summary Hospital Course Hospital Course: 77-year-old female admitted to the hospital with 1 week respiratory illness with fatigue malaise myalgias cough dyspnea anorexia and diarrhea. On admission she was found to have a positive influenza a test and radiographic pneumonia. She was treated with Tamiflu and ceftriaxone and azithromycin. Clinically she improved overnight with improvement in her appetite, breathing, coughing, fatigue and malaise. She has been able to eat today. She had a loose stool today. Status at Discharge Functional status at discharge: independent ambulation Overall status at discharge: patient is progressing back to baseline Time Spent with Patient Time attestation: Total time spent providing and/or coordinating discharge services: Time spent: Greater than 30 minutes Exam Narrative: Exam Narrative: She is alert and appears in no distress. She gives her own history. Mood and affect are bright. Respirations are clear to auscultation. No wheezing rales rhonchi. Cardiovascular: S1, S2, regular rate and rhythm. No murmur gallop or rub. Abdomen is soft without tenderness or mass. Extremities without edema. Good perfusion. Const: Vital Signs, click to edit/add: Vital Signs - 24 hr 08/06/22 13:00 08/06/22 15:00 08/06/22 15:00 Temperature 97.5 F L Pulse Rate [Pulse Oximeter] 74 70 Respiratory Rate 16 18 18 Blood Pressure [Le ft Arm] Blood Pressure [Ri ght Arm] 112/72 Pulse Oximetry 95 98 Oxygen Delivery Me thod Nasal Cannula Nasal Cannula Oxygen Flow Rate 1 1 08/06/22 15:00 08/06/22 18:47 08/06/22 23:00 Temperature 97.7 F Pulse Rate [Pulse Oximeter] 70 73 78 Respiratory Rate 18 18 18 Blood Pressure [Le ft Arm] 120/67 Blood Pressure [Ri ght Arm] 126/79 Pulse Oximetry 98 95 Oxygen Delivery Me thod Nasal Cannula Room Air Oxygen Flow Rate 1 08/06/22 23:00 08/06/22 23:00 08/07/22 03:00 Temperature 98.5 F 97.8 F Pulse Rate [Pulse Oximeter] 78 61 Respiratory Rate 18 18 20 Blood Pressure [Le ft Arm] 121/56 L Blood Pressure [Ri ght Arm] 125/71 Pulse Oximetry 93 93 91 Oxygen Delivery Me thod Room Air Nasal Cannula Nasal Cannula Oxygen Flow Rate 1 1 1 08/07/22 07:30 08/07/22 07:30 Temperature 98.8 F Pulse Rate [Pulse Oximeter] 69 Respiratory Rate 20 20 Blood Pressure [Le ft Arm] 122/64 Blood Pressure [Ri ght Arm] Pulse Oximetry 95 95 Oxygen Delivery Me thod Room Air Room Air Oxygen Flow Rate Documenting provider has reviewed patient's vital signs: yes DS: Data Data Completed and Pending Labs on day of discharge: Labs from last 24 hours 08/07/22 08/07/22 07:15 07:15 WBC 9.02 RBC 3.97 L Hgb 11.5 L Hct 34.1 MCV 86 MCH 29 MCHC 34 RDW Coeff of Jovon 13.1 Plt Count 165 Neut % (Auto) 76.6 H Lymph % (Auto) 16.5 L Harlan % (Auto) 6.3 Eos % (Auto) 0.2 Baso % (Auto) 0.1 Neut # (Auto) 6.90 Lymph # (Auto) 1.50 Harlan # (Auto) 0.60 Eos # (Auto) 0.02 Baso # (Auto) 0.01 Abs Immat Gran (auto) 0.03 Imm/Tot Granulo (auto) 0.3 Sodium 138 Potassium 3.3 L Chloride 104 Carbon Dioxide 30 BUN 11 Creatinine 0.6 Estimated Creat Clear 38.35 Estimated GFR 92 Glucose 111 Calcium 8.2 L C-Reactive Protein 16.9 H Preliminary micro results at discharge 08/05/22 23:40 Blood Culture - Preliminary Blood NO GROWTH AFTER 24 HOURS 12/03/22 23:55 Blood Culture - Preliminary Blood NO GROWTH AFTER 24 HOURS 08/06/22 00:40 Urine Culture - Preliminary Urine,Clean Catch Discharge Plan Discharge Disposition: Home, Self-Care Date of Admission: 08/06/22 11:04 Attending Provider on Discharge: Rohan Carlson Primary Care Provider: Melissa Parikh Condition: Improved Anticipated Discharge Date/Time: 08/07/22 13:01 Discharge Medications: New azithromycin 250 mg Tablet 500 mg PO ONCE Qty: 2 0RF Taper: Z-CHAO 500 mg Q24H for 1 Day and 0 Hour 250 mg Q24H for 4 Days and 0 Hour Rx Instructions: azithromicin 500 mg tomorrow, one dose oseltamivir [Tamiflu] 30 mg Capsule 30 mg PO BID Qty: 8 0RF Continued levothyroxine 75 mcg tablet 75 mcg PO DAILY lisinopril 20 mg tablet 20 mg PO DAILY atorvastatin 40 mg tablet 40 mg PO HS cholecalciferol (vitamin D3) 25 mcg (1,000 unit) tablet 25 mcg PO DAILY vicks nyquil severe cold and flu medicine, maximum strength honey 15 ml PO Q4H PRN Discharge Orders: Discharge Order (Routine); Ordered 08/07/22 Ordered By: Rohan Carlson Additional Instructions: See your doctor in 1 week. You should have a recheck of your potassium in about a week. I think your potassium was low because you were not eating well and you had diarrhea. Your potassium should be normal if you are feeling better and eating better. Follow Up Appointments: Melissa Parikh MD [Primary Care Provider] - Forms: [employer] Info Instructions
[2022-08-07] MEDS: cefTRIAXone 1 GM in 0.9 % SODIUM CHLORIDE Mini-bag 100 ML IVPB (13:15)
[2022-08-07] MEDS: AZITHROMYCIN 250 MG TABLET PO (13:15)
[2022-08-07] MEDS: POTASSIUM CHLORIDE 10 MEQ CAPSULE ER PO (13:26)
[2022-08-07 14:10] VITALS: BP 133/84; PULSE 65; RESP 20; TEMP 37.1
--- NOTE | 2022-08-07 15:43 | PC.NURSE ---
shift note: #24 Rt AC infiltrated. New IV started in lt hand. IV to lt hand dc'd intact prior to dc. LS insp wheezing on upper lt posterior. Pt denies c.p or sob. Pt ambulated in sanchez >400ft on RA with cont sats 94-96%. HR remained 83/min with activity. Pt able to hold conversation w/o s/s of sob. Reviewed dc instructions and copies sent with pt at dc. Belongings checked and sent with pt at dc. Pt received [address] Carlson.
--- NOTE | 2022-08-08 12:04 | PM.EN ---
Chart Event Note Date Seen: 08/08/22 Chart Event Note: Phone call: Patient had urine culture obtained on admission. This is now growing out ESBL Klebsiella. Sensitive to all tested antibiotics except ampicillin. Sensitive to quinolones and cephalosporins. Urinalysis had some pyuria as well. Patient is having no symptoms today. Had no symptoms on admission. She does have a longstanding history of your recurrent asymptomatic UTIs. Generally these are not treated. 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 Today she reports generally doing well she is not having urinary symptoms. She is not having any fever or abdominal pain. She thinks her influenza is modestly better. After discussion with the patient the decision is made that we will not treat her Klebsiella infection with antibiotics. If she develops a fever or is becoming more ill would recommend treatment with cephalexin.
== END 2022-08-07 15:00 | disposition home or self-care (01) | DRG 193 ==
LOC: ED 08-06 00:50 → MEDSURG 08-06 01:09
PROVIDERS: Admitting Provider Family Medicine; Emergency Provider Family Medicine; PCP Internal Medicine; Visit Provider Family Medicine
DX: J10.00 Influenza due to other identified influenza virus with unspecified type of pneumonia (principal); J96.01 Acute respiratory failure with hypoxia; N39.0 Urinary tract infection, site not specified; E86.0 Dehydration; F41.9 Anxiety disorder, unspecified; I10 Essential (primary) hypertension; E87.6 Hypokalemia; Z87.440 Personal history of urinary (tract) infections; B96.1 Klebsiella pneumoniae [K. pneumoniae] as the cause of diseases classified elsewhere; N81.10 Cystocele, unspecified; Z87.891 Personal history of nicotine dependence; R73.03 Prediabetes; H91.93 Unspecified hearing loss, bilateral; E03.9 Hypothyroidism, unspecified; R33.9 Retention of urine, unspecified
CPT/HCPCS: 36415; 71045; 80048; 81001; 83735; 83880; 85025; 86140; 87040; 87086; 87186; 87502; 87634; 87635; 93005; 94640; 94761; 99284; 99285; A9270; J0696; J1650; J7030